=== PATIENT | male | born 1975 | race African-American/Black ===

== ENCOUNTER 2019-12-11 07:38 | Day surgery (SDC) | payer MEDICARE, MEDICAID, SELFPAY ==
--- NOTE | 2019-12-11 | US_ITS ---
EXAMINATION: ULTRASOUND-GUIDED PARACENTESIS CLINICAL INFORMATION: Ascites COMPARISON: Previous exams most recent November 2019 TECHNIQUE: Procedure and risks and benefits including bleeding, infection and low blood pressure were discussed with the patient and informed consent was obtained. The left lower quadrant was prepped and draped in the usual sterile fashion. The skin and soft tissues were anesthetized with 1% lidocaine plain. Using ultrasound guidance and a 5 [place] rapid centesis catheter, access to the ascitic fluid was obtained. 3.6 L of clear yellow fluid was removed. No diagnostic specimen was sent. FINDINGS: There is a moderate amount of ascites. IMPRESSION: Ultrasound-guided paracentesis.
[2019-12-11 08:01] VITALS: BP 187/116; PULSE 75; RESP 18; TEMP 36.2; O2SAT 97; BMI 21.4
[2019-12-11] MEDS: Lidocaine HCl 1 % 20 ML VIAL 5 ML SUBCUT (08:57)
[2019-12-11 10:15] VITALS: BP 189/112; PULSE 83; RESP 20; TEMP 36.4; O2SAT 94
[2019-12-11 10:45] VITALS: BP 119/119; PULSE 81; RESP 20; O2SAT 96
[2019-12-11 11:15] VITALS: BP 202/110; PULSE 84; RESP 20; O2SAT 97
[2019-12-11 11:20] VITALS: BP 187/110
== END 2019-12-11 23:59 ==
PROVIDERS: Radiology Diagnostic Radiology; PCP Internal Medicine; Visit Provider Internal Medicine
DX: R18.8 Other ascites (principal); I13.2 Hypertensive heart and chronic kidney disease with heart failure and with stage 5 chronic kidney disease, or end stage renal disease; N18.6 End stage renal disease; I50.30 Unspecified diastolic (congestive) heart failure; Z99.2 Dependence on renal dialysis; Z79.899 Other long term (current) drug therapy
CPT/HCPCS: 49083

== ENCOUNTER 2020-01-05 18:07 | Inpatient (IN) | payer MEDICARE, MEDICAID, SELFPAY ==
[2020-01-05] VITALS (11 sets, daily range): BP systolic 197–224; BP diastolic 105–144; PULSE 92–119; RESP 18–27; TEMP 36.7–36.8; O2SAT 88–100; BMI 19.0
--- NOTE | 2020-01-05 19:05 | ECG_ITS ---
Test Reason : SOB Blood Pressure : / mmHG Vent. Rate : 102 BPM Atrial Rate : 102 BPM P-R Int : 148 ms QRS Dur : 090 ms QT Int : 376 ms P-R-T Axes : 058 027 174 degrees QTc Int : 490 ms Sinus tachycardia Left ventricular hypertrophy with repolarization abnormality T-wave inversion in Lateral leads Abnormal ECG When compared with ECG of 23-NOV-2019 08:43, No significant change was found Referred By: Art Ortiz Electronically Signed By:ERIN PEREZ MD
--- NOTE | 2020-01-05 19:05 | XR_ITS ---
EXAMINATION: XR CHEST CLINICAL INFORMATION: Shortness of breath COMPARISON: 11/23/2019 TECHNIQUE: Frontal view of the chest was obtained. FINDINGS: Once again volume loss on the left with opacities which show no significant change from previous. There is also reticular change in the right lung which is comparable to previous. XR/XR chest 1V IMPRESSION: This examination is not changed from 11/23/2019. Opacities with volume loss on the left and reticular change on the right. No convincing evidence for new superimposed process.
--- NOTE | 2020-01-05 19:08 | ED_ITS ---
HPI - SOB/Dyspnea General Chief Complaint: Dyspnea Stated Complaint: diff breathing Time Seen by Provider: 01/05/20 18:56 Source: patient Mode of arrival: ambulatory Limitations: no limitations History of Present Illness HPI Narrative: patient's history of uncontrolled hypertension on multiple medications, end-stage renal disease on dialysis been having shortness of breath episode for last 2 weeks which usually gets better during dialysis but after that gets more short of breath patient had dialysis in the morning was doing fine in the afternoon just prior to arrival started having shortness of breath again was saturating 88% at room air blood pressure was 221/ 107 patient denies any cough no fever patient comes from [facility] where had a few patient with COVID positive Onset (ago): week(s) (2) Related Data Home Medications Medication Instructions Recorded Confirmed amlodipine PO 12/11/19 carvedilol PO 12/11/19 clonidine HCl PO 12/11/19 clonidine HCl PO 12/11/19 doxazosin mg PO 12/11/19 ferric citrate [Auryxia] PO 12/11/19 isosorbide mononitrate mg PO 12/11/19 lisinopril PO 12/11/19 lisinopril PO 12/11/19 lorazepam PO 12/11/19 12/11/19 Allergies Allergy/AdvReac Type Severity Reaction Status Date / Time No Known Allergies Allergy Verified 01/05/20 21:48 Review of Systems Review of Systems: REVIEW OF SYSTEMS: Pertinent positives and negatives are stated above in the history. GEN: no fevers, chills, fatigue HEENT: no nasal congestion, sore throat, ear pain NEURO: no headache, dizziness, focal weakness PULM: no cough CV: no chest pain, palpitations, LE edema ABD: no abdominal pain, nausea, vomiting, diarrhea : no dysuria, urgency, frequency SKIN: no rash ROS otherwise negative x 10 Neurologic: Reports Abnormal speech present [facility] Past Medical History Medical History CHF (congestive heart failure) Fistula Hypertension Kidney disease Social History Social History Smoking Status: Never smoker Use of substances other than those prescribed or required for medical reasons: No Advance Directives: No Advance Directives Information Provided: No Physical Exam Vital Signs: Vital Signs: Vital Signs Temp Pulse Resp BP Pulse Ox 01/05/20 23:32 98.3 F 94 18 202/108 H 99 01/05/20 22:50 92 20 205/136 H 98 01/05/20 22:30 95 216/133 H 01/05/20 21:36 98 27 H 224/142 H 99 01/05/20 20:46 101 H 224/144 H 01/05/20 20:19 103 H 18 224/139 H 96 01/05/20 19:20 97 20 197/122 H 99 01/05/20 19:17 116 H 217/134 H 01/05/20 18:21 100 01/05/20 18:17 98.0 F 119 H 20 210/105 H 88 L Body Mass Index 19.0 VITAL SIGNS: Reviewed. GENERAL: Well developed, well nourished, in no acute distress. HEAD: Normocephalic/atraumatic, EYES: PERRLA No icterus noted, pallor ++ EARS: Ext canals without abnormality NOSE: Nares patent bilateral OROPHARYNX: Oral mucosa moist no oral lesions NECK: Supple, no adenopathy LUNGS: Normal breath sounds. No adventitious sounds or accessory muscle use CARDIOVASCULAR: Regular rate and rhythm without noted murmurs, no JVD or lower extremity edema. ABDOMEN: Soft, non-tender, non-distended with bowel sounds. No rigidity. No guarding. No palpable masses or hernias noted MUSCULOSKELETAL: No tenderness, deformities, AV fistula with bruit left forearm EXTREMITIES: No cyanosis or edema. SKIN: no rashes, ulcerations, jaundice, pallor, or petechiae NEUROLOGIC: Alert and oriented x 3. Strength and sensation to light touch were grossly intact Const: General: cooperative Nutritional Appearance: average body habitus Orientation/consciousness: oriented to person, oriented to place and oriented to time Limitations: no limitations HENMT: Head: Yes normal to inspection Mouth: Normal oral and palatal mucosa present Eyes: General: appearance normal, both eyes and all related structures Pupils: Equal, round and reactive pupils present EOM: EOMs intact bilaterally Neck: Neck: Yes normal visual inspection and Yes full ROM Thyroid: Thyroid normal Lymphatic: no lymphadenopathy noted Resp: Effort & Inspection: normal respiratory effort and able to speak in complete sentences Auscultation: clear to auscultation bilaterally Cardio: Palpation: normal PMI Rate: regular rate Rhythm: regular rhythm and abnormal rhythm Heart sounds: S1 normal heart sound present and S2 normal heart sound present GI: Inspection: Yes normal to inspection Palpation (GI): Soft to palpation and nontender : General: Yes no CVA tenderness Back/Spine/Pelvis: Back: no CVA tenderness Neuro: General: oriented to person, oriented to place and oriented to time Cranial nerves: Yes CN's II-XII intact bilaterally and Yes Equal, round and reactive pupils present Cognition (Neuro): normal cognition Speech: Abnormal speech present Gait exam (Neuro): Normal gait present Motor exam (neuro): 5/5 motor strength present throughout Sensory Exam: Normal double simultaneous stimulation for sensation Extrem: General: Yes normal to inspection, Yes full ROM and Yes no pedal edema Psych: Mental Status: mental status grossly normal Course Course Course Narrative: patient with hypertensive urgency requiring multiple doses of IV antihypertensive initially he received 2 doses of labetalol 20 mg p.o. cl onidine 0.2 mg without much response patient responded to hydralazine 2 doses 20 mg each and nitropaste is still blood pressure elevated patient denies any headache no focal neurological deficit will admit patient for hypertensive urgency MDM - SOB/Dyspnea Lab Data Result diagrams: 01/05/20 19:13 01/05/20 19:13 Labs: Lab Results 01/05/20 01/05/20 01/05/20 Range/Units 19:13 19:13 19:13 WBC 13.0 H (4.8-10.8) X10*3/uL RBC 3.13 L (4.60-5.80) X10*6/uL Hgb 9.6 L (14.0-18.0) g/dl Hct 29.2 L (42-52) % MCV 93.3 (80-98) fL MCH 30.7 (27.0-33.0) pg MCHC 32.9 (31.0-36.0) g/dl RDW 18.1 H (11.0-16.0) % Plt Count 228 (160-400) X10*3/uL MPV 9.5 (9.4-12.4) fL Immature Gran % (Auto) 0.4 (0.0-0.4) % Neut % (Auto) 87.0 H (45-73) % Lymph % (Auto) 6.0 L (20-40) % [place] % (Auto) 5.3 (2-11) % Eos % (Auto) 0.8 (0-4) % Baso % (Auto) 0.5 (0-2) % Lymph # (Auto) 0.8 L (1.2-4.9) X10*3/uL [place] # (Auto) 0.7 (0.1-1.2) X10*3/uL Eos # (Auto) 0.1 (0.0-0.4) X10*3/uL Baso # (Auto) 0.1 (0.0-0.2) X10*3/uL Abs Immat Gran (auto) 0.05 H (0.00-0.03) X10*3/uL Absolute Neuts (auto) 11.3 H (2.0-8.3) X10*3/uL Absolute Nucleated RBC 0.000 (0.0-0.012) X10*3/uL Nucleated RBC % (auto) 0.0 (0.0-0.2) /100WBC Hold Blue Top SEE NOTE Sodium 136 (135-145) mmol/L Potassium 4.7 (3.3-5.1) mmol/l Chloride 93 L (96-108) mmol/L Carbon Dioxide 28 (22-29) mmol/L Anion Gap 20 (12-20) BUN 44 H (9-16) mg/dL Creatinine 7.98 H* (0.5-1.4) mg/dL Estim Creat Clear Calc 8.9 Estimated GFR 7 Random Glucose 170 H (60-115) mg/dL Calcium 8.2 L (8.4-10.2) mg/dL Troponin I High Sens (<3.5-35.0) ng/L B-Natriuretic Peptide (<100) pg/mL Coronavirus (PCR) 01/05/20 01/05/20 01/05/20 Range/Units 19:13 19:25 19:54 WBC (4.8-10.8) X10*3/uL RBC (4.60-5.80) X10*6/uL Hgb (14.0-18.0) g/dl Hct (42-52) % MCV (80-98) fL MCH (27.0-33.0) pg MCHC (31.0-36.0) g/dl RDW (11.0-16.0) % Plt Count (160-400) X10*3/uL MPV (9.4-12.4) fL Immature Gran % (Auto) (0.0-0.4) % Neut % (Auto) (45-73) % Lymph % (Auto) (20-40) % [place] % (Auto) (2-11) % Eos % (Auto) (0-4) % Baso % (Auto) (0-2) % Lymph # (Auto) (1.2-4.9) X10*3/uL [place] # (Auto) (0.1-1.2) X10*3/uL Eos # (Auto) (0.0-0.4) X10*3/uL Baso # (Auto) (0.0-0.2) X10*3/uL Abs Immat Gran (auto) (0.00-0.03) X10*3/uL Absolute Neuts (auto) (2.0-8.3) X10*3/uL Absolute Nucleated RBC (0.0-0.012) X10*3/uL Nucleated RBC % (auto) (0.0-0.2) /100WBC Hold Blue Top Sodium (135-145) mmol/L Potassium (3.3-5.1) mmol/l Chloride (96-108) mmol/L Carbon Dioxide (22-29) mmol/L Anion Gap (12-20) BUN (9-16) mg/dL Creatinine (0.5-1.4) mg/dL Estim Creat Clear Calc Estimated GFR Random Glucose (60-115) mg/dL Calcium (8.4-10.2) mg/dL Troponin I High Sens 200.2 H (<3.5-35.0) ng/L B-Natriuretic Peptide 6584 H (<100) pg/mL Coronavirus (PCR) Cancelled NEGATIVE ECG Data Attestation: I personally reviewed and interpreted this ECG as follows: Prior ECG tracings: available for review Interpretation: heart rate 102 sinus tachycardia LVH no acute STT wave changes normal intervals Critical Care Time Critical Care Time Critical Care Time: Yes Total Critical Care Time: 45 Attestation: critical time 45 minutes Discharge Plan Discharge Clinical Impression: Accelerated essential hypertension, ESRD (end stage renal disease) on dialysis Patient Disposition: Admitted As Inpatient
[2020-01-05] MEDS: Labetalol HCL 100 MG/20 ML VIAL 20 MG IVPUSH ×2 (19:17→20:46)
--- NOTE | 2020-01-05 19:19 | PC.NURSE ---
pt currently denies any sob, pain, nausea, dizziness. 18G in L forearm. BP remains eleated, medicated as per emr. Remains on 2.5L O2 via NC.
[2020-01-05 19:20] LABS: Basophils Absolute Auto 0.1 X10*3/uL (0.0-0.2); Basophils Percent Auto 0.5 % (0-2); Eosinophils Absolute Auto 0.1 X10*3/uL (0.0-0.4); Eosinophils Percent Auto 0.8 % (0-4); Hematocrit 29.2 % (42-52); Hemoglobin 9.6 g/dl (14.0-18.0); Imm Gran Abs Auto 0.05 X10*3/uL (0.00-0.03); Imm Gran Pct Auto 0.4 % (0.0-0.4); Lymphocytes Absolute Auto 0.8 X10*3/uL (1.2-4.9); MANUAL DIFF FLAG NO; Mean Corpuscular HGB Conc 32.9 g/dl (31.0-36.0); Mean Corpuscular Hemoglobin 30.7 pg (27.0-33.0); Mean Corpuscular Volume 93.3 fL (80-98); Mean Platelet Volume 9.5 fL (9.4-12.4); Monocytes Absolute Auto 0.7 X10*3/uL (0.1-1.2); Monocytes Percent Auto 5.3 % (2-11); Neutrophils Absolute Auto 11.3 X10*3/uL (2.0-8.3); Platelet Count 228 X10*3/uL (160-400); Red Blood Count 3.13 X10*6/uL (4.60-5.80); Red Cell Distribution Width 18.1 % (11.0-16.0)
--- NOTE | 2020-01-05 19:53 | PC.NURSE ---
LAB ORDERED RE-DO OF COV TEST.
[2020-01-05 20:12] LABS: Anion Gap 20 (12-20); Blood Urea Nitrogen 44 mg/dL (9-16); Calcium 8.2 mg/dL (8.4-10.2); Carbon Dioxide 28 mmol/L (22-29); Chloride 93 mmol/L (96-108); Creatinine Clr Calc Pharmacy 8.9; Estimated Glomerular Filt Rate 7; Glucose Random 170 mg/dL (60-115); Potassium 4.7 mmol/l (3.3-5.1); Sodium 136 mmol/L (135-145); Troponin-I High Sensitivity 200.2 ng/L (<3.5-35.0)
[2020-01-05 20:35] LABS: B Type Natriuretic Peptide 6584 pg/mL (<100)
--- NOTE | 2020-01-05 20:44 | PC.NURSE ---
BP remains elevated. medicated as per emr. [facility] pt currently denying sob, chest pain.
[2020-01-05] MEDS: cloNIDine HCL 0.2 MG TABLET PO (20:46)
[2020-01-05 21:07] LABS: SARS COV2 PCR INHOUSE NEGATIVE (Negative)
[2020-01-05] MEDS: hydrALAZINE HCl 20 MG/ML VIAL IVPUSH ×2 (22:30→23:43)
[2020-01-05] MEDS: Nitroglycerin 2 % Oint 1 GM Packet 1 INCH TRANSDERMA (23:43)
[2020-01-06] VITALS (34 sets, daily range): BP systolic 109–218; BP diastolic 81–123; PULSE 85–124; RESP 15–34; TEMP 36.6–37.4; O2SAT 91–100; BMI 20.7
--- NOTE | 2020-01-06 00:47 | ED.SOB ---
HPI - SOB/Dyspnea General Chief Complaint: Dyspnea Stated Complaint: diff breathing Time Seen by Provider: 01/05/20 18:56 Source: patient Mode of arrival: ambulatory Limitations: no limitations History of Present Illness HPI Narrative: patient with history of end-stage renal disease severe hypertension on multiple medications been feeling short of breath for last 2 weeks which gets better after dialysis today she patient had dialysis and was feeling better went home and within few hours of that started feeling shortness of breath was saturating 88% at room air on arrival patient's blood pressure was 220/120 patient denies any headache no loss of consciousness no chest pain feel short of breath. Dry cough MD elicited complaint: shortness of breath Related Data Home Medications Medication Instructions Recorded Confirmed amlodipine 10 mg PO 12/11/19 carvedilol 25 mg PO 12/11/19 clonidine HCl 0.2 mg PO 12/11/19 clonidine HCl 0.3 mg PO 12/11/19 doxazosin 1 mg PO 12/11/19 ferric citrate [Auryxia] 210 mg PO 12/11/19 isosorbide mononitrate 60 mg PO 12/11/19 lisinopril 2.5 mg PO 12/11/19 lisinopril 20 mg PO 12/11/19 lorazepam 0.5 mg PO 12/11/19 12/11/19 Allergies Allergy/AdvReac Type Severity Reaction Status Date / Time No Known Allergies Allergy Verified 01/05/20 21:48 Review of Systems Review of Systems: REVIEW OF SYSTEMS: Pertinent positives and negatives are stated above in the history. GEN: no fevers, chills, fatigue HEENT: no nasal congestion, sore throat, ear pain NEURO: no headache, dizziness, focal weakness PULM: dry cough+ CV: no chest pain, palpitations, LE edema ABD: no abdominal pain, nausea, vomiting, diarrhea : no dysuria, urgency, frequency SKIN: no rash ROS otherwise negative x 10 PMFSH Past Medical History Medical History CHF (congestive heart failure) Fistula Hypertension Kidney disease Social History Social History Smoking Status: Never smoker Use of substances other than those prescribed or required for medical reasons: No Advance Directives: No Advance Directives Information Provided: No Physical Exam Vital Signs: Vital Signs: Vital Signs Temp Pulse Resp BP Pulse Ox 01/06/20 00:10 96 195/114 H 100 01/05/20 23:43 94 209/119 H 01/05/20 23:32 98.3 F 94 18 202/108 H 99 01/05/20 22:50 92 20 205/136 H 98 01/05/20 22:30 95 216/133 H 01/05/20 21:36 98 27 H 224/142 H 99 01/05/20 20:46 101 H 224/144 H 01/05/20 20:19 103 H 18 224/139 H 96 01/05/20 19:20 97 20 197/122 H 99 01/05/20 19:17 116 H 217/134 H 01/05/20 18:21 100 01/05/20 18:17 98.0 F 119 H 20 210/105 H 88 L Body Mass Index 19.0 VITAL SIGNS: Reviewed. GENERAL: Well developed, well nourished, in no acute distress. HEAD: Normocephalic/atraumatic, EYES: PERRLA No pallor/icterus noted EARS: Ext canals without abnormality NOSE: Nares patent bilateral OROPHARYNX: Oral mucosa moist no oral lesions NECK: Supple, no adenopathy LUNGS: decreased air entry bilateral. No adventitious sounds or accessory muscle use CARDIOVASCULAR: Regular rate and rhythm without noted murmurs, no JVD or lower extremity edema. ABDOMEN: Soft, non-tender, non-distended with bowel sounds. No rigidity. No guarding. No palpable masses or hernias noted MUSCULOSKELETAL: No tenderness, deformities, EXTREMITIES: No cyanosis or edema. AV fistula with bruit on left arm SKIN: no rashes, ulcerations, jaundice, pallor, or petechiae NEUROLOGIC: Alert and oriented x 3. Strength and sensation to light touch were grossly intact Course Course Course Narrative: patient with hypertensive urgency requiring multiple doses of IV antihypertensive medication initially received 2 doses of labetalol 20 mg IV and p.o. clonidine 0.2 mg without much response then patient was given hydralazine 20 mg IV 2 doses and nitropaste last blood pressure was 195/114 patient feeling better now will admit patient for hypertensive urgency. Patient has no headache or any focal neurological deficit MDM - SOB/Dyspnea Differential Diagnosis Differential diagnosis: Likely congestive heart failure Lab Data Result diagrams: 01/05/20 19:13 01/05/20 19:13 Labs: Lab Results 01/05/20 01/05/20 01/05/20 Range/Units 19:13 19:13 19:13 WBC 13.0 H (4.8-10.8) X10*3/uL RBC 3.13 L (4.60-5.80) X10*6/uL Hgb 9.6 L (14.0-18.0) g/dl Hct 29.2 L (42-52) % MCV 93.3 (80-98) fL MCH 30.7 (27.0-33.0) pg MCHC 32.9 (31.0-36.0) g/dl RDW 18.1 H (11.0-16.0) % Plt Count 228 (160-400) X10*3/uL MPV 9.5 (9.4-12.4) fL Immature Gran % (Auto) 0.4 (0.0-0.4) % Neut % (Auto) 87.0 H (45-73) % Lymph % (Auto) 6.0 L (20-40) % [place] % (Auto) 5.3 (2-11) % Eos % (Auto) 0.8 (0-4) % Baso % (Auto) 0.5 (0-2) % Lymph # (Auto) 0.8 L (1.2-4.9) X10*3/uL [place] # (Auto) 0.7 (0.1-1.2) X10*3/uL Eos # (Auto) 0.1 (0.0-0.4) X10*3/uL Baso # (Auto) 0.1 (0.0-0.2) X10*3/uL Abs Immat Gran (auto) 0.05 H (0.00-0.03) X10*3/uL Absolute Neuts (auto) 11.3 H (2.0-8.3) X10*3/uL Absolute Nucleated RBC 0.000 (0.0-0.012) X10*3/uL Nucleated RBC % (auto) 0.0 (0.0-0.2) /100WBC Hold Blue Top SEE NOTE Sodium 136 (135-145) mmol/L Potassium 4.7 (3.3-5.1) mmol/l Chloride 93 L (96-108) mmol/L Carbon Dioxide 28 (22-29) mmol/L Anion Gap 20 (12-20) BUN 44 H (9-16) mg/dL Creatinine 7.98 H* (0.5-1.4) mg/dL Estim Creat Clear Calc 8.9 Estimated GFR 7 Random Glucose 170 H (60-115) mg/dL Calcium 8.2 L (8.4-10.2) mg/dL Troponin I High Sens (<3.5-35.0) ng/L B-Natriuretic Peptide (<100) pg/mL Coronavirus (PCR) 01/05/20 01/05/20 01/05/20 Range/Units 19:13 19:25 19:54 WBC (4.8-10.8) X10*3/uL RBC (4.60-5.80) X10*6/uL Hgb (14.0-18.0) g/dl Hct (42-52) % MCV (80-98) fL MCH (27.0-33.0) pg MCHC (31.0-36.0) g/dl RDW (11.0-16.0) % Plt Count (160-400) X10*3/uL MPV (9.4-12.4) fL Immature Gran % (Auto) (0.0-0.4) % Neut % (Auto) (45-73) % Lymph % (Auto) (20-40) % [place] % (Auto) (2-11) % Eos % (Auto) (0-4) % Baso % (Auto) (0-2) % Lymph # (Auto) (1.2-4.9) X10*3/uL [place] # (Auto) (0.1-1.2) X10*3/uL Eos # (Auto) (0.0-0.4) X10*3/uL Baso # (Auto) (0.0-0.2) X10*3/uL Abs Immat Gran (auto) (0.00-0.03) X10*3/uL Absolute Neuts (auto) (2.0-8.3) X10*3/uL Absolute Nucleated RBC (0.0-0.012) X10*3/uL Nucleated RBC % (auto) (0.0-0.2) /100WBC Hold Blue Top Sodium (135-145) mmol/L Potassium (3.3-5.1) mmol/l Chloride (96-108) mmol/L Carbon Dioxide (22-29) mmol/L Anion Gap (12-20) BUN (9-16) mg/dL Creatinine (0.5-1.4) mg/dL Estim Creat Clear Calc Estimated GFR Random Glucose (60-115) mg/dL Calcium (8.4-10.2) mg/dL Troponin I High Sens 200.2 H (<3.5-35.0) ng/L B-Natriuretic Peptide 6584 H (<100) pg/mL Coronavirus (PCR) Cancelled NEGATIVE ECG Data Attestation: I personally reviewed and interpreted this ECG as follows: Prior ECG tracings: available for review Interpretation: sinus tachycardia with heart rate 102 LVH with repolarization abnormalities no acute ST wave changes normal axis Critical Care Time Critical Care Time Critical Care Time: Yes Total Critical Care Time: 40 Attestation: critical care time involved in patient care only Discharge Plan Discharge Clinical Impression: Accelerated essential hypertension, ESRD (end stage renal disease) on dialysis Patient Disposition: Admitted As Inpatient
[2020-01-06] MEDS: hydrALAZINE HCl 20 MG/ML VIAL 10 MG IVPUSH (02:36)
[2020-01-06] MEDS: niCARdipine HCL 25 MG in 0.9 % Sodium Chloride 250 ML 52 MG IVCONT (03:28)
--- NOTE | 2020-01-06 04:04 | P.HPCC_ITS ---
History of Present Illness Date of Service: 01/06/20 Chief Complaint: shortness of breath Mr. Chávez is a 44-year-old male with past medical history of hypertension and end-stage renal failure on dialysis (MWF), diastolic congestive heart failure, ascites, and anxiety. He presented to the emergency room with worsening shortness of breath. Patient reported having dialysis yesterday, and shortness of breath persisted despite dialysis. On arrival to the ED his blood pressure was noted to be 220/120. In the ED he received labetalol 40, hydralazine 40, clonidine 0.2, nitro patch but no improvement in his blood pressure. Laboratory data in the ED significant for WBC 13, chloride 93, BUN 44, c reatinine 7.98, troponin sensitivity 200.2, BNP 6584 Chest x-ray with no acute findings from previous He will be admitted to the ICU for management of hypertensive crisis with Cardene drip Review of Systems Constitutional: Constitutional: Denies headache(s) Eyes: Eyes: Denies diplopia ENT: Denies dizziness and Denies headache(s) Cardiovascular: Cardiovascular: Denies chest pain and Reports dyspnea Respiratory: Respiratory: Reports dyspnea Neurologic: Denies dizziness and Denies headache(s) [facility] Past Medical History Medical History CHF (congestive heart failure) Fistula Hypertension Kidney disease Social History Social History (Updated 01/06/20 @ 04:07 by Chance Adkins) Household Members Other:: lives with girlfriend Smoking Status: Never smoker Use of substances other than those prescribed or required for medical reasons: No Advance Directives: No Advance Directives Information Provided: No Meds Allergies Allergy/AdvReac Type Severity Reaction Status Date / Time No Known Allergies Allergy Verified 01/05/20 21:48 Home Medications Medication Instructions Recorded Confirmed Type amlodipine 10 mg PO 12/11/19 History carvedilol 25 mg PO 12/11/19 History clonidine HCl 0.2 mg PO 12/11/19 History clonidine HCl 0.3 mg PO 12/11/19 History doxazosin 1 mg PO 12/11/19 History ferric citrate [Auryxia] 210 mg PO 12/11/19 History isosorbide mononitrate 60 mg PO 12/11/19 History lisinopril 2.5 mg PO 12/11/19 History lisinopril 20 mg PO 12/11/19 History lorazepam 0.5 mg PO 12/11/19 12/11/19 History Physical Exam Vital Signs: Vital Signs: Vital Signs Temp Pulse Resp BP Pulse Ox 01/06/20 03:49 199/102 H 01/06/20 02:36 100 215/123 H 01/06/20 02:24 102 H 16 218/121 H 100 01/06/20 01:19 93 22 H 189/111 H 99 01/06/20 00:10 96 195/114 H 100 01/05/20 23:43 94 209/119 H 01/05/20 23:32 98.3 F 94 18 202/108 H 99 01/05/20 22:50 92 20 205/136 H 98 01/05/20 22:30 95 216/133 H 01/05/20 21:36 98 27 H 224/142 H 99 01/05/20 20:46 101 H 224/144 H 01/05/20 20:19 103 H 18 224/139 H 96 01/05/20 19:20 97 20 197/122 H 99 01/05/20 19:17 116 H 217/134 H 01/05/20 18:21 100 01/05/20 18:17 98.0 F 119 H 20 210/105 H 88 L Body Mass Index 19.0 Const: General: comfortable and no acute distress Eyes: Pupils: Equal, round and reactive pupils present Neck: Neck: Yes supple Resp: Effort & Inspection: normal respiratory effort Auscultation: clear to auscultation bilaterally Cardio: Jugular venous distension: no JVD Rate: regular rate Rhythm: regular rhythm Heart sounds: S1 normal heart sound present and S2 normal heart sound present Peripheral pulses: Peripheral pulses 2+ throughout GI: Inspection: Yes normal to inspection Palpation (GI): Soft to palpation Neuro: Cranial nerves: Yes Equal, round and reactive pupils present Extrem: General: Yes AV fistula (Left forearm ) Results Labs Labs: Laboratory Tests 01/05/20 01/05/20 01/05/20 19:13 19:13 19:13 WBC 13.0 H RBC 3.13 L Hgb 9.6 L Hct 29.2 L MCV 93.3 MCH 30.7 MCHC 32.9 RDW 18.1 H Plt Count 228 MPV 9.5 Immature Gran % (Auto) 0.4 Neut % (Auto) 87.0 H Lymph % (Auto) 6.0 L [place] % (Auto) 5.3 Eos % (Auto) 0.8 Baso % (Auto) 0.5 Lymph # (Auto) 0.8 L [place] # (Auto) 0.7 Eos # (Auto) 0.1 Baso # (Auto) 0.1 Abs Immat Gran (auto) 0.05 H Absolute Neuts (auto) 11.3 H Absolute Nucleated RBC 0.000 Nucleated RBC % (auto) 0.0 Hold Blue Top SEE NOTE Sodium 136 Potassium 4.7 Chloride 93 L Carbon Dioxide 28 Anion Gap 20 BUN 44 H Creatinine 7.98 H* Estim Creat Clear Calc 8.9 Estimated GFR 7 Random Glucose 170 H Calcium 8.2 L Troponin I High Sens B-Natriuretic Peptide Coronavirus (PCR) 01/05/20 01/05/20 01/05/20 19:13 19:25 19:54 WBC RBC Hgb Hct MCV MCH MCHC RDW Plt Count MPV Immature Gran % (Auto) Neut % (Auto) Lymph % (Auto) [place] % (Auto) Eos % (Auto) Baso % (Auto) Lymph # (Auto) [place] # (Auto) Eos # (Auto) Baso # (Auto) Abs Immat Gran (auto) Absolute Neuts (auto) Absolute Nucleated RBC Nucleated RBC % (auto) Hold Blue Top Sodium Potassium Chloride Carbon Dioxide Anion Gap BUN Creatinine Estim Creat Clear Calc Estimated GFR Random Glucose Calcium Troponin I High Sens 200.2 H B-Natriuretic Peptide 6584 H Coronavirus (PCR) Cancelled NEGATIVE Imaging Chest x-ray: Attestation: I personally reviewed and interpreted this imaging study as follows: My impression: no acute changes from previous one Assessment and Plan (1) Accelerated essential hypertension: Status: Acute (2) ESRD (end stage renal disease) on dialysis: Status: Acute (3) Heart failure: Qualifiers: Heart failure chronicity: acute Heart failure type: unspecified Qualified Code(s): I50.9 - Heart failure, unspecified Status: Acute 44-year-old male with a past medical history of end-stage renal disease and uncontrolled hypertension presented today in hypertensive crisis requiring Cardene drip Neuro: no acute issues Cardiac: Hypertensive crisis- according to patient his blood pressures range from 180 to 200s usually. He does admit to noncompliance with medications at times and he does report a noncompliance with dialysis. He did go to dialysis yesterday, and states he did completed treatment. On home carvedilol 25 mg BID and an clonidine 0.2 mg TID. he states that amlodipine was discontinued last week. He denies headache, dizziness, but he did report orthopnea. His last echo is from 2011. Chest x-ray does not show any changes from previous x-ray in November of this year. Will continue Cardene drip, will add vasotec, and Catapres patch Will not lower blood pressure aggressively due to patient has a history of noncompliance to medications and high systolic blood pressures ECHO in the AM Pulmonary: Shortness of breath- despite the patient complaining of orthopnea, the patient was on room air breathing comfortably when I assessed him. Will continue to monitor for worsening shortness of breath. Renal: ESRD- BUN 44, creatinine 7.98. Creatinine in nov was 5.73. Will repeat labs when admitted to the ICU and will intellectual property counsel nephrology services Endo: No acute issues. ID: leukocytosis- white count elevated to 13, no evidence of acute infection. Will continue to trend WBC pending. GI: No acute issues. Heme/Onc: No acute issues. Psych: No acute issues. Miscellaneous: No acute issues. Prophylaxis: Heparin, does not require GI prophylaxis Diet: NPO Critical care time: case discussed with attending Dr Sexton who agrees with plan
[2020-01-06] MEDS: Heparin Sodium,Porcine 5,000 UNIT/ML VIAL 5000 UNIT SUBCUT ×3 (04:47→21:09)
[2020-01-06] MEDS: Enalaprilat Dihydrate 1.25 MG/ML VIAL 0.625 MG IVPUSH ×4 (04:49→20:17)
[2020-01-06] MEDS: cloNIDine 0.2 MG PATCH.TDWK TRANSDERMA (05:36)
[2020-01-06 05:39] LABS: MANUAL DIFF FLAG NO
[2020-01-06 05:43] LABS: Basophils Percent Auto 0.3 % (0-2); Eosinophils Absolute Auto 0.1 X10*3/uL (0.0-0.4); Eosinophils Percent Auto 0.7 % (0-4); Hematocrit 27.3 % (42-52); Hemoglobin 8.9 g/dl (14.0-18.0); Imm Gran Abs Auto 0.05 X10*3/uL (0.00-0.03); Imm Gran Pct Auto 0.4 % (0.0-0.4); Lymphocytes Absolute Auto 0.9 X10*3/uL (1.2-4.9); Lymphocytes Percent Auto 7.3 % (20-40); Mean Corpuscular HGB Conc 32.6 g/dl (31.0-36.0); Mean Corpuscular Hemoglobin 30.5 pg (27.0-33.0); Mean Corpuscular Volume 93.5 fL (80-98); Mean Platelet Volume 10.3 fL (9.4-12.4); Monocytes Absolute Auto 0.7 X10*3/uL (0.1-1.2); Neutrophils Percent Auto 85.3 % (45-73); Platelet Count 213 X10*3/uL (160-400); Red Blood Count 2.92 X10*6/uL (4.60-5.80); Red Cell Distribution Width 18.4 % (11.0-16.0); White Blood Count 11.7 X10*3/uL (4.8-10.8)
[2020-01-06 06:11] LABS: Alanine Aminotransferase 7 U/L (0-40); Albumin Level 3.7 g/dL (3.5-5.0); Alkaline Phosphatase 55 U/L (39-117); Aspartate Amino Transferase 16 U/L (5-37); Bilirubin Direct 0.4 mg/dL (0.0-0.5); Bilirubin Total 1.3 mg/dL (0.0-1.0); Total Protein 6.3 g/dL (6.5-8.0)
[2020-01-06 06:12] LABS: B Type Natriuretic Peptide 4991 pg/mL (<100); Troponin-I High Sensitivity 180.5 ng/L (<3.5-35.0)
[2020-01-06 06:13] LABS: Albumin Level 3.7 g/dL (3.5-5.0); Anion Gap 22 (12-20); Blood Urea Nitrogen 50 mg/dL (9-16); Calcium 8.2 mg/dL (8.4-10.2); Carbon Dioxide 25 mmol/L (22-29); Chloride 93 mmol/L (96-108); Creatinine Clr Calc Pharmacy 8.8; Estimated Glomerular Filt Rate 7; Glucose Random 126 mg/dL (60-115); Magnesium 2.7 mg/dL (1.6-2.6); Phosphorus 5.3 mg/dL (2.7-4.5); Potassium 4.5 mmol/l (3.3-5.1); Sodium 135 mmol/L (135-145)
[2020-01-06] MEDS: niCARdipine HCL 25 MG in 0.9 % Sodium Chloride 250 ML 78 MG IVCONT (07:25)
--- NOTE | 2020-01-06 10:05 | PC.NURSE ---
WEIGHT 59.7 KG
--- NOTE | 2020-01-06 12:09 | PC.NURSE ---
pt c/o anxiety md aware given 0.5mg po ativan
[2020-01-06] MEDS: LORazepam 0.5 MG TABLET PO ×2 (12:12→20:18)
--- NOTE | 2020-01-06 13:22 | ECG_ITS ---
Test Reason : change in QRS Blood Pressure : / mmHG Vent. Rate : 095 BPM Atrial Rate : 095 BPM P-R Int : 146 ms QRS Dur : 086 ms QT Int : 390 ms P-R-T Axes : 044 033 178 degrees QTc Int : 490 ms Normal sinus rhythm Possible Left atrial enlargement Left ventricular hypertrophy with repolarization abnormality T-wave inversion in Lateral leads Abnormal ECG When compared with ECG of 05-JAN-2020 20:36, No significant change was found Referred By: Isiah Sexton Electronically Signed By:ERIN PEREZ MD
--- NOTE | 2020-01-06 13:28 | P.CONCA_ITS ---
History of Present Illness History of Present Illness Date of Consult: January 06, 2020 Requesting physician: Diana Rachel Consult reason: congestive heart failure Chief complaint: Hypertensive crisis Narrative: dyspnea and orthopnea Review of Systems Constitutional: Constitutional: Denies headache(s) ENT: Denies dizziness and Denies headache(s) Neurologic: Denies dizziness and Denies headache(s) [facility] Past Medical History Medical History CHF (congestive heart failure) Fistula Hypertension Kidney disease Social History Social History (Updated 01/06/20 @ 04:07 by Chance Adkins) Household Members Other:: lives with girlfriend Smoking Status: Never smoker Use of substances other than those prescribed or required for medical reasons: No Currently Displaying Signs/Symptoms of Drug Intoxication Withdrawal: No Advance Directives: No Advance Directives Information Provided: No Do you have thoughts of harming others: None Do you have a plan to hurt others: No Plan Meds Allergies Allergy/AdvReac Type Severity Reaction Status Date / Time No Known Allergies Allergy Verified 01/05/20 21:48 Home Medications Medication Instructions Recorded Confirmed Type amlodipine 10 mg PO 12/11/19 History carvedilol 25 mg PO 12/11/19 History clonidine HCl 0.2 mg PO 12/11/19 History clonidine HCl 0.3 mg PO 12/11/19 History doxazosin 1 mg PO 12/11/19 History ferric citrate [Auryxia] 210 mg PO 12/11/19 History isosorbide mononitrate 60 mg PO 12/11/19 History lisinopril 2.5 mg PO 12/11/19 History lisinopril 20 mg PO 12/11/19 History lorazepam 0.5 mg PO 12/11/19 12/11/19 History Physical Exam Vital Signs: Vital Signs: Vital Signs Temp Pulse Resp BP Pulse Ox 01/06/20 13:00 110 H 25 H 178/96 H 95 01/06/20 12:00 98.7 F 111 H 27 H 190/96 H 01/06/20 11:00 104 H 26 H 204/107 H 01/06/20 10:00 118 H 20 109/103 H 01/06/20 09:00 115 H 30 H 187/96 H 97 01/06/20 08:00 98.6 F 111 H 17 186/93 H 98 01/06/20 06:56 112 H 32 H 184/98 H 96 01/06/20 05:36 108 H 186/95 H 01/06/20 04:49 105 H 193/98 H 01/06/20 04:41 108 H 18 193/98 H 99 01/06/20 04:33 104 H 22 H 185/94 H 99 01/06/20 04:00 99.4 F 108 H 20 190/101 H 99 01/06/20 03:49 199/102 H 01/06/20 03:36 96 01/06/20 02:36 100 215/123 H 01/06/20 02:24 102 H 16 218/121 H 100 01/06/20 01:19 93 22 H 189/111 H 99 01/06/20 00:10 96 195/114 H 100 01/05/20 23:43 94 209/119 H 01/05/20 23:32 98.3 F 94 18 202/108 H 99 01/05/20 22:50 92 20 205/136 H 98 01/05/20 22:30 95 216/133 H 01/05/20 21:36 98 27 H 224/142 H 99 01/05/20 20:46 101 H 224/144 H 01/05/20 20:19 103 H 18 224/139 H 96 01/05/20 19:20 97 20 197/122 H 99 01/05/20 19:17 116 H 217/134 H 01/05/20 18:21 100 01/05/20 18:17 98.0 F 119 H 20 210/105 H 88 L Body Mass Index 20.7 he is awake and alert and oriented neurologically intact and nonfocal skin intact with no wounds no acrocyanosis and no livedo cardiac exam with normal S1 and normal S2 no gallops or murmurs but he has positive neck vein distension and adequate bilateral carotid upstrokes markedly hypertensive with systolic pressure greater than 220 but a normal sinus rhythm with EKG showing left ventricular hypertrophy and diffuse nonspecific ST-T changes chest just mildly tachypneic but no adventitious sounds and no accessory muscle use abdomen distended and ballotable indicating ascites Results Labs and Meds Result diagrams: 01/06/20 05:28 01/06/20 05:28 Lab results: Laboratory Results - last 24 hr 01/05/20 01/05/20 01/05/20 19:13 19:13 19:13 WBC 13.0 H RBC 3.13 L Hgb 9.6 L Hct 29.2 L MCV 93.3 MCH 30.7 MCHC 32.9 RDW 18.1 H Plt Count 228 MPV 9.5 Immature Gran % (Auto) 0.4 Neut % (Auto) 87.0 H Lymph % (Auto) 6.0 L [place] % (Auto) 5.3 Eos % (Auto) 0.8 Baso % (Auto) 0.5 Lymph # (Auto) 0.8 L [place] # (Auto) 0.7 Eos # (Auto) 0.1 Baso # (Auto) 0.1 Abs Immat Gran (auto) 0.05 H Absolute Neuts (auto) 11.3 H Absolute Nucleated RBC 0.000 Nucleated RBC % (auto) 0.0 Hold Blue Top SEE NOTE Sodium 136 Potassium 4.7 Chloride 93 L Carbon Dioxide 28 Anion Gap 20 BUN 44 H Creatinine 7.98 H* Estim Creat Clear Calc 8.9 Estimated GFR 7 Random Glucose 170 H Calcium 8.2 L Phosphorus Magnesium Total Bilirubin Direct Bilirubin AST ALT Alkaline Phosphatase Troponin I High Sens B-Natriuretic Peptide Total Protein Albumin Coronavirus (PCR) 01/05/20 01/05/20 01/05/20 19:13 19:25 19:54 WBC RBC Hgb Hct MCV MCH MCHC RDW Plt Count MPV Immature Gran % (Auto) Neut % (Auto) Lymph % (Auto) [place] % (Auto) Eos % (Auto) Baso % (Auto) Lymph # (Auto) [place] # (Auto) Eos # (Auto) Baso # (Auto) Abs Immat Gran (auto) Absolute Neuts (auto) Absolute Nucleated RBC Nucleated RBC % (auto) Hold Blue Top Sodium Potassium Chloride Carbon Dioxide Anion Gap BUN Creatinine Estim Creat Clear Calc Estimated GFR Random Glucose Calcium Phosphorus Magnesium Total Bilirubin Direct Bilirubin AST ALT Alkaline Phosphatase Troponin I High Sens 200.2 H B-Natriuretic Peptide 6584 H Total Protein Albumin Coronavirus (PCR) Cancelled NEGATIVE 01/06/20 01/06/20 01/06/20 05:28 05:28 05:28 WBC 11.7 H RBC 2.92 L Hgb 8.9 L Hct 27.3 L MCV 93.5 MCH 30.5 MCHC 32.6 RDW 18.4 H Plt Count 213 MPV 10.3 Immature Gran % (Auto) 0.4 Neut % (Auto) 85.3 H Lymph % (Auto) 7.3 L [place] % (Auto) 6.0 Eos % (Auto) 0.7 Baso % (Auto) 0.3 Lymph # (Auto) 0.9 L [place] # (Auto) 0.7 Eos # (Auto) 0.1 Baso # (Auto) 0.0 Abs Immat Gran (auto) 0.05 H Absolute Neuts (auto) 10.0 H Absolute Nucleated RBC 0.000 Nucleated RBC % (auto) 0.0 Hold Blue Top Sodium 135 Potassium 4.5 Chloride 93 L Carbon Dioxide 25 Anion Gap 22 H BUN 50 H Creatinine 8.83 H* Estim Creat Clear Calc 8.8 Estimated GFR 7 Random Glucose 126 H Calcium 8.2 L Phosphorus 5.3 H Magnesium 2.7 H Total Bilirubin Direct Bilirubin AST ALT Alkaline Phosphatase Troponin I High Sens 180.5 H B-Natriuretic Peptide 4991 H Total Protein Albumin 3.7 Coronavirus (PCR) 01/06/20 05:28 WBC RBC Hgb Hct MCV MCH MCHC RDW Plt Count MPV Immature Gran % (Auto) Neut % (Auto) Lymph % (Auto) [place] % (Auto) Eos % (Auto) Baso % (Auto) Lymph # (Auto) [place] # (Auto) Eos # (Auto) Baso # (Auto) Abs Immat Gran (auto) Absolute Neuts (auto) Absolute Nucleated RBC Nucleated RBC % (auto) Hold Blue Top Sodium Potassium Chloride Carbon Dioxide Anion Gap BUN Creatinine Estim Creat Clear Calc Estimated GFR Random Glucose Calcium Phosphorus Magnesium Total Bilirubin 1.3 H Direct Bilirubin 0.4 AST 16 ALT 7 Alkaline Phosphatase 55 Troponin I High Sens B-Natriuretic Peptide Total Protein 6.3 L Albumin 3.7 Coronavirus (PCR) Assessment and Plan (1) Accelerated essential hypertension: Status: Acute (2) ESRD (end stage renal disease) on dialysis: Status: Acute (3) Heart failure: Qualifiers: Heart failure chronicity: acute Heart failure type: unspecified Qualified Code(s): I50.9 - Heart failure, unspecified Status: Acute (4) Hypertensive cardiovascular disease: Status: Acute (5) Pulmonary hypertension associated with end stage renal disease on dialysis: Status: Acute (6) Disease of pericardium, unspecified: Status: Acute bedside echo showed marked concentric left ventricular hypertrophy but no right ventricular dilatation and just a trace rim of pericardial fluid but thickening of the both the visceral and parietal pericardium and tricuspid regurgitant velocity exceeds 4 m/sec for a pulmonary artery systolic pressure severely elevated at greater than 65 mm Hg and distended inferior vena cava with lack of inspiratory collapse indicating elevated right heart filling pressures raising the potential Specter of pericardial constriction but probably more in line with restrictive diastolic characteristics laboratory work indicates significant and residual azotemia and he indeed had an incomplete treatment by dialysis yesterday and that includes insufficient ultrafiltration and will try to get at least a 2 hour dialysis today which will further help in reducing nitrous preload but after load through blood pressure reduction and will continue to treat with the IV nicardipine endpoint blood pressure about 175-180 and no lower
--- NOTE | 2020-01-06 16:00 | MHC.CM.PN ---
IMM 01/06/20 Male 44 Mongolian speaking. DX HTN EMERGENCY. He lives with . She assists prn with adls. No formal assistance. He does not use an AD. DP home no services family transport.
[2020-01-06] MEDS: carvediloL 25 MG TABLET PO (18:04)
--- NOTE | 2020-01-06 18:39 | CONS_ITS ---
DATE OF SERVICE: REASON FOR CONSULTATION: I was called to see this patient to assist in the management of patient dialysis requirements. HISTORY OF PRESENT ILLNESS: To summarize, Sterling is well known to us. He is a 44-year-old man with a history of end-stage renal disease, on maintenance hemodialysis. He undergoes dialysis 3 times a week on Wednesday, Wednesday, and Wednesday at [facility]. He had his dialysis session yesterday at the outpatient center, but he was unable to complete the full session and it was terminated midway at about 2 hours. He came to the hospital because of shortness of breath. Currently, he is in the critical care unit because of uncontrolled hypertension and systolic blood pressure has been staying around 210 mmHg. He is currently on nicardipine drip. This consultation had been requested for management of his dialysis requirements. PAST MEDICAL HISTORY: Ongoing medical problems include history of longstanding resistant hypertension, history of diastolic heart failure, recurrent ascites requiring paracentesis, ESRD, on maintenance hemodialysis 3 times a week. MEDICATIONS: At home included calcitriol, carvedilol, clonidine, amlodipine, he is intolerant to nifedipine. REVIEW OF SYSTEMS: Positive for shortness of breath. No chest pain, nausea, or vomiting. No abdominal pain, diarrhea, or constipation. No urinary symptoms. No fever. No rash. All other systems reviewed and negative. PHYSICAL EXAMINATION: GENERAL: Sterling appears ill, not in any distress. NECK: Supple. No JVD. LUNGS: Air entry equal with few basal crackles. HEART: S1, S2 heard without gallop. ABDOMEN: Obese, soft, nontender, and he has ascites. NEUROLOGIC: Alert, awake, oriented. No asterixis. EXTREMITIES: No rash. He does have some dependent edema. VITAL SIGNS: Blood pressure today was 180/100, pulse 120 with a respiratory rate of 30 per minute. LABORATORY DATA: Hemoglobin 8.9, WBC 11.7, platelets 213. Sodium 135, potassium 4.5, BUN 50, creatinine 8.33, calcium 8.2, phosphorus 5.3, magnesium 2.7. Troponin 180. BNP 4991. Chest x-ray showed volume loss on the left lung field. IMPRESSION: 44-year-old man with end-stage renal disease, on maintenance hemodialysis, comes in with shortness of breath and mild fluid overload along with pulmonary hypertension. Sterling has resistant hypertension. Blood pressure is suboptimal and he continues to have evidence of fluid overload. Since he did not complete his dialysis treatment yesterday, we will resume dialysis today and try to remove fluid as tolerated. In the meantime, he needs a cardiac workup and I agree with obtaining echocardiogram and a cardiology consultation. If needed, we will arrange for abdominal paracentesis as well. As for the resistant hypertension, I agree with nicardipine drip. We can slowly titrate this to maintain the systolic blood pressure around 160 mmHg. We will follow him along with the team. Case Mccarty MD BPA/MODL / [id number]
[2020-01-06] MEDS: Calcium Carbonate 750 MG TAB.CHEW PO (21:10)
[2020-01-06 23:17] LABS: Anion Gap 15 (12-20); Blood Urea Nitrogen 29 mg/dL (9-16); Calcium 8.2 mg/dL (8.4-10.2); Carbon Dioxide 29 mmol/L (22-29); Chloride 94 mmol/L (96-108); Glucose Random 111 mg/dL (60-115); Potassium 4.4 mmol/l (3.3-5.1); Sodium 134 mmol/L (135-145)
[2020-01-06 23:19] LABS: Creatinine Clr Calc Pharmacy 13.5; Estimated Glomerular Filt Rate 11
[2020-01-07] VITALS (35 sets, daily range): BP systolic 148–232; BP diastolic 84–150; PULSE 87–114; RESP 12–95; TEMP 36.5–36.9; O2SAT 90–100; BMI 19.5
[2020-01-07] MEDS: Enalaprilat Dihydrate 1.25 MG/ML VIAL IVPUSH ×2 (01:45→17:01)
--- NOTE | 2020-01-07 02:23 | MHC.PIE ---
Addendum entered by Tyron Hernandez, RN 01/07/20 06:08: BP down to 170/107, Dr Sexton came to bedside - ordered to D/C cardene - cardene stopped as ordered at this time. Original Note: P: BP elevated - running 179 systolic to 200 systolic, diastolic >100. Asymptomatic, denies CP, headache. Cardene drip running at 4mg/hr - 20ml/hr, vasotec IV being given Q6H. HR low 100's, ST. Denies SOB, Lungs clear. I: Chance Adkins [employer] made aware of BP trend - order to keep cardene at same rate. E: Continue to monitor.
[2020-01-07] MEDS: Heparin Sodium,Porcine 5,000 UNIT/ML VIAL 5000 UNIT SUBCUT ×3 (05:09→19:41)
[2020-01-07] MEDS: carvediloL 25 MG TABLET PO ×2 (05:09→17:04)
[2020-01-07 05:24] LABS: MANUAL DIFF FLAG NO
[2020-01-07 05:33] LABS: Base Excess VBG 3.9 mmol/L; HCO3 VBG 27 mmol/L; PCO2 VBG 34 mmhg; PO2 VBG 44 mmhg; pH VBG 7.52 (7.32-7.43)
[2020-01-07 05:35] LABS: Basophils Percent Auto 0.4 % (0-2); Eosinophils Absolute Auto 0.2 X10*3/uL (0.0-0.4); Eosinophils Percent Auto 1.9 % (0-4); Hemoglobin 9.3 g/dl (14.0-18.0); Imm Gran Abs Auto 0.04 X10*3/uL (0.00-0.03); Imm Gran Pct Auto 0.4 % (0.0-0.4); Lymphocytes Percent Auto 10.1 % (20-40); Mean Corpuscular HGB Conc 32.1 g/dl (31.0-36.0); Mean Corpuscular Volume 93.5 fL (80-98); Mean Platelet Volume 10.2 fL (9.4-12.4); Monocytes Absolute Auto 0.7 X10*3/uL (0.1-1.2); Monocytes Percent Auto 7.7 % (2-11); Neutrophils Absolute Auto 7.5 X10*3/uL (2.0-8.3); Neutrophils Percent Auto 79.5 % (45-73); Platelet Count 236 X10*3/uL (160-400); Red Cell Distribution Width 18.1 % (11.0-16.0); White Blood Count 9.4 X10*3/uL (4.8-10.8)
[2020-01-07 05:53] LABS: Alanine Aminotransferase 7 U/L (0-40); Albumin Level 3.7 g/dL (3.5-5.0); Alkaline Phosphatase 57 U/L (39-117); Anion Gap 17 (12-20); Aspartate Amino Transferase 15 U/L (5-37); Bilirubin Direct 0.4 mg/dL (0.0-0.5); Bilirubin Total 1.1 mg/dL (0.0-1.0); Blood Urea Nitrogen 33 mg/dL (9-16); Calcium 8.4 mg/dL (8.4-10.2); Carbon Dioxide 27 mmol/L (22-29); Chloride 94 mmol/L (96-108); Glucose Random 72 mg/dL (60-115); Magnesium 2.5 mg/dL (1.6-2.6); Phosphorus 4.6 mg/dL (2.7-4.5); Potassium 4.3 mmol/l (3.3-5.1); Sodium 134 mmol/L (135-145); Total Protein 6.3 g/dL (6.5-8.0)
[2020-01-07 05:58] LABS: Creatinine Clr Calc Pharmacy 11.7; Estimated Glomerular Filt Rate 9
[2020-01-07] MEDS: amLODIPine Besylate 5 MG TABLET PO ×2 (07:42→08:51)
[2020-01-07] MEDS: lisinopriL 10 MG TABLET PO (07:42)
[2020-01-07] MEDS: 0.9 % Sodium Chloride Flush 3 ML SYRINGE IVFLUSH ×2 (07:43→15:03)
--- NOTE | 2020-01-07 09:46 | PM.PNNEP ---
Subjective Subjective Principal diagnosis: ESRD Interval history: Had HD yesterday Tolerated fluid removal BP is still accelerated Physical Exam Vital Signs: Vital Signs: Vital Signs Temp Pulse Resp BP Pulse Ox 01/07/20 09:00 99 15 228/136 H 90 L 01/07/20 08:51 105 H 216/121 H 01/07/20 07:47 97.7 F 90 22 H 204/123 H 93 01/07/20 07:42 95 204/123 H 01/07/20 07:00 93 17 204/122 H 93 01/07/20 06:00 90 24 H 170/107 H 91 L 01/07/20 05:09 106 H 204/113 H 01/07/20 05:00 114 H 25 H 216/110 H 90 L 01/07/20 03:48 108 H 24 H 177/103 H 94 01/07/20 03:00 98.1 F 107 H 31 H 189/111 H 92 01/07/20 02:00 109 H 25 H 198/114 H 93 01/07/20 01:45 ED T 105 H 179/108 H 01/07/20 00:48 103 H 12 188/109 H 94 01/06/20 23:47 98.4 F 102 H 24 H 158/105 H 93 01/06/20 23:00 104 H 24 H 176/100 H 93 01/06/20 21:50 102 H 22 H 172/110 H 94 01/06/20 21:00 92 20 167/112 H 92 01/06/20 20:17 96 167/90 H 01/06/20 20:00 97.8 F 91 28 H 168/102 H 96 01/06/20 19:00 91 28 H 168/102 H 96 01/06/20 18:35 118 H 194/100 H 01/06/20 18:04 124 H 194/100 H 01/06/20 17:58 118 H 15 194/100 H 93 01/06/20 17:00 124 H 34 H 179/103 H 92 01/06/20 15:54 98.8 F 114 H 20 178/93 H 93 01/06/20 15:00 85 20 170/101 H 92 01/06/20 14:53 184/91 H 01/06/20 14:47 176/81 H 01/06/20 13:51 110 H 25 H 176/81 H 91 L 01/06/20 13:00 110 H 25 H 178/96 H 95 01/06/20 12:00 98.7 F 111 H 27 H 190/96 H 01/06/20 11:00 104 H 26 H 204/107 H Body Mass Index 19.5 Const: General: cooperative Resp: Auscultation: clear to auscultation bilaterally Cardio: Jugular venous distension: no JVD Heart sounds: no murmurs and no rubs Skin: General skin exam: no rashes or lesions noted Neuro: Motor exam (neuro): No Asterixis during motor activity present Assessment & Plan Assessment and plan (1) ESRD (end stage renal disease) on dialysis: Problem details: Fluid overload Will ultrafilterate again tomorrow and remove fluid as tolerated Resistant HTN Meds noted Can increase Lisinopril Status: Acute Time Spent With Patient Time: Total time spent is greater than 50% in coordination of care (as documented) at patient's floor/unit and/or counseling patient:
[2020-01-07] MEDS: cloNIDine 0.3 MG PATCH.TDWK TRANSDERMA (09:49)
[2020-01-07] MEDS: hydrALAZINE HCl 20 MG/ML VIAL 10 MG IVPUSH (11:03)
[2020-01-07] MEDS: hydrALAZINE HCl 25 MG TABLET PO (11:16)
[2020-01-07] MEDS: hydrALAZINE HCl 20 MG/ML VIAL IVPUSH (12:09)
--- NOTE | 2020-01-07 13:10 | PC.NURSE ---
Addendum entered by Agata Santo RN 01/07/20 17:05: SBP remaining >200 despite nitro gtt - patient reports feelings of SOB has resolved. Nitro gtt discontinued and cardene gtt started per EMAR. Vasotec 1.25mg IVP Q6H ordered and administered. Patient educated on reasoning for medications changes and agreeable to current plan of care. Will continue to monitor. BP down to 192/119 - will continue to monitor. Addendum entered by Agata Santo RN 01/07/20 14:11: Patient c/o of shortness of breath - patient states it started five minutes prior, patient has no other symptoms. BP back up to 213/120, O2 sat 95% on room air, RR 22-26, HR 90's SR on monitor. Lung sounds clear throughout. Patient reports feeling minimally anxious. MD notified - Nitro gttt ordered and administering per EMAR. Patient educated on reasoning for medication and is agreeable to plan of care. Will continue to monitor. Original Note: Systolic BP ranging between 204-232 throughout AM. Patient asymptomatic throughout. MD notified and aware of trends. Medications adjusted - patient received scheduled Amlodipine 5mg and Lisinopril 10mg with no improvement. Additional dose of Amlodipine 5mg ordered and administered and scheduled dose increased to 10mg starting tomorrow. Clonidine patch dose increased from 0.2mg to 0.3mg - new patch applied and old patch removed. Patient also received one dose of Hydralazine 10mg IVP and Hydralazine 25mg PO TID ordered and administered - BP remained elevated. Additional dose of Hydralazine 20mg IVP ordered and administered and scheduled PO Hydralazine dose increased to 50mg TID starting at 1500. BP now down to 195/114 - MD aware, will continue to monitor.
--- NOTE | 2020-01-07 13:57 | PM.CCPN ---
Subjective Subjective Date of Service: 01/07/20 Interval History: 44-year-old end-stage renal disease and dialysis dependent severe hypertensive and poorly controlled with hypertensive cardiovascular disease presented with acute on chronic diastolic CHF and my bedside echo indicated marked concentric left ventricular hypertrophy with severe levels of secondary pulmonary hypertension with PA systolic at least at 65 mm mercury but no significant primary valve disease pericardium somewhat thickened with just trace of pericardial fluid and inferior vena cava was distended with lack of inspiratory collapse indicating elevated right heart filling pressures as well had only a 2 hour dialysis the day before presenting and had a 5 L under ultrafiltration yesterday and that made him asymptomatic despite his elevated blood pressure but today again he is beginning to become dyspneic and his blood pressure remains 211/122 and this is with increasing medications including the now addition of hydralazine which we have just titrated up to 50 mg on the last dose from 25 mg and will probably titrate progressively to 75 and possibly 100 mg to effectively reduce afterload in the antrum unfortunately we are going to start IV nitroglycerin because of increasing symptoms which on concerned about because of the propylene glycol toxicity potential but we will initiated with the intent of trying to keep it at low-dose and rapidly titrate off Physical Exam Vital Signs: Vital Signs: Vital Signs Temp Pulse Resp BP Pulse Ox 01/07/20 13:00 108 H 32 H 195/114 H 95 01/07/20 12:09 99 223/136 H 01/07/20 12:00 98.5 F 97 18 212/119 H 97 01/07/20 11:16 100 232/150 H 01/07/20 11:03 106 H 232/150 H 01/07/20 11:00 104 H 22 H 232/150 H 94 01/07/20 10:00 101 H 23 H 205/130 H 94 01/07/20 09:49 100 210/130 H 01/07/20 09:00 99 15 228/136 H 90 L 01/07/20 08:51 105 H 216/121 H 01/07/20 07:47 97.7 F 90 22 H 204/123 H 93 01/07/20 07:42 95 204/123 H 01/07/20 07:00 93 17 204/122 H 93 01/07/20 06:00 90 24 H 170/107 H 91 L 01/07/20 05:09 106 H 204/113 H 01/07/20 05:00 114 H 25 H 216/110 H 90 L 01/07/20 03:48 108 H 24 H 177/103 H 94 01/07/20 03:00 98.1 F 107 H 31 H 189/111 H 92 01/07/20 02:00 109 H 25 H 198/114 H 93 01/07/20 01:45 ED T 105 H 179/108 H 01/07/20 00:48 103 H 12 188/109 H 94 01/06/20 23:47 98.4 F 102 H 24 H 158/105 H 93 01/06/20 23:00 104 H 24 H 176/100 H 93 01/06/20 21:50 102 H 22 H 172/110 H 94 01/06/20 21:00 92 20 167/112 H 92 01/06/20 20:17 96 167/90 H 01/06/20 20:00 97.8 F 91 28 H 168/102 H 96 01/06/20 19:00 91 28 H 168/102 H 96 01/06/20 18:35 118 H 194/100 H 01/06/20 18:04 124 H 194/100 H 01/06/20 17:58 118 H 15 194/100 H 93 01/06/20 17:00 124 H 34 H 179/103 H 92 01/06/20 15:54 98.8 F 114 H 20 178/93 H 93 01/06/20 15:00 85 20 170/101 H 92 Body Mass Index 19.5 Const: Other: neurologically intact and good cognitive function cardiac exam with normal S1 normal S2 no gallops and murmurs still positive neck vein distension but adequate bilateral carotid upstrokes abdomen still somewhat distended related to the ascites but positive bowel sounds dullness at the left base of his chest due to left pleural effusion but no adventitious sounds Objective Data Labs CBC & Chem 7: 01/07/20 04:54 01/07/20 04:54 Labs: Laboratory Results - last 24 hr 01/06/20 01/07/20 01/07/20 22:12 04:54 04:54 WBC 9.4 RBC 3.10 L Hgb 9.3 L Hct 29.0 L MCV 93.5 MCH 30.0 MCHC 32.1 RDW 18.1 H Plt Count 236 MPV 10.2 Immature Gran % (Auto) 0.4 Neut % (Auto) 79.5 H Lymph % (Auto) 10.1 L [place] % (Auto) 7.7 Eos % (Auto) 1.9 Baso % (Auto) 0.4 Lymph # (Auto) 1.0 L [place] # (Auto) 0.7 Eos # (Auto) 0.2 Baso # (Auto) 0.0 Abs Immat Gran (auto) 0.04 H Absolute Neuts (auto) 7.5 Absolute Nucleated RBC 0.000 Nucleated RBC % (auto) 0.0 VBG pH VBG pCO2 VBG Oxygen Liters/Min VBG pO2 VBG HCO3 VBG O2 Saturation VBG Base Excess Sodium 134 L 134 L Potassium 4.4 4.3 Chloride 94 L 94 L Carbon Dioxide 29 27 Anion Gap 15 17 BUN 29 H 33 H Creatinine 5.76 H* 6.66 H* Estim Creat Clear Calc 13.5 11.7 Estimated GFR 11 9 Random Glucose 111 72 D Calcium 8.2 L 8.4 Phosphorus 4.6 H Magnesium 2.5 Total Bilirubin 1.1 H Direct Bilirubin 0.4 AST 15 ALT 7 Alkaline Phosphatase 57 Total Protein 6.3 L Albumin 3.7 01/07/20 04:54 WBC RBC Hgb Hct MCV MCH MCHC RDW Plt Count MPV Immature Gran % (Auto) Neut % (Auto) Lymph % (Auto) [place] % (Auto) Eos % (Auto) Baso % (Auto) Lymph # (Auto) [place] # (Auto) Eos # (Auto) Baso # (Auto) Abs Immat Gran (auto) Absolute Neuts (auto) Absolute Nucleated RBC Nucleated RBC % (auto) VBG pH 7.52 H VBG pCO2 34 VBG Oxygen Liters/Min Not Reportable VBG pO2 44 VBG HCO3 27 VBG O2 Saturation 82.0 VBG Base Excess 3.9 Sodium Potassium Chloride Carbon Dioxide Anion Gap BUN Creatinine Estim Creat Clear Calc Estimated GFR Random Glucose Calcium Phosphorus Magnesium Total Bilirubin Direct Bilirubin AST ALT Alkaline Phosphatase Total Protein Albumin Progress Note: A&P Assessment and plan (1) Accelerated essential hypertension: Status: Acute (2) ESRD (end stage renal disease) on dialysis: Problem details: Fluid overload Will ultrafilterate again tomorrow and remove fluid as tolerated Resistant HTN Meds noted Can increase Lisinopril Status: Acute (3) Heart failure: Status: Acute (4) Disease of pericardium, unspecified: Status: Acute (5) Pulmonary hypertension associated with end stage renal disease on dialysis: Status: Acute (6) Hypertensive cardiovascular disease: Status: Acute Assessment and Plan: so the plan to accommodate symptoms of dyspnea with persistent pressure despite adding back his oral amlodipine at 10 mg and initiating and titrating up on IV hydralazine is to add IV nitroglycerin drip short-term with the awareness of propylene glycol toxicity as we aggressively titrate up further on the IV hydralazine Time Spent With Patient Time: Total time spent is greater than 50% in coordination of care (as documented) at patient's floor/unit and/or counseling patient: Total time spent with greater than 50% in coordination of care (as documented) at patient's floor/unit and/or counseling patient:: 30
[2020-01-07] MEDS: Nitroglycerin/D5W 100 MG/250 ML INFUS..BTL IVCONT (14:02)
[2020-01-07] MEDS: hydrALAZINE HCl 25 MG TABLET 50 MG PO (15:03)
[2020-01-07] MEDS: niCARdipine HCL 25 MG in 0.9 % Sodium Chloride 250 ML 52 MG IVCONT (16:58)
[2020-01-07] MEDS: Sennosides 8.6 MG TABLET PO (19:41)
[2020-01-07] MEDS: hydrALAZINE HCl 25 MG TABLET 75 MG PO (21:26)
[2020-01-08] VITALS (22 sets, daily range): BP systolic 173–200; BP diastolic 92–117; PULSE 85–102; RESP 12–94; TEMP 36.6–37.1; O2SAT 93–100; BMI 19.5; BMI 18.3
[2020-01-08] MEDS: Enalaprilat Dihydrate 1.25 MG/ML VIAL IVPUSH ×2 (00:27→05:34)
[2020-01-08] MEDS: niCARdipine HCL 25 MG in 0.9 % Sodium Chloride 250 ML 26 MG IVCONT (00:35)
[2020-01-08] MEDS: carvediloL 25 MG TABLET PO ×2 (05:34→17:55)
[2020-01-08] MEDS: Heparin Sodium,Porcine 5,000 UNIT/ML VIAL 5000 UNIT SUBCUT ×3 (05:35→21:26)
[2020-01-08 05:51] LABS: MANUAL DIFF FLAG NO
[2020-01-08 05:53] LABS: Basophils Percent Auto 0.4 % (0-2); Eosinophils Absolute Auto 0.2 X10*3/uL (0.0-0.4); Eosinophils Percent Auto 1.7 % (0-4); Hematocrit 30.2 % (42-52); Hemoglobin 9.8 g/dl (14.0-18.0); Imm Gran Abs Auto 0.03 X10*3/uL (0.00-0.03); Imm Gran Pct Auto 0.3 % (0.0-0.4); Lymphocytes Percent Auto 10.5 % (20-40); Mean Corpuscular HGB Conc 32.5 g/dl (31.0-36.0); Mean Corpuscular Hemoglobin 30.4 pg (27.0-33.0); Mean Corpuscular Volume 93.8 fL (80-98); Mean Platelet Volume 10.6 fL (9.4-12.4); Monocytes Absolute Auto 0.7 X10*3/uL (0.1-1.2); Monocytes Percent Auto 7.4 % (2-11); Neutrophils Absolute Auto 7.8 X10*3/uL (2.0-8.3); Neutrophils Percent Auto 79.7 % (45-73); Platelet Count 231 X10*3/uL (160-400); Red Blood Count 3.22 X10*6/uL (4.60-5.80); White Blood Count 9.8 X10*3/uL (4.8-10.8)
[2020-01-08 06:18] LABS: Alanine Aminotransferase 7 U/L (0-40); Albumin Level 3.6 g/dL (3.5-5.0); Alkaline Phosphatase 54 U/L (39-117); Anion Gap 23 (12-20); Aspartate Amino Transferase 15 U/L (5-37); Bilirubin Total 0.8 mg/dL (0.0-1.0); Blood Urea Nitrogen 62 mg/dL (9-16); Calcium 8.1 mg/dL (8.4-10.2); Carbon Dioxide 21 mmol/L (22-29); Chloride 93 mmol/L (96-108); Glucose Random 85 mg/dL (60-115); Magnesium 2.6 mg/dL (1.6-2.6); Phosphorus 6.3 mg/dL (2.7-4.5); Potassium 4.8 mmol/l (3.3-5.1); Sodium 132 mmol/L (135-145); Total Protein 6.1 g/dL (6.5-8.0)
[2020-01-08 06:19] LABS: Creatinine Clr Calc Pharmacy 8.3; Estimated Glomerular Filt Rate 6
[2020-01-08] MEDS: hydrALAZINE HCl 25 MG TABLET 75 MG PO ×3 (08:59→21:25)
[2020-01-08] MEDS: 0.9 % Sodium Chloride Flush 3 ML SYRINGE IVFLUSH ×2 (09:00→21:27)
--- NOTE | 2020-01-08 09:58 | PM.PNNEP ---
Subjective Subjective Principal diagnosis: ESRD Interval history: Seen and examined. events noted Currently on HD Cont on nicardipine drip Overall feeling better. Physical Exam Vital Signs: Vital Signs: Vital Signs Temp Pulse Resp BP Pulse Ox 01/08/20 08:59 92 200/112 H 01/08/20 08:55 93 24 H 200/112 H 95 01/08/20 08:00 98.8 F 88 25 H 187/114 H 95 01/08/20 07:00 87 19 180/109 H 95 01/08/20 06:00 88 12 184/115 H 93 01/08/20 05:00 100 94 H 198/117 H 93 01/08/20 04:00 98.7 F 98 24 H 195/106 H 94 01/08/20 03:00 102 H 33 H 191/115 H 93 01/08/20 02:00 97 26 H 192/105 H 95 01/08/20 01:00 99 19 189/104 H 93 01/07/20 23:46 95 H 190/115 H 98 01/07/20 22:57 104 H 23 H 179/104 H 100 01/07/20 22:00 95 24 H 187/109 H 100 01/07/20 21:00 92 20 148/84 H 01/07/20 19:48 89 19 177/100 H 100 01/07/20 19:00 87 24 H 156/92 H 100 01/07/20 17:55 91 20 161/98 H 93 01/07/20 17:04 98 215/126 H 01/07/20 17:01 100 215/126 H 01/07/20 17:00 100 32 H 215/126 H 95 01/07/20 15:51 98.5 F 98 205/127 H 97 01/07/20 15:03 94 200/122 H 01/07/20 15:00 94 24 H 200/122 H 99 01/07/20 14:00 94 24 H 213/120 H 95 01/07/20 13:00 108 H 32 H 195/114 H 95 01/07/20 12:09 99 223/136 H 01/07/20 12:00 98.5 F 97 18 212/119 H 97 01/07/20 11:16 100 232/150 H 01/07/20 11:03 106 H 232/150 H 01/07/20 11:00 104 H 22 H 232/150 H 94 01/07/20 10:00 101 H 23 H 205/130 H 94 Body Mass Index 18.3 Const: General: cooperative Resp: Auscultation: clear to auscultation bilaterally Cardio: Jugular venous distension: no JVD Heart sounds: no murmurs and no rubs Skin: General skin exam: no rashes or lesions noted Neuro: Motor exam (neuro): No Asterixis during motor activity present Assessment & Plan Assessment and plan (1) ESRD (end stage renal disease) on dialysis: Problem details: Fluid overload Will ultrafilterate again tomorrow and remove fluid as tolerated Resistant HTN Meds noted Can increase Lisinopril Status: Acute Assessment and Plan: 1. HTN Emerency woith acute pulm edema: improved after HD/UF and BP improved on drips and PO meds note that outpt HD states he was abruptly d/c clonidine which nay have caused a rebound HTN crisi 2. JONES/CHF: d/t HTN emerg and underlyng severe HTN heart Dz and pulm HTN 3. ERSD 4. H/O resitant HTN REC: HD today and pull fluid to help lower BP; add procardia 30 bid; cont , catapress #3 patch, hydralazine, and coreg would look to add aldactone but he ahss ah/o hyper K and missed HD Tx occassional so will avoid it for now I will reveiw old rec as to stephanie garcia and ALETHEA have been r/o Time Spent With Patient Time: Total time spent is greater than 50% in coordination of care (as documented) at patient's floor/unit and/or counseling patient:
--- NOTE | 2020-01-08 10:00 | CA_ITS ---
Transthoracic Echocardiogram Patient (Last, First, Middle): Sterling Chávez L Gender: Male Date of : 1975 Age: 44 Procedure Date: 01/08/2020 Procedure Type: Transthoracic Echocardiogram Location: ICU Height: 170.18 cm Weight: 55.99 kg BSA: 1.65 m2 Heart Rate: bpm BP: 200 / 112 mmHg Automatic Silk Screen Printer: Referring MD: Isiah Sexton MD Symptoms: pericardial constriction Study Quality: Good ECG Rhythm: Sinus Conclusions: - There is severely increased left ventricular wall thickness. - The visually estimated ejection fraction is between 50-55%. - Normal right ventricular cavity size and systolic function. - The left atrium is severely dilated. The right atrium is severely dilated. - There is mild aortic valve stenosis. There is mild aortic valve regurgitation. - There is moderate to severe mitral valve regurgitation. - There is moderate to severe tricuspid valve regurgitation. - Severe pulmonary hypertension is present. - There is mild dilatation of the ascending aorta. - There is a small circumferential pericardial effusion. Findings Left Ventricle Normal left ventricular cavity size. There is severely increased left ventricular wall thickness. The left ventricular systolic function is low normal. The visually estimated ejection fraction is between 50-55%. There is no evidence of regional wall motion abnormalities. Abnormal diastolic function is noted. Spectral Doppler is indicative of a pseudonormal filling pattern. Elevated filling pressures. Right Ventricle Normal right ventricular cavity size and systolic function. Atria The left atrium is severely dilated. The right atrium is severely dilated. Aortic Valve There is a normal trileaflet aortic valve. There is mild aortic valve stenosis. There is mild aortic valve regurgitation. Mitral Valve The mitral valve appears normal. There is moderate to severe mitral valve regurgitation. There is no mitral valve stenosis. Pulmonic Valve Normal pulmonic valve structure and function. There is trace pulmonic valve regurgitation. Tricuspid Valve Normal tricuspid valve structure. There is moderate to severe tricuspid valve regurgitation. Normal right atrial pressure. Severe pulmonary hypertension is present. Great Vessels There is mild dilatation of the ascending aorta. The visualized portions of the pulmonary artery and branches are normal. Venous The inferior vena cava is normal in size and collapses greater than 50% with inspiration. Pericardium/Pleural There is a small circumferential pericardial effusion. There is a large pleural effusion. There are no definitive echocardiographic findings of tamponade physiology. Prior Study Comparison Significant changes compared to prior study dated: 02/01/2018. EF 50-55%, severe LVH, moderate to severe MR and TR, severe pulmonary hypertension present. Measurements 2D Linear Measurements IVSd: 1.78 0.6-0.9/0.6-1.0 cm LVIDd: 4.77 3.9-5.3/4.2-5.9 cm LVIDd Index: 2.89 2.4-3.2/2.2-3.1 cm/m2 LVIDs: 3.22 2.0-3.6 cm LVPWd: 1.62 0.7-1.1 cm Ao Root: 3.60 2.1-3.5 cm LA Diam: 4.90 2.7-3.8/3.0-4.0 cm LAIDs Index: 2.97 1.5-2.3 cm/m2 LV Mass: 454.28 67-162/88-224 g LV Mass Index: 275.32 43-95/49-115 g/m2 LVOT Diam: 2.00 3.0+(-)1.3 cm 2D Systolic Function EF 4C: 49.40 >55% EF 2C: 47.30 >55% Mitral Valve MV Pk E: 1.08 MV PK A: 1.11 MV Decel Time: 89.00 E/A: 1.00 E'Lateral: 5.11 E'Medial: 4.79 E/E' Med: 22.50 E/E' Lat: 21.10 PHT: 26.00 MVA PHT: 8.46 Decel Ness: 12.17 MR Vol - PW Dopp: 42.32 MR VTI: 1.84 MR ERO: 23.00 MR Alias Luis: 0.44 MR RAD: 0.70 Aortic Valve AoV Pk Luis: 2.05 AoV Mn Luis: 1.43 AoV VTI: 0.37 AoV Pk Grad: 17.00 Aov Mn Grad: 9.00 FANY Cont.VTI: 2.34 LVOT LVOT Pk Luis: 1.59 LVOT Mn Luis: 1.07 LVOT VTI: 0.28 LVOT Pk Grad: 10.00 LVOT Mn Grad: 5.00 LVOT Diam: 2.00 LVOT Area: 3.14 Diastolic Function MV Pk E: 1.08 MV Pk A: 1.11 E/A: 1.00 E'Medial: 4.79 E/E' Med: 22.50 E' Laterial: 5.11 E/E' Lat: 21.10 Tricuspid Valve TR Pk Luis: 4.16 TR Pk Grad: 69.00 RVSP: 72.00 Great Vessels Aorta Ao Root-2D: 3.60 2.0-3.7 cm Ao Asc: 3.50 2.1-3.4 cm Pulmonary Valve PV Pk Luis: 1.20 Peak PV Grad: 6.00 Updated in Other Vendor System with Status of Final Blayne Black MD electronically signed on 01/08/2020 1:46:53 PM with status of Final
[2020-01-08] MEDS: niCARdipine HCL 25 MG in 0.9 % Sodium Chloride 250 ML 52 MG IVCONT (10:07)
[2020-01-08] MEDS: LORazepam 2 MG/ML VIAL 0.5 MG IVPUSH (11:00)
[2020-01-08] MEDS: NIFEdipine ER 30 MG TAB.ER.24 PO ×2 (14:11→21:23)
[2020-01-08] MEDS: lisinopriL 20 MG TABLET PO (14:11)
--- NOTE | 2020-01-08 15:32 | MHC.CM.PN ---
Addendum entered by Cari Reinoso 01/08/20 15:37: Patient has a history of ESRD and goes to dialysis Mon, Wed and Fri. Original Note: Patient remains in ICU. Patient is from home without services. Patient has transport at d/c. Continue to monitor for d/c needs.
--- NOTE | 2020-01-08 16:04 | PM.CCPN ---
Subjective Subjective Date of Service: 01/08/20 Interval History: Mr. Chávez was admitted to ICU on Jan 05 with hypertensive crisis, and respiratory distress. The patient is a 44 yo M w ESRF on dialysis via a left arm fistula. He still makes urine and is supposed to have dialysis 3x/week, but he?s not always compliant. He gets frequent paracenteses for ascites and he?s had mult thoracenteses. His past medical history also includes hypertension and diastolic congestive heart failure. He is a frequent visitor to [facility] and has been admitted to the ICU a number of times before for exactly the same reason. His Med Rec includes: Amlodipine 10 mg daily Coreg 25 mg bid. Clonidine 0.3 mg bid. Doxazosin 1mg Imdur 60 mg Lisinopril 20 mg daily Earlier this year, he told me that his BP usually runs around 200 systolic, and he feels very bad when it drops much below that level. He insists that he?s compliant with his BP meds. The patient last had HD the day [employer]. He presented to the ED on Jan 05 with hypertensive crisis and SOB. Sat was high 80?s on room air. Chest was clear. CXR showed increased interstitial markings and a large left pleural eff. He was admitted to ICU and started on nicardipine. Subsequent echo showed and RVSP estimated > 65mm, and distended IVC. He was dialyzed later that day. Despite a 5L ultrafiltration, he became markedly hypertensive the following day (Jan 06) and dyspneic again. Hydralazine and IV NTG were added. Nicardipine was started overnite. This morning he was dialyzed with removal of 5L again. In consultation with Dr. Bell, we have him now on a BP regimen consisting of Nifedipine XL 30 mg bid, Lisinopril 20 mg daily, clonidine 0.3 TTs, hydralazine 75mg tid, and Coreg 25mg bid. Post dialysis and off the nicardipine, BP is 178/100. Vital signs below. He has no jugular venous distention. Chest is clear to auscultation, with decreased breath sounds on the left, and a normal expiratory phase. Heart rate and rhythm are regular, with normal-sounding S1 and S2, and a 1-2/6 flow murmur. Abdomen is benign. He has no peripheral edema. LABORATORY DATA: As below. ECHO done today shows severe LVH; normal EF; normal RV; severly dilated atria; mod-severe MR, mod-severe TR, normal IVC, RVSP estimate 72mm. IMPRESSION: 1. End-stage renal failure with dialysis and medication noncompliance. Plan repeat UF tomorrow. 2. Hypertensive crisis 3. Diastolic heart failure 4. Severe PHTN. 5. Large left pleural effusion. Suggest repeat CXR after UF tomorrow, then left thoracentesis if still has large pleural eff. The patient is stable for transfer to [facility]. Time: [id number]. Physical Exam Vital Signs: Vital Signs: Vital Signs Temp Pulse Resp BP Pulse Ox 01/08/20 15:00 91 13 178/100 H 100 01/08/20 14:11 176/97 H 01/08/20 14:00 96 29 H 176/97 H 94 01/08/20 13:00 91 15 174/92 H 98 01/08/20 12:00 95 24 H 184/95 H 95 01/08/20 11:00 85 17 173/101 H 96 01/08/20 10:00 92 21 H 180/92 H 96 01/08/20 08:59 92 200/112 H 01/08/20 08:55 93 24 H 200/112 H 95 01/08/20 08:00 98.8 F 88 25 H 187/114 H 95 01/08/20 07:00 87 19 180/109 H 95 01/08/20 06:00 88 12 184/115 H 93 01/08/20 05:00 100 94 H 198/117 H 93 01/08/20 04:00 98.7 F 98 24 H 195/106 H 94 01/08/20 03:00 102 H 33 H 191/115 H 93 01/08/20 02:00 97 26 H 192/105 H 95 01/08/20 01:00 99 19 189/104 H 93 01/07/20 23:46 95 H 190/115 H 98 01/07/20 22:57 104 H 23 H 179/104 H 100 01/07/20 22:00 95 24 H 187/109 H 100 01/07/20 21:00 92 20 148/84 H 01/07/20 19:48 89 19 177/100 H 100 01/07/20 19:00 87 24 H 156/92 H 100 01/07/20 17:55 91 20 161/98 H 93 01/07/20 17:04 98 215/126 H 01/07/20 17:01 100 215/126 H 01/07/20 17:00 100 32 H 215/126 H 95 Body Mass Index 18.3 Objective Data Labs CBC & Chem 7: 01/08/20 05:29 01/08/20 05:29 Labs: Laboratory Results - last 24 hr 01/08/20 01/08/20 05:29 05:29 WBC 9.8 RBC 3.22 L Hgb 9.8 L Hct 30.2 L MCV 93.8 MCH 30.4 MCHC 32.5 RDW 18.0 H Plt Count 231 MPV 10.6 Immature Gran % (Auto) 0.3 Neut % (Auto) 79.7 H Lymph % (Auto) 10.5 L [place] % (Auto) 7.4 Eos % (Auto) 1.7 Baso % (Auto) 0.4 Lymph # (Auto) 1.0 L [place] # (Auto) 0.7 Eos # (Auto) 0.2 Baso # (Auto) 0.0 Abs Immat Gran (auto) 0.03 Absolute Neuts (auto) 7.8 Absolute Nucleated RBC 0.000 Nucleated RBC % (auto) 0.0 Sodium 132 L Potassium 4.8 Chloride 93 L Carbon Dioxide 21 L Anion Gap 23 H BUN 62 H D Creatinine 8.87 H* Estim Creat Clear Calc 8.3 Estimated GFR 6 Random Glucose 85 Calcium 8.1 L Phosphorus 6.3 H Magnesium 2.6 Total Bilirubin 0.8 AST 15 ALT 7 Alkaline Phosphatase 54 Total Protein 6.1 L Albumin 3.6 Progress Note: A&P Time Spent With Patient Time: Total time spent is greater than 50% in coordination of care (as documented) at patient's floor/unit and/or counseling patient: Total time spent with greater than 50% in coordination of care (as documented) at patient's floor/unit and/or counseling patient:: 0
[2020-01-08] MEDS: Sennosides 8.6 MG TABLET PO (21:26)
[2020-01-09] VITALS (12 sets, daily range): BP systolic 162–190; BP diastolic 76–100; PULSE 68–97; RESP 18; TEMP 35.9–37; O2SAT 96–99; BMI 18.3
--- NOTE | 2020-01-09 | US_ITS ---
EXAMINATION: US KIDNEYS WITH RENAL ARTERY DOPPLER CLINICAL INFORMATION: Uncontrolled hypertension. COMPARISON: Abdominal ultrasound 05/30/2018. TECHNIQUE: Ultrasound of the kidneys was performed along with color flow Doppler imaging and velocity measurements in the proximal mid and distal renal arteries. Aortic velocities were measured and renal/aortic ratios were calculated. FINDINGS: Both kidneys are small and demonstrate increased cortical echogenicity suggesting medical renal disease. The right kidney measures 7.6 x 3.2 x 3.4 cm and the left kidney measures 8.7 x 5.3 x 4.2 cm. Multiple bilateral renal cysts are present, the largest on the right measuring 1.2 x 1.2 x 1.1 cm and, on the left, at the lower pole, measuring 2.7 x 3.5 x 2.8 cm. No solid renal masses, renal stones or hydronephrosis is seen. Similar findings have been seen in the past. Again noted is ascites. Velocity measurements in the proximal mid and distal renal arteries are normal. Velocity in the aorta is normal and, therefore, the renal aortic ratios are normal. The highest velocity on the right was approximately at 106 cm/s and on the left in the mid renal artery at 97 cm/s. Resistive indices were measured and were all within normal limits. Both renal veins are patent. US/US renal doppler IMPRESSION: 1. Small unchanged echogenic kidneys with cysts consistent with medical renal disease. 2. No evidence to suggest renal artery stenosis. 3. Ascites is present which is a known problem.
[2020-01-09] MEDS: Heparin Sodium,Porcine 5,000 UNIT/ML VIAL 5000 UNIT SUBCUT ×2 (05:38→12:16)
[2020-01-09] MEDS: carvediloL 25 MG TABLET PO ×2 (05:38→17:00)
[2020-01-09] MEDS: 0.9 % Sodium Chloride Flush 3 ML SYRINGE IVFLUSH ×3 (08:04→20:22)
[2020-01-09] MEDS: hydrALAZINE HCl 25 MG TABLET 75 MG PO ×3 (08:04→20:21)
[2020-01-09] MEDS: lisinopriL 20 MG TABLET PO (08:05)
[2020-01-09] MEDS: NIFEdipine ER 60 MG TAB.ER.24 PO ×2 (08:05→20:20)
--- NOTE | 2020-01-09 09:57 | PM.PNNEP ---
Subjective Subjective Principal diagnosis: ESRD Interval history: Overall feeling much better..No CP/SOB..wants to go home Physical Exam Vital Signs: Vital Signs: Vital Signs Temp Pulse Resp BP Pulse Ox 01/09/20 08:05 84 180/82 H 01/09/20 08:04 84 180/82 H 01/09/20 07:31 96.7 F L 84 18 180/82 H 98 01/09/20 05:38 93 180/80 H 01/09/20 03:05 98.4 F 93 18 180/80 H 96 01/08/20 23:53 98.2 F 101 H 18 200/110 H 94 01/08/20 21:25 88 196/107 H 01/08/20 21:23 88 196/107 H 01/08/20 19:19 97.8 F 88 20 196/107 H 98 01/08/20 17:55 101 H 177/117 H 01/08/20 15:00 91 13 178/100 H 100 01/08/20 14:11 176/97 H 01/08/20 14:00 96 29 H 176/97 H 94 01/08/20 13:00 91 15 174/92 H 98 01/08/20 12:00 95 24 H 184/95 H 95 01/08/20 11:00 85 17 173/101 H 96 01/08/20 10:00 92 21 H 180/92 H 96 Body Mass Index 18.3 Const: General: cooperative Resp: Auscultation: clear to auscultation bilaterally Cardio: Jugular venous distension: no JVD Heart sounds: no murmurs and no rubs Skin: General skin exam: no rashes or lesions noted Neuro: Motor exam (neuro): No Asterixis during motor activity present Assessment & Plan Assessment and plan (1) ESRD (end stage renal disease) on dialysis: Status: Acute Assessment and Plan: 1. HTN Emerency woith acute pulm edema: improved after HD/UF and BP improved on drips and PO meds note that outpt HD states he was abruptly d/c clonidine which nay have caused a rebound HTN crisi 2. JONES/CHF: d/t HTN emerg and underlyng severe HTN heart Dz and pulm HTN 3. ERSD 4. H/O resitant HTN REC: incr clonidine patch two #3 patches along with the other PO meds as outlined; w/u to eval for ALETHEA and pheo ( both can be done as an outpt) Time Spent With Patient Time: Total time spent is greater than 50% in coordination of care (as documented) at patient's floor/unit and/or counseling patient:
--- NOTE | 2020-01-09 16:46 | HO.PM.IMPN ---
Subjective Subjective Date of Service: 01/09/20 Interval History: uncontrolled htn , esrd Review of Systems Patient denies any chest pain or shortness of breath or abdominal pain or fever or chills or any urinary complaints. Physical Exam Vital Signs: Vital Signs: Vital Signs Temp Pulse Resp BP Pulse Ox 01/09/20 15:28 98.6 F 89 18 190/100 H 98 01/09/20 14:37 97 180/76 H 01/09/20 11:21 97.8 F 93 18 178/88 H 98 01/09/20 08:05 84 180/82 H 01/09/20 08:04 84 180/82 H 01/09/20 07:31 96.7 F L 84 18 180/82 H 98 01/09/20 05:38 93 180/80 H 01/09/20 03:05 98.4 F 93 18 180/80 H 96 01/08/20 23:53 98.2 F 101 H 18 200/110 H 94 01/08/20 21:25 88 196/107 H 01/08/20 21:23 88 196/107 H 01/08/20 19:19 97.8 F 88 20 196/107 H 98 01/08/20 17:55 101 H 177/117 H Body Mass Index 18.3 Physical exam: Cvs: rrr, [id number] , no murmur res: clear to auscultation ,no rhonchii or wheezing abd: no rebound or guarding ,nt, bs present. ext pulses present , no cyanosis neuro: axo3 , nonfocal. Objective Data Current Medications Generic Name Dose Route Start Last Admin Trade Name Lamar PRN Reason Stop Dose Admin Carvedilol 25 mg 01/07/20 06:00 01/09/20 05:38 Carvedilol 25 Mg Tablet PO 25 mg Q12H LAYLA Administration Protocol Clonidine 0.6 mg 01/14/20 09:00 Clonidine 0.3 Mg Patch.Tdwk TRANSDERMA Kim@0900 [facility] Protocol Heparin Sodium (Porcine) 5,000 unit 01/06/20 05:00 01/09/20 12:16 Heparin Sodium,Porcine 5,000 Unit/Ml Vial SUBCUT 5,000 unit Q8H LAYLA Administration Hydralazine HCl 75 mg 01/07/20 21:00 01/09/20 14:37 Hydralazine Hcl 25 Mg Tablet PO 75 mg TID LAYLA Administration Protocol Lisinopril 20 mg 01/08/20 10:10 01/09/20 08:05 Lisinopril 20 Mg Tablet PO 20 mg DAILY LAYLA Administration Protocol Nifedipine 60 mg 01/09/20 09:00 01/09/20 08:05 Nifedipine Er 60 Mg Tab.Er.24 PO 60 mg BID LAYLA Administration Protocol Senna 8.6 mg 01/07/20 21:00 01/08/20 21:26 Sennosides 8.6 Mg Tablet PO 8.6 mg BEDTIME LAYLA Administration Sodium Chloride 3 ml 01/06/20 08:00 01/09/20 14:38 0.9 % Sodium Chloride Flush 3 Ml Syringe IVFLUSH 3 ml QSHIFT [facility] Administration Labs CBC & Chem 7: 01/08/20 05:29 01/08/20 05:29 Assessment and Plan (1) Accelerated essential hypertension: Status: Acute (2) ESRD (end stage renal disease) on dialysis: Status: Acute Assessment and Plan: Htn crisis: Seems noncompliant, Patient was in ICU was on Cardene drip: Subsequently blood pressure meds were adjusted to floor with lisinopril 20 mg daily, hydralazine 75 mg p.o. t.i.d., clonidine 0.3 mg patch, carvedilol 25 mg q.12, nifedipine. Patient blood pressure still in 180s range, discussed with Nephrology and patient's clonidine adjusted to 0.6 mg patch as well as stay nifedipine adjusted to 60 mg b.i.d. ESRD: has left ext av fitula: Patient receives dialysis on Wednesday as per patient Continue to monitor Nephrology following also patient has hx of chf diastolic from previous chart review: seems stable.
[2020-01-10 00:23] VITALS: BP 178/90; PULSE 87; RESP 18; TEMP 36.6; O2SAT 95
[2020-01-10 04:23] VITALS: BP 190/98; PULSE 84; RESP 18; TEMP 36.6; O2SAT 98
[2020-01-10 05:23] VITALS: BP 188/98; PULSE 88
[2020-01-10] MEDS: carvediloL 25 MG TABLET PO (05:23)
[2020-01-10 07:00] LABS: Hemoglobin 9.7 g/dl (14.0-18.0); Mean Corpuscular HGB Conc 33.4 g/dl (31.0-36.0); Mean Corpuscular Hemoglobin 30.9 pg (27.0-33.0); Mean Corpuscular Volume 92.4 fL (80-98); Mean Platelet Volume 10.6 fL (9.4-12.4); Platelet Count 214 X10*3/uL (160-400); Red Blood Count 3.14 X10*6/uL (4.60-5.80); Red Cell Distribution Width 16.9 % (11.0-16.0); White Blood Count 7.1 X10*3/uL (4.8-10.8)
[2020-01-10 07:16] LABS: Anion Gap 21 (12-20); Blood Urea Nitrogen 66 mg/dL (9-16); Calcium 7.7 mg/dL (8.4-10.2); Carbon Dioxide 20 mmol/L (22-29); Chloride 96 mmol/L (96-108); Creatinine Clr Calc Pharmacy 8.3; Estimated Glomerular Filt Rate 7; Glucose Random 82 mg/dL (60-115); Potassium 5.1 mmol/l (3.3-5.1); Sodium 132 mmol/L (135-145)
[2020-01-10] MEDS: lisinopriL 20 MG TABLET PO (08:05)
[2020-01-10] MEDS: hydrALAZINE HCl 25 MG TABLET 75 MG PO ×2 (08:05→15:47)
[2020-01-10] MEDS: 0.9 % Sodium Chloride Flush 3 ML SYRINGE IVFLUSH (08:06)
[2020-01-10] MEDS: NIFEdipine ER 60 MG TAB.ER.24 PO (08:06)
--- NOTE | 2020-01-10 11:33 | PM.PNNEP ---
Subjective Subjective Principal diagnosis: ESRD Interval history: uncontrolled htn , esrd currently on HD Physical Exam Vital Signs: Vital Signs: Vital Signs Temp Pulse Resp BP Pulse Ox 01/10/20 05:23 88 188/98 H 01/10/20 04:23 97.8 F 84 18 190/98 H 98 01/10/20 00:23 97.8 F 87 18 178/90 H 95 01/09/20 20:21 68 162/90 H 01/09/20 20:20 68 162/90 H 01/09/20 18:53 97.6 F 82 18 180/98 H 99 01/09/20 17:00 92 178/78 H 01/09/20 15:28 98.6 F 89 18 190/100 H 98 01/09/20 14:37 97 180/76 H Body Mass Index 18.3 Const: General: cooperative Resp: Auscultation: clear to auscultation bilaterally Cardio: Jugular venous distension: no JVD Heart sounds: no murmurs and no rubs Skin: General skin exam: no rashes or lesions noted Neuro: Motor exam (neuro): No Asterixis during motor activity present Assessment & Plan Assessment and plan (1) ESRD (end stage renal disease) on dialysis: Status: Acute Assessment and Plan: 1. HTN Emerency with acute pulm edema: improved after HD/UF and BP improved on drips and PO meds note that outpt HD states he was abruptly d/c clonidine which nay have caused a rebound HTN crisi 2. JONES/CHF: d/t HTN emerg and underlyng severe HTN heart Dz and pulm HTN 3. ERSD 4. H/O resitant HTN REC: switch hydralazine to 100 bid ( 3x/day is likley to miss 3rd dose) o/w cont same BP meds; w/u to eval for ALETHEA was neg babsed on doppler; pheo w/u ordered; will eval for MOBIUS device based on compassionate use for resitant HTN; will consider addindg aldactone as outpt if BP remains uncontrolled ok to d/c ho,e with folllow up at outpt unit Time Spent With Patient Time: Total time spent is greater than 50% in coordination of care (as documented) at patient's floor/unit and/or counseling patient:
--- NOTE | 2020-01-10 12:48 | MHC.CM.PN ---
imm updated possible dc today plan remanins home no servceis
[2020-01-10 14:18] VITALS: BP 160/92; PULSE 84; RESP 18; O2SAT 97
--- NOTE | 2020-01-10 15:13 | PM.DS ---
DS: Providers Provider Date of admission: 01/06/20 03:36 Primary care physician: Syeda Pierce MD DS: Diagnosis Discharge Diagnosis (1) ESRD (end stage renal disease) on dialysis: Status: Acute (2) Hypertensive crisis: Status: Acute (3) Accelerated essential hypertension: Status: Acute DS: Summary Hospital Course Hospital Course: From the admission H&P: Mr. Chávez is a 44-year-old male with past medical history of hypertension and end-stage renal failure on dialysis (MWF), diastolic congestive heart failure, ascites, and anxiety. He presented to the emergency room with worsening shortness of breath. Patient reported having dialysis yesterday, and shortness of breath persisted despite dialysis. On arrival to the ED his blood pressure was noted to be 220/120. In the ED he received labetalol 40, hydralazine 40, clonidine 0.2, nitro patch but no improvement in his blood pressure. Laboratory data in the ED significant for WBC 13, chloride 93, BUN 44, creatinine 7.98, troponin sensitivity 200.2, BNP 6584 Chest x-ray with no acute findings from previous He will be admitted to the ICU for management of hypertensive crisis with Cardene drip Hospital Course: Patient was initially admitted to the intensive care unit and was on a nicardipine drip initially. He was able to be seen initiated on oral antihypertensives and subsequently was able to be weaned from the nicardipine drip. He underwent scheduled dialysis per Nephrology recommendations. Over the course of 4 days in the hospital multiple meds were titrated and ultimately he will be discharged home on the following regimen: Coreg 25 mg twice a day Hydralazine 100 mg twice a day lisinopril 40 mg daily Clonidine 0.6 patch Q weekly Nicardipine XL 120 mg daily with these measures, he had significant improvement in his blood pressure which remains is not ideal control. He will be follow-up by the Nephrology Clinic for further titration of his meds. patient underwent a Doppler ultrasound in the hospital which was negative for any renal artery stenosis. Workup has been initiated for pheochromocytoma and will be followed up in the Nephrology Clinic. Time Spent with Patient Time attestation: Total time spent providing and/or coordinating discharge services: Physical Exam Vital Signs: Vital Signs: Vital Signs Temp Pulse Resp BP Pulse Ox 01/10/20 14:18 84 18 160/92 H 97 01/10/20 05:23 88 188/98 H 01/10/20 04:23 97.8 F 84 18 190/98 H 98 01/10/20 00:23 97.8 F 87 18 178/90 H 95 01/09/20 20:21 68 162/90 H 01/09/20 20:20 68 162/90 H 01/09/20 18:53 97.6 F 82 18 180/98 H 99 01/09/20 17:00 92 178/78 H 01/09/20 15:28 98.6 F 89 18 190/100 H 98 Body Mass Index 18.3 General - no acute distress, appears comfortable Cardiovascular - regular rate and rhythm, S1-S2 Lungs - normal respiratory effort, clear to auscultation bilaterally, no wheezing Abdomen - soft, nontender, no rebound regarding Extremities - no edema bilaterally Neuro - awake and alert, no focal deficits DS: Data Data Completed and Pending Labs on day of discharge: Labs from last 24 hours 01/10/20 01/10/20 05:23 05:23 WBC 7.1 RBC 3.14 L Hgb 9.7 L Hct 29.0 L MCV 92.4 MCH 30.9 MCHC 33.4 RDW 16.9 H Plt Count 214 MPV 10.6 Absolute Nucleated RBC 0.000 Nucleated RBC % (auto) 0.0 Sodium 132 L Potassium 5.1 Chloride 96 Carbon Dioxide 20 L Anion Gap 21 H BUN 66 H Creatinine 8.29 H* Estim Creat Clear Calc 8.3 Estimated GFR 7 Random Glucose 82 Calcium 7.7 L Discharge Plan Discharge Patient Disposition: Home, Self-Care Referrals: Syeda Pierce MD [Primary Care Provider] - Discharge Medications: New clonidine [[id number]] 0.3 mg/24 hr Patch Weekly 0.6 mg transdermal Kim@0900 Qty: 4 RF: 0 hydralazine 100 mg tablet 100 mg PO BID Qty: 60 RF: 0 lisinopril 40 mg tablet 40 mg PO DAILY Qty: 30 RF: 0 nifedipine 60 mg tablet extended release 120 mg PO DAILY Qty: 60 RF: 0 Continued carvedilol 25 mg tablet 25 mg PO RF: 0 lorazepam 0.5 mg tablet 0.5 mg PO RF: 0 Auryxia 210 mg iron tablet 210 mg PO RF: 0 Discontinued doxazosin 1 mg tablet 1 mg PO RF: 0 lisinopril 20 mg tablet 20 mg PO RF: 0 clonidine HCl 0.3 mg tablet 0.3 mg PO RF: 0 isosorbide mononitrate 60 mg tablet extended release 24 hr 60 mg PO RF: 0 clonidine HCl 0.2 mg tablet 0.2 mg PO RF: 0 amlodipine 10 mg tablet 10 mg PO RF: 0 lisinopril 2.5 mg tablet 2.5 mg PO RF: 0 Discharge Orders: Discharge Order (Routine); Ordered 01/10/20 Ordered By: Berny Ojeda Diet: advance to your usual diet Activity on Discharge: As tolerated Visit Report Forms: Patient Portal Discharge page Care Plan Goals: To have blood pressure improve Health Concerns: Uncontrolled hypertension Plan of Treatment: Take blood pressure medications, follow up with kidney doctors and complete dialysis 3 times every week
[2020-01-10 15:43] VITALS: BP 150/80
[2020-01-10 15:47] VITALS: BP 150/80; PULSE 84
[2020-01-22 19:13] LABS: Catecholamine Frac, Total 2863 pg/mL
== END 2020-01-10 15:55 | disposition home or self-care (01) | DRG 291 ==
LOC: HO.ED 01-06 03:18 → HO.ICU 01-06 04:02 → HO.IMC 01-08 16:37
PROVIDERS: Internal Medicine; Internal Medicine Nephrology; Registered Nurse Community Health; Admitting Provider Internal Medicine Cardiovascular Disease; Emergency Provider Internal Medicine; PCP Internal Medicine; Visit Provider Family Medicine
DX: I13.0 Hypertensive heart and chronic kidney disease with heart failure and stage 1 through stage 4 chronic kidney disease, or unspecified chronic kidney disease (principal); I50.33 Acute on chronic diastolic (congestive) heart failure; I16.9 Hypertensive crisis, unspecified; N18.9 Chronic kidney disease, unspecified; Z20.828 Contact with and (suspected) exposure to other viral communicable diseases; Z99.2 Dependence on renal dialysis; I27.20 Pulmonary hypertension, unspecified; Z79.899 Other long term (current) drug therapy
CPT/HCPCS: 36415; 71045; 76775; 80048; 80053; 80076; 82040; 82384; 82803; 83735; 83880; 84100; 84484; 85025; 85027; 90999; 93005; 93306; 93975; 96374; 96375; 96376; 99225; 99285; 99291; J2060; U0003

== ENCOUNTER 2020-01-16 07:20 | Day surgery (SDC) | payer MEDICARE, MEDICAID, SELFPAY ==
--- NOTE | 2020-01-16 | US_ITS ---
EXAMINATION: ULTRASOUND-GUIDED PARACENTESIS CLINICAL INFORMATION: Ascites COMPARISON: Previous exams most recent 12/11/2019 TECHNIQUE: Procedure and risks and benefits including bleeding, infection and low blood pressure were discussed with the patient and informed consent was obtained. The right lower quadrant was prepped and draped in the usual sterile fashion. The skin and soft tissues were anesthetized with 1% lidocaine plain. Using ultrasound guidance and a 5 Romanian rapid centesis catheter, access to the ascitic fluid was obtained. 2.5 L of dark serosanguineous slightly bloody fluid was removed. Diagnostic specimen was sent. FINDINGS: There is a moderate amount of ascites. US/US paracentesis abd w/image IMPRESSION: Ultrasound-guided paracentesis.
[2020-01-16 07:47] VITALS: BMI 18.6
[2020-01-16 07:53] VITALS: BP 156/89; PULSE 77; RESP 16; TEMP 37.3; O2SAT 99
[2020-01-16 08:01] LABS: Prothrombin Time 11.9 SEC (10.8-13.0)
--- NOTE | 2020-01-16 09:19 | HO.RADPN ---
RADIOLOGY Narrative Narrative: Right lower quadrant paracentesis performed using 5 Fr catheter. 3 L dark serosanguinous slightly bloody fluid removed. Diagnostic specimen sent.
[2020-01-16 10:00] VITALS: BP 139/82; PULSE 80; RESP 18; O2SAT 98
[2020-01-16] MEDS: Lidocaine HCl 1 % 20 ML VIAL 5 ML SUBCUT (10:12)
[2020-01-16 10:15] VITALS: BP 135/77; PULSE 82; RESP 18; TEMP 37.1; O2SAT 98
[2020-01-16 10:19] LABS: MN% 78.7 %; PMN% 21.3 %; RBC Peritoneal Fluid 0.068 X10*6/uL; WBC Peritoneal Fluid 0.429 X10*3/uL
[2020-01-16 10:24] VITALS: BP 148/82; PULSE 83; RESP 18; TEMP 36.1; O2SAT 98
[2020-01-16 10:59] LABS: Eosinophils Peritoneal Fl 1 %; Lymphocyte Peritoneal Fl 7 %; Monocytes Peritoneal Fl 89 %; Neutrophils Peritoneal Fluid 3 %
== END 2020-01-16 10:30 | disposition home or self-care (01) ==
PROVIDERS: Radiology Diagnostic Radiology; PCP Internal Medicine; Visit Provider Internal Medicine
DX: R18.8 Other ascites (principal); I13.2 Hypertensive heart and chronic kidney disease with heart failure and with stage 5 chronic kidney disease, or end stage renal disease; N18.6 End stage renal disease; I50.30 Unspecified diastolic (congestive) heart failure; Z99.2 Dependence on renal dialysis; Z87.891 Personal history of nicotine dependence; Z79.899 Other long term (current) drug therapy; Z88.8 Allergy status to other drugs, medicaments and biological substances
CPT/HCPCS: 36415; 49083; 85610; 85730; 87071; 87205; 89051; 90999

== ENCOUNTER 2020-02-20 07:25 | Outpatient (REF) | payer MEDICARE, MEDICAID, SELFPAY ==
--- NOTE | 2020-02-20 | US_ITS ---
EXAMINATION: ULTRASOUND GUIDED PARACENTESIS CLINICAL INFORMATION: Diffuse ascites with abdominal pain. COMPARISON: None TECHNIQUE: Following explanation of the ultrasound-guided paracentesis procedure, benefits and risk, a written consent was obtained. The patient was placed supine on ultrasound stretcher and preliminary ultrasound imaging was obtained through the abdomen. An optimal site was selected along the left lower lateral abdomen and marked. The marked site was cleaned and draped in usual sterile manner. 1% lidocaine was injected at the puncture site. Through a small skin incision a 5 Yi CBA PHARMAeh catheter was advanced into the peritoneal space. After observing fluid return, the stylet was withdrawn and the catheter connected to the vacuum bottle via connecting cannula. After obtaining all fluid and observing no more fluid remaining, the catheter was withdrawn and complete hemostasis achieved at the puncture site. Sterile band-aid dressing was applied postprocedure. Patient tolerated the procedure extremely well. FINDINGS: On preliminary ultrasound imaging there is moderate free fluid seen in the abdomen. Successful ultrasound-guided paracentesis performed. US/US paracentesis abd w/image IMPRESSION: Successful ultrasound-guided diagnostic and therapeutic paracentesis performed. Fluid collected was sent for cell count, Gram stain and culture.
[2020-02-20 07:45] VITALS: BMI 20.3
[2020-02-20 07:54] VITALS: BP 166/95; PULSE 81; RESP 18; TEMP 36.1; O2SAT 97
[2020-02-20 08:16] LABS: MANUAL DIFF FLAG NO
[2020-02-20 08:18] LABS: Basophils Percent Auto 0.5 % (0-2); Eosinophils Absolute Auto 0.2 X10*3/uL (0.0-0.4); Eosinophils Percent Auto 3.3 % (0-4); Hematocrit 35.1 % (42-52); Hemoglobin 11.2 g/dl (14.0-18.0); Imm Gran Abs Auto 0.03 X10*3/uL (0.00-0.03); Imm Gran Pct Auto 0.5 % (0.0-0.4); Lymphocytes Absolute Auto 0.8 X10*3/uL (1.2-4.9); Mean Corpuscular HGB Conc 31.9 g/dl (31.0-36.0); Mean Corpuscular Hemoglobin 29.3 pg (27.0-33.0); Mean Corpuscular Volume 91.9 fL (80-98); Mean Platelet Volume 9.8 fL (9.4-12.4); Monocytes Absolute Auto 0.7 X10*3/uL (0.1-1.2); Monocytes Percent Auto 10.5 % (2-11); Neutrophils Absolute Auto 4.6 X10*3/uL (2.0-8.3); Neutrophils Percent Auto 72.2 % (45-73); Platelet Count 195 X10*3/uL (160-400); Red Blood Count 3.82 X10*6/uL (4.60-5.80); White Blood Count 6.4 X10*3/uL (4.8-10.8)
[2020-02-20 08:26] LABS: INTERNATIONAL NORM RATIO 1.1 (0.9-1.1); Prothrombin Time 12.5 SEC (10.8-13.0)
[2020-02-20 08:29] LABS: Partial Thromboplastin Time 38.7 SEC (24.1-38.0)
[2020-02-20] MEDS: Lidocaine HCl 1 % MPF 5 ML VIAL SUBCUT (08:51)
[2020-02-20 09:55] VITALS: BP 155/90; PULSE 76; RESP 18; TEMP 37.1; O2SAT 97
[2020-02-20 10:25] VITALS: BP 139/77; PULSE 73; O2SAT 97
[2020-02-20 10:55] VITALS: BP 178/99; PULSE 87; RESP 13; O2SAT 94
[2020-02-20 11:26] VITALS: BP 169/95; PULSE 79; RESP 16; TEMP 37.2; O2SAT 96
[2020-02-20 11:32] LABS: MN% 94.1 %; PMN% 5.9 %; WBC Pleural Fluid 0.223 X10*3/uL
[2020-02-20 11:33] LABS: RBC Pleural Fluid < 0.002 X10*3/uL
[2020-02-20 13:21] LABS: BF Shift QC OK YES; Lymphocytes Pleural Fluid 14 %; Monocytes Pleural Fluid 6 %; Neutrophils Pleural Fluid 1 %; Other Cells Plerual Fl 79 %
== END 2020-02-20 11:56 | disposition home or self-care (01) ==
LOC: HO.SSS 07:25
PROVIDERS: Radiology Diagnostic Radiology; PCP Internal Medicine; Visit Provider Internal Medicine
DX: R18.8 Other ascites (principal)
CPT/HCPCS: 36415; 49083; 85025; 85610; 85730; 87071; 87205; 89051

== ENCOUNTER 2020-03-02 09:05 | Inpatient (IN) | payer MEDICARE, MEDICAID, SELFPAY ==
[2020-03-02] VITALS (16 sets, daily range): BP systolic 180–254; BP diastolic 90–134; PULSE 88–109; RESP 16–27; TEMP 36.6–36.9; O2SAT 93–99; BMI 20.2
--- NOTE | 2020-03-02 | ECG_ITS ---
Test Reason : SHORTNESS OF BREATH Blood Pressure : / mmHG Vent. Rate : 103 BPM Atrial Rate : 103 BPM P-R Int : 164 ms QRS Dur : 088 ms QT Int : 342 ms P-R-T Axes : 041 020 127 degrees QTc Int : 448 ms Sinus tachycardia Possible Left atrial enlargement Left ventricular hypertrophy with repolarization abnormality Abnormal ECG When compared with ECG of 07-JAN-2020 13:33, T wave inversion no longer evident in Inferior leads Referred By: Generic ED Physician Electronically Signed By:BRIANA HERRMANN MD
--- NOTE | 2020-03-02 10:06 | XR_ITS ---
EXAMINATION: XR CHEST CLINICAL INFORMATION: Short of breath. COMPARISON: Chest 01/05/2020 TECHNIQUE: Frontal view of the chest was obtained. FINDINGS: Lungs are somewhat expanded with patchy hypodensity in the left lung base and left upper lobe. Haziness is seen in the right lower lobe. Heart size and vascularity is normal. No gross bony abnormality seen. XR/XR chest 1V IMPRESSION: Patchy opacities in the left upper lobe, left lower lobe and haziness in right lower lobe likely atelectasis. Infiltrate is not excluded. Similar findings were seen on previous study 01/05/2020
--- NOTE | 2020-03-02 10:15 | ED_ITS ---
HPI - SOB/Dyspnea General Chief Complaint: Dyspnea Stated Complaint: DIFF BREATHING,COVID+ Time Seen by Provider: 03/02/20 09:36 Source: patient Mode of arrival: EMS Limitations: no limitations History of Present Illness HPI Narrative: 44-year-old male who was brought to the emergency department by ambulance for evaluation of shortness of breath. The patient has end-stage renal disease and is dialyzed on Wednesday, Wednesday and Wednesday. He states that he was tested for COVID-19 2 days prior and got the result today that he was positive. He states that he has not been able to go to dialysis and missed his Wednesday and Wednesday dialysis this week. He states he has been feeling short of breath for 2 days. He states this morning the shortness of breath got worse so he called an ambulance. His O2 saturation on room air was 90% on 2 L he went up to 94%. He states that he has been having diarrhea for 2 days, approximately 7 episodes per day. He has had an occasional cough which is nonproductive. He has had increased dyspnea on exertion. He complains of myalgias and arthralgias. He also states he is feeling weak and fatigued. He denied chest pain, fever or chills. Related Data Home Medications Medication Instructions Recorded Confirmed Auryxia 210 mg PO 12/11/19 carvedilol 25 mg PO 12/11/19 lorazepam 0.5 mg PO 12/11/19 12/11/19 Previous Rx's Medication Instructions Recorded clonidine [[id number]] 0.6 mg TRANSDERMAL Kim@0900 #4 ea 01/10/20 hydralazine 100 mg PO BID #60 tab 01/10/20 lisinopril 40 mg PO DAILY #30 tab 01/10/20 nifedipine 120 mg PO DAILY #60 tab 01/10/20 Allergies Allergy/AdvReac Type Severity Reaction Status Date / Time No Known Allergies Allergy Verified 01/05/20 21:48 Review of Systems Review of Systems: Yes all other systems are reviewed and are negative Constitutional: Constitutional: Reports as per HPI Eyes: Eyes: Reports as per HPI ENT: Reports as per HPI Cardiovascular: Cardiovascular: Reports as per HPI Respiratory: Respiratory: Reports as per HPI Gastrointestinal: Gastrointestinal: Reports as per HPI Genitourinary: Genitourinary: Reports as per HPI Musculoskeletal: Musculoskeletal: Reports as per HPI Integumentary/Breasts: Skin/Breast: Reports as per HPI Neurologic: Reports as per HPI and Reports Abnormal speech present Psychiatric: Psychiatric: Reports as per HPI Allergic/Immunologic: Allergic/Immunologic: Reports as per HPI [facility] Past Medical History Attestation statement: The following information was validated with the patient. [facility] Narrative: Patient has history of hypertension, coronary disease, end- stage renal disease, dialyzed Wednesday, denies tobacco, alcohol or drug use. Medical History (Updated 03/02/20 @ 11:22 by Elian Ordonez MD) CHF (congestive heart failure) Dialysis patient Disease of pericardium, unspecified Fistula Hypertension Hypertensive cardiovascular disease Kidney disease Pulmonary hypertension associated with end stage renal disease on dialysis Social History Social History Smoking Status: Former smoker Smoked in Last 30 Days: No Second Hand Smoke Exposure: No Use of substances other than those prescribed or required for medical reasons: No Advance Directives: No Advance Directives Information Provided: No service: No Current occupational status: disabled Physical Exam Vital Signs: Vital Signs: Last Vital Signs Temp 98.4 F 03/02/20 09:19 Pulse 103 H 03/02/20 10:44 Resp 25 H 03/02/20 10:44 BP 184/99 H 03/02/20 10:44 Pulse Ox 97 03/02/20 10:44 Body Mass Index 20.0 Const: General: cooperative and healthy appearing Nutritional Appearance: average body habitus Orientation/consciousness: oriented to person and oriented to place Limitations: no limitations HENMT: Head: Yes normal to inspection, Yes normocephalic and Yes atraumatic Ears: external ears normal General nose exam: Normal external nose present Face and sinus: Yes normal facial exam Mouth: Normal oral and palatal mucosa present Throat: Yes posterior oropharynx normal Eyes: General: appearance normal, both eyes and all related structures Alignment and Position: alignment normal Periorbital: periorbital findings normal Eyelids: Yes eyelids normal Conjunctivae: conjunctivae normal Sclerae: sclerae normal Pupils: Equal, round and reactive pupils present Direct Ophthalmoscopy: normal light reflex Neck: Neck: Yes normal visual inspection and Yes supple Thyroid: Thyroid normal Chest: Chest palpation & inspection: normal inspection of the chest and normal palpation of entire chest wall Resp: Effort & Inspection: normal respiratory effort and able to speak in complete sentences Auscultation: clear to auscultation bilaterally, no crackles, no rales and no rhonchi Cardio: Rate: tachycardic Rhythm: regular rhythm Heart sounds: S1 normal heart sound present, S2 normal heart sound present and no murmurs GI: Inspection: Yes normal to inspection Palpation (GI): Soft to palpation, nontender and no guarding Auscultation: normal bowel sounds : General: Yes no CVA tenderness Back/Spine/Pelvis: Back: no CVA tenderness Cervical Spine: normal cervical lordosis Thoracic/Lumbar Spine: thoracic and lumbar spine normal to inspection Skin: General skin exam: no rashes or lesions noted Lesions: no lesions Rashes: no rashes Trauma: no lacerations or abrasions Neuro: General: oriented to person and oriented to place Cranial nerves: Yes CN's II-XII intact bilaterally and Yes Equal, round and reactive pupils present Cognition (Neuro): normal cognition Speech: Abnormal speech present Motor exam (neuro): 5/5 motor strength present throughout Extrem: General: Yes normal to inspection and Yes other (1+ pitting edema, symmetric) Psych: Appearance: grossly normal and well kempt Mental Status: mental status grossly normal Speech and movement: Normal speech and movement present Affect: normal affect Attitude: cooperative Thought process: Normal thought process present Thought content: Normal thought content present Insight: Good insight present (Psych) Judgement: Good judgement present (Psych) Course Course Course Narrative: 44-year-old male end-stage renal disease dialyzed Wednesday, Wednesday, missed 2 dialysis appointments, who was tested for COVID 2 days prior and is positive today who presents to the emergency department for shortness of breath, dyspnea on exertion, cough, increased fatigue and myalgias. Patient's physical examination revealed that was afebrile, he is hypertensive with a blood pressure of 254/134 with an elevated pulse of 109. O2 saturation on 4 L was 95%. The patient does meet SIRS criteria and a septic workup was ordered. The patient has COVID-19 and also has missed 2 dialysis appointments therefore he will not get a sepsis fluid bolus at this time since he is probably fluid overloaded and a fluid bolus may cause SARS. 1120: The patient's chest x-ray is concerning for possible COVID pneumonia. The patient's laboratory evaluation is pending but his EKG does reveal peaked T- waves. 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 Bell who came to the emergency department evaluated the patient. Dr. Bell is requesting the patient be admitted for dialysis and further management of his COVID pneumonia. I did discuss the patient's presentation with the covering hospitalist physician transport assistant, Annabel Sharma in the patient will be admitted for further treatment. The patient was ordered to get Zithromax 500 mg IV and dexamethasone 9 mg IV. 1137: The patient's potassium came back at 6.5. The patient was ordered Kayexalate 45 mL orally, and D50 1 amp IV and regular insulin 10 units IV. The patient's lactic acid was normal. MDM - SOB/Dyspnea Lab Data Result diagrams: 03/02/20 10:41 03/02/20 10:41 Labs: Lab Results 03/02/20 03/02/20 03/02/20 Range/Units 10:41 10:41 10:41 WBC 8.9 (4.8-10.8) X10*3/uL RBC 3.85 L (4.60-5.80) X10*6/uL Hgb 11.0 L (14.0-18.0) g/dl Hct 34.3 L (42-52) % MCV 89.1 (80-98) fL MCH 28.6 (27.0-33.0) pg MCHC 32.1 (31.0-36.0) g/dl RDW 16.1 H (11.0-16.0) % Plt Count 158 L (160-400) X10*3/uL MPV 10.4 (9.4-12.4) fL Immature Gran % (Auto) 0.3 (0.0-0.4) % Neut % (Auto) 87.8 H (45-73) % Lymph % (Auto) 6.5 L (20-40) % [place] % (Auto) 3.9 (2-11) % Eos % (Auto) 1.3 (0-4) % Baso % (Auto) 0.2 (0-2) % Lymph # (Auto) 0.6 L (1.2-4.9) X10*3/uL [place] # (Auto) 0.4 (0.1-1.2) X10*3/uL Eos # (Auto) 0.1 (0.0-0.4) X10*3/uL Baso # (Auto) 0.0 (0.0-0.2) X10*3/uL Abs Immat Gran (auto) 0.03 (0.00-0.03) X10*3/uL Absolute Neuts (auto) 7.8 (2.0-8.3) X10*3/uL Absolute Nucleated RBC 0.000 (0.0-0.012) X10*3/uL Nucleated RBC % (auto) 0.0 (0.0-0.2) /100WBC Smear Tech's Comments VERIFIED PT 12.2 (10.8-13.0) SEC INR 1.0 (0.9-1.1) APTT 39.7 H (24.1-38.0) SEC Sodium 138 (135-145) mmol/L Potassium 6.5 H* D (3.3-5.1) mmol/l Chloride 100 (96-108) mmol/L Carbon Dioxide 17 L (22-29) mmol/L Anion Gap 28 H (12-20) BUN 117 H* D (9-16) mg/dL Creatinine 16.73 H* (0.5-1.4) mg/dL Estim Creat Clear Calc 4.5 Estimated GFR 3 Random Glucose 109 (60-115) mg/dL Lactic Acid (0.5-2.0) mmol/L Calcium 7.9 L (8.4-10.2) mg/dL Total Bilirubin 0.9 (0.0-1.0) mg/dL Direct Bilirubin 0.3 (0.0-0.5) mg/dL AST 15 (5-37) U/L ALT 13 (0-40) U/L Alkaline Phosphatase 77 D (39-117) U/L Total Protein 7.4 D (6.5-8.0) g/dL Albumin 4.2 (3.5-5.0) g/dL 03/02/20 Range/Units 10:41 WBC (4.8-10.8) X10*3/uL RBC (4.60-5.80) X10*6/uL Hgb (14.0-18.0) g/dl Hct (42-52) % MCV (80-98) fL MCH (27.0-33.0) pg MCHC (31.0-36.0) g/dl RDW (11.0-16.0) % Plt Count (160-400) X10*3/uL MPV (9.4-12.4) fL Immature Gran % (Auto) (0.0-0.4) % Neut % (Auto) (45-73) % Lymph % (Auto) (20-40) % [place] % (Auto) (2-11) % Eos % (Auto) (0-4) % Baso % (Auto) (0-2) % Lymph # (Auto) (1.2-4.9) X10*3/uL [place] # (Auto) (0.1-1.2) X10*3/uL Eos # (Auto) (0.0-0.4) X10*3/uL Baso # (Auto) (0.0-0.2) X10*3/uL Abs Immat Gran (auto) (0.00-0.03) X10*3/uL Absolute Neuts (auto) (2.0-8.3) X10*3/uL Absolute Nucleated RBC (0.0-0.012) X10*3/uL Nucleated RBC % (auto) (0.0-0.2) /100WBC Smear Tech's Comments PT (10.8-13.0) SEC INR (0.9-1.1) APTT (24.1-38.0) SEC Sodium (135-145) mmol/L Potassium (3.3-5.1) mmol/l Chloride (96-108) mmol/L Carbon Dioxide (22-29) mmol/L Anion Gap (12-20) BUN (9-16) mg/dL Creatinine (0.5-1.4) mg/dL Estim Creat Clear Calc Estimated GFR Random Glucose (60-115) mg/dL Lactic Acid 0.5 (0.5-2.0) mmol/L Calcium (8.4-10.2) mg/dL Total Bilirubin (0.0-1.0) mg/dL Direct Bilirubin (0.0-0.5) mg/dL AST (5-37) U/L ALT (0-40) U/L Alkaline Phosphatase (39-117) U/L Total Protein (6.5-8.0) g/dL Albumin (3.5-5.0) g/dL ECG Data Attestation: I personally reviewed and interpreted this ECG as follows: ECG interpretation date: 03/02/20 ECG interpretation time: 09:47 Interpretation: Sinus tachycardia with a rate of 103, normal [place], QRS and QTC intervals, peaked T-waves in V1 through the 5 with an inverted T-wave in V6, no ST segment elevation or depression, no old EKG for comparison Discharge Plan Discharge Clinical Impression: 2019 novel coronavirus–infected pneumonia (NCIP)#8211;infected pneumonia (NCIP), End stage chronic kidney disease, Hypoxia Patient Disposition: Admitted As Inpatient
[2020-03-02 10:48] LABS: Basophils Percent Auto 0.2 % (0-2); Eosinophils Absolute Auto 0.1 X10*3/uL (0.0-0.4); Eosinophils Percent Auto 1.3 % (0-4); Hematocrit 34.3 % (42-52); Imm Gran Abs Auto 0.03 X10*3/uL (0.00-0.03); Imm Gran Pct Auto 0.3 % (0.0-0.4); Lymphocytes Absolute Auto 0.6 X10*3/uL (1.2-4.9); Lymphocytes Percent Auto 6.5 % (20-40); MANUAL DIFF FLAG SCAN; Mean Corpuscular HGB Conc 32.1 g/dl (31.0-36.0); Mean Corpuscular Hemoglobin 28.6 pg (27.0-33.0); Mean Corpuscular Volume 89.1 fL (80-98); Mean Platelet Volume 10.4 fL (9.4-12.4); Monocytes Absolute Auto 0.4 X10*3/uL (0.1-1.2); Monocytes Percent Auto 3.9 % (2-11); Neutrophils Absolute Auto 7.8 X10*3/uL (2.0-8.3); Neutrophils Percent Auto 87.8 % (45-73); Platelet Count 158 X10*3/uL (160-400); Red Blood Count 3.85 X10*6/uL (4.60-5.80); Red Cell Distribution Width 16.1 % (11.0-16.0); SCAN SMEAR FLAG 1; White Blood Count 8.9 X10*3/uL (4.8-10.8)
[2020-03-02 10:58] LABS: Prothrombin Time 12.2 SEC (10.8-13.0)
[2020-03-02 11:00] LABS: Partial Thromboplastin Time 39.7 SEC (24.1-38.0)
[2020-03-02 11:06] LABS: Lactic Acid 0.5 mmol/L (0.5-2.0)
[2020-03-02 11:07] LABS: SLIDE REVIEW VERIFIED
[2020-03-02 11:15] LABS: Alanine Aminotransferase 13 U/L (0-40); Albumin Level 4.2 g/dL (3.5-5.0); Alkaline Phosphatase 77 U/L (39-117); Aspartate Amino Transferase 15 U/L (5-37); Bilirubin Direct 0.3 mg/dL (0.0-0.5); Bilirubin Total 0.9 mg/dL (0.0-1.0); Calcium 7.9 mg/dL (8.4-10.2); Glucose Random 109 mg/dL (60-115); Total Protein 7.4 g/dL (6.5-8.0)
[2020-03-02 11:28] LABS: Anion Gap 28 (12-20); Blood Urea Nitrogen 117 mg/dL (9-16); Carbon Dioxide 17 mmol/L (22-29); Chloride 100 mmol/L (96-108); Creatinine Clr Calc Pharmacy 4.5; Estimated Glomerular Filt Rate 3; Potassium 6.5 mmol/l (3.3-5.1); Sodium 138 mmol/L (135-145)
[2020-03-02] MEDS: Sodium Polystyrene Sulfon/Sorb 15 GM/60 ML ORAL.SUSP 45 GM PO (11:59)
[2020-03-02] MEDS: Dextrose 50 % 25 GM/50 ML SYRINGE IVPUSH (12:00)
[2020-03-02] MEDS: Insulin Regular, Human 100 UNIT/ML 3 ML VIAL 10 UNIT IVPUSH (12:00)
[2020-03-02] MEDS: Azithromycin 500 MG in 0.9 % Sodium Chloride 250 ML 125 MG IV (12:01)
--- NOTE | 2020-03-02 12:18 | PC.NURSE ---
pt to dialysis at this time.
--- NOTE | 2020-03-02 12:45 | P.HPHOSP_ITS ---
History of Present Illness Date of Service: 03/02/20 <CLEM Le - Last Filed: 03/02/20 13:03> Chief Complaint: Shortness of breath <CLEM Le - Last Filed: 03/02/20 13:03> With is a 44-year-old male with end-stage renal disease on hemodialysis who presents to the emergency department with shortness of breath. Patient reports having increase in shortness of breath beginning yesterday. He denies any associated cough. His girlfriend tested positive for COVID-19 at the beginning of the week so he did not attend dialysis on Wednesday or Wednesday. He was tested and received a call today saying that he was also positive. Since yesterday he has had shortness of breath, muscle aches, chills. His lab work was significant for BUN 117, creatinine 16.73 and potassium of 6.5. He was treated for hyperkalemia in the ED. He was evaluated by the physicist light and optics in the emergency room who recommended admission for urgent dialysis. <CLEM Le - Last Filed: 03/02/20 13:03> Review of Systems Review of Systems: Yes all other systems are reviewed and are negative <CLEM Le - Last Filed: 03/02/20 13:03> Constitutional: Constitutional: Denies chills and Denies fever(s) <CLEM Le - Last Filed: 03/02/20 13:03> Cardiovascular: Cardiovascular: Denies chest pain and Reports dyspnea <CLEM Le - Last Filed: 03/02/20 13:03> Respiratory: Respiratory: Denies cough and Reports dyspnea <CLEM Meng - Last Filed: 03/02/20 13:03> Gastrointestinal: Gastrointestinal: Denies abdominal pain <CLEM Le - Last Filed: 03/02/20 13:03> Neurologic: Reports as per HPI and Reports Abnormal speech present <CLEM Le Last Filed: 03/02/20 13:03> [facility] Medical History: Medical History (Updated 03/02/20 @ 11:22 by Elian Ordonez MD) CHF (congestive heart failure) Dialysis patient Disease of pericardium, unspecified Fistula Hypertension Hypertensive cardiovascular disease Kidney disease Pulmonary hypertension associated with end stage renal disease on dialysis <CLEM Le - Last Filed: 03/02/20 13:03> Functional capacity: independent ambulation <CLEM Le - Last Filed: 03/02/20 13:03> Family History: Family History (Updated 03/02/20 @ 12:54 by CLEM Le) Other HTN (hypertension) <CLEM Le - Last Filed: 03/02/20 13:03> Social History: Social History Smoking Status: Former smoker Smoked in Last 30 Days: No Second Hand Smoke Exposure: No Use of substances other than those prescribed or required for medical reasons: No Advance Directives: No Advance Directives Information Provided: No service: No Current occupational status: disabled <CLEM Le - Last Filed: 03/02/20 13:03> Meds Allergies/Adverse reactions: Allergies Allergy/AdvReac Type Severity Reaction Status Date / Time No Known Allergies Allergy Verified 01/05/20 21:48 <CLEM Le - Last Filed: 03/02/20 13:03> Home medications: Home Medications Medication Instructions Recorded Confirmed Type Auryxia 210 mg PO 12/11/19 History carvedilol 25 mg PO 12/11/19 History lorazepam 0.5 mg PO 12/11/19 12/11/19 History <CLEM Le - Last Filed: 03/02/20 13:03> Physical Exam Vital Signs and Narrative: Vital Signs: Last Vital Signs Temp 98.4 F 03/02/20 09:19 Pulse 98 03/02/20 12:02 Resp 27 H 03/02/20 12:02 BP 189/97 H 03/02/20 12:02 Pulse Ox 97 03/02/20 12:02 Body Mass Index 20.0 <CLEM Le - Last Filed: 03/02/20 13:03> Const: General: alert and awake <CLEM Le - Last Filed: 03/02/20 13:03> Nutritional Appearance: well nourished <CLEM Le - Last Filed: 03/02/20 13:03> Orientation/consciousness: patient oriented x3 <CLEM Le - Last Filed: 03/02/20 13:03> HENMT: Head: Yes normocephalic and Yes atraumatic <CLEM Le - Last Filed: 03/02/20 13:03> Eyes: Sclerae: sclerae normal <CLEM Le - Last Filed: 03/02/20 13:03> Chest: Chest palpation & inspection: normal inspection of the chest <CLEM Le - Last Filed: 03/02/20 13:03> Resp: Effort & Inspection: able to speak in complete sentences and tachypneic <CLEM Le - Last Filed: 03/02/20 13:03> Cardio: Rate: regular rate <CLEM Le - Last Filed: 03/02/20 13:03> Rhythm: regular rhythm <CLEM Le - Last Filed: 03/02/20 13:03> GI: Palpation (GI): Soft to palpation and nontender <CLEM Le - Last Filed: 03/02/20 13:03> Skin: General skin exam: no rashes or lesions noted <CLEM Le - Last Filed: 03/02/20 13:03> Neuro: General: patient oriented x3 <CLEM Le - Last Filed: 03/02/20 13:03> Cranial nerves: Yes CN's II-XII intact bilaterally and Yes Bilaterally intact EOM present <CLEM Le - Last Filed: 03/02/20 13:03> Speech: Abnormal speech present <CLEM Le - Last Filed: 03/02/20 13:03> Extrem: General: Yes normal to inspection <CLEM Le - Last Filed: 03/02/20 13:03> Results Labs CBC and Chem 7: : 03/02/20 10:41 03/02/20 10:41 <CLEM Le - Last Filed: 03/02/20 13:03> Labs: Laboratory Results - last 24 hr 03/02/20 03/02/20 03/02/20 10:41 10:41 10:41 MCV 89.1 MCH 28.6 MCHC 32.1 RDW 16.1 H Plt Count 158 L MPV 10.4 Immature Gran % (Auto) 0.3 Neut % (Auto) 87.8 H Lymph % (Auto) 6.5 L [place] % (Auto) 3.9 Eos % (Auto) 1.3 Baso % (Auto) 0.2 Lymph # (Auto) 0.6 L [place] # (Auto) 0.4 Eos # (Auto) 0.1 Baso # (Auto) 0.0 Abs Immat Gran (auto) 0.03 Absolute Neuts (auto) 7.8 Absolute Nucleated RBC 0.000 Nucleated RBC % (auto) 0.0 Smear Tech's Comments VERIFIED PT 12.2 INR 1.0 APTT 39.7 H Anion Gap 28 H Estim Creat Clear Calc 4.5 Estimated GFR 3 Random Glucose 109 Lactic Acid Calcium 7.9 L Total Bilirubin 0.9 Direct Bilirubin 0.3 AST 15 ALT 13 Alkaline Phosphatase 77 D Total Protein 7.4 D Albumin 4.2 03/02/20 10:41 MCV MCH MCHC RDW Plt Count MPV Immature Gran % (Auto) Neut % (Auto) Lymph % (Auto) [place] % (Auto) Eos % (Auto) Baso % (Auto) Lymph # (Auto) [place] # (Auto) Eos # (Auto) Baso # (Auto) Abs Immat Gran (auto) Absolute Neuts (auto) Absolute Nucleated RBC Nucleated RBC % (auto) Smear Tech's Comments PT INR APTT Anion Gap Estim Creat Clear Calc Estimated GFR Random Glucose Lactic Acid 0.5 Calcium Total Bilirubin Direct Bilirubin AST ALT Alkaline Phosphatase Total Protein Albumin <CLEM Le - Last Filed: 03/02/20 13:03> Imaging Radiologist's Impressions: Impressions Chest X-Ray 03/02/20 10:06 IMPRESSION: Patchy opacities in the left upper lobe, left lower lobe and haziness in right lower lobe likely atelectasis. Infiltrate is not excluded. Similar findings were seen on previous study 01/05/2020 <CLEM Le - Last Filed: 03/02/20 13:03> Assessment and Plan (1) 2019 novel coronavirus–infected pneumonia (NCIP)#8211;infected pneumonia (NCIP): Status: Acute <CLEM Le - Last Filed: 03/02/20 13:03> (2) End stage chronic kidney disease: Status: Acute <CLEM Le - Last Filed: 03/02/20 13:03> This is a 44-year-old male with a history of end-stage renal disease on hemodialysis who presents with shortness of breath found to have COVID-19 pneumonia Acute respiratory failure with hypoxia r/t fluid overload from missing hemodialysis and COVID-19 pneumonia -urgent dialysis per Nephrology -supplemental oxygen as needed ESRD on HD [facility] Missed W and F HD this week -urgent HD now -nephrology following Hyperkalemia r/t above -urgent dialysis -nephrology consult COVID-19 pneumonia -IV dexamethasone -continue supportive care/supplemental oxygen HTN Uncontrolled r/t missed dialysis Continue home medication when med reconciliation has been completed DVT prophylaxis-heparin Code status-full code Med rec pending at this time This case was discussed with Dr. Ron <CLEM Le - Last Filed: 03/02/20 13:03>
--- NOTE | 2020-03-02 16:08 | PC.NURSE ---
report given to millicent benavides
[2020-03-02] MEDS: Heparin Sodium,Porcine 5,000 UNIT/ML VIAL 5000 UNIT SUBCUT (16:52)
[2020-03-02] MEDS: hydrALAZINE HCl 20 MG/ML VIAL 10 MG IVPUSH ×2 (16:52→18:34)
[2020-03-02] MEDS: 0.9 % Sodium Chloride Flush 3 ML SYRINGE IVFLUSH ×2 (16:53→23:45)
[2020-03-02] MEDS: NIFEdipine ER 60 MG TAB.ER.24 PO (18:30)
--- NOTE | 2020-03-02 19:35 | P.CONNP_ITS ---
History of Present Illness Reason for Consult Consult date: 03/02/20 Reason for consult: ESRD Chief Complaint Chief complaint: hypoxia, esrd, hyperkalemia,COVID+ History of Present Illness Narrative: 44-year-old ESRD patient normally Wednesday hd Presents to the emergency room with increased sorhtness of breath and recently diagnosed as being COVID positive. HE HAS A NONPRODUCTIVE COUGH.He denies chest pain.He has diffuse muscle aches and a headache.He has a history of difficult to control high blood pressure. CHF (congestive heart failure) Dialysis patient Disease of pericardium, unspecified Fistula Hypertension Hypertensive cardiovascular disease Kidney disease Pulmonary hypertension associated with end stage renal disease on dialysis Review of Systems Reports as per HPI and Reports Abnormal speech present [facility] [place] Past Medical History Medical History (Updated 03/02/20 @ 11:22 by Elian Ordonez MD) CHF (congestive heart failure) Dialysis patient Disease of pericardium, unspecified Fistula Hypertension Hypertensive cardiovascular disease Kidney disease Pulmonary hypertension associated with end stage renal disease on dialysis Functional capacity: independent ambulation Family History Family History (Updated 03/02/20 @ 12:54 by CLEM Le) Other HTN (hypertension) Social History Social History Household Members: Significant Other Housing: House Do you presently have visiting nurse or other home services: No Smoking Status: Former smoker Smoked in Last 30 Days: No Second Hand Smoke Exposure: No Use of substances other than those prescribed or required for medical reasons: No Have you been hit, kicked, punched, or otherwise hurt by someone within the past year? If so, by whom?: No Do you feel safe in your current relationship?: Yes Is there a partner from a previous relationship who is making you feel unsafe now?: No Are you made to feel afraid or neglected: No Spiritual Healthcare Practices: no Latter-Day Healthcare Practices: no Cultural Healthcare Practices: no Advance Directives: No Advance Directives Information Provided: No Do you have thoughts of harming others: None Do you have a plan to hurt others: No Plan Recently lost weight without trying: No service: No Current occupational status: disabled Meds Allergies Allergy/AdvReac Type Severity Reaction Status Date / Time No Known Allergies Allergy Verified 01/05/20 21:48 Home Medications Medication Instructions Recorded Confirmed Type Auryxia 210 mg PO DAILY 12/11/19 03/02/20 History carvedilol 25 mg PO BID 12/11/19 03/02/20 History lorazepam 0.5 mg PO DAILY PRN 12/11/19 03/02/20 History Physical Exam Vital Signs: Last Vital Signs Temp 97.9 F 03/02/20 19:07 Pulse 105 H 03/02/20 19:07 Resp 18 03/02/20 19:07 BP 232/102 H 03/02/20 19:07 Pulse Ox 93 03/02/20 19:07 Body Mass Index 20.2 Const General: cooperative, healthy appearing, alert and awake Nutritional Appearance: average body habitus and well nourished Orientation/consciousness: oriented to person, oriented to place and patient oriented x3 Limitations: no limitations HENMT Ears: external ears normal Face and sinus: Yes normal facial exam Mouth: Normal oral and palatal mucosa present Throat: Yes posterior oropharynx normal Eyes General: appearance normal, both eyes and all related structures Alignment and Position: alignment normal Periorbital: periorbital findings normal Eyelids: Yes eyelids normal Conjunctivae: conjunctivae normal Sclerae: sclerae normal Pupils: Equal, round and reactive pupils present Direct Ophthalmoscopy: normal light reflex Neck Neck: Yes normal visual inspection and Yes supple Thyroid: Thyroid normal Chest Chest palpation & inspection: normal inspection of the chest and normal palpation of entire chest wall Resp Effort & Inspection: normal respiratory effort, able to speak in complete sentences and tachypneic Auscultation: clear to auscultation bilaterally, no crackles, no rales and no rhonchi Cardio Rate: regular rate and tachycardic Rhythm: regular rhythm Heart sounds: S1 normal heart sound present, S2 normal heart sound present and no murmurs GI Inspection: Yes normal to inspection Palpation (GI): Soft to palpation, nontender and no guarding Auscultation: normal bowel sounds General: Yes no CVA tenderness Back/Spine/Pelvis Back: no CVA tenderness Cervical Spine: normal cervical lordosis Thoracic/Lumbar Spine: thoracic and lumbar spine normal to inspection Skin General skin exam: no rashes or lesions noted Lesions: no lesions Rashes: no rashes Trauma: no lacerations or abrasions Neuro General: oriented to person, oriented to place and patient oriented x3 Cranial nerves: Yes CN's II-XII intact bilaterally, Yes Equal, round and reactive pupils present and Yes Bilaterally intact EOM present Cognition (Neuro): normal cognition Speech: Abnormal speech present Motor exam (neuro): 5/5 motor strength present throughout Extrem General: Yes normal to inspection and Yes other (1+ pitting edema, symmetric) Psych Appearance: grossly normal and well kempt Mental Status: mental status grossly normal Speech and movement: Normal speech and movement present Affect: normal affect Attitude: cooperative Thought process: Normal thought process present Thought content: Normal thought content present Insight: Good insight present (Psych) Judgement: Good judgement present (Psych) Results Lab Results Result Diagrams: 03/02/20 10:41 03/02/20 10:41 Lab results: Chemistry 03/02/20 10:41 Sodium 138 Potassium 6.5 H* D Carbon Dioxide 17 L BUN 117 H* D Creatinine 16.73 H* Calcium 7.9 L Hematology 03/02/20 10:41 WBC 8.9 Hgb 11.0 L Plt Count 158 L Assessment and Plan (1) 2019 novel coronavirus–infected pneumonia (NCIP)#8211;infected pneumonia (NCIP): Status: Acute (2) End stage chronic kidney disease: Status: Acute 1. ESRD; ni mwf..missed last 2 HD treatments 2. Hypoxia; mutifact inckuding CHD and ques covid lung 3. HyperK 4. HTN REC: urgent HD today; r/s BP meds; covid assessment and treatment accordingly
[2020-03-02] MEDS: Labetalol HCL 100 MG/20 ML VIAL 20 MG IVPUSH (19:46)
--- NOTE | 2020-03-02 19:51 | MHC.PIE ---
admitted patient @ 1645 from dialysis - patient elevated BP >200 systolic, 220-[address] Sanchez made aware - ordered hydralazine 10mg x2 - given @ 1652 & 183. also gave home med nifedipine po 60mg [address] order[address] valadez and Dr castro updated about BP not improved and new orders put in at shift change, Evelyn RN's updated about plan of care. New IV put in 20 right lower arm.
[2020-03-02 20:24] LABS: Potassium 3.5 mmol/l (3.3-5.1)
[2020-03-02] MEDS: lisinopriL 20 MG TABLET PO (20:33)
[2020-03-02] MEDS: Acetaminophen 325 MG TABLET 650 MG PO (21:22)
[2020-03-03] VITALS (24 sets, daily range): BP systolic 163–226; BP diastolic 90–120; PULSE 66–97; RESP 18; TEMP 36.2–36.9; O2SAT 92–97
[2020-03-03] MEDS: Nitroglycerin 2 % Oint 1 GM Packet 1 INCH TRANSDERMA (04:33)
[2020-03-03] MEDS: Heparin Sodium,Porcine 5,000 UNIT/ML VIAL 5000 UNIT SUBCUT ×2 (04:39→15:04)
[2020-03-03] MEDS: Labetalol HCL 100 MG/20 ML VIAL 20 MG IVPUSH ×2 (06:08→15:30)
[2020-03-03 07:01] LABS: Basophils Percent Auto 0.2 % (0-2); Eosinophils Absolute Auto 0.1 X10*3/uL (0.0-0.4); Eosinophils Percent Auto 1.2 % (0-4); Hematocrit 29.6 % (42-52); Hemoglobin 9.6 g/dl (14.0-18.0); Imm Gran Abs Auto 0.01 X10*3/uL (0.00-0.03); Imm Gran Pct Auto 0.2 % (0.0-0.4); Lymphocytes Absolute Auto 0.7 X10*3/uL (1.2-4.9); Lymphocytes Percent Auto 16.4 % (20-40); MANUAL DIFF FLAG SCAN; Mean Corpuscular HGB Conc 32.4 g/dl (31.0-36.0); Mean Corpuscular Hemoglobin 28.4 pg (27.0-33.0); Mean Corpuscular Volume 87.6 fL (80-98); Mean Platelet Volume 11.5 fL (9.4-12.4); Monocytes Absolute Auto 0.4 X10*3/uL (0.1-1.2); Monocytes Percent Auto 9.1 % (2-11); Neutrophils Percent Auto 72.9 % (45-73); Platelet Count 147 X10*3/uL (160-400); Red Blood Count 3.38 X10*6/uL (4.60-5.80); Red Cell Distribution Width 15.7 % (11.0-16.0); SCAN SMEAR FLAG 1; White Blood Count 4.1 X10*3/uL (4.8-10.8)
[2020-03-03 07:49] LABS: SLIDE REVIEW VERIFIED
[2020-03-03 07:56] LABS: Anion Gap 18 (12-20); Blood Urea Nitrogen 52 mg/dL (9-16); Calcium 7.6 mg/dL (8.4-10.2); Carbon Dioxide 28 mmol/L (22-29); Chloride 98 mmol/L (96-108); Creatinine Clr Calc Pharmacy 7.6; Estimated Glomerular Filt Rate 6; Glucose Random 87 mg/dL (60-115); Potassium 3.8 mmol/l (3.3-5.1); Sodium 140 mmol/L (135-145)
[2020-03-03] MEDS: hydrALAZINE HCl 50 MG TABLET 100 MG PO (09:20)
[2020-03-03] MEDS: carvediloL 25 MG TABLET PO ×2 (09:20→20:08)
[2020-03-03] MEDS: 0.9 % Sodium Chloride Flush 3 ML SYRINGE IVFLUSH ×3 (09:20→20:10)
[2020-03-03] MEDS: NIFEdipine ER 60 MG TAB.ER.24 120 MG PO (09:20)
[2020-03-03] MEDS: lisinopriL 40 MG TABLET PO (09:21)
[2020-03-03] MEDS: dexAMETHasone sod phosphate 4 MG/ML VIAL 6 MG IVPUSH (09:21)
--- NOTE | 2020-03-03 11:01 | P.PNNP_ITS ---
Subjective Subjective Date of Service: 03/03/20 Principal diagnosis: esrd Interval history: Events noted HD yestreday BP remains very elevated depsite multi-drug regiment Physical Exam Vital Signs: Vital Signs: Last Vital Signs Temp 98.3 F 03/03/20 07:44 Pulse 78 03/03/20 09:21 Resp 18 03/03/20 07:44 BP 210/118 H 03/03/20 09:21 Pulse Ox 96 03/03/20 07:44 Body Mass Index 20.2 Const: General: cooperative, healthy appearing, alert and awake Nutritional Appearance: average body habitus and well nourished Or ientation/consciousness: oriented to person, oriented to place and patient oriented x3 Limitations: no limitations HENMT: Ears: external ears normal Face and sinus: Yes normal facial exam Mouth: Normal oral and palatal mucosa present Throat: Yes posterior oropharynx normal Eyes: General: appearance normal, both eyes and all related structures Alignment and Position: alignment normal Periorbital: periorbital findings normal Eyelids: Yes eyelids normal Conjunctivae: conjunctivae normal Sclerae: sclerae normal Pupils: Equal, round and reactive pupils present Direct Ophthalmoscopy: normal light reflex Neck: Neck: Yes normal visual inspection and Yes supple Thyroid: Thyroid normal Chest: Chest palpation & inspection: normal inspection of the chest and normal palpation of entire chest wall Resp: Effort & Inspection: normal respiratory effort, able to speak in complete sentences and tachypneic Auscultation: clear to auscultation bilaterally, no crackles, no rales and no rhonchi Cardio: Rate: regular rate and tachycardic Rhythm: regular rhythm Heart sounds: S1 normal heart sound present, S2 normal heart sound present and no murmurs GI: Inspection: Yes normal to inspection Palpation (GI): Soft to palpation, nontender and no guarding Auscultation: normal bowel sounds : General: Yes no CVA tenderness Back/Spine/Pelvis: Back: no CVA tenderness Cervical Spine: normal cervical lordosis Thoracic/Lumbar Spine: thoracic and lumbar spine normal to inspection Skin: General skin exam: no rashes or lesions noted Lesions: no lesions Rashes: no rashes Trauma: no lacerations or abrasions Neuro: General: oriented to person, oriented to place and patient oriented x3 Cranial nerves: Yes CN's II-XII intact bilaterally, Yes Equal, round and reactive pupils present and Yes Bilaterally intact EOM present Cognition ( Neuro): normal cognition Speech: Abnormal speech present Motor exam (neuro): 5/5 motor strength present throughout Extrem: General: Yes normal to inspection and Yes other (1+ pitting edema, symmetric) Psych: Appearance: grossly normal and well kempt Mental Status: mental status grossly normal Speech and movement: Normal speech and movement present Affect: normal affect Attitude: cooperative Thought process: Normal thought process present Thought content: Normal thought content present Insight: Good insight present (Psych) Judgement: Good judgement present (Psych) Objective Data Labs CBC & Chem 7: 03/03/20 05:48 03/03/20 05:48 Labs: Laboratory Results - last 24 hr 03/02/20 03/02/20 03/02/20 10:41 10:41 10:41 WBC RBC Hgb Hct MCV MCH MCHC RDW Plt Count MPV Immature Gran % (Auto) Neut % (Auto) Lymph % (Auto) Gladwin % (Auto) Eos % (Auto) Baso % (Auto) Lymph # (Auto) Gladwin # (Auto) Eos # (Auto) Baso # (Auto) Abs Immat Gran (auto) Absolute Neuts (auto) Absolute Nucleated RBC Nucleated RBC % (auto) Smear Tech's Comments VERIFIED PT 12.2 INR 1.0 APTT 39.7 H Sodium 138 Potassium 6.5 H* D Chloride 100 Carbon Dioxide 17 L Anion Gap 28 H BUN 117 H* D Creatinine 16.73 H* Estim Creat Clear Calc 4.5 Estimated GFR 3 Random Glucose 109 Lactic Acid Calcium 7.9 L Total Bilirubin 0.9 Direct Bilirubin 0.3 AST 15 ALT 13 Alkaline Phosphatase 77 D Total Protein 7.4 D Albumin 4.2 03/02/20 03/02/20 03/03/20 10:41 19:35 05:48 WBC 4.1 L RBC 3.38 L Hgb 9.6 L Hct 29.6 L MCV 87.6 MCH 28.4 MCHC 32.4 RDW 15.7 Plt Count 147 L MPV 11.5 Immature Gran % (Auto) 0.2 Neut % (Auto) 72.9 Lymph % (Auto) 16.4 L Gladwin % (Auto) 9.1 Eos % (Auto) 1.2 Baso % (Auto) 0.2 Lymph # (Auto) 0.7 L Gladwin # (Auto) 0.4 Eos # (Auto) 0.1 Baso # (Auto) 0.0 Abs Immat Gran (auto) 0.01 Absolute Neuts (auto) 3.0 Absolute Nucleated RBC 0.000 Nucleated RBC % (auto) 0.0 Smear Tech's Comments VERIFIED PT INR APTT Sodium Potassium 3.5 D Chloride Carbon Dioxide Anion Gap BUN Creatinine Estim Creat Clear Calc Estimated GFR Random Glucose Lactic Acid 0.5 Calcium Total Bilirubin Direct Bilirubin AST ALT Alkaline Phosphatase Total Protein Albumin 03/03/20 05:48 WBC RBC Hgb Hct MCV MCH MCHC RDW Plt Count MPV Immature Gran % (Auto) Neut % (Auto) Lymph % (Auto) Gladwin % (Auto) Eos % (Auto) Baso % (Auto) Lymph # (Auto) Gladwin # (Auto) Eos # (Auto) Baso # (Auto) Abs Immat Gran (auto) Absolute Neuts (auto) Absolute Nucleated RBC Nucleated RBC % (auto) Smear Tech's Comments PT INR APTT Sodium 140 Potassium 3.8 Chloride 98 Carbon Dioxide 28 Anion Gap 18 BUN 52 H D Creatinine 9.97 H* Estim Creat Clear Calc 7.6 Estimated GFR 6 Random Glucose 87 Lactic Acid Calcium 7.6 L Total Bilirubin Direct Bilirubin AST ALT Alkaline Phosphatase Total Protein Albumin Assessment & Plan Assessment and plan (1) 2019 novel coronavirus–infected pneumonia (NCIP)#8211;infected pneumonia (NCIP): Status: Acute (2) End stage chronic kidney disease: Status: Acute Assessment and Plan: 1. ESRD; ni mwf..missed last 2 HD treatments 2. Hypoxia; mutifact inckuding CHD and ques covid lung 3. HyperK 4. Resistant Severe HTN: depsite coreg/lisinopril/procardia/hydralazine remains markedly evelvated...typically these resistant HTN ESRD patients respond to aggressive fludi removal to get BP controlled but that has not been historically his case REC: cont HD 3x/w ( mwf); add clonidine .2 bid as needed and incr hydralazine 100 tid...try to hold off on using mnoxidill given risk for pericardial effussion; will investifgate as outpt as to whether he is candidate for MOBIC device on a comapassionte use for resist sever HTN.... Time Spent With Patient Time: Total time spent is greater than 50% in coordination of care (as documented) at patient's floor/unit and/or counseling patient:
--- NOTE | 2020-03-03 13:00 | P.PNIM_ITS ---
Subjective Subjective Date of Service: 03/03/20 Interval History: Seen in f/u for covid, hypoxia and resistant severe HTN. No sob, BP remains very high and not unsual for him. No chest pain Gen: no fever Resp: no sob, no cough CV: no chest, no JONES, no leg edema GI: No n/v, no abd pain Neuro: No confusion Physical Exam Vital Signs: Vital Signs: Last Vital Signs Temp 97.2 F 03/03/20 11:40 Pulse 89 03/03/20 11:40 Resp 18 03/03/20 11:40 BP 186/104 H 03/03/20 11:40 Pulse Ox 95 03/03/20 11:40 Body Mass Index 20.2 General: AO X 3, no acute distress Resp: CTA bilateral CVS: S1,S2,RRR GI: +BS, NT, no distention Skin: No rash Neuro: motor grossly intact Psych: appropriate affect Objective Data Current Medications Generic Name Dose Route Start Last Admin Trade Name Freq PRN Reason Stop Dose Admin Acetaminophen 650 mg 03/02/20 11:59 03/02/20 21:22 Acetaminophen 325 Mg Tablet PO 650 mg Q6H PRN Administration Pain, Mild (Pain Scale 1-3) Carvedilol 25 mg 03/03/20 09:00 03/03/20 09:20 Carvedilol 25 Mg Tablet PO 25 mg BID LAYLA Administration Protocol Clonidine HCl 0.1 mg 03/03/20 15:00 Clonidine Hcl 0.1 Mg Tablet PO TID LAYLA Protocol Dexamethasone Sodium Phosphate 6 mg 03/03/20 09:00 03/03/20 09:21 Dexamethasone Sod Phosphate 4 Mg/Ml Vial IVPUSH 6 mg DAILY LAYLA Administration Docusate Sodium 100 mg 03/02/20 11:59 Docusate Sodium 100 Mg Capsule PO DAILY PRN Constipation Heparin Sodium (Porcine) 5,000 unit 03/02/20 16:15 03/03/20 04:39 Heparin Sodium,Porcine 5,000 Unit/Ml Vial SUBCUT 5,000 unit Q12H LAYLA Administration Hydralazine HCl 100 mg 03/03/20 15:00 Hydralazine Hcl 25 Mg Tablet PO TID LAYLA Labetalol HCl 20 mg 03/03/20 07:04 Labetalol Hcl 100 Mg/20 Ml Vial IVPUSH Q20M PRN SBP > 160 Lisinopril 40 mg 03/03/20 09:00 03/03/20 09:21 Lisinopril 40 Mg Tablet PO 40 mg DAILY LAYLA Administration Protocol Lorazepam 0.5 mg 03/03/20 08:25 Lorazepam 0.5 Mg Tablet PO DAILY PRN Anxiety Nifedipine 120 mg 03/03/20 09:00 03/03/20 09:20 Nifedipine Er 60 Mg Tab.Er.24 PO 120 mg DAILY LAYLA Administration Nitroglycerin 1 inch 03/02/20 19:09 03/03/20 04:33 Nitroglycerin 2 % Oint 1 Gm Packet TRANSDERMA 1 inch RQ6H WHILE AWAKE PRN Administration elevated Non-Formulary Medication 210 mg 03/03/20 09:00 Ferric Citrate [Auryxia] PO DAILY [facility] Pharmacy Consult 1 each 03/02/20 11:23 Consult Rx Perform Med Rec MISCELLANE ONCE PRN Consult order Sodium Chloride 3 ml 03/02/20 16:15 03/03/20 09:20 0.9 % Sodium Chloride Flush 3 Ml Syringe IVFLUSH 3 ml QSHIFT LAYLA Administration Labs CBC & Chem 7: 03/03/20 05:48 03/03/20 05:48 Microbiology Microbiology Results: Microbiology 03/02/20 10:41 Blood - Subclavian Blood Culture - Preliminary No growth after 24 hours. Assessment and Plan (1) 2019 novel coronavirus–infected pneumonia (NCIP)#8211;infected pneumo ingrid (NCIP): Status: Acute (2) End stage chronic kidney disease: Status: Acute Assessment and Plan: This is a 44-year-old male with a history of end-stage renal disease on hemodialysis who presents with shortness of breath found to have COVID-19 pneumonia Acute respiratory failure with hypoxia r/t fluid overload from missing hemodialysis and COVID-19 pneumonia -urgent dialysis on 03/02, next dialysis 03/04 -He no longer needs oxygen begging the question weather covid was causing sob or fluid overloady -Finish course of Dexamethasone in the event steroid made him better from covid. ESRD on HD MWF Missed [facility] HD this week -urgent HD now -nephrology following Hyperkalemia--resolved after HD COVID-19 pneumonia - dexamethasone for 10 days, D2 -no longer needs oxygen HTN--He has resistant HTN that is very difficulty to control. BP has modestly come down after IV meds and home meds which he says he is compliant with -Incrasing Hydralazine to 100 tid per Nephrology consult and hold of Minoxidil DVT prophylaxis-heparin Home tomorrow if BP is better and no covid concerns
[2020-03-03] MEDS: hydrALAZINE HCl 25 MG TABLET 100 MG PO ×2 (14:30→20:08)
[2020-03-03] MEDS: cloNIDine HCL 0.1 MG TABLET PO ×2 (15:03→20:07)
--- NOTE | 2020-03-03 15:41 | PC.NURSE ---
Pt BP 200/110, this RN gave PRN 20mg Labetolol IV push. Will continue to monitor BP. Pt asymptomatic.
--- NOTE | 2020-03-03 15:48 | MHC.CM.PN ---
CM SPOKE TO PTS HCP/SIGNIFICANT OTHER, AG ([phone]) WHO REPORTED THE FOLLOWING: PT LIVES AT HOME WITH HIS S/O AND IS INDEPENDENT AT BASELINE. PT HAS NO IN HOME SERVICES AND NO DME. PT DOES GO TO HD IN [place] . PTS PCP IS BRIAN FARIA. IMM REVIEWED AND A COPY WILL BE MAILED TO PTS HOME CURRENT DC PLAN IS HOME WITH RESUMPTION OF HD PT HAS A RIDE HOME
[2020-03-04] VITALS (9 sets, daily range): BP systolic 172–180; BP diastolic 90–100; PULSE 74–79; RESP 18–20; TEMP 36.4–36.6; O2SAT 95–97
[2020-03-04] MEDS: Heparin Sodium,Porcine 5,000 UNIT/ML VIAL 5000 UNIT SUBCUT ×2 (03:41→14:20)
[2020-03-04] MEDS: dexAMETHasone sod phosphate 4 MG/ML VIAL 6 MG IVPUSH (08:35)
[2020-03-04] MEDS: NIFEdipine ER 60 MG TAB.ER.24 120 MG PO (08:36)
[2020-03-04] MEDS: cloNIDine HCL 0.1 MG TABLET PO ×2 (08:36→14:21)
[2020-03-04] MEDS: lisinopriL 40 MG TABLET PO (08:36)
[2020-03-04] MEDS: carvediloL 25 MG TABLET PO (08:37)
[2020-03-04] MEDS: hydrALAZINE HCl 25 MG TABLET 100 MG PO ×2 (08:37→14:20)
[2020-03-04] MEDS: 0.9 % Sodium Chloride Flush 3 ML SYRINGE IVFLUSH ×2 (08:38→15:12)
--- NOTE | 2020-03-04 09:47 | P.PNIM_ITS ---
Subjective Subjective Date of Service: 03/04/20 Interval History: Seen in f/u for covid, hypoxia and resistant severe HTN. No sob, BP remains very high but bettter. Gen: no fever Resp: no sob, no cough CV: no chest, no JONES, no leg edema GI: No n/v, no abd pain Neuro: No confusion Physical Exam Vital Signs: Vital Signs: Last Vital Signs Temp 97.8 F 03/04/20 08:00 Pulse 76 03/04/20 08:37 Resp 20 03/04/20 08:00 BP 180/100 H 03/04/20 08:37 Pulse Ox 97 03/04/20 08:00 Body Mass Index 20.2 General: AO X 3, no acute distress Resp: CTA bilateral CVS: S1,S2,RRR GI: +BS, NT, no distention Skin: No rash Neuro: motor grossly intact Psych: appropriate affect Objective Data Current Medications Generic Name Dose Route Start Last Admin Trade Name Freq PRN Reason Stop Dose Admin Acetaminophen 650 mg 03/02/20 11:59 03/02/20 21:22 Acetaminophen 325 Mg Tablet PO 650 mg Q6H PRN Administration Pain, Mild (Pain Scale 1-3) Carvedilol 25 mg 03/03/20 09:00 03/04/20 08:37 Carvedilol 25 Mg Tablet PO 25 mg BID LAYLA Administration Protocol Clonidine HCl 0.1 mg 03/03/20 15:00 03/04/20 08:36 Clonidine Hcl 0.1 Mg Tablet PO 0.1 mg TID LAYLA Administration Protocol Dexamethasone Sodium Phosphate 6 mg 03/03/20 09:00 03/04/20 08:35 Dexamethasone Sod Phosphate 4 Mg/Ml Vial IVPUSH 6 mg DAILY LAYLA Administration Docusate Sodium 100 mg 03/02/20 11:59 Docusate Sodium 100 Mg Capsule PO DAILY PRN Constipation Heparin Sodium (Porcine) 5,000 unit 03/02/20 16:15 03/04/20 03:41 Heparin Sodium,Porcine 5,000 Unit/Ml Vial SUBCUT 5,000 unit Q12H LAYLA Administration Hydralazine HCl 100 mg 03/03/20 15:00 03/04/20 08:37 Hydralazine Hcl 25 Mg Tablet PO 100 mg TID LAYLA Administration Labetalol HCl 20 mg 03/03/20 07:04 03/03/20 15:30 Labetalol Hcl 100 Mg/20 Ml Vial IVPUSH 20 mg Q20M PRN Administration SBP > 160 Lisinopril 40 mg 03/03/20 09:00 03/04/20 08:36 Lisinopril 40 Mg Tablet PO 40 mg DAILY LAYLA Administration Protocol Lorazepam 0.5 mg 03/03/20 08:25 Lorazepam 0.5 Mg Tablet PO DAILY PRN Anxiety Nifedipine 120 mg 03/03/20 09:00 03/04/20 08:36 Nifedipine Er 60 Mg Tab.Er.24 PO 120 mg DAILY LAYLA Administration Nitroglycerin 1 inch 03/02/20 19:09 03/03/20 04:33 Nitroglycerin 2 % Oint 1 Gm Packet TRANSDERMA 1 inch RQ6H WHILE AWAKE PRN Administration elevated Non-Formulary Medication 210 mg 03/03/20 09:00 Ferric Citrate [Auryxia] PO DAILY [facility] Pharmacy Consult 1 each 03/02/20 11:23 Consult Rx Perform Med Rec MISCELLANE ONCE PRN Consult order Sodium Chloride 3 ml 03/02/20 16:15 03/04/20 08:38 0.9 % Sodium Chloride Flush 3 Ml Syringe IVFLUSH 3 ml QSHIFT [facility] Administration Labs CBC & Chem 7: 03/03/20 05:48 03/03/20 05:48 Microbiology Microbiology Results: Microbiology 03/02/20 12:01 Blood - Subclavian Blood Culture - Preliminary No growth after 24 hours. 03/02/20 10:41 Blood - Subclavian Blood Culture - Preliminary No growth after 24 hours. Assessment and Plan (1) 2019 novel coronavirus–infected pneumonia (NCIP)#8211;infected pneumonia (NCIP): Status: Acute (2) End stage chronic kidney disease: Status: Acute Assessment and Plan: 44-year-old male with a history of end-stage renal disease on hemodialysis who presents with shortness of breath found to have COVID-19 pneumonia Acute respiratory failure with hypoxia r/t fluid overload from missing hemodialysis and COVID-19 pneumonia -urgent dialysis on 03/02, next dialysis today 03/04 -He no longer needs oxygen begging the question weather covid was causing sob or fluid overloady--likely the latter -Finish course of Dexamethasone in the event steroid made him better from covid. ESRD on HD MWF Hyperkalemia--resolved after HD COVID-19 pneumonia - dexamethasone for 10 days, D2 -no longer needs oxygen HTN--He has resistant HTN that is very difficulty to control. BP has modestly come down after IV meds and home meds which he says he is compliant with -Incrasing Hydralazine to 100 tid per Nephrology consult and hold of Minoxidil DVT prophylaxis-heparin Home today if BP is better
--- NOTE | 2020-03-04 12:25 | P.PNNP_ITS ---
Subjective Subjective Date of Service: 03/04/20 Principal diagnosis: esrd Interval history: seen and examined on dialysis no complaints Physical Exam Vital Signs: Vital Signs: Last Vital Signs Temp 97.8 F 03/04/20 08:00 Pulse 76 03/04/20 08:37 Resp 20 03/04/20 08:00 BP 180/100 H 03/04/20 08:37 Pulse Ox 97 03/04/20 08:00 Body Mass Index 20.2 Const: General: no acute distress HENMT: Head: Yes normocephalic and Yes atraumatic Neck: Neck: Yes supple Resp: Auscultation: diminished lung sounds Cardio: Heart sounds: S1 normal heart sound present and S2 normal heart sound present GI: Palpation (GI): Soft to palpation and nontender Extrem: General: No edema Objective Data Labs CBC & Chem 7: 03/03/20 05:48 03/03/20 05:48 Microbiology Microbiology Results: Microbiology 03/02/20 12:01 Blood - Subclavian Blood Culture - Preliminary No growth after 24 hours. 03/02/20 10:41 Blood - Subclavian Blood Culture - Preliminary No growth after 24 hours. Assessment & Plan Assessment and plan (1) ESRD (end stage renal disease): Status: Acute (2) COVID-19: Status: Acute (3) Anemia: Status: Acute Assessment and Plan: HD today optimize volume status renal diet phosphate binders epogen per protocol patient can be discharged to [facility] shift at [facility] ([id number]) on [facility] when ready Time Spent With Patient Time: Total time spent is greater than 50% in coordination of care (as documented) at patient's floor/unit and/or counseling patient:
--- NOTE | 2020-03-04 14:21 | MHC.CLN ---
CHANGED DIET TO 2GM NA LOW PHOS LOW K+ PER RENAL PT WITH ESRD ON HD
--- NOTE | 2020-03-04 17:35 | P.DS_ITS ---
DS: Providers Provider Date of admission: 03/02/20 11:59 Primary care physician: Unknown Physician Consults: 03/02/20 11:59 Consult to Nephrology Routine Consulting Provider: Rivas Bell Reason for consultation: esrd on hd, missed HD; hyperkalemia Has provider been notified: Yes DS: Diagnosis Discharge Diagnosis (1) ESRD (end stage renal disease): Status: Acute (2) COVID-19: Status: Acute (3) Anemia: Status: Acute DS: Medications Discharge Medications Home Medications: Home Medications Medication Instructions Recorded Confirmed Auryxia 210 mg PO DAILY 12/11/19 03/02/20 carvedilol 25 mg PO BID 12/11/19 03/02/20 lorazepam 0.5 mg PO DAILY PRN 12/11/19 03/02/20 Previous Rx's Medication Instructions Recorded clonidine [[id number]-EZJ-3] 0.6 mg TRANSDERMAL Kim@0900 #4 ea 01/10/20 lisinopril 40 mg PO DAILY #30 tab 01/10/20 nifedipine 120 mg PO DAILY #60 tab 01/10/20 dexamethasone 6 mg PO DAILY #7 tab 03/04/20 hydralazine 100 mg PO TID #60 tab 03/04/20 DS: Summary Hospital Course Hospital Course: 44-year-old male with a history of end-stage renal disease on hemodialysis who presents with shortness of breath found to have COVID-19 pneumonia and had misse d dialysis x 2. He was hypoxic and was admitted for acute respirator failure due to covid and fluid overload Acute respiratory failure with hypoxia r/t fluid overload from missing hemodialysis and COVID-19 pneumonia -urgent dialysis was done on 03/02, and dialysis again today 03/04 before discharge -He no longer needs oxygen begging the question weather covid was causing sob or fluid overload--likely the latter - to Finish course of Dexamethasone in the event steroid made him better from covid. ESRD on HD MWF, dialyzed today, [facility] [place] going [place] [facility] Hyperkalemia--resolved after HD COVID-19 pneumoni - dexamethasone for 10 days, D3 -no longer needs oxygen HTN--He has resistant HTN that is very difficulty to control. He was seen by Nephrology team and Hydralazine has been increased to 100 tid from bid. His blood pressure remains high but relative to his baseline blood pressure this is significant improvement and may need further med adjustment on outpatient basis Home today if BP is better Time Spent with Patient Time attestation: Total time spent providing and/or coordinating discharge serv ices: Physical Exam Vital Signs: Vital Signs: Last Vital Signs Temp 97.5 F 03/04/20 15:35 Pulse 79 03/04/20 15:35 Resp 18 03/04/20 15:35 BP 172/99 H 03/04/20 16:00 Pulse Ox 95 03/04/20 15:35 Body Mass Index 20.2 General: AO X 3, no acute distress Resp: CTA bilateral CVS: S1,S2,RRR GI: +BS, NT, no distention Skin: No rash Neuro: motor grossly intact Psych: appropriate affect DS: Data Data Completed and Pending Completed studies during hospitalization [Text1]: Procedures Introduction of Vasopressor into Peripheral Vein, Percutaneous Approach (01/06/20) Performance of Urinary Filtration, Intermittent, Less than 6 Hours Per Day (01/06/20) Labs on day of discharge: 03/02/20 ECG 12 lead EKG Stat 03/02/20 09:24 EKG Documentation DIRECTED 03/02/20 10:06 Vital Signs Q30M XR chest 1V Stat 03/02/20 10:41 Basic Metabolic Panel Stat Complete Blood Count Auto Diff Stat Lactic Acid Stat Liver Panel Stat Partial Thromboplastin Time Stat Prothrombin Time INR Stat SLIDE REVIEW Stat 03/02/20 11:18 Azithromycin [Zithromax] 500 mg 0.9 % Sodium Chloride [Ns] 250 ml IV ONCE 03/02/20 11:19 dexAMETHasone Sod Phosphate/PF [Decadron] 6 mg IVPUSH ONCE ONE 03/02/20 11:30 Azithromycin [Zithromax] 500 mg IV .STK-MED ONE 03/02/20 11:33 Sodium Polystyrene Sulfon/Sorb [Kayexalate] 45 gm PO ONCE ONE 03/02/20 11:34 Dextrose 50 % [D50] 25 gm IVPUSH STAT STA Insulin Regular, Human [Humulin R] 10 unit IVPUSH ONCE ONE 03/02/20 11:44 Dextrose 50 % [D50] 25 gm .ROUTE .STK-MED ONE 03/02/20 11:56 Transfer Order Routine 03/02/20 Lunch Cardiac Diet 03/02/20 16:00 hydrALAZINE HCl [Apresoline] 10 mg IVPUSH ONCE ONE 03/02/20 17:53 NIFEdipine ER [Procardia XL] 60 mg PO ONCE ONE lisinopriL [Zestril] 20 mg PO ONCE ONE 03/02/20 18:25 hydrALAZINE HCl [Apresoline] 10 mg IVPUSH ONCE ONE 03/02/20 18:26 hydrALAZINE HCl [Apresoline] 20 mg .ROUTE .STK-MED ONE 03/02/20 19:10 Labetalol HCL [Normodyne] 20 mg IVPUSH ONCE ONE 03/02/20 19:35 Potassium Stat 03/03/20 05:46 Labetalol HCL [Normodyne] 20 mg IVPUSH ONCE ONE 03/03/20 05:48 Basic Metabolic Panel DAILY@0600 Complete Blood Count Auto Diff DAILY@0600 SLIDE REVIEW Routine 03/03/20 09:00 hydrALAZINE HCl [Apresoline] 100 mg PO BID Laboratory Last Values WBC 4.1 X10*3/uL (4.8-10.8) L 03/03/20 05:48 RBC 3.38 X10*6/uL (4.60-5.80) L 03/03/20 05:48 Hgb 9.6 g/dl (14.0-18.0) L 03/03/20 05:48 Hct 29.6 % (42-52) L 03/03/20 05:48 MCV 87.6 fL (80-98) 03/03/20 05:48 MCH 28.4 pg (27.0-33.0) 03/03/20 05:48 MCHC 32.4 g/dl (31.0-36.0) 03/03/20 05:48 RDW 15.7 % (11.0-16.0) 03/03/20 05:48 Plt Count 147 X10*3/uL (160-400) L 03/03/20 05:48 MPV 11.5 fL (9.4-12.4) 03/03/20 05:48 Immature Gran % (Auto) 0.2 % (0.0-0.4) 03/03/20 05:48 Neut % (Auto) 72.9 % (45-73) 03/03/20 05:48 Lymph % (Auto) 16.4 % (20-40) L 03/03/20 05:48 [place] % (Auto) 9.1 % (2-11) 03/03/20 05:48 Eos % (Auto) 1.2 % (0-4) 03/03/20 05:48 Baso % (Auto) 0.2 % (0-2) 03/03/20 05:48 Lymph # (Auto) 0.7 X10*3/uL (1.2-4.9) L 03/03/20 05:48 [place] # (Auto) 0.4 X10*3/uL (0.1-1.2) 03/03/20 05:48 Eos # (Auto) 0.1 X10*3/uL (0.0-0.4) 03/03/20 05:48 Baso # (Auto) 0.0 X10*3/uL (0.0-0.2) 03/03/20 05:48 Abs Immat Gran (auto) 0.01 X10*3/uL (0.00-0.03) 03/03/20 05:48 Absolute Neuts (auto) 3.0 X10*3/uL (2.0-8.3) 03/03/20 05:48 Absolute Nucleated RBC 0.000 X10*3/uL (0.0-0.012) 03/03/20 05:48 Nucleated RBC % (auto) 0.0 /100WBC (0.0-0.2) 03/03/20 05:48 Smear Tech's Comments VERIFIED 03/03/20 05:48 PT 12.2 SEC (10.8-13.0) 03/02/20 10:41 INR 1.0 (0.9-1.1) 03/02/20 10:41 APTT 39.7 SEC (24.1-38.0) H 03/02/20 10:41 Sodium 140 mmol/L (135-145) 03/03/20 05:48 Potassium 3.8 mmol/l (3.3-5.1) 03/03/20 05:48 Chloride 98 mmol/L (96-108) 03/03/20 05:48 Carbon Dioxide 28 mmol/L (22-29) 03/03/20 05:48 Anion Gap 18 (12-20) 03/03/20 05:48 BUN 52 mg/dL (9-16) H D 03/03/20 05:48 Creatinine 9.97 mg/dL (0.5-1.4) H* 03/03/20 05:48 Estim Creat Clear Calc 7.6 03/03/20 05:48 Estimated GFR 6 03/03/20 05:48 Random Glucose 87 mg/dL (60-115) 03/03/20 05:48 Lactic Acid 0.5 mmol/L (0.5-2.0) 03/02/20 10:41 Calcium 7.6 mg/dL (8.4-10.2) L 03/03/20 05:48 Total Bilirubin 0.9 mg/dL (0.0-1.0) 03/02/20 10:41 Direct Bilirubin 0.3 mg/dL (0.0-0.5) 03/02/20 10:41 AST 15 U/L (5-37) 03/02/20 10:41 ALT 13 U/L (0-40) 03/02/20 10:41 Alkaline Phosphatase 77 U/L (39-117) D 03/02/20 10:41 Total Protein 7.4 g/dL (6.5-8.0) D 03/02/20 10:41 Albumin 4.2 g/dL (3.5-5.0) 03/02/20 10:41 Preliminary micro results at discharge 03/02/20 12:01 Blood Culture - Preliminary Blood - Subclavian No growth after 48 hours. 03/02/20 10:41 Blood Culture - Preliminary Blood - Subclavian No growth after 48 hours. Discharge Plan Discharge Anticipated Discharge Date/Time: 03/04/20 17:27 Patient Disposition: Home, Self-Care Referrals: Physician,Unknown [Primary Care Provider] - Discharge Medications: New dexamethasone 6 mg tablet 6 mg PO DAILY Qty: 7 RF: 0 Continued carvedilol 25 mg tablet 25 mg PO BID RF: 0 lorazepam 0.5 mg tablet 0.5 mg PO DAILY PRN (Reason: Anxiety) RF: 0 Auryxia 210 mg iron tablet 210 mg PO DAILY RF: 0 clonidine [[id number]] 0.3 mg/24 hr Patch Weekly 0.6 mg transdermal Kim@0900 Qty: 4 RF: 0 lisinopril 40 mg tablet 40 mg PO DAILY Qty: 30 RF: 0 nifedipine 60 mg tablet extended release 120 mg PO DAILY Qty: 60 RF: 0 Changed hydralazine 100 mg tablet 100 mg PO TID Qty: 60 RF: 0 Discharge Orders: Discharge Order (Routine); Ordered 03/04/20 Ordered By: Alexy Ron Activity on Discharge: As tolerated Discharge Date/Time: 03/04/20 17:53 Visit Report Forms: Patient Portal Discharge page Care Plan Goals: Full recovery from covid and control of blood pressure Health Concerns: covid 19 and elevated blood pressure Plan of Treatment: Take medication as directed: Hydralazine has been increased to 100 3 times a day You need to follow self isolation protocol for total 14 days from when you were first tested Take Dexamethasone as directed and follow up with your Doctor in 1 weeek Follow up with Dialysis on Wednesday Take Dexamethasone as directed
== END 2020-03-04 17:53 | disposition home or self-care (01) | DRG 177 ==
LOC: HO.ED 11:22 → HO.IMC 14:06
PROVIDERS: Physician Assistant Medical; Admitting Provider Internal Medicine; Emergency Provider Emergency Medicine Emergency Medical Services; Visit Provider Internal Medicine
DX: U07.1 COVID-19 (principal); N18.6 End stage renal disease; J96.01 Acute respiratory failure with hypoxia; J12.89 Other viral pneumonia; I13.2 Hypertensive heart and chronic kidney disease with heart failure and with stage 5 chronic kidney disease, or end stage renal disease; I50.9 Heart failure, unspecified; D63.1 Anemia in chronic kidney disease; E87.5 Hyperkalemia; Z99.2 Dependence on renal dialysis; Z91.15 Patient's noncompliance with renal dialysis; Z87.891 Personal history of nicotine dependence; Z79.899 Other long term (current) drug therapy
CPT/HCPCS: 36415; 71045; 80048; 80076; 83605; 84132; 85025; 85610; 85730; 87040; 90999; 93005; 96365; 96366; 96375; 99225; 99284; 99285; J0456; J1100

== ENCOUNTER 2020-03-10 13:50 | Emergency (ER) | payer MEDICARE, MEDICAID, SELFPAY ==
[2020-03-10] VITALS (8 sets, daily range): BP systolic 177–211; BP diastolic 98–114; PULSE 82–92; RESP 18–20; TEMP 36.2–37.1; O2SAT 95–96; BMI 19.8
--- NOTE | 2020-03-10 15:18 | ED.GENADULT ---
HPI - General Adult General Chief complaint: General Medical Stated complaint: HBP, Covid + Time Seen by Provider: 03/10/20 15:18 Source: patient Mode of arrival: ambulatory Limitations: no limitations History of Present Illness HPI narrative: 44-year-old male with history of end-stage renal disease, hypertension, congestive heart failure, pulmonary hypertension who presents today with complaint of states he was prescribed transdermal clonidine patch for hypertension which she applied this morning shortly after developed site irritation and redness he removed this as this very itchy and uncomfortable. States he after removing it felt better had a rash all over and noted that his blood pressure was elevated at prompting him to come to emergency room. States his rash has resolved does feel like he is itchy but no rash. It is noted that he was due for his dialysis today but came to the emergency room instead. He offers no other complaints. Onset (ago): hour(s) Radiation: non-radiation Severity: mild Relieving factors: none Treatments prior to arrival: none Related Data Home Medications Medication Instructions Recorded Confirmed Auryxia 210 mg PO DAILY 12/11/19 03/02/20 carvedilol 25 mg PO BID 12/11/19 03/02/20 lorazepam 0.5 mg PO DAILY PRN 12/11/19 03/02/20 Previous Rx's Medication Instructions Recorded clonidine [Dvhcymkc-LVQ-0] 0.6 mg TRANSDERMAL Kim@0900 #4 ea 01/10/20 lisinopril 40 mg PO DAILY #30 tab 01/10/20 nifedipine 120 mg PO DAILY #60 tab 01/10/20 dexamethasone 6 mg PO DAILY #7 tab 03/04/20 hydralazine 100 mg PO TID #60 tab 03/04/20 Allergies Allergy/AdvReac Type Severity Reaction Status Date / Time No Known Allergies Allergy Verified 01/05/20 21:48 Review of Systems Review of Systems: Constitutional: No Weight loss, No Fever, No Chills, No Night Sweats, No Fatigue, No Malaise ENT/Mouth: No Hearing loss, No Ear Pain, No Nasal Congestion, No Sinus Pain, No Hoarseness, No sore throat, No Rhinorrhea, No Swallowing Difficulty Eyes: No Eye Pain, No Swelling, No Redness, No Foreign Body, No Discharge, No Vision Changes Cardiovascular: No Chest Pain, No SOB, No Dyspnea on Exertion, No Orthopnea, No Edema, No Palpitations Respiratory: No Cough, No Sputum, No Wheezing, No Dyspnea Gastrointestinal: No Nausea, No Vomiting, No Diarrhea, No Constipation, No abdominal Pain, No Hematochezia, No Melena Genitourinary: no irregular bleeding, No Dysuria, No Urinary Frequency, No Hematuria, No Urinary Incontinence, No Urgency, No Flank Pain, No Urinary Flow Changes, No Hesitancy Musculoskeletal: No joint pain, No Myalgias, No Joint Swelling Skin: No Skin Lesions, has known HPI Neuro: No Weakness, No Numbness, No Paresthesias, No Loss of Consciousness, No Dizziness, No Headache Psych: No Social Issues Heme/Lymph: No Bruising, No Bleeding,No Lymphadenopathy Endocrine: No Polyuria, No Polydipsia, No Temperature Intolerance Yes all other systems are reviewed and are negative [facility] Past Medical History Medical History (Updated 03/10/20 @ 19:46 by Jesus Dominguez NP) CHF (congestive heart failure) Dialysis patient Disease of pericardium, unspecified Fistula Hypertension Hypertensive cardiovascular disease Kidney disease Pulmonary hypertension associated with end stage renal disease on dialysis Family History Family History (Updated 03/02/20 @ 12:54 by CLEM Le) Other HTN (hypertension) Social History Social History Household Members: Significant Other Housing: House Smoking Status: Former smoker Smoked in Last 30 Days: No Second Hand Smoke Exposure: No Use of substances other than those prescribed or required for medical reasons: No Advance Directives: No Advance Directives Information Provided: No service: No Current occupational status: unemployed Physical Exam Vital Signs: Vital Signs: Last Vital Signs Temp 97.8 F 03/10/20 19:19 Pulse 92 03/10/20 18:36 Resp 20 03/10/20 16:00 BP 210/100 H 03/10/20 18:36 Pulse Ox 95 03/10/20 19:19 Body Mass Index 19.8 Reviewed Const: General: cooperative and healthy appearing; No acute distress or intoxicated appearing Nutritional Appearance: average body habitus Orientation/consciousness: patient oriented x3 HENMT: Head: Yes normal to inspection Ears: hearing grossly normal bilaterally Eyes: General: appearance normal, both eyes and all related structures Visual Campos: normal visual campos by confrontation Neck: Neck: Yes normal visual inspection, No positive Brudzinski's sign, No positive Kernig's sign and No tender Thyroid: Thyroid normal Chest: Chest palpation & inspection: normal inspection of the chest Resp: Effort & Inspection: normal respiratory effort Auscultation: clear to auscultation bilaterally Cardio: Jugular venous distension: no JVD Rhythm: regular rhythm Heart sounds: S1 normal heart sound present and S2 normal heart sound present GI: Inspection: Yes normal to inspection Percussion: Yes normal to percussion Auscultation: normal bowel sounds : General: Yes no CVA tenderness Back/Spine/Pelvis: Back: no CVA tenderness Skin: General skin exam: no rashes or lesions noted Neuro: General: patient oriented x3 Extrem: Other: Dialysis fistula present with positive thrill and bruit General: Yes normal to inspection Course Course Course Narrative: Baseline hypertensive on multiple agents. Rash has resolved from the transdermal patch of clonidine use for 1st time today. States this is causing him irritation. Given 12.5 of Benadryl IV felt much better. Blood pressure elevated given dose of labetalol. Case discussed with Nephrology recommendation for Kayexalate p.o. for the elevated K and given the stable EKG can dialyze tomorrow morning. Safe for discharge. Patient asymptomatic offers no other complaints. Has been observed in the ED for several hours has been stable. Advised to not use any new medications. Medical Decision Making Lab Data Result diagrams: 03/10/20 15:51 03/10/20 15:51 Labs: Lab Results 03/10/20 03/10/20 Range/Units 15:51 15:51 WBC 9.3 (4.8-10.8) X10*3/uL RBC 3.84 L (4.60-5.80) X10*6/uL Hgb 11.0 L (14.0-18.0) g/dl Hct 34.0 L (42-52) % MCV 88.5 (80-98) fL MCH 28.6 (27.0-33.0) pg MCHC 32.4 (31.0-36.0) g/dl RDW 16.0 (11.0-16.0) % Plt Count 217 D (160-400) X10*3/uL MPV 9.8 (9.4-12.4) fL Immature Gran % (Auto) 0.4 (0.0-0.4) % Neut % (Auto) 91.8 H (45-73) % Lymph % (Auto) 4.8 L (20-40) % Nicholas % (Auto) 1.6 L (2-11) % Eos % (Auto) 1.1 (0-4) % Baso % (Auto) 0.3 (0-2) % Lymph # (Auto) 0.5 L (1.2-4.9) X10*3/uL Nicholas # (Auto) 0.2 (0.1-1.2) X10*3/uL Eos # (Auto) 0.1 (0.0-0.4) X10*3/uL Baso # (Auto) 0.0 (0.0-0.2) X10*3/uL Abs Immat Gran (auto) 0.04 H (0.00-0.03) X10*3/uL Absolute Neuts (auto) 8.5 H (2.0-8.3) X10*3/uL Absolute Nucleated RBC 0.000 (0.0-0.012) X10*3/uL Nucleated RBC % (auto) 0.0 (0.0-0.2) /100WBC Smear Tech's Comments VERIFIED Sodium 140 (135-145) mmol/L Potassium 6.3 H* D (3.3-5.1) mmol/l Chloride 100 (96-108) mmol/L Carbon Dioxide 23 (22-29) mmol/L Anion Gap 23 H (12-20) BUN 108 H* D (9-16) mg/dL Creatinine 13.36 H* (0.5-1.4) mg/dL Estim Creat Clear Calc 5.6 Estimated GFR 4 Random Glucose 122 H D (60-115) mg/dL Calcium 8.0 L (8.4-10.2) mg/dL Total Bilirubin 0.6 (0.0-1.0) mg/dL AST 16 (5-37) U/L ALT 13 (0-40) U/L Alkaline Phosphatase 67 (39-117) U/L Total Protein 7.4 (6.5-8.0) g/dL Albumin 4.3 (3.5-5.0) g/dL ECG Data Interpretation: Normal sinus rhythm MS interval within normal limits LVH Prolonged QT at baseline No significant change from 03/02/2020. Discharge Plan Discharge Clinical Impression: ESRD (end stage renal disease) on dialysis, Medication reaction Patient Disposition: Home, Self-Care Instructions: Hypertension (ED), End Stage Kidney Disease (ED) Additional Instructions: Stop using clonidine patch Follow-up with dialysis tomorrow call the Center for scheduled dialysis tomorrow Return if any concerns or worsening symptoms Thank you Prescriptions: No Action hydralazine 100 mg tablet 100 mg PO TID Qty: 60 RF: 0 dexamethasone 6 mg tablet 6 mg PO DAILY Qty: 7 RF: 0 carvedilol 25 mg tablet 25 mg PO BID RF: 0 lorazepam 0.5 mg tablet 0.5 mg PO DAILY PRN (Reason: Anxiety) RF: 0 Auryxia 210 mg iron tablet 210 mg PO DAILY RF: 0 clonidine [Qvyadpgu-QQE-1] 0.3 mg/24 hr Patch Weekly 0.6 mg transdermal Kim@0900 Qty: 4 RF: 0 lisinopril 40 mg tablet 40 mg PO DAILY Qty: 30 RF: 0 nifedipine 60 mg tablet extended release 120 mg PO DAILY Qty: 60 RF: 0 Referrals: Physician,Unknown [Primary Care Provider] - 1 day ([place] dialysis tomorrow) Discharge Date/Time: 03/10/20 19:52
--- NOTE | 2020-03-10 15:19 | ECG_ITS ---
Test Reason : GENERAL MEDICAL Blood Pressure : / mmHG Vent. Rate : 083 BPM Atrial Rate : 083 BPM P-R Int : 156 ms QRS Dur : 088 ms QT Int : 420 ms P-R-T Axes : 061 036 134 degrees QTc Int : 493 ms Normal sinus rhythm Possible Left atrial enlargement Left ventricular hypertrophy with repolarization abnormality Prolonged QT Abnormal ECG When compared with ECG of 02-MAR-2020 09:47, No significant change was found Referred By: Jesus Dominguez Electronically Signed By:Blayne Black
[2020-03-10] MEDS: diphenhydrAMINE HCL 50 MG/ML VIAL 12.5 MG IVPUSH (15:54)
[2020-03-10 15:56] LABS: Basophils Percent Auto 0.3 % (0-2); Eosinophils Absolute Auto 0.1 X10*3/uL (0.0-0.4); Eosinophils Percent Auto 1.1 % (0-4); Imm Gran Abs Auto 0.04 X10*3/uL (0.00-0.03); Imm Gran Pct Auto 0.4 % (0.0-0.4); Lymphocytes Absolute Auto 0.5 X10*3/uL (1.2-4.9); Lymphocytes Percent Auto 4.8 % (20-40); MANUAL DIFF FLAG SCAN; Mean Corpuscular HGB Conc 32.4 g/dl (31.0-36.0); Mean Corpuscular Hemoglobin 28.6 pg (27.0-33.0); Mean Corpuscular Volume 88.5 fL (80-98); Mean Platelet Volume 9.8 fL (9.4-12.4); Monocytes Absolute Auto 0.2 X10*3/uL (0.1-1.2); Monocytes Percent Auto 1.6 % (2-11); Neutrophils Absolute Auto 8.5 X10*3/uL (2.0-8.3); Neutrophils Percent Auto 91.8 % (45-73); Platelet Count 217 X10*3/uL (160-400); Red Blood Count 3.84 X10*6/uL (4.60-5.80); SCAN SMEAR FLAG 1; White Blood Count 9.3 X10*3/uL (4.8-10.8)
[2020-03-10] MEDS: Labetalol HCL 100 MG/20 ML VIAL 10 MG IVPUSH ×2 (15:58→17:18)
[2020-03-10 16:13] LABS: SLIDE REVIEW VERIFIED
[2020-03-10 16:34] LABS: Alanine Aminotransferase 13 U/L (0-40); Albumin Level 4.3 g/dL (3.5-5.0); Alkaline Phosphatase 67 U/L (39-117); Anion Gap 23 (12-20); Aspartate Amino Transferase 16 U/L (5-37); Bilirubin Total 0.6 mg/dL (0.0-1.0); Blood Urea Nitrogen 108 mg/dL (9-16); Carbon Dioxide 23 mmol/L (22-29); Chloride 100 mmol/L (96-108); Creatinine Clr Calc Pharmacy 5.6; Estimated Glomerular Filt Rate 4; Glucose Random 122 mg/dL (60-115); Sodium 140 mmol/L (135-145); Total Protein 7.4 g/dL (6.5-8.0)
[2020-03-10 16:51] LABS: Potassium 6.3 mmol/l (3.3-5.1)
--- NOTE | 2020-03-10 17:06 | ECG_ITS ---
Test Reason : REPEAT Blood Pressure : / mmHG Vent. Rate : 083 BPM Atrial Rate : 083 BPM P-R Int : 154 ms QRS Dur : 090 ms QT Int : 412 ms P-R-T Axes : 056 032 111 degrees QTc Int : 484 ms Normal sinus rhythm Possible Left atrial enlargement Left ventricular hypertrophy with repolarization abnormality Prolonged QT Abnormal ECG When compared with ECG of 10-MAR-2020 16:24, No significant change was found Referred By: Jesus Dominguez Electronically Signed By:Blayne Black
[2020-03-10] MEDS: Sodium Polystyrene Sulfon/Sorb 15 GM/60 ML ORAL.SUSP 60 GM PO (17:35)
[2020-03-10] MEDS: cloNIDine HCL 0.2 MG TABLET PO (18:36)
--- NOTE | 2020-03-10 18:37 | PC.NURSE ---
HOUSE CARPENTER aware of recent BP elevation. plan to give PO clonidine and recheck BP in 1/2 hour. will report to oncoming rn. pt remains asymptomatic.
== END 2020-03-10 19:52 | disposition home or self-care (01) ==
PROVIDERS: Nurse Practitioner Primary Care; Emergency Provider Emergency Medicine
DX: I12.0 Hypertensive chronic kidney disease with stage 5 chronic kidney disease or end stage renal disease (principal); Z79.899 Other long term (current) drug therapy; Z87.891 Personal history of nicotine dependence
CPT/HCPCS: 36415; 80053; 85025; 93005; 96374; 96375; 96376; 99284; J1200

== ENCOUNTER 2020-05-21 07:05 | Day surgery (SDC) | payer MEDICARE, MEDICAID, SELFPAY ==
--- NOTE | ~2020-05-21 | US_ITS ---
EXAMINATION: US-GUIDED PARACENTESIS CLINICAL INFORMATION: Ascites. COMPARISON: Ultrasound paracentesis 02/20/2020. TECHNIQUE: After explaining ultrasound-guided thoracentesis procedure, benefits and risk, a written consent was obtained. Patient was placed supine on the ultrasound stretcher and preliminary ultrasound imaging was obtained. An optimal site was selected and marked along the right upper abdomen. The marked site was cleaned and draped in usual sterile manner with 2% chlorhexidine solution. 1% lidocaine was injected at the puncture site. Through a small skin incision, a 5 [employer] catheter was advanced into the peritoneal space. After observing fluid return, stylet was withdrawn and catheter connected to vacuum bottle via connecting cannula. After obtaining all fluid and observing no more fluid return, the catheter was withdrawn and complete hemostasis was achieved at the puncture site. Patient tolerated procedure extremely well. Simple band-aid dressing was applied at the puncture site. FINDINGS: There is minimal free fluid seen, most localized on the right side in the upper quadrant. Approximately 1.1 L of clear yellow fluid was collected. Part of this fluid was sent for diagnostic testing as requested. Previously 3.8 L of fluid was removed. US/US paracentesis abd w/image IMPRESSION: Successful ultrasound-guided paracentesis with 1.1 L of clear yellowish fluid taken.
[2020-05-21 07:36] VITALS: BMI 19.8
[2020-05-21 07:53] LABS: Basophils Absolute Auto 0.1 X10*3/uL (0.0-0.2); Basophils Percent Auto 0.7 % (0-2); Eosinophils Absolute Auto 0.2 X10*3/uL (0.0-0.4); Eosinophils Percent Auto 2.3 % (0-4); Hematocrit 33.8 % (42-52); Hemoglobin 10.6 g/dl (14.0-18.0); Imm Gran Abs Auto 0.03 X10*3/uL (0.00-0.03); Imm Gran Pct Auto 0.4 % (0.0-0.4); Lymphocytes Absolute Auto 0.7 X10*3/uL (1.2-4.9); Lymphocytes Percent Auto 9.7 % (20-40); MANUAL DIFF FLAG SCAN; Mean Corpuscular HGB Conc 31.4 g/dl (31.0-36.0); Mean Corpuscular Hemoglobin 29.7 pg (27.0-33.0); Mean Corpuscular Volume 94.7 fL (80-98); Mean Platelet Volume 9.7 fL (9.4-12.4); Monocytes Absolute Auto 0.5 X10*3/uL (0.1-1.2); Monocytes Percent Auto 7.4 % (2-11); Neutrophils Absolute Auto 5.6 X10*3/uL (2.0-8.3); Neutrophils Percent Auto 79.5 % (45-73); Platelet Count 204 X10*3/uL (160-400); Red Blood Count 3.57 X10*6/uL (4.60-5.80); Red Cell Distribution Width 18.7 % (11.0-16.0); SCAN SMEAR FLAG 1
[2020-05-21 07:59] LABS: INTERNATIONAL NORM RATIO 1.1 (0.9-1.1); Prothrombin Time 13.2 SEC (10.8-13.0)
[2020-05-21 08:01] LABS: Partial Thromboplastin Time 39.4 SEC (24.1-38.0)
[2020-05-21 08:12] LABS: SLIDE REVIEW VERIFIED
[2020-05-21 09:43] VITALS: BP 172/100; PULSE 90; RESP 22; TEMP 36.9; O2SAT 95
[2020-05-21 09:58] VITALS: BP 172/95; PULSE 90; RESP 17; O2SAT 94
[2020-05-21 10:14] VITALS: BP 175/103; PULSE 93; RESP 17; O2SAT 95
[2020-05-21 10:29] VITALS: BP 179/101; PULSE 97; RESP 18; O2SAT 96
[2020-05-21 10:34] LABS: MN% 91.9 %; PMN% 8.1 %; WBC Peritoneal Fluid 0.155 X10*3/uL
[2020-05-21 10:44] LABS: RBC Peritoneal Fluid < 0.002 X10*6/uL
[2020-05-21 11:04] VITALS: BP 176/102; PULSE 90; RESP 18; O2SAT 95
[2020-05-21 11:25] VITALS: BP 174/106; PULSE 95; RESP 18; TEMP 36.8; O2SAT 96
[2020-05-21 12:51] LABS: BF Shift QC OK YES; Lymphocyte Peritoneal Fl 6 %; Man Diluent Bkgrd OK YES; Monocytes Peritoneal Fl 1 %; Other Peritioneal Fl 93 %
== END 2020-05-21 11:36 | disposition home or self-care (01) ==
PROVIDERS: Internal Medicine; Radiology Diagnostic Radiology; Visit Provider Radiology Diagnostic Radiology
DX: R19.8 Other specified symptoms and signs involving the digestive system and abdomen (principal)
CPT/HCPCS: 36415; 49083; 85025; 85610; 85730; 87070; 87073; 87205; 89051

== ENCOUNTER 2020-06-20 19:09 | Inpatient (IN) | payer MEDICARE, MEDICAID, SELFPAY ==
[2020-06-20] VITALS (10 sets, daily range): BP systolic 181–223; BP diastolic 99–144; PULSE 83–99; RESP 20–26; TEMP 36.7; O2SAT 88–100
--- NOTE | ~2020-06-20 | CT_ITS ---
EXAMINATION: CT PULMONARY EMBOLISM STUDY CLINICAL INFORMATION: Shortness of breath. COMPARISON: 06/20/2020.. TECHNIQUE: Contiguous helical images of the chest were obtained following the administration of IV contrast. Multiplanar reconstructions were performed. MIPS were obtained and reviewed. DLP: 249 mGy-cm. CONTRAST: 65 mL of Omnipaque 350 were administered without incident. FINDINGS: The heart is mildly enlarged, though unchanged from prior exams. There is no pericardial effusion. The great vessels are unremarkable. Specifically, there is no pulmonary arterial filling defect. There is no CT evidence for pulmonary embolism. There are no chest wall masses. Review of lung windows demonstrates that there are is interlobular septal thickening present throughout both lungs. There is a small left pleural effusion with a left lower lobe consolidation and patchy airspace opacification within the left lung. Limited evaluation of the upper abdomen demonstrates that the liver is of normal size and attenuation without focal lesions. Normal adrenal glands are identified. There is a moderate amount of free fluid within the upper abdomen. CT/CT angio chest PE protocol IMPRESSION: No CT evidence for pulmonary embolism. Vascular congestion. Left pleural effusion with left lower lobe consolidation. Moderate amount of upper abdominal ascites. Automated exposure control (Care Dose) Adjustment of the mA and/or kv according to patient size (this includes techniques or standardized protocols for targeted exams where dose is matched to indication / reason for exam; i.e. extremities or head).
--- NOTE | ~2020-06-20 | US_ITS ---
EXAMINATION: RENAL ULTRASOUND WITH DOPPLER CLINICAL INFORMATION: Evaluate for renal artery stenosis. COMPARISON: Ultrasound dated 05/30/2018 TECHNIQUE: Grayscale and color Doppler evaluation of the bilateral kidneys was performed with spectral analysis. FINDINGS: GRAYSCALE ASSESSMENT: Kidneys are normal in size measuring 9.1 x 4.0 x 4.4 cm on the right and 9.2 x 5.4 x 5.3 cm on the left. Numerous bilateral simple and minimally complex renal cysts are identified. For example, there is a thinly septate 1.4 cm cyst in the lower pole of the RIGHT kidney, and a 4.6 cm simple cyst within the midpole of the left kidney. No hydronephrosis or urinary calculi. DOPPLER ASSESSMENT: Peak systolic velocity within the aorta ranges from 116-136 cm/s. (Renal aortic-ratio not applicable) Right main renal artery velocity: 46.1 cm/s (proximal). Mid and distal segments of the right main renal artery were not to be assessed. Left main renal artery velocity: 127 cm/s (proximal). Mid and distal segments of the left main renal artery were not to be assessed. Resistive index within the RIGHT kidney: 0.77 (upper pole). Mid and lower pole resistive indices not obtained. Resistive index within the LEFT kidney range from 0.73-0.88. Main renal veins are patent bilaterally. US/US renal doppler IMPRESSION: * No evidence of renal artery stenosis. * Elevated resistive indices within the left kidney is nonspecific, and can be seen with a variety of medical renal diseases. * Incomplete assessment of the right intrarenal resistive indices. The single resistive index within the upper pole of the right kidney is at the upper limits of normal, however. * Bilateral benign Bosniak 1 and 2 cysts.
--- NOTE | ~2020-06-20 | XR_ITS ---
EXAMINATION: XR CHEST CLINICAL INFORMATION: Shortness of breath. Congestive heart failure. COMPARISON: Multiple prior studies. Most recent chest x-ray 03/02/2020. TECHNIQUE: Frontal view of the chest was obtained. 10:10 PM FINDINGS: There is persistent density at the left lung base with silhouetting of the diaphragm. Overall volume loss left hemithorax similar prior study. Density capping the left lung apex remains unchanged. Mild bilateral hazy airspace opacities are persistent unchanged since chest x-ray 03/02/2020.. This may be due to cardiogenic etiology. Acute airspace disease though not excluded. The heart size is enlarged. XR/XR chest 1V IMPRESSION: 1. Stable chronic findings of left hemithorax of volume loss and dense left lung base and pleural density capping the left lung apex. This is likely due to left pleural effusion 2. Hazy bilateral airspace opacities likely due to congestive heart failure no acute airspace disease not excluded. Severity is similar to chest x-ray 03/02/2020.
--- NOTE | 2020-06-20 20:13 | ECG_ITS ---
Test Reason : SOB Blood Pressure : / mmHG Vent. Rate : 096 BPM Atrial Rate : 096 BPM P-R Int : 158 ms QRS Dur : 090 ms QT Int : 388 ms P-R-T Axes : 042 027 151 degrees QTc Int : 490 ms Normal sinus rhythm Left ventricular hypertrophy with repolarization abnormality Prolonged QT Abnormal ECG When compared with ECG of 10-MAR-2020 16:58, No significant change was found Referred By: Generic ED Physician Electronically Signed By:Blayne Black
--- NOTE | 2020-06-20 20:23 | PC.NURSE ---
Delay for EKG at this time, machine unavailable.
--- NOTE | 2020-06-20 20:47 | PC.NURSE ---
IV established, labs and EKG obtained. Awaiting primary MD nguyen.
[2020-06-20 20:57] LABS: MANUAL DIFF FLAG NO
[2020-06-20 21:00] LABS: Basophils Absolute Auto 0.1 X10*3/uL (0.0-0.2); Basophils Percent Auto 0.6 % (0-2); Eosinophils Absolute Auto 0.1 X10*3/uL (0.0-0.4); Eosinophils Percent Auto 1.7 % (0-4); Hematocrit 31.2 % (42-52); Hemoglobin 9.8 g/dl (14.0-18.0); Imm Gran Abs Auto 0.02 X10*3/uL (0.00-0.03); Imm Gran Pct Auto 0.2 % (0.0-0.4); Lymphocytes Absolute Auto 0.7 X10*3/uL (1.2-4.9); Lymphocytes Percent Auto 8.7 % (20-40); Mean Corpuscular HGB Conc 31.4 g/dl (31.0-36.0); Mean Corpuscular Hemoglobin 27.8 pg (27.0-33.0); Mean Corpuscular Volume 88.4 fL (80-98); Mean Platelet Volume 10.3 fL (9.4-12.4); Monocytes Absolute Auto 0.6 X10*3/uL (0.1-1.2); Neutrophils Absolute Auto 6.6 X10*3/uL (2.0-8.3); Neutrophils Percent Auto 81.8 % (45-73); Platelet Count 185 X10*3/uL (160-400); Red Blood Count 3.53 X10*6/uL (4.60-5.80); Red Cell Distribution Width 17.1 % (11.0-16.0)
[2020-06-20 21:29] LABS: B Type Natriuretic Peptide 2468 pg/mL (<100)
[2020-06-20 21:34] LABS: Troponin-I High Sensitivity 52.5 ng/L (<3.5-35.0)
[2020-06-20 21:50] LABS: Alanine Aminotransferase 10 U/L (0-40); Albumin Level 3.8 g/dL (3.5-5.0); Alkaline Phosphatase 65 U/L (39-117); Anion Gap 18 (12-20); Aspartate Amino Transferase 14 U/L (5-37); Bilirubin Total 1.1 mg/dL (0.0-1.0); Blood Urea Nitrogen 23 mg/dL (9-16); Calcium 8.4 mg/dL (8.4-10.2); Carbon Dioxide 34 mmol/L (22-29); Chloride 96 mmol/L (96-108); Creatinine Clr Calc Pharmacy 12.4; Estimated Glomerular Filt Rate 10; Glucose Random 126 mg/dL (60-115); Potassium 3.8 mmol/L (3.3-5.1); Sodium 144 mmol/L (135-145); Total Protein 6.4 g/dL (6.5-8.0)
--- NOTE | 2020-06-20 22:01 | ED_ITS ---
HPI - SOB/Dyspnea General Chief Complaint: Dyspnea Stated Complaint: resp issues Time Seen by Provider: 06/20/20 22:00 Source: patient Mode of arrival: ambulatory Limitations: no limitations History of Present Illness HPI Narrative: Patient with hypertension and stage renal disease had dialysis today and 2 L were removed patient dry weight is 57 kg and today was 58kg after dialysis patient been feeling short of breath for last few weeks getting worse last 2 days when he ambulated to the ER patient was saturating 72% at room air improved to 99% on 2 L of oxygen on arrival patient's blood pressure was 223/120 with pulse rate of 96 respiratory 22 saturating 99% on 2 L of oxygen drops to 86% at room air at rest. Patient denies any chest pain no increased leg swelling no abdominal distension patient with ascites in February and fluid was removed MD elicited complaint: shortness of breath Related Data Home Medications Medication Instructions Recorded Confirmed Auryxia 210 mg PO DAILY 12/11/19 06/21/20 carvedilol 25 mg PO BID 12/11/19 06/21/20 lorazepam 0.5 mg PO DAILY PRN 12/11/19 06/21/20 B complex-vitamin C-folic acid 1 tab PO DAILY 06/20/20 06/21/20 [Nephro-Vivi] clonidine HCl 0.2 mg PO BID 06/20/20 06/21/20 hydralazine 100 mg PO BID 06/20/20 06/21/20 nifedipine 120 mg PO QAM 06/20/20 06/21/20 Previous Rx's Medication Instructions Recorded lisinopril 40 mg PO DAILY #30 tab 01/10/20 Allergies Allergy/AdvReac Type Severity Reaction Status Date / Time No Known Allergies Allergy Verified 05/21/20 07:36 Review of Systems Review of Systems: Constitutional : No Weight loss, No Fever, No Chills ENT/Mouth : No sore throat, No Rhinorrhea Eyes: No Eye Pain, No Swelling Cardiovascular : No Chest Pain, no palpitations Respiratory : No Cough, No Sputum, ++ shortness of breath Gastrointestinal : no Nausea, No Vomiting, No Diarrhea, No abdominal Pain, no black stools Genitourinary : No Dysuria, No Urinary Frequency Musculoskeletal : No joint pain, No Myalgias, No Joint Swelling Skin : No Skin Lesions, No rash Neuro : No Weakness, No Numbness, No Dizziness, No Headache Psych : No Anxiety/Panic, No Depression Heme/Lymph: No Bruising, No Lymphadenopathy Endocrine : No Polyuria, No Polydipsia All other systems reviewed and are negative FOR[facility]LY [facility] Past Medical History Medical History Anemia CHF (congestive heart failure) Dialysis patient Disease of pericardium, unspecified End stage chronic kidney disease ESRD (end stage renal disease) Fistula Hypertension Hypertensive cardiovascular disease Kidney disease Pulmonary hypertension associated with end stage renal disease on dialysis Family History Family History Other HTN (hypertension) Social History Social History Household Members: Significant Other Housing: House Smoking Status: Former smoker Second Hand Smoke Exposure: No Advance Directives: No Advance Directives Information Provided: No service: No Current occupational status: unemployed Physical Exam Vital Signs: Vital Signs: Last Vital Signs Temp 98.0 F 06/20/20 19:50 Pulse 82 06/21/20 02:02 Resp 16 06/21/20 02:02 BP 174/105 H 06/21/20 02:02 Pulse Ox 100 06/21/20 02:02 Body Mass Index 20.0 Appearance: Alert. Oriented X3. Mild respiratory distress. Eyes: Pupils equal, round and reactive to light. ENT: Pharynx normal. Neck: Normal inspection. Neck supple. CVS: Normal heart rate and rhythm. Pulses normal. Respiratory: Moderate respiratory distress, bilateral basal crackles good air entry bilateral Abdomen: Soft and nontender. Bowel sounds are present, no mass palpable, no CVA tenderness Skin: Skin warm and dry. Normal skin color. Normal skin turgor. Extremities: No lower extremity edema. No calf tenderness Neuro: Oriented X 3. No motor deficit. No sensory deficit. MDM - SOB/Dyspnea MDM Narrative Medical decision making narrative: Patient with end-stage renal disease with increased shortness of breath already had dialysis today workup showed pulmonary vascular congestion in the lungs and high blood pressure. Blood pressure improved after IV labetalol and Catapres p.o. and IV Lasix. And IV hydralazine, Will do CTA chest to rule out PE at this time patient is saturating 100% on 2 L Differential Diagnosis Differential diagnosis: Likely congestive heart failure Medical Records Attestation: I reviewed the patient's medical records. Lab Data Attestation: I reviewed the patient's lab results. Result diagrams: 06/20/20 20:45 06/20/20 20:45 Labs: Lab Results 06/20/20 06/20/20 06/20/20 Range/Units 20:05 20:45 20:45 WBC 8.0 (4.8-10.8) X10*3/uL RBC 3.53 L (4.60-5.80) X10*6/uL Hgb 9.8 L (14.0-18.0) g/dl Hct 31.2 L (42-52) % MCV 88.4 (80-98) fL MCH 27.8 (27.0-33.0) pg MCHC 31.4 (31.0-36.0) g/dl RDW 17.1 H (11.0-16.0) % Plt Count 185 (160-400) X10*3/uL MPV 10.3 (9.4-12.4) fL Immature Gran % (Auto) 0.2 (0.0-0.4) % Neut % (Auto) 81.8 H (45-73) % Lymph % (Auto) 8.7 L (20-40) % [place] % (Auto) 7.0 (2-11) % Eos % (Auto) 1.7 (0-4) % Baso % (Auto) 0.6 (0-2) % Lymph # (Auto) 0.7 L (1.2-4.9) X10*3/uL [place] # (Auto) 0.6 (0.1-1.2) X10*3/uL Eos # (Auto) 0.1 (0.0-0.4) X10*3/uL Baso # (Auto) 0.1 (0.0-0.2) X10*3/uL Abs Immat Gran (auto) 0.02 (0.00-0.03) X10*3/uL Absolute Neuts (auto) 6.6 (2.0-8.3) X10*3/uL Absolute Nucleated RBC 0.000 (0.0-0.012) X10*3/uL Nucleated RBC % (auto) 0.0 (0.0-0.2) /100WBC Hold Blue Top Sodium 144 (135-145) mmol/L Potassium 3.8 (3.3-5.1) mmol/L Chloride 96 (96-108) mmol/L Carbon Dioxide 34 H (22-29) mmol/L Anion Gap 18 (12-20) BUN 23 H D (9-16) mg/dL Creatinine 6.05 H* (0.5-1.4) mg/dL Estim Creat Clear Calc 12.4 Estimated GFR 10 Random Glucose 126 H (60-115) mg/dL Calcium 8.4 (8.4-10.2) mg/dL Total Bilirubin 1.1 H (0.0-1.0) mg/dL AST 14 (5-37) U/L ALT 10 (0-40) U/L Alkaline Phosphatase 65 (39-117) U/L Troponin I High Sens (<3.5-35.0) ng/L B-Natriuretic Peptide (<100) pg/mL Total Protein 6.4 L (6.5-8.0) g/dL Albumin 3.8 (3.5-5.0) g/dL Urine Color Urine Appearance Urine pH (5.0-8.0) Ur Specific [place] (1.005-1.025) Urine Protein (NEG-TRACE) MG/DL Urine Glucose (UA) (NEG) MG/DL Urine Ketones (NEG) MG/DL Urine Blood (NEG) Urine Nitrite (NEG) Ur Leukocyte Esterase (NEG) Urine RBC (0) /HPF Urine WBC (0-4) /HPF Ur Squamous Epith Cells /LPF Urine Bacteria /LPF COVID-19 ([facility]) Negative (Negative) COVID-19 Clin Com See Note 06/20/20 06/20/20 06/20/20 Range/Units 20:45 20:45 20:45 WBC (4.8-10.8) X10*3/uL RBC (4.60-5.80) X10*6/uL Hgb (14.0-18.0) g/dl Hct (42-52) % MCV (80-98) fL MCH (27.0-33.0) pg MCHC (31.0-36.0) g/dl RDW (11.0-16.0) % Plt Count (160-400) X10*3/uL MPV (9.4-12.4) fL Immature Gran % (Auto) (0.0-0.4) % Neut % (Auto) (45-73) % Lymph % (Auto) (20-40) % [place] % (Auto) (2-11) % Eos % (Auto) (0-4) % Baso % (Auto) (0-2) % Lymph # (Auto) (1.2-4.9) X10*3/uL [place] # (Auto) (0.1-1.2) X10*3/uL Eos # (Auto) (0.0-0.4) X10*3/uL Baso # (Auto) (0.0-0.2) X10*3/uL Abs Immat Gran (auto) (0.00-0.03) X10*3/uL Absolute Neuts (auto) (2.0-8.3) X10*3/uL Absolute Nucleated RBC (0.0-0.012) X10*3/uL Nucleated RBC % (auto) (0.0-0.2) /100WBC Hold Blue Top SEE NOTE Sodium (135-145) mmol/L Potassium (3.3-5.1) mmol/L Chloride (96-108) mmol/L Carbon Dioxide (22-29) mmol/L Anion Gap (12-20) BUN (9-16) mg/dL Creatinine (0.5-1.4) mg/dL Estim Creat Clear Calc Estimated GFR Random Glucose (60-115) mg/dL Calcium (8.4-10.2) mg/dL Total Bilirubin (0.0-1.0) mg/dL AST (5-37) U/L ALT (0-40) U/L Alkaline Phosphatase (39-117) U/L Troponin I High Sens 52.5 H D (<3.5-35.0) ng/L B-Natriuretic Peptide 2468 H (<100) pg/mL Total Protein (6.5-8.0) g/dL Albumin (3.5-5.0) g/dL Urine Color Urine Appearance Urine pH (5.0-8.0) Ur Specific [place] (1.005-1.025) Urine Protein (NEG-TRACE) MG/DL Urine Glucose (UA) (NEG) MG/DL Urine Ketones (NEG) MG/DL Urine Blood (NEG) Urine Nitrite (NEG) Ur Leukocyte Esterase (NEG) Urine RBC (0) /HPF Urine WBC (0-4) /HPF Ur Squamous Epith Cells /LPF Urine Bacteria /LPF COVID-19 ([facility]) (Negative) COVID-19 Clin Com 06/20/20 06/20/20 Range/Units 23:08 23:59 WBC (4.8-10.8) X10*3/uL RBC (4.60-5.80) X10*6/uL Hgb (14.0-18.0) g/dl Hct (42-52) % MCV (80-98) fL MCH (27.0-33.0) pg MCHC (31.0-36.0) g/dl RDW (11.0-16.0) % Plt Count (160-400) X10*3/uL MPV (9.4-12.4) fL Immature Gran % (Auto) (0.0-0.4) % Neut % (Auto) (45-73) % Lymph % (Auto) (20-40) % [place] % (Auto) (2-11) % Eos % (Auto) (0-4) % Baso % (Auto) (0-2) % Lymph # (Auto) (1.2-4.9) X10*3/uL [place] # (Auto) (0.1-1.2) X10*3/uL Eos # (Auto) (0.0-0.4) X10*3/uL Baso # (Auto) (0.0-0.2) X10*3/uL Abs Immat Gran (auto) (0.00-0.03) X10*3/uL Absolute Neuts (auto) (2.0-8.3) X10*3/uL Absolute Nucleated RBC (0.0-0.012) X10*3/uL Nucleated RBC % (auto) (0.0-0.2) /100WBC Hold Blue Top Sodium (135-145) mmol/L Potassium (3.3-5.1) mmol/L Chloride (96-108) mmol/L Carbon Dioxide (22-29) mmol/L Anion Gap (12-20) BUN (9-16) mg/dL Creatinine (0.5-1.4) mg/dL Estim Creat Clear Calc Estimated GFR Random Glucose (60-115) mg/dL Calcium (8.4-10.2) mg/dL Total Bilirubin (0.0-1.0) mg/dL AST (5-37) U/L ALT (0-40) U/L Alkaline Phosphatase (39-117) U/L Troponin I High Sens 58.2 H (<3.5-35.0) ng/L B-Natriuretic Peptide (<100) pg/mL Total Protein (6.5-8.0) g/dL Albumin (3.5-5.0) g/dL Urine Color YELLOW Urine Appearance CLEAR Urine pH >= 9.0 H (5.0-8.0) Ur Specific [place] 1.020 (1.005-1.025) Urine Protein 2+ H (NEG-TRACE) MG/DL Urine Glucose (UA) 100 H (NEG) MG/DL Urine Ketones NEG (NEG) MG/DL Urine Blood NEG (NEG) Urine Nitrite NEG (NEG) Ur Leukocyte Esterase NEG (NEG) Urine RBC 0 (0) /HPF Urine WBC 0-2 (0-4) /HPF Ur Squamous Epith Cells TRACE /LPF Urine Bacteria NONE /LPF COVID-19 ([facility]) (Negative) COVID-19 Clin Com ECG Data Attestation: I personally reviewed and interpreted this ECG as follows: Interpretation: However sinus rhythm left ventricular hypertrophy with strain pattern heart rate 96 beats per minute no acute ST T wave changes normal intervals impression no acute ischemia Critical Care Time Critical Care Time Critical Care Time: Yes Total Critical Care Time: 45 Attestation: I spent 45 minutes of critical care, with interventions, assessments, speaking to patient. Discharge Plan Discharge Clinical Impression: ESRD (end stage renal disease) on dialysis, Hypertensive crisis Congestive heart failure Qualifiers: Heart failure type: systolic Heart failure chronicity: chronic Qualified Code(s): I50.22 - Chronic systolic (congestive) heart failure Patient Disposition: Admitted As Inpatient
--- NOTE | 2020-06-20 22:02 | PC.NURSE ---
at bedside for primary eval.
--- NOTE | 2020-06-20 22:10 | PC.NURSE ---
MD at bedside requesting a room air O2 sat. Once O2 was DCed, pt quickly dropped to 88% with good pleth. Per MD, pt to remain on O2 @ at this time. Plan for IV medications for HTN. VSS.
[2020-06-20] MEDS: cloNIDine HCL 0.2 MG TABLET PO (22:18)
[2020-06-20] MEDS: hydrALAZINE HCl 20 MG/ML VIAL IVPUSH (22:20)
[2020-06-20] MEDS: Furosemide 100 MG/10 ML VIAL 80 MG IVPUSH (22:23)
--- NOTE | 2020-06-20 22:24 | PC.NURSE ---
Pt medicated per MAY. Urinal at bedside when pt is able to provide UA.
[2020-06-20 23:04] LABS: COVID-19 Test Negative (Negative)
--- NOTE | 2020-06-20 23:08 | PC.NURSE ---
Pt voiding minimal amount in the bedside urinal, < 25 ml. UA obtained and sent. VSS.
[2020-06-20 23:17] LABS: Glucose Urine UA 100 MG/DL (NEG); Leukocyte Esterase Urine NEG (NEG); Nitrite Urine NEG (NEG); PH >= 9.0 (5.0-8.0); Urine Blood NEG (NEG); Urine Ketones NEG (NEG)
[2020-06-20 23:18] LABS: Appearance Urine CLEAR; Color Urine YELLOW; Urine Protein 2+ MG/DL (NEG-TRACE)
[2020-06-20 23:30] LABS: RBC Urine 0 /HPF (0); Squamous Epithelial Cell Urine TRACE /LPF; WBC Urine 0-2 /HPF (0-4)
[2020-06-20] MEDS: Labetalol HCL 100 MG/20 ML VIAL 20 MG IVPUSH (23:57)
[2020-06-21] VITALS (23 sets, daily range): BP systolic 168–226; BP diastolic 98–132; PULSE 78–100; RESP 16–26; TEMP 36.8–37; O2SAT 88–100
--- NOTE | 2020-06-21 00:09 | PC.NURSE ---
Med Rec completed by this RN at bedside with pt.
[2020-06-21 01:01] LABS: Troponin-I High Sensitivity 58.2 ng/L (<3.5-35.0)
--- NOTE | 2020-06-21 02:36 | PC.NURSE ---
Second IV line established, pt off to CT. Plan to medicate upon return.
[2020-06-21] MEDS: iohexoL 350 MG/ML 100 ML INFUS..BTL 65 ML IV (02:54)
[2020-06-21] MEDS: Labetalol HCL 100 MG/20 ML VIAL 20 MG IVPUSH (03:07)
[2020-06-21] MEDS: Nitroglycerin 2 % Oint 1 GM Packet 1 INCH TRANSDERMA (03:07)
--- NOTE | 2020-06-21 03:14 | PC.NURSE ---
Pt returns from CT, remains hypertensive, medicated per MAR with Labetolol and Nitro paste (right chest).
--- NOTE | 2020-06-21 04:04 | PC.NURSE ---
Hospitalist notified of persistent HTN despite medication administration. Pt remains asymptomatic at this time, resting easily in NAD. Continue to monitor.
--- NOTE | 2020-06-21 04:35 | PM.IMHP ---
History of Present Illness Date of Service: 06/21/20 Chief Complaint: SOB 45-year-old male with past medical history of hypertension, hyperlipidemia,, CHF, ESRD on hemodialysis, pulmonary hypertension, anemia presented to the hospital with a chief complaint shortness of breath. Patient mentioned over the past few days shortness of breath. Mentioned that her dialysis today. Any chest pain lightheadedness or dizziness. Denies any headaches or blurry visions. Mentioned that the blood pressure is always on the higher side. He take his blood pressure medications and has been complaint. Denies any fever chills cough. Review of all other systems is negative except mentioned above ER course: Per ER team patient noted to be hypoxic placed on supplemental oxygen at 2 L saturating 100%. Exam was essentially benign. Patient's blood pressure on presentation noted to be 230/144-patient was given hydralazine, labetalol, clonidine, Nitropatch. Blood pressure improved to 190/100. Patient was asymptomatic. Otherwise CT angio of the chest showed no evidence of pulmonary embolism. Admitted to the hospital for further management. [facility] Medical History Anemia CHF (congestive heart failure) Dialysis patient Disease of pericardium, unspecified End stage chronic kidney disease ESRD (end stage renal disease) Fistula Hypertension Hypertensive cardiovascular disease Kidney disease Pulmonary hypertension associated with end stage renal disease on dialysis Family History Other HTN (hypertension) Social History Household Members: None Housing: House Alcohol intake: unknown Smoking Status: Never smoker Second Hand Smoke Exposure: No service: No Current occupational status: unemployed Meds Allergies Allergy/AdvReac Type Severity Reaction Status Date / Time No Known Allergies Allergy Verified 05/21/20 07:36 Active Medications: Current Medications Generic Name Dose Route Start Last Admin Trade Name Freq PRN Reason Stop Dose Admin Acetaminophen 650 mg 06/21/20 04:33 Acetaminophen 325 Mg Tablet PO Q6H PRN Pain, Mild (Pain Scale 1-3) Carvedilol 25 mg 06/21/20 09:00 Carvedilol 25 Mg Tablet PO BID [facility] Protocol Clonidine HCl 0.2 mg 06/21/20 09:00 Clonidine Hcl 0.2 Mg Tablet PO BID [facility] Protocol Heparin Sodium (Porcine) 5,000 unit 06/21/20 04:45 Heparin Sodium,Porcine 5,000 Unit/Ml Vial SUBCUT Q8H [facility] Hydralazine HCl 100 mg 06/21/20 09:00 Hydralazine Hcl 50 Mg Tablet PO BID [facility] Protocol Lisinopril 40 mg 06/21/20 09:00 Lisinopril 40 Mg Tablet PO DAILY [facility] Protocol Lorazepam 0.5 mg 06/21/20 04:31 Lorazepam 0.5 Mg Tablet PO DAILY PRN Anxiety Non-Formulary Medication 1 tab 06/21/20 09:00 B Complex-Vitamin C-Folic Acid [Nephro-Vivi] PO DAILY [facility] Non-Formulary Medication 210 mg 06/21/20 09:00 Ferric Citrate [Auryxia] PO DAILY [facility] Non-Formulary Medication 120 mg 06/21/20 04:45 Nifedipine PO QAM [facility] Senna 17.2 mg 06/21/20 04:33 Sennosides 8.6 Mg Tablet PO BEDTIME PRN Constipation Sodium Chloride 3 ml 06/21/20 08:00 0.9 % Sodium Chloride Flush 3 Ml Syringe IVFLUSH QSHIFT [facility] Home Medications Medication Instructions Recorded Confirmed Last Taken Type Auryxia 210 mg PO DAILY 12/11/19 06/21/20 06/14/20 History carvedilol 25 mg PO BID 12/11/19 06/21/20 06/20/20 15:00 History lorazepam 0.5 mg PO DAILY PRN 12/11/19 06/21/20 06/19/20 21:00 History Nephro-Vivi 1 tab PO DAILY 06/20/20 06/21/20 06/20/20 08:00 History clonidine HCl 0.2 mg PO BID 06/20/20 06/21/20 06/20/20 08:00 History nifedipine 120 mg PO QAM 06/20/20 06/21/20 06/19/20 08:00 History Physical Exam Vital Signs and Narrative: Vital Signs: Last Vital Signs Temp 98.0 F 06/20/20 19:50 Pulse 80 06/21/20 03:35 Resp 16 06/21/20 03:35 BP 198/100 H 06/21/20 04:04 Pulse Ox 97 06/21/20 03:06 Body Mass Index 20.0 Gen: Appears be in no acute distress HEENT: NCAT, Moist mucosa. Pulmonary: Vesicular breath sounds, fair air entry CVS: Normal S1-S2 Abdomen: BS+, Soft, Nontender Extremities: Warm well perfused; fistula has good thrill Neuro: Alert and awake. Results Labs CBC and Chem 7: 06/24/20 04:25 06/24/20 04:25 Labs: Laboratory Results - last 24 hr 06/20/20 06/20/20 06/20/20 20:05 20:45 20:45 MCV 88.4 MCH 27.8 MCHC 31.4 RDW 17.1 H Plt Count 185 MPV 10.3 Immature Gran % (Auto) 0.2 Neut % (Auto) 81.8 H Lymph % (Auto) 8.7 L [place] % (Auto) 7.0 Eos % (Auto) 1.7 Baso % (Auto) 0.6 Lymph # (Auto) 0.7 L [place] # (Auto) 0.6 Eos # (Auto) 0.1 Baso # (Auto) 0.1 Abs Immat Gran (auto) 0.02 Absolute Neuts (auto) 6.6 Absolute Nucleated RBC 0.000 Nucleated RBC % (auto) 0.0 Hold Blue Top Anion Gap 18 Estim Creat Clear Calc 12.4 Estimated GFR 10 Random Glucose 126 H Calcium 8.4 Total Bilirubin 1.1 H AST 14 ALT 10 Alkaline Phosphatase 65 Troponin I High Sens B-Natriuretic Peptide Total Protein 6.4 L Albumin 3.8 Urine Color Urine Appearance Urine pH Ur Specific [place] Urine Protein Urine Glucose (UA) Urine Ketones Urine Blood Urine Nitrite Ur Leukocyte Esterase Urine RBC Urine WBC Ur Squamous Epith Cells Urine Bacteria COVID-19 ([facility]) Negative COVID-19 Clin Com See Note 06/20/20 06/20/20 06/20/20 20:45 20:45 20:45 MCV MCH MCHC RDW Plt Count MPV Immature Gran % (Auto) Neut % (Auto) Lymph % (Auto) [place] % (Auto) Eos % (Auto) Baso % (Auto) Lymph # (Auto) [place] # (Auto) Eos # (Auto) Baso # (Auto) Abs Immat Gran (auto) Absolute Neuts (auto) Absolute Nucleated RBC Nucleated RBC % (auto) Hold Blue Top SEE NOTE Anion Gap Estim Creat Clear Calc Estimated GFR Random Glucose Calcium Total Bilirubin AST ALT Alkaline Phosphatase Troponin I High Sens 52.5 H D B-Natriuretic Peptide 2468 H Total Protein Albumin Urine Color Urine Appearance Urine pH Ur Specific [place] Urine Protein Urine Glucose (UA) Urine Ketones Urine Blood Urine Nitrite Ur Leukocyte Esterase Urine RBC Urine WBC Ur Squamous Epith Cells Urine Bacteria COVID-19 ([facility]) COVID-19 Clin Com 06/20/20 06/20/20 23:08 23:59 MCV MCH MCHC RDW Plt Count MPV Immature Gran % (Auto) Neut % (Auto) Lymph % (Auto) [place] % (Auto) Eos % (Auto) Baso % (Auto) Lymph # (Auto) [place] # (Auto) Eos # (Auto) Baso # (Auto) Abs Immat Gran (auto) Absolute Neuts (auto) Absolute Nucleated RBC Nucleated RBC % (auto) Hold Blue Top Anion Gap Estim Creat Clear Calc Estimated GFR Random Glucose Calcium Total Bilirubin AST ALT Alkaline Phosphatase Troponin I High Sens 58.2 H B-Natriuretic Peptide Total Protein Albumin Urine Color YELLOW Urine Appearance CLEAR Urine pH >= 9.0 H Ur Specific [place] 1.020 Urine Protein 2+ H Urine Glucose (UA) 100 H Urine Ketones NEG Urine Blood NEG Urine Nitrite NEG Ur Leukocyte Esterase NEG Urine RBC 0 Urine WBC 0-2 Ur Squamous Epith Cells TRACE Urine Bacteria NONE COVID-19 ([facility]) COVID-19 Clin Com Imaging Radiologist's Impressions: Impressions Chest X-Ray 06/20/20 22:02 IMPRESSION: 1. Stable chronic findings of left hemithorax of volume loss and dense left lung base and pleural density capping the left lung apex. This is likely due to left pleural effusion 2. Hazy bilateral airspace opacities likely due to congestive heart failure no acute airspace disease not excluded. Severity is similar to chest x-ray 03/02/2020. Chest CTA 06/21/20 02:18 IMPRESSION: No CT evidence for pulmonary embolism. Vascular congestion. Left pleural effusion with left lower lobe consolidation. Moderate amount of upper abdominal ascites. Automated exposure control (Care Dose) Adjustment of the mA and/or kv according to patient size (this includes techniques or standardized protocols for targeted exams where dose is matched to indication / reason for exam; i.e. extremities or head). Assessment and Plan (1) Congestive heart failure: Qualifiers: Heart failure chronicity: chronic Heart failure type: systolic Qualified Code(s): I50.22 - Chronic systolic (congestive) heart failure Status: Acute 45-year-old male with a past medical history of hypertension, hyperlipidemia, ESRD, anemia, pulmonary hypertension presented to the hospital with a chief complaint of worsening shortness of breath. Shortness of breath: CT angio showed no evidence of PE. EKG nonischemic. Troponins indeterminate. Patient denies any chest pain. Cardiology consult. Hypoxia: Patient placed on supplemental oxygen. ESRD: Nephrology consult for hemodialysis. Patient received contrast in the ER. Hypertensive urgency: Patient asymptomatic. Will continue home medications carvedilol, clonidine, hydralazine, lisinopril, nifedipine. Labetalol p.r.n.. Patient has nitro past. DVT prophylaxis: Subcu heparin Code status: Full code
--- NOTE | 2020-06-21 04:43 | PC.NURSE ---
per hospitalist (Kian) pt to be given daytime Nifedipine early for persistent hypertension. current blood pressure before administering Nifedipine is 223/123.
[2020-06-21] MEDS: hydrALAZINE HCl 20 MG/ML VIAL IVPUSH (05:10)
[2020-06-21] MEDS: Heparin Sodium,Porcine 5,000 UNIT/ML VIAL 5000 UNIT SUBCUT ×3 (05:11→20:17)
--- NOTE | 2020-06-21 05:15 | PC.NURSE ---
Pt medicated per MAR with PRN Hydralazine per hospitalist request due to persistent HTN. Plan for BP reassessment. Pt remains asleep in bed at this time, asymptomatic.
--- NOTE | 2020-06-21 05:55 | PC.NURSE ---
pt current blood pressure is 181/101 about 50min after hydralazine was given. hospitalist aware and says to monitor for now. no new orders at this time
[2020-06-21] MEDS: cloNIDine HCL 0.2 MG TABLET PO ×2 (08:12→20:15)
[2020-06-21] MEDS: NIFEdipine ER 60 MG TAB.ER.24 120 MG PO (08:13)
[2020-06-21] MEDS: carvediloL 25 MG TABLET PO ×2 (08:13→20:16)
[2020-06-21] MEDS: hydrALAZINE HCl 50 MG TABLET 100 MG PO ×2 (08:13→20:16)
[2020-06-21] MEDS: lisinopriL 40 MG TABLET PO (08:13)
[2020-06-21 08:17] LABS: MANUAL DIFF FLAG NO
[2020-06-21] MEDS: 0.9 % Sodium Chloride Flush 3 ML SYRINGE IVFLUSH ×2 (08:23→15:30)
--- NOTE | 2020-06-21 08:27 | PC.NURSE ---
Pt sitting up on stretcher noted to be mildy SOB, states no change in breathing since arrival to ED. On 3lpm via nc sat 95%. LS clear throughout. NSR on tele. BP remains elevated as charted, pt denies blurred vision, headache or pain. Dr Allison aware of last BP and will contact nephro, last dialysis yesterday. LAVF +bruit/thrill.
[2020-06-21 08:42] LABS: Basophils Percent Auto 0.6 % (0-2); Eosinophils Absolute Auto 0.1 X10*3/uL (0.0-0.4); Eosinophils Percent Auto 1.7 % (0-4); Hematocrit 28.1 % (42-52); Hemoglobin 8.9 g/dl (14.0-18.0); Imm Gran Abs Auto 0.03 X10*3/uL (0.00-0.03); Imm Gran Pct Auto 0.4 % (0.0-0.4); Lymphocytes Absolute Auto 0.7 X10*3/uL (1.2-4.9); Mean Corpuscular HGB Conc 31.7 g/dl (31.0-36.0); Mean Corpuscular Hemoglobin 28.5 pg (27.0-33.0); Mean Corpuscular Volume 90.1 fL (80-98); Mean Platelet Volume 10.6 fL (9.4-12.4); Monocytes Absolute Auto 0.4 X10*3/uL (0.1-1.2); Monocytes Percent Auto 6.3 % (2-11); Neutrophils Absolute Auto 5.7 X10*3/uL (2.0-8.3); Platelet Count 168 X10*3/uL (160-400); Red Blood Count 3.12 X10*6/uL (4.60-5.80)
[2020-06-21 08:55] LABS: Anion Gap 15 (12-20); Blood Urea Nitrogen 27 mg/dL (9-16); Calcium 8.4 mg/dL (8.4-10.2); Carbon Dioxide 35 mmol/L (22-29); Chloride 98 mmol/L (96-108); Creatinine Clr Calc Pharmacy 10.3; Estimated Glomerular Filt Rate 8; Glucose Random 90 mg/dL (60-115); Potassium 4.3 mmol/L (3.3-5.1); Sodium 144 mmol/L (135-145)
--- NOTE | 2020-06-21 09:05 | PC.NURSE ---
Nephro at bedside at this time
--- NOTE | 2020-06-21 09:20 | PC.NURSE ---
Dr Allison and Nephro at bedside discusing plan for BP control and at this time no dialysis needed but will add new med orders.
[2020-06-21] MEDS: Doxazosin Mesylate 2 MG TABLET PO (09:35)
[2020-06-21] MEDS: Enalaprilat Dihydrate 1.25 MG/ML VIAL IVPUSH (09:35)
--- NOTE | 2020-06-21 11:44 | P.CONNP_ITS ---
History of Present Illness Reason for Consult Consult date: 06/21/20 Chief Complaint Chief complaint: SOB History of Present Illness Narrative: ESRD PT severe resistant HTN adm with SOB adnd severe HTN not responding to meds. No CP. H/O liver probs and occ paracentesis..sees Dr Mares Review of Systems Review of Systems Constitutional : No Weight loss, No Fever, No Chills ENT/Mouth : No sore throat, No Rhinorrhea Eyes: No Eye Pain, No Swelling Cardiovascular : No Chest Pain, no palpitations Respiratory : No Cough, No Sputum, ++ shortness of breath Gastrointestinal : no Nausea, No Vomiting, No Diarrhea, No abdominal Pain, no black stools Genitourinary : No Dysuria, No Urinary Frequency Musculoskeletal : No joint pain, No Myalgias, No Joint Swelling Skin : No Skin Lesions, No rash Neuro : No Weakness, No Numbness, No Dizziness, No Headache Psych : No Anxiety/Panic, No Depression Heme/Lymph: No Bruising, No Lymphadenopathy Endocrine : No Polyuria, No Polydipsia All other systems reviewed and are negative [facility] Past Medical History Medical History Anemia CHF (congestive heart failure) Dialysis patient Disease of pericardium, unspecified End stage chronic kidney disease ESRD (end stage renal disease) Fistula Hypertension Hypertensive cardiovascular disease Kidney disease Pulmonary hypertension associated with end stage renal disease on dialysis Family History Family History Other HTN (hypertension) Social History Social History Household Members: Significant Other Housing: House Alcohol intake: unknown Smoking Status: Unknown if ever smoked Second Hand Smoke Exposure: No Use of substances other than those prescribed or required for medical reasons: Unknown Advance Directives: No Advance Directives Information Provided: No service: No Current occupational status: unemployed Meds Allergies Allergy/AdvReac Type Severity Reaction Status Date / Time No Known Allergies Allergy Verified 05/21/20 07:36 Active Medications: Current Medications Generic Name Dose Route Start Last Admin Trade Name Freq PRN Reason Stop Dose Admin Acetaminophen 650 mg 06/21/20 04:33 Acetaminophen 325 Mg Tablet PO Q6H PRN Pain, Mild (Pain Scale 1-3) Carvedilol 25 mg 06/21/20 09:00 06/21/20 08:13 Carvedilol 25 Mg Tablet PO 25 mg BID [facility] Administration Protocol Clonidine HCl 0.2 mg 06/21/20 09:00 06/21/20 08:12 Clonidine Hcl 0.2 Mg Tablet PO 0.2 mg BID [facility] Administration Protocol Doxazosin Mesylate 2 mg 06/21/20 09:20 06/21/20 09:35 Doxazosin Mesylate 2 Mg Tablet PO 2 mg DAILY [facility] Administration Protocol Heparin Sodium (Porcine) 5,000 unit 06/21/20 04:45 06/21/20 05:11 Heparin Sodium,Porcine 5,000 Unit/Ml Vial SUBCUT 5,000 unit Q8H [facility] Administration Hydralazine HCl 100 mg 06/21/20 09:00 06/21/20 08:13 Hydralazine Hcl 50 Mg Tablet PO 100 mg BID [facility] Administration Protocol Hydralazine HCl 20 mg 06/21/20 05:00 06/21/20 05:10 Hydralazine Hcl 20 Mg/Ml Vial IVPUSH 20 mg Q6H PRN Administration BP>180/90 Protocol Lisinopril 40 mg 06/21/20 09:00 06/21/20 08:13 Lisinopril 40 Mg Tablet PO 40 mg DAILY [facility] Administration Protocol Lorazepam 0.5 mg 06/21/20 04:31 Lorazepam 0.5 Mg Tablet PO DAILY PRN Anxiety Multivitamins 1 tab 06/21/20 09:00 06/21/20 08:13 B-Complex With Vitamin C Tablet PO 1 tab DAILY [facility] Administration Nifedipine 120 mg 06/21/20 09:00 06/21/20 08:13 Nifedipine Er 60 Mg Tab.Er.24 PO 120 mg DAILY [facility] Administration Non-Formulary Medication 210 mg 06/21/20 09:00 Ferric Citrate [Auryxia] PO DAILY [facility] Senna 17.2 mg 06/21/20 04:33 Sennosides 8.6 Mg Tablet PO BEDTIME PRN Constipation Sodium Chloride 3 ml 06/21/20 08:00 06/21/20 08:23 0.9 % Sodium Chloride Flush 3 Ml Syringe IVFLUSH 3 ml QSHIFT [facility] Administration Home Medications Medication Instructions Recorded Confirmed Last Taken Type Auryxia 210 mg PO DAILY 12/11/19 06/21/20 06/14/20 History carvedilol 25 mg PO BID 12/11/19 06/21/20 06/20/20 15:00 History lorazepam 0.5 mg PO DAILY PRN 12/11/19 06/21/20 06/19/20 21:00 History B complex-vitamin C-folic acid 1 tab PO DAILY 06/20/20 06/21/20 06/20/20 08:00 History [Nephro-Vivi] clonidine HCl 0.2 mg PO BID 06/20/20 06/21/20 06/20/20 08:00 History hydralazine 100 mg PO BID 06/20/20 06/21/20 06/20/20 15:00 History nifedipine 120 mg PO QAM 06/20/20 06/21/20 06/19/20 08:00 History Physical Exam Vital Signs: Last Vital Signs Temp 98.0 F 06/20/20 19:50 Pulse 81 06/21/20 11:33 Resp 26 H 06/21/20 11:33 BP 168/103 H 06/21/20 11:33 Pulse Ox 94 06/21/20 11:33 Body Mass Index 20.0 Results Lab Results Result Diagrams: 06/21/20 08:00 06/21/20 08:00 Lab results: Chemistry 06/20/20 06/21/20 20:45 08:00 Sodium 144 144 Potassium 3.8 4.3 Carbon Dioxide 34 H 35 H BUN 23 H D 27 H Creatinine 6.05 H* 7.26 H* Calcium 8.4 8.4 Hematology 06/20/20 06/21/20 20:45 08:00 WBC 8.0 7.0 Hgb 9.8 L 8.9 L Plt Count 185 168 Urinalysis 06/20/20 23:08 Urine Color YELLOW Urine Appearance CLEAR Urine pH >= 9.0 H Ur Specific [place] 1.020 Urine Protein 2+ H Urine Glucose (UA) 100 H Urine Ketones NEG Urine Blood NEG Urine Nitrite NEG Ur Leukocyte Esterase NEG Urine RBC 0 Urine WBC 0-2 Ur Squamous Epith Cells TRACE Assessment and Plan (1) Congestive heart failure: Qualifiers: Heart failure chronicity: chronic Heart failure type: systolic Qualified Code(s): I50.22 - Chronic systolic (congestive) heart failure Status: Acute 45-year-old male with a past medical history of hypertension, hyperlipidemia, ESRD, anemia, pulmonary hypertension presented to the hospital with a chief complaint of worsening shortness of breath. 1. ESRD: TTS 2. SOB: CHD from sever HTN and exzcess vol 3. Severe HTN: need to r/o ALETHEA and pheo ( I willorder) REC: UF x 2 hrs; cont BP meds; pheo sero and doppler of renals
--- NOTE | 2020-06-21 12:38 | PC.NURSE ---
Pt brought to dialysis by this RN
--- NOTE | 2020-06-21 14:37 | PC.NURSE ---
report to Julisa on C
--- NOTE | 2020-06-21 14:39 | MHC.CM.PN ---
PT AT . CM TO REVISIT
--- NOTE | 2020-06-21 15:16 | PM.CNCAR ---
History of Present Illness History of Present Illness Date of Service: 06/21/20 Requesting physician: Nathan Allison Consult reason: hypertension Chief complaint: SOB Narrative: Sterling is a 45 yo male with PMH of HTN, HLD, ESRD on dialysis, pulmonary HTN, HFpEF, Hypertensive heart disease, accelerated HTN who presents with sob and found to have hypertensive crisis. BP initially 230/144. Treated with IV hydralazine, labetalol and started on his usual carvedilol, clonidine, hydralazine, lisinopril, nifeidipine. BP has improved some but remains elevated. He is followed by nephrology as outpt and has been seen by Dr Bell already today. Today he reports that he is feeling better since the time of arrival. His breathing is easy and unlabored. He experiences some chest discomfort when BP is very high. No CPs at present. No palpitation, presyncope, syncope, PND, orthopnea or edema. He tells me he walked a lot yesterday was not feeling well. He has not missed any medications or dialysis. Review of Systems Review of Systems: as above Yes all other systems are reviewed and are negative PMFSH Past Medical History Medical History Anemia CHF (congestive heart failure) Dialysis patient Disease of pericardium, unspecified End stage chronic kidney disease ESRD (end stage renal disease) Fistula Hypertension Hypertensive cardiovascular disease Kidney disease Pulmonary hypertension associated with end stage renal disease on dialysis Family History Family History Other HTN (hypertension) Social History Social History Household Members: Significant Other Housing: House Alcohol intake: unknown Smoking Status: Unknown if ever smoked Second Hand Smoke Exposure: No Use of substances other than those prescribed or required for medical reasons: Unknown Advance Directives: No Advance Directives Information Provided: No service: No Current occupational status: unemployed Meds Allergies Allergy/AdvReac Type Severity Reaction Status Date / Time No Known Allergies Allergy Verified 05/21/20 07:36 Active Medications: Current Medications Generic Name Dose Route Start Last Admin Trade Name Freq PRN Reason Stop Dose Admin Acetaminophen 650 mg 06/21/20 04:33 Acetaminophen 325 Mg Tablet PO Q6H PRN Pain, Mild (Pain Scale 1-3) Carvedilol 25 mg 06/21/20 09:00 06/21/20 08:13 Carvedilol 25 Mg Tablet PO 25 mg BID [facility] Administration Protocol Clonidine HCl 0.2 mg 06/21/20 09:00 06/21/20 08:12 Clonidine Hcl 0.2 Mg Tablet PO 0.2 mg BID [facility] Administration Protocol Doxazosin Mesylate 2 mg 06/21/20 09:20 06/21/20 09:35 Doxazosin Mesylate 2 Mg Tablet PO 2 mg DAILY [facility] Administration Protocol Heparin Sodium (Porcine) 5,000 unit 06/21/20 04:45 06/21/20 05:11 Heparin Sodium,Porcine 5,000 Unit/Ml Vial SUBCUT 5,000 unit Q8H [facility] Administration Hydralazine HCl 100 mg 06/21/20 09:00 06/21/20 08:13 Hydralazine Hcl 50 Mg Tablet PO 100 mg BID [facility] Administration Protocol Hydralazine HCl 20 mg 06/21/20 05:00 06/21/20 05:10 Hydralazine Hcl 20 Mg/Ml Vial IVPUSH 20 mg Q6H PRN Administration BP>180/90 Protocol Lisinopril 40 mg 06/21/20 09:00 06/21/20 08:13 Lisinopril 40 Mg Tablet PO 40 mg DAILY [facility] Administration Protocol Lorazepam 0.5 mg 06/21/20 04:31 Lorazepam 0.5 Mg Tablet PO DAILY PRN Anxiety Multivitamins 1 tab 06/21/20 09:00 06/21/20 08:13 B-Complex With Vitamin C Tablet PO 1 tab DAILY [facility] Administration Nifedipine 120 mg 06/21/20 09:00 06/21/20 08:13 Nifedipine Er 60 Mg Tab.Er.24 PO 120 mg DAILY [facility] Administration Non-Formulary Medication 210 mg 06/21/20 09:00 Ferric Citrate [Auryxia] PO DAILY [facility] Senna 17.2 mg 06/21/20 04:33 Sennosides 8.6 Mg Tablet PO BEDTIME PRN Constipation Sodium Chloride 3 ml 06/21/20 08:00 06/21/20 08:23 0.9 % Sodium Chloride Flush 3 Ml Syringe IVFLUSH 3 ml QSHIFT [facility] Administration Home Medications Medication Instructions Recorded Confirmed Last Taken Type Auryxia 210 mg PO DAILY 12/11/19 06/21/20 06/14/20 History carvedilol 25 mg PO BID 12/11/19 06/21/20 06/20/20 15:00 History lorazepam 0.5 mg PO DAILY PRN 12/11/19 06/21/20 06/19/20 21:00 History B complex-vitamin C-folic acid 1 tab PO DAILY 06/20/20 06/21/20 06/20/20 08:00 History [Nephro-Vivi] clonidine HCl 0.2 mg PO BID 06/20/20 06/21/20 06/20/20 08:00 History hydralazine 100 mg PO BID 06/20/20 06/21/20 06/20/20 15:00 History nifedipine 120 mg PO QAM 06/20/20 06/21/20 06/19/20 08:00 History Physical Exam Vital Signs: Vital Signs: Last Vital Signs Temp 98.0 F 06/20/20 19:50 Pulse 81 06/21/20 11:33 Resp 26 H 06/21/20 11:33 BP 168/103 H 06/21/20 11:33 Pulse Ox 94 06/21/20 11:33 Body Mass Index 20.0 Const: General: cooperative, no acute distress, alert and awake Orientation/consciousness: patient oriented x3 Neck: Neck: Yes normal visual inspection Resp: Effort & Inspection: normal respiratory effort, able to speak in complete sentences and not labored Auscultation: clear to auscultation bilaterally, no crackles, no rales, no rhonchi and no wheezes Cardio: Jugular venous distension: JVD present Palpation: normal PMI Rate: regular rate Rhythm: regular rhythm Heart sounds: S1 normal heart sound present, S2 normal heart sound present and Murmur heart sound present (systolic) Peripheral pulses: Peripheral pulses 2+ throughout GI: Inspection: Yes normal to inspection Neuro: General: patient oriented x3 Extrem: General: Yes normal to inspection and No edema Results Labs and Meds Result diagrams: 06/21/20 08:00 06/21/20 08:00 Lab results: Laboratory Results - last 24 hr 06/20/20 06/20/20 06/20/20 20:05 20:45 20:45 WBC 8.0 RBC 3.53 L Hgb 9.8 L Hct 31.2 L MCV 88.4 MCH 27.8 MCHC 31.4 RDW 17.1 H Plt Count 185 MPV 10.3 Immature Gran % (Auto) 0.2 Neut % (Auto) 81.8 H Lymph % (Auto) 8.7 L [place] % (Auto) 7.0 Eos % (Auto) 1.7 Baso % (Auto) 0.6 Lymph # (Auto) 0.7 L [place] # (Auto) 0.6 Eos # (Auto) 0.1 Baso # (Auto) 0.1 Abs Immat Gran (auto) 0.02 Absolute Neuts (auto) 6.6 Absolute Nucleated RBC 0.000 Nucleated RBC % (auto) 0.0 Hold Blue Top Sodium 144 Potassium 3.8 Chloride 96 Carbon Dioxide 34 H Anion Gap 18 BUN 23 H D Creatinine 6.05 H* Estim Creat Clear Calc 12.4 Estimated GFR 10 Random Glucose 126 H Calcium 8.4 Total Bilirubin 1.1 H AST 14 ALT 10 Alkaline Phosphatase 65 Troponin I High Sens B-Natriuretic Peptide Total Protein 6.4 L Albumin 3.8 Urine Color Urine Appearance Urine pH Ur Specific [place] Urine Protein Urine Glucose (UA) Urine Ketones Urine Blood Urine Nitrite Ur Leukocyte Esterase Urine RBC Urine WBC Ur Squamous Epith Cells Urine Bacteria COVID-19 ([facility]) Negative COVID-BUX Com See Note 06/20/20 06/20/20 06/20/20 20:45 20:45 20:45 WBC RBC Hgb Hct MCV MCH MCHC RDW Plt Count MPV Immature Gran % (Auto) Neut % (Auto) Lymph % (Auto) [place] % (Auto) Eos % (Auto) Baso % (Auto) Lymph # (Auto) [place] # (Auto) Eos # (Auto) Baso # (Auto) Abs Immat Gran (auto) Absolute Neuts (auto) Absolute Nucleated RBC Nucleated RBC % (auto) Hold Blue Top SEE NOTE Sodium Potassium Chloride Carbon Dioxide Anion Gap BUN Creatinine Estim Creat Clear Calc Estimated GFR Random Glucose Calcium Total Bilirubin AST ALT Alkaline Phosphatase Troponin I High Sens 52.5 H D B-Natriuretic Peptide 2468 H Total Protein Albumin Urine Color Urine Appearance Urine pH Ur Specific [place] Urine Protein Urine Glucose (UA) Urine Ketones Urine Blood Urine Nitrite Ur Leukocyte Esterase Urine RBC Urine WBC Ur Squamous Epith Cells Urine Bacteria COVID-19 ([facility]) COVID-19 Clin Com 04/06/20/20 06/21/20 23:08 23:59 08:00 WBC 7.0 RBC 3.12 L Hgb 8.9 L Hct 28.1 L MCV 90.1 MCH 28.5 MCHC 31.7 RDW 17.0 H Plt Count 168 MPV 10.6 Immature Gran % (Auto) 0.4 Neut % (Auto) 81.0 H Lymph % (Auto) 10.0 L [place] % (Auto) 6.3 Eos % (Auto) 1.7 Baso % (Auto) 0.6 Lymph # (Auto) 0.7 L [place] # (Auto) 0.4 Eos # (Auto) 0.1 Baso # (Auto) 0.0 Abs Immat Gran (auto) 0.03 Absolute Neuts (auto) 5.7 Absolute Nucleated RBC 0.000 Nucleated RBC % (auto) 0.0 Hold Blue Top Sodium Potassium Chloride Carbon Dioxide Anion Gap BUN Creatinine Estim Creat Clear Calc Estimated GFR Random Glucose Calcium Total Bilirubin AST ALT Alkaline Phosphatase Troponin I High Sens 58.2 H B-Natriuretic Peptide Total Protein Albumin Urine Color YELLOW Urine Appearance CLEAR Urine pH >= 9.0 H Ur Specific [place] 1.020 Urine Protein 2+ H Urine Glucose (UA) 100 H Urine Ketones NEG Urine Blood NEG Urine Nitrite NEG Ur Leukocyte Esterase NEG Urine RBC 0 Urine WBC 0-2 Ur Squamous Epith Cells TRACE Urine Bacteria NONE COVID-19 ([facility]) COVID-19 Clin Com 06/21/20 08:00 WBC RBC Hgb Hct MCV MCH MCHC RDW Plt Count MPV Immature Gran % (Auto) Neut % (Auto) Lymph % (Auto) [place] % (Auto) Eos % (Auto) Baso % (Auto) Lymph # (Auto) [place] # (Auto) Eos # (Auto) Baso # (Auto) Abs Immat Gran (auto) Absolute Neuts (auto) Absolute Nucleated RBC Nucleated RBC % (auto) Hold Blue Top Sodium 144 Potassium 4.3 Chloride 98 Carbon Dioxide 35 H Anion Gap 15 BUN 27 H Creatinine 7.26 H* Estim Creat Clear Calc 10.3 Estimated GFR 8 Random Glucose 90 Calcium 8.4 Total Bilirubin AST ALT Alkaline Phosphatase Troponin I High Sens B-Natriuretic Peptide Total Protein Albumin Urine Color Urine Appearance Urine pH Ur Specific [place] Urine Protein Urine Glucose (UA) Urine Ketones Urine Blood Urine Nitrite Ur Leukocyte Esterase Urine RBC Urine WBC Ur Squamous Epith Cells Urine Bacteria COVID-19 ([facility]) COVID-19 Clin Com Imaging Radiologist's impression: Impressions Chest X-Ray 06/20/20 22:02 IMPRESSION: 1. Stable chronic findings of left hemithorax of volume loss and dense left lung base and pleural density capping the left lung apex. This is likely due to left pleural effusion 2. Hazy bilateral airspace opacities likely due to congestive heart failure no acute airspace disease not excluded. Severity is similar to chest x-ray 03/02/2020. Chest CTA 06/21/20 02:18 IMPRESSION: No CT evidence for pulmonary embolism. Vascular congestion. Left pleural effusion with left lower lobe consolidation. Moderate amount of upper abdominal ascites. Automated exposure control (Care Dose) Adjustment of the mA and/or kv according to patient size (this includes techniques or standardized protocols for targeted exams where dose is matched to indication / reason for exam; i.e. extremities or head). Assessment and Plan (1) Hypertensive crisis: Status: Acute Presented with sob. Found to have hypertensive crisis. Managed with IV hydralazine, Labetolol and home meds as listed above. Follows with Dr Mccarty as outpt and seen by Nephology today. Enalapril IV dose was given and started on cardura. Last BP168/103. He report feeling better than admit. Wearing O2 2liters, sat 94%. Does get some chest discomfort when BP very elevated. Last echo done 01/08/20 shows EF 50-55%, marked LVH, mild , mod to severe MR, mod to severe TR, severe pulm HTN. CXR here shows hazy bilateral airspace opacities suggesting CHF. CTA of chest shows no PE, vascular congestion. He has ESRD and undergoes hemodialysis. Needs close BP monitoring and ongoing medical management for BP and hemodialysis as directed by nephrology. EKG this admit does show SR, LVH, with repolarization abnomaliites. Troponins slight elevation, flat. Once BP is controlled, cardiac stress test can be considered for eval for ischemia. We will follow. (2) Hypertensive cardiovascular disease: Status: Acute (3) ESRD (end stage renal disease) on dialysis: Status: Acute (4) Congestive heart failure: Qualifiers: Heart failure chronicity: chronic Heart failure type: systolic Qualified Code(s): I50.22 - Chronic systolic (congestive) heart failure Status: Acute Acute on chronic HFpEF, mild, recommend dialysis.
--- NOTE | 2020-06-21 20:25 | PM.CNNEP ---
History of Present Illness Reason for Consult Consult date: 06/21/20 Reason for consult: esrd,sob, htn Chief Complaint Chief complaint: SOB History of Present Illness Narrative: Asl to see for his ESRD ( TTS) , severe HTN and SOB. Complicated ESRD PT who had HD yest ( 2 L taken off...cuts his Tx short per outpt HD unit [facility]) presents with severr HTN and SOB. PT states his BP is always hgih and he had w/u in past to r/o 2ry causes if HTN but I can not find the tests: pheo w/u or w/u to r/o ALETHEA. He also has a h/o recurrent ascites with taps and GI/liver w/u per PT but I cannot fing that..I do see he has had repeat LgVP and CT from today show some ascites In ER severe HTN not repsonding to IV labetalol, hydralazine and PO BP meds...he recalls being on mioxidill in past but ? intolerance Review of Systems Review of Systems as above Yes all other systems are reviewed and are negative [facility] Past Medical History Medical History Anemia CHF (congestive heart failure) Dialysis patient Disease of pericardium, unspecified End stage chronic kidney disease ESRD (end stage renal disease) Fistula Hypertension Hypertensive cardiovascular disease Kidney disease Pulmonary hypertension associated with end stage renal disease on dialysis Family History Family History Other HTN (hypertension) Social History Social History Household Members: None Housing: House Do you presently have visiting nurse or other home services: No Alcohol intake: unknown Smoking Status: Never smoker Second Hand Smoke Exposure: No Use of substances other than those prescribed or required for medical reasons: No Currently Displaying Signs/Symptoms of Drug Intoxication Withdrawal: No Have you been hit, kicked, punched, or otherwise hurt by someone within the past year? If so, by whom?: No Do you feel safe in your current relationship?: No Is there a partner from a previous relationship who is making you feel unsafe now?: No Advance Directives: No Advance Directives Information Provided: No Advance Directives on File: No Do you have thoughts of harming others: None Do you have a plan to hurt others: No Plan service: No Current occupational status: unemployed Meds Allergies Allergy/AdvReac Type Severity Reaction Status Date / Time No Known Allergies Allergy Verified 05/21/20 07:36 Active Medications: Current Medications Generic Name Dose Route Start Last Admin Trade Name Freq PRN Reason Stop Dose Admin Acetaminophen 650 mg 06/21/20 04:33 Acetaminophen 325 Mg Tablet PO Q6H PRN Pain, Mild (Pain Scale 1-3) Carvedilol 25 mg 06/21/20 09:00 06/21/20 20:16 Carvedilol 25 Mg Tablet PO 25 mg BID [facility] Administration Protocol Clonidine HCl 0.2 mg 06/21/20 09:00 06/21/20 20:15 Clonidine Hcl 0.2 Mg Tablet PO 0.2 mg BID [facility] Administration Protocol Doxazosin Mesylate 2 mg 06/21/20 09:20 06/21/20 09:35 Doxazosin Mesylate 2 Mg Tablet PO 2 mg DAILY [facility] Administration Protocol Heparin Sodium (Porcine) 5,000 unit 06/21/20 04:45 06/21/20 20:17 Heparin Sodium,Porcine 5,000 Unit/Ml Vial SUBCUT 5,000 unit Q8H [facility] Administration Hydralazine HCl 20 mg 06/21/20 05:00 06/21/20 05:10 Hydralazine Hcl 20 Mg/Ml Vial IVPUSH 20 mg Q6H PRN Administration BP>180/90 Protocol Hydralazine HCl 100 mg 06/21/20 21:00 06/21/20 20:16 Hydralazine Hcl 50 Mg Tablet PO 100 mg TID [facility] Administration Protocol Lisinopril 40 mg 06/21/20 09:00 06/21/20 08:13 Lisinopril 40 Mg Tablet PO 40 mg DAILY [facility] Administration Protocol Lorazepam 0.5 mg 06/21/20 04:31 Lorazepam 0.5 Mg Tablet PO DAILY PRN Anxiety Multivitamins 1 tab 06/21/20 09:00 06/21/20 08:13 B-Complex With Vitamin C Tablet PO 1 tab DAILY [facility] Administration Nifedipine 120 mg 06/21/20 09:00 06/21/20 08:13 Nifedipine Er 60 Mg Tab.Er.24 PO 120 mg DAILY [facility] Administration Non-Formulary Medication 210 mg 06/21/20 09:00 Ferric Citrate [Auryxia] PO DAILY [facility] Senna 17.2 mg 06/21/20 04:33 Sennosides 8.6 Mg Tablet PO BEDTIME PRN Constipation Sodium Chloride 3 ml 06/21/20 08:00 06/21/20 15:30 0.9 % Sodium Chloride Flush 3 Ml Syringe IVFLUSH 3 ml QSHIFT [facility] Administration Home Medications Medication Instructions Recorded Confirmed Last Taken Type Auryxia 210 mg PO DAILY 12/11/19 06/21/20 06/14/20 History carvedilol 25 mg PO BID 12/11/19 06/21/20 06/20/20 15:00 History lorazepam 0.5 mg PO DAILY PRN 12/11/19 06/21/20 06/19/20 21:00 History B complex-vitamin C-folic acid 1 tab PO DAILY 06/20/20 06/21/20 06/20/20 08:00 History [Nephro-Vivi] clonidine HCl 0.2 mg PO BID 06/20/20 06/21/20 06/20/20 08:00 History hydralazine 100 mg PO BID 06/20/20 06/21/20 06/20/20 15:00 History nifedipine 120 mg PO QAM 06/20/20 06/21/20 06/19/20 08:00 History Physical Exam Vital Signs: Last Vital Signs Temp 98.3 F 06/21/20 20:00 Pulse 92 06/21/20 20:16 Resp 20 06/21/20 20:00 BP 198/100 H 06/21/20 20:16 Pulse Ox 95 06/21/20 20:00 Body Mass Index 20.0 Const General: cooperative, no acute distress, alert and awake Orientation/consciousness: patient oriented x3 Neck Neck: Yes normal visual inspection Resp Effort & Inspection: normal respiratory effort, able to speak in complete sentences and not labored Auscultation: clear to auscultation bilaterally, no crackles, no rales, no rhonchi and no wheezes Cardio Jugular venous distension: JVD present Palpation: normal PMI Rate: regular rate Rhythm: regular rhythm Heart sounds: S1 normal heart sound present, S2 normal heart sound present and Murmur heart sound present (systolic) Peripheral pulses: Peripheral pulses 2+ throughout GI Inspection: Yes normal to inspection Neuro General: patient oriented x3 Extrem General: Yes normal to inspection and No edema Results Lab Results Result Diagrams: 06/21/20 08:00 06/21/20 08:00 Lab results: Chemistry 06/20/20 06/21/20 20:45 08:00 Sodium 144 144 Potassium 3.8 4.3 Carbon Dioxide 34 H 35 H BUN 23 H D 27 H Creatinine 6.05 H* 7.26 H* Calcium 8.4 8.4 Hematology 06/20/20 06/21/20 20:45 08:00 WBC 8.0 7.0 Hgb 9.8 L 8.9 L Plt Count 185 168 Urinalysis 06/20/20 23:08 Urine Color YELLOW Urine Appearance CLEAR Urine pH >= 9.0 H Ur Specific [place] 1.020 Urine Protein 2+ H Urine Glucose (UA) 100 H Urine Ketones NEG Urine Blood NEG Urine Nitrite NEG Ur Leukocyte Esterase NEG Urine RBC 0 Urine WBC 0-2 Ur Squamous Epith Cells TRACE Assessment and Plan (1) Congestive heart failure: Qualifiers: Heart failure chronicity: chronic Heart failure type: systolic Qualified Code(s): I50.22 - Chronic systolic (congestive) heart failure Status: Acute 45-year-old male with a past medical history of hypertension, hyperlipidemia, ESRD, anemia, pulmonary hypertension presented to the hospital with a chief complaint of worsening shortness of breath. 1. ESRD: TTS 2. SOB: CHD from sever HTN and exzcess vol 3. Severe HTN: need to r/o ALETHEA and pheo ( I willorder) REC: UF x 2 hrs; cont BP meds; pheo sero and doppler of renals
[2020-06-22] VITALS (12 sets, daily range): BP systolic 170–230; BP diastolic 84–121; PULSE 74–89; RESP 18–20; TEMP 36.6–37.3; O2SAT 91–98; BMI 19.8
[2020-06-22] MEDS: 0.9 % Sodium Chloride Flush 3 ML SYRINGE IVFLUSH ×2 (02:44→17:53)
[2020-06-22] MEDS: Heparin Sodium,Porcine 5,000 UNIT/ML VIAL 5000 UNIT SUBCUT ×3 (05:07→22:03)
[2020-06-22 07:01] LABS: MANUAL DIFF FLAG NO
[2020-06-22 07:18] LABS: Basophils Percent Auto 0.6 % (0-2); Eosinophils Absolute Auto 0.2 X10*3/uL (0.0-0.4); Eosinophils Percent Auto 2.8 % (0-4); Hemoglobin 8.9 g/dl (14.0-18.0); Imm Gran Abs Auto 0.02 X10*3/uL (0.00-0.03); Imm Gran Pct Auto 0.3 % (0.0-0.4); Lymphocytes Absolute Auto 0.7 X10*3/uL (1.2-4.9); Lymphocytes Percent Auto 11.3 % (20-40); Mean Corpuscular HGB Conc 31.8 g/dl (31.0-36.0); Mean Corpuscular Hemoglobin 28.3 pg (27.0-33.0); Mean Corpuscular Volume 88.9 fL (80-98); Mean Platelet Volume 10.7 fL (9.4-12.4); Monocytes Absolute Auto 0.4 X10*3/uL (0.1-1.2); Monocytes Percent Auto 6.1 % (2-11); Neutrophils Percent Auto 78.9 % (45-73); Platelet Count 170 X10*3/uL (160-400); Red Blood Count 3.15 X10*6/uL (4.60-5.80); Red Cell Distribution Width 16.6 % (11.0-16.0); White Blood Count 6.4 X10*3/uL (4.8-10.8)
[2020-06-22 07:56] LABS: Anion Gap 21 (12-20); Blood Urea Nitrogen 49 mg/dL (9-16); Calcium 8.8 mg/dL (8.4-10.2); Carbon Dioxide 30 mmol/L (22-29); Chloride 95 mmol/L (96-108); Creatinine Clr Calc Pharmacy 7.7; Estimated Glomerular Filt Rate 6; Glucose Fasting 83 mg/dL (60-99); Potassium 4.7 mmol/L (3.3-5.1); Sodium 141 mmol/L (135-145)
--- NOTE | 2020-06-22 09:43 | PM.PNCARD ---
Subjective Subjective Date of Service: 06/22/20 Interval history: Seen on hemodialysis. He is saying his breathing is better. Blood pressure continues to be elevated. Physical Exam Vital Signs: Last Vital Signs Temp 97.8 F 06/22/20 08:00 Pulse 74 06/22/20 04:00 Resp 18 06/22/20 04:00 BP 187/98 H 06/22/20 08:00 Pulse Ox 98 06/22/20 08:00 Body Mass Index 19.8 GENERAL APPEARANCE: in no acute distress, well developed, well nourished. HEENT: unremarkable. HEAD: normocephalic, atraumatic. SKIN: no suspicious lesions, warm and dry. HEART: Apical holosystolic murmur, regular rate and rhythm, S1, S2 normal. LUNGS: clear to auscultation bilaterally. ABDOMEN: normal, bowel sounds present, soft, nontender, nondistended. EXTREMITIES: no clubbing, cyanosis, or edema. PERIPHERAL PULSES: equal. NEUROLOGIC: nonfocal, alert and oriented. PSYCH: mood/affect full range. Results Labs and Meds Result diagrams: 06/22/20 06:03 06/22/20 06:03 Lab results: Laboratory Results - last 24 hr 06/22/20 06/22/20 06:03 06:03 WBC 6.4 RBC 3.15 L Hgb 8.9 L Hct 28.0 L MCV 88.9 MCH 28.3 MCHC 31.8 RDW 16.6 H Plt Count 170 MPV 10.7 Immature Gran % (Auto) 0.3 Neut % (Auto) 78.9 H Lymph % (Auto) 11.3 L [place] % (Auto) 6.1 Eos % (Auto) 2.8 Baso % (Auto) 0.6 Lymph # (Auto) 0.7 L [place] # (Auto) 0.4 Eos # (Auto) 0.2 Baso # (Auto) 0.0 Abs Immat Gran (auto) 0.02 Absolute Neuts (auto) 5.0 Absolute Nucleated RBC 0.000 Nucleated RBC % (auto) 0.0 Sodium 141 Potassium 4.7 Chloride 95 L Carbon Dioxide 30 H Anion Gap 21 H BUN 49 H D Creatinine 9.56 H* Estim Creat Clear Calc 7.7 Estimated GFR 6 Fasting Glucose 83 Calcium 8.8 Progress Note: A&P Assessment and plan (1) Congestive heart failure: Status: Acute (2) ESRD (end stage renal disease) on dialysis: Status: Acute (3) Accelerated essential hypertension: Status: Acute (4) Hypertensive cardiovascular disease: Status: Acute Assessment and Plan: 45-year-old gentleman who is presenting with significantly elevated blood pressure and shortness of breath. His presentation is consistent with congestive heart failure secondary to significantly elevated blood pressure. He has history of noncompliance with hemodialysis. He was emergently hemodialyzed yesterday and is getting his usual hemodialysis session today. We will see how his blood pressure reacts to this. He is on multiple blood pressure medications. We increase hydralazine to t.i.d. yesterday. I think he follows closely with Nephrology and his blood pressure can be managed by Nephrology. In terms of his chest discomfort and shortness of breath. This can all be secondary to significantly elevated blood pressures. We will arrange stress test for him as outpatient provided that his blood pressure control is good enough to undergo stress testing. Thank you for allowing me to participate in the care of your patient. Please feel free to contact me if you have any questions. Fall Risk Details Current Medications: Current Medications Generic Name Dose Route Start Last Admin Trade Name Freq PRN Reason Stop Dose Admin Acetaminophen 650 mg 06/21/20 04:33 Acetaminophen 325 Mg Tablet PO Q6H PRN Pain, Mild (Pain Scale 1-3) Carvedilol 25 mg 06/21/20 09:00 06/22/20 09:19 Carvedilol 25 Mg Tablet PO Not Given BID [facility] Protocol Clonidine HCl 0.2 mg 06/21/20 09:00 06/22/20 09:20 Clonidine Hcl 0.2 Mg Tablet PO Not Given BID [facility] Protocol Doxazosin Mesylate 2 mg 06/21/20 09:20 06/22/20 09:20 Doxazosin Mesylate 2 Mg Tablet PO Not Given DAILY [facility] Protocol Heparin Sodium (Porcine) 5,000 unit 06/21/20 04:45 06/22/20 05:07 Heparin Sodium,Porcine 5,000 Unit/Ml Vial SUBCUT 5,000 unit Q8H [facility] Administration Hydralazine HCl 20 mg 06/21/20 05:00 06/21/20 05:10 Hydralazine Hcl 20 Mg/Ml Vial IVPUSH 20 mg Q6H PRN Administration BP>180/90 Protocol Hydralazine HCl 100 mg 06/21/20 21:00 06/22/20 09:20 Hydralazine Hcl 50 Mg Tablet PO Not Given TID [facility] Protocol Lisinopril 40 mg 06/21/20 09:00 06/22/20 09:21 Lisinopril 40 Mg Tablet PO Not Given DAILY [facility] Protocol Lorazepam 0.5 mg 06/21/20 04:31 Lorazepam 0.5 Mg Tablet PO DAILY PRN Anxiety Multivitamins 1 tab 06/21/20 09:00 06/22/20 09:19 B-Complex With Vitamin C Tablet PO Not Given DAILY [facility] Nifedipine 120 mg 06/21/20 09:00 06/22/20 09:21 Nifedipine Er 60 Mg Tab.Er.24 PO Not Given DAILY [facility] Non-Formulary Medication 210 mg 06/21/20 09:00 Ferric Citrate [Auryxia] PO DAILY [facility] Senna 17.2 mg 06/21/20 04:33 Sennosides 8.6 Mg Tablet PO BEDTIME PRN Constipation Sodium Chloride 3 ml 06/21/20 08:00 06/22/20 09:19 0.9 % Sodium Chloride Flush 3 Ml Syringe IVFLUSH Not Given QSHIFT [facility] Time Spent With Patient Time: Total time spent is greater than 50% in coordination of care (as documented) at patient's floor/unit and/or counseling patient: Time with patient: less than 15 minutes
[2020-06-22] MEDS: lisinopriL 40 MG TABLET PO (10:23)
[2020-06-22] MEDS: hydrALAZINE HCl 50 MG TABLET 100 MG PO ×2 (10:23→15:08)
[2020-06-22] MEDS: NIFEdipine ER 60 MG TAB.ER.24 120 MG PO (10:26)
[2020-06-22] MEDS: Doxazosin Mesylate 2 MG TABLET PO (10:27)
[2020-06-22] MEDS: carvediloL 25 MG TABLET PO ×2 (10:28→21:56)
[2020-06-22] MEDS: cloNIDine HCL 0.2 MG TABLET PO ×2 (10:28→21:55)
--- NOTE | 2020-06-22 11:42 | HO.PM.IMPN ---
Subjective Subjective Date of Service: 06/22/20 Interval History: sob improving Cardiovascular Cardiovascular: Reports no additional cardiovascular complaints Respiratory Respiratory: Reports no additional respiratory complaints Physical Exam Vital Signs: Vital Signs: Last Vital Signs Temp 98.2 F 06/22/20 11:03 Pulse 89 06/22/20 11:03 Resp 20 06/22/20 11:03 BP 178/87 H 06/22/20 11:03 Pulse Ox 98 06/22/20 11:03 Body Mass Index 19.8 General: AO X 3, no acute distress Resp: CTA bilateral CVS: S1,S2,RRR GI: soft, non tender, non distended Neuro: motor grossly intact Psych: appropriate affect Objective Data Current Medications Generic Name Dose Route Start Last Admin Trade Name Freq PRN Reason Stop Dose Admin Acetaminophen 650 mg 06/21/20 04:33 Acetaminophen 325 Mg Tablet PO Q6H PRN Pain, Mild (Pain Scale 1-3) Carvedilol 25 mg 06/21/20 09:00 06/22/20 10:28 Carvedilol 25 Mg Tablet PO 25 mg BID LAYLA Administration Protocol Clonidine HCl 0.2 mg 06/21/20 09:00 06/22/20 10:28 Clonidine Hcl 0.2 Mg Tablet PO 0.2 mg BID LAYLA Administration Protocol Doxazosin Mesylate 2 mg 06/21/20 09:20 06/22/20 10:27 Doxazosin Mesylate 2 Mg Tablet PO 2 mg DAILY LAYLA Administration Protocol Heparin Sodium (Porcine) 5,000 unit 06/21/20 04:45 06/22/20 05:07 Heparin Sodium,Porcine 5,000 Unit/Ml Vial SUBCUT 5,000 unit Q8H LAYLA Administration Hydralazine HCl 20 mg 06/21/20 05:00 06/21/20 05:10 Hydralazine Hcl 20 Mg/Ml Vial IVPUSH 20 mg Q6H PRN Administration BP>180/90 Protocol Hydralazine HCl 100 mg 06/21/20 21:00 06/22/20 10:23 Hydralazine Hcl 50 Mg Tablet PO 100 mg TID LAYLA Administration Protocol Lisinopril 40 mg 06/21/20 09:00 06/22/20 10:23 Lisinopril 40 Mg Tablet PO 40 mg DAILY LAYLA Administration Protocol Lorazepam 0.5 mg 06/21/20 04:31 Lorazepam 0.5 Mg Tablet PO DAILY PRN Anxiety Multivitamins 1 tab 06/21/20 09:00 06/22/20 10:27 B-Complex With Vitamin C Tablet PO 1 tab DAILY LAYLA Administration Nifedipine 120 mg 06/21/20 09:00 06/22/20 10:26 Nifedipine Er 60 Mg Tab.Er.24 PO 120 mg DAILY LAYLA Administration Non-Formulary Medication 210 mg 06/21/20 09:00 Ferric Citrate [Auryxia] PO DAILY LAYLA Senna 17.2 mg 06/21/20 04:33 Sennosides 8.6 Mg Tablet PO BEDTIME PRN Constipation Sodium Chloride 3 ml 06/21/20 08:00 06/22/20 09:19 0.9 % Sodium Chloride Flush 3 Ml Syringe IVFLUSH Not Given QSHIFT [facility] Labs CBC & Chem 7: 06/22/20 06:03 06/22/20 06:03 Assessment and Plan (1) Acute respiratory failure with hypoxia: Status: Acute Assessment and Plan: 45-year-old male with a past medical history of hypertension, hyperlipidemia, ESRD, anemia, pulmonary hypertension presented to the hospital with a chief complaint of worsening shortness of breath. Acute hypoxic respiratory failure secondary to hypertensive urgency and fluid overload in the setting of end-stage renal disease Now weaned off oxygen after hemodialysis Hypertensive urgency Hemodialysis Hydralazine increased to 100 mg t.i.d., continue nifedipine 120 mg daily, lisinopril 40 mg daily, clonidine 0.2 mg b.i.d., Coreg 25 mg b.i.d.. Also started on Cardura 2 mg daily Better controlled today, but still significantly elevated, continue to monitor and adjust as inpatient.
--- NOTE | 2020-06-22 15:25 | MHC.CM.PN ---
CM MET WITH PT WHO REPORTS HE LIVES ALONE AND IS INDEPENDENT WITH ALL CARE AND MOBILITY. PT REPORTS HE HAS NO DME AND NO HOME SERVICES. PT HAS A HCP ON FILE HE CONFIRMS ACCURATE AND BRIAN NDIAYE IS HIS PRIMARY CARE PROVIDER. PT REPORTS HE IS INTERESTED IN HAVING HOME CARE AND STATES HIS GF WANTS TO BE HIS TRANSIT PLANNING DIRECTOR. CM ENCOURAGED HIM TO DISCUSS THIS AT HIS NEXT PCP APPT THE REFERRAL WOULD HAVE BE SENT BY THEM TO [facility]. CURRENT DC PLAN IS HOME WITH NO SERVICES. PT NOT INTERESTED IN [facility] EVEN IF RECOMMENDED. PT WILL SELF ARRANGE TRANSPORT
--- NOTE | 2020-06-22 16:41 | PM.PNNEP ---
Subjective Subjective Date of Service: 06/22/20 Interval history: sob improving dialyzed today UFd yesterday Physical Exam Vital Signs: Vital Signs: Last Vital Signs Temp 99.2 F 06/22/20 15:35 Pulse 85 06/22/20 15:35 Resp 18 06/22/20 15:35 BP 170/90 H 06/22/20 15:35 Pulse Ox 93 06/22/20 15:35 Body Mass Index 19.8 Const: General: cooperative, no acute distress, alert and awake Orientation/consciousness: patient oriented x3 Neck: Neck: Yes normal visual inspection Resp: Effort & Inspection: normal respiratory effort, able to speak in complete sentences and not labored Auscultation: clear to auscultation bilaterally, no crackles, no rales, no rhonchi and no wheezes Cardio: Jugular venous distension: JVD present Palpation: normal PMI Rate: regular rate Rhythm: regular rhythm Heart sounds: S1 normal heart sound present, S2 normal heart sound present and Murmur heart sound present (systolic) Peripheral pulses: Peripheral pulses 2+ throughout GI: Inspection: Yes normal to inspection Neuro: General: patient oriented x3 Extrem: General: Yes normal to inspection and No edema Objective Data Labs CBC & Chem 7: 06/22/20 06:03 06/22/20 06:03 Labs: Laboratory Results - last 24 hr 06/22/20 06/22/20 06:03 06:03 WBC 6.4 RBC 3.15 L Hgb 8.9 L Hct 28.0 L MCV 88.9 MCH 28.3 MCHC 31.8 RDW 16.6 H Plt Count 170 MPV 10.7 Immature Gran % (Auto) 0.3 Neut % (Auto) 78.9 H Lymph % (Auto) 11.3 L [place] % (Auto) 6.1 Eos % (Auto) 2.8 Baso % (Auto) 0.6 Lymph # (Auto) 0.7 L [place] # (Auto) 0.4 Eos # (Auto) 0.2 Baso # (Auto) 0.0 Abs Immat Gran (auto) 0.02 Absolute Neuts (auto) 5.0 Absolute Nucleated RBC 0.000 Nucleated RBC % (auto) 0.0 Sodium 141 Potassium 4.7 Chloride 95 L Carbon Dioxide 30 H Anion Gap 21 H BUN 49 H D Creatinine 9.56 H* Estim Creat Clear Calc 7.7 Estimated GFR 6 Fasting Glucose 83 Calcium 8.8 Assessment & Plan Assessment and plan (1) Congestive heart failure: Status: Acute Assessment and Plan: 45-year-old male with a past medical history of hypertension, hyperlipidemia, ESRD, anemia, pulmonary hypertension presented to the hospital with a chief complaint of worsening shortness of breath. 1. ESRD: TTS 2. SOB: CHD from sever HTN and exzcess vol 3. Severe HTN: need to r/o ALETHEA and pheo (labs pending). Add Imdur 30mg to clonidine 0.2mg BID, Lisinopril 40, Coreg 25mg BID, Hydralazind 100mg TID. Time Spent With Patient Time: Total time spent is greater than 50% in coordination of care (as documented) at patient's floor/unit and/or counseling patient:
[2020-06-22] MEDS: Isosorbide Mononitrate 30 MG TAB.ER.24H PO (17:53)
[2020-06-22] MEDS: LORazepam 0.5 MG TABLET PO (21:59)
[2020-06-23] VITALS (14 sets, daily range): BP systolic 170–210; BP diastolic 90–98; PULSE 71–83; RESP 17–20; TEMP 36.3–36.8; O2SAT 96–98; BMI 19.1
[2020-06-23] MEDS: 0.9 % Sodium Chloride Flush 3 ML SYRINGE IVFLUSH ×4 (00:24→20:34)
[2020-06-23] MEDS: Heparin Sodium,Porcine 5,000 UNIT/ML VIAL 5000 UNIT SUBCUT ×2 (03:48→13:48)
[2020-06-23] MEDS: hydrALAZINE HCl 20 MG/ML VIAL IVPUSH (03:49)
[2020-06-23 06:37] LABS: MANUAL DIFF FLAG NO
[2020-06-23 07:04] LABS: Basophils Percent Auto 0.6 % (0-2); Eosinophils Absolute Auto 0.2 X10*3/uL (0.0-0.4); Eosinophils Percent Auto 3.5 % (0-4); Hematocrit 27.8 % (42-52); Hemoglobin 9.1 g/dl (14.0-18.0); Imm Gran Abs Auto 0.02 X10*3/uL (0.00-0.03); Imm Gran Pct Auto 0.3 % (0.0-0.4); Lymphocytes Absolute Auto 0.8 X10*3/uL (1.2-4.9); Lymphocytes Percent Auto 11.6 % (20-40); Mean Corpuscular HGB Conc 32.7 g/dl (31.0-36.0); Mean Corpuscular Hemoglobin 28.3 pg (27.0-33.0); Mean Corpuscular Volume 86.3 fL (80-98); Monocytes Absolute Auto 0.5 X10*3/uL (0.1-1.2); Monocytes Percent Auto 7.8 % (2-11); Neutrophils Percent Auto 76.2 % (45-73); Platelet Count 203 X10*3/uL (160-400); Red Blood Count 3.22 X10*6/uL (4.60-5.80); Red Cell Distribution Width 16.1 % (11.0-16.0); White Blood Count 6.5 X10*3/uL (4.8-10.8)
[2020-06-23 07:27] LABS: Anion Gap 19 (12-20); Blood Urea Nitrogen 37 mg/dL (9-16); Calcium 8.7 mg/dL (8.4-10.2); Carbon Dioxide 23 mmol/L (22-29); Chloride 97 mmol/L (96-108); Creatinine Clr Calc Pharmacy 9.2; Estimated Glomerular Filt Rate 8; Glucose Fasting 93 mg/dL (60-99); Potassium 4.4 mmol/L (3.3-5.1); Sodium 135 mmol/L (135-145)
[2020-06-23] MEDS: lisinopriL 40 MG TABLET PO (08:35)
[2020-06-23] MEDS: Doxazosin Mesylate 2 MG TABLET PO (08:35)
[2020-06-23] MEDS: carvediloL 25 MG TABLET PO ×2 (08:35→20:33)
[2020-06-23] MEDS: NIFEdipine ER 60 MG TAB.ER.24 120 MG PO (08:35)
[2020-06-23] MEDS: Isosorbide Mononitrate 30 MG TAB.ER.24H PO ×2 (08:35→13:48)
[2020-06-23] MEDS: hydrALAZINE HCl 50 MG TABLET 100 MG PO ×3 (08:36→20:33)
[2020-06-23] MEDS: cloNIDine HCL 0.2 MG TABLET PO ×2 (08:36→20:32)
--- NOTE | 2020-06-23 10:36 | HO.PM.IMPN ---
Subjective Subjective Date of Service: 06/23/20 Interval History: no chest pain, sob improved Cardiovascular Cardiovascular: Reports no additional cardiovascular complaints Respiratory Respiratory: Reports no additional respiratory complaints Physical Exam Vital Signs: Vital Signs: Last Vital Signs Temp 98.2 F 06/23/20 07:24 Pulse 83 06/23/20 08:36 Resp 20 06/23/20 07:24 BP 190/98 H 06/23/20 08:36 Pulse Ox 97 06/23/20 07:24 Body Mass Index 19.1 General: AO X 3, no acute distress Resp: CTA bilateral CVS: S1,S2,RRR GI: soft, non tender, non distended Neuro: motor grossly intact Psych: appropriate affect Objective Data Current Medications Generic Name Dose Route Start Last Admin Trade Name Freq PRN Reason Stop Dose Admin Acetaminophen 650 mg 06/21/20 04:33 Acetaminophen 325 Mg Tablet PO Q6H PRN Pain, Mild (Pain Scale 1-3) Carvedilol 25 mg 06/21/20 09:00 06/23/20 08:35 Carvedilol 25 Mg Tablet PO 25 mg BID LAYLA Administration Protocol Clonidine HCl 0.2 mg 06/21/20 09:00 06/23/20 08:36 Clonidine Hcl 0.2 Mg Tablet PO 0.2 mg BID LAYLA Administration Protocol Doxazosin Mesylate 2 mg 06/21/20 09:20 06/23/20 08:35 Doxazosin Mesylate 2 Mg Tablet PO 2 mg DAILY LAYLA Administration Protocol Heparin Sodium (Porcine) 5,000 unit 06/21/20 04:45 06/23/20 03:48 Heparin Sodium,Porcine 5,000 Unit/Ml Vial SUBCUT 5,000 unit Q8H LAYLA Administration Hydralazine HCl 20 mg 06/21/20 05:00 06/23/20 03:49 Hydralazine Hcl 20 Mg/Ml Vial IVPUSH 20 mg Q6H PRN Administration BP>180/90 Protocol Hydralazine HCl 100 mg 06/21/20 21:00 06/23/20 08:36 Hydralazine Hcl 50 Mg Tablet PO 100 mg TID LAYLA Administration Protocol Isosorbide Mononitrate 30 mg 06/22/20 16:40 06/23/20 08:35 Isosorbide Mononitrate 30 Mg Tab.Er.24h PO 30 mg DAILY LAYLA Administration Protocol Lisinopril 40 mg 06/21/20 09:00 06/23/20 08:35 Lisinopril 40 Mg Tablet PO 40 mg DAILY LAYLA Administration Protocol Lorazepam 0.5 mg 06/21/20 04:31 06/22/20 21:59 Lorazepam 0.5 Mg Tablet PO 0.5 mg DAILY PRN Administration Anxiety Multivitamins 1 tab 06/21/20 09:00 06/23/20 08:36 B-Complex With Vitamin C Tablet PO 1 tab DAILY LAYLA Administration Nifedipine 120 mg 06/21/20 09:00 06/23/20 08:35 Nifedipine Er 60 Mg Tab.Er.24 PO 120 mg DAILY LAYLA Administration Non-Formulary Medication 210 mg 06/21/20 09:00 Ferric Citrate [Auryxia] PO DAILY LAYLA Senna 17.2 mg 06/21/20 04:33 Sennosides 8.6 Mg Tablet PO BEDTIME PRN Constipation Sodium Chloride 3 ml 06/21/20 08:00 06/23/20 08:35 0.9 % Sodium Chloride Flush 3 Ml Syringe IVFLUSH 3 ml QSHIFT LAYLA Administration Labs CBC & Chem 7: 06/23/20 05:59 06/23/20 05:59 Assessment and Plan (1) Acute respiratory failure with hypoxia: Status: Acute Assessment and Plan: 45-year-old male with a past medical history of hypertension, hyperlipidemia, ESRD, anemia, pulmonary hypertension presented to the hospital with a chief complaint of worsening shortness of breath. Acute hypoxic respiratory failure secondary to hypertensive urgency and fluid overload in the setting of end-stage renal disease weaned off oxygen after hemodialysis Hypertensive urgency/resistent HTN still elevated despite Hydralazine increased to 100 mg t.i.d., continue nifedipine 120 mg daily, lisinopril 40 mg daily, clonidine 0.2 mg b.i.d., Coreg 25 mg b.i.d.. Also started on Cardura 2 mg daily and imdur 30mg daily follow up renal us
--- NOTE | 2020-06-23 12:23 | PM.PNNEP ---
Subjective Subjective Date of Service: 06/23/20 Interval history: no chest pain, sob improved Physical Exam Vital Signs: Vital Signs: Last Vital Signs Temp 97.8 F 06/23/20 11:02 Pulse 71 06/23/20 11:02 Resp 18 06/23/20 11:02 BP 170/92 H 06/23/20 11:02 Pulse Ox 98 06/23/20 11:02 Body Mass Index 19.1 Const: General: cooperative, no acute distress, alert and awake Orientation/consciousness: patient oriented x3 Neck: Neck: Yes normal visual inspection Resp: Effort & Inspection: normal respiratory effort, able to speak in complete sentences and not labored Auscultation: clear to auscultation bilaterally, no crackles, no rales, no rhonchi and no wheezes Cardio: Jugular venous distension: JVD present Palpation: normal PMI Rate: regular rate Rhythm: regular rhythm Heart sounds: S1 normal heart sound present, S2 normal heart sound present and Murmur heart sound present (systolic) Peripheral pulses: Peripheral pulses 2+ throughout GI: Inspection: Yes normal to inspection Neuro: General: patient oriented x3 Extrem: General: Yes normal to inspection and No edema Objective Data Labs CBC & Chem 7: 06/23/20 05:59 06/23/20 05:59 Labs: Laboratory Results - last 24 hr 06/23/20 06/23/20 05:59 05:59 WBC 6.5 RBC 3.22 L Hgb 9.1 L Hct 27.8 L MCV 86.3 MCH 28.3 MCHC 32.7 RDW 16.1 H Plt Count 203 MPV 11.0 Immature Gran % (Auto) 0.3 Neut % (Auto) 76.2 H Lymph % (Auto) 11.6 L [place] % (Auto) 7.8 Eos % (Auto) 3.5 Baso % (Auto) 0.6 Lymph # (Auto) 0.8 L [place] # (Auto) 0.5 Eos # (Auto) 0.2 Baso # (Auto) 0.0 Abs Immat Gran (auto) 0.02 Absolute Neuts (auto) 5.0 Absolute Nucleated RBC 0.000 Nucleated RBC % (auto) 0.0 Sodium 135 Potassium 4.4 Chloride 97 Carbon Dioxide 23 Anion Gap 19 BUN 37 H Creatinine 7.73 H* Estim Creat Clear Calc 9.2 Estimated GFR 8 Fasting Glucose 93 Calcium 8.7 Assessment & Plan Assessment and plan (1) Congestive heart failure: Status: Acute Assessment and Plan: 45-year-old male with a past medical history of hypertension, hyperlipidemia, ESRD, anemia, pulmonary hypertension presented to the hospital with a chief complaint of worsening shortness of breath. 1. ESRD: TTS. Dialyzed on Wednesday. Labs today all in great range. 2. SOB: CHF from severe HTN and excess vol, managed well on HD 3. Severe HTN: need to r/o ALETHEA and pheo (labs pending). increase Imdur to 60mg, c/w clonidine 0.2mg BID, Lisinopril 40, Coreg 25mg BID, Hydralazine 100mg TID. Time Spent With Patient Time: Total time spent is greater than 50% in coordination of care (as documented) at patient's floor/unit and/or counseling patient:
--- NOTE | 2020-06-23 15:42 | PC.NURSE ---
pt denies shortness of breath, denies pain. He states he would like to go home, states his blood pressure goes down when he is homer. aware.
[2020-06-24 03:40] VITALS: BP 170/94; PULSE 76; RESP 18; TEMP 36.7; O2SAT 99
[2020-06-24] MEDS: LORazepam 0.5 MG TABLET PO (03:54)
[2020-06-24 04:34] LABS: MANUAL DIFF FLAG NO
[2020-06-24 04:43] LABS: Basophils Percent Auto 0.7 % (0-2); Eosinophils Absolute Auto 0.2 X10*3/uL (0.0-0.4); Eosinophils Percent Auto 3.9 % (0-4); Hematocrit 27.3 % (42-52); Hemoglobin 8.9 g/dl (14.0-18.0); Imm Gran Abs Auto 0.02 X10*3/uL (0.00-0.03); Imm Gran Pct Auto 0.4 % (0.0-0.4); Lymphocytes Absolute Auto 0.8 X10*3/uL (1.2-4.9); Lymphocytes Percent Auto 14.3 % (20-40); Mean Corpuscular HGB Conc 32.6 g/dl (31.0-36.0); Mean Corpuscular Hemoglobin 27.6 pg (27.0-33.0); Mean Corpuscular Volume 84.5 fL (80-98); Mean Platelet Volume 10.1 fL (9.4-12.4); Monocytes Absolute Auto 0.4 X10*3/uL (0.1-1.2); Monocytes Percent Auto 7.5 % (2-11); Neutrophils Absolute Auto 4.1 X10*3/uL (2.0-8.3); Neutrophils Percent Auto 73.2 % (45-73); Platelet Count 200 X10*3/uL (160-400); Red Blood Count 3.23 X10*6/uL (4.60-5.80); Red Cell Distribution Width 15.9 % (11.0-16.0); White Blood Count 5.6 X10*3/uL (4.8-10.8)
[2020-06-24 05:12] LABS: Anion Gap 23 (12-20); Blood Urea Nitrogen 63 mg/dL (9-16); Calcium 8.5 mg/dL (8.4-10.2); Carbon Dioxide 19 mmol/L (22-29); Chloride 97 mmol/L (96-108); Glucose Fasting 87 mg/dL (60-99); Potassium 5.2 mmol/L (3.3-5.1); Sodium 134 mmol/L (135-145)
[2020-06-24 05:14] LABS: Creatinine Clr Calc Pharmacy 6.9; Estimated Glomerular Filt Rate 5
[2020-06-24 06:00] VITALS: BMI 19.3
[2020-06-24 07:46] VITALS: BP 180/98; PULSE 72; RESP 20; TEMP 36.8; O2SAT 98
[2020-06-24] MEDS: hydrALAZINE HCl 50 MG TABLET 100 MG PO (08:26)
[2020-06-24] MEDS: NIFEdipine ER 60 MG TAB.ER.24 120 MG PO (08:27)
[2020-06-24] MEDS: cloNIDine HCL 0.2 MG TABLET PO (08:27)
[2020-06-24] MEDS: Doxazosin Mesylate 2 MG TABLET PO (08:28)
[2020-06-24] MEDS: lisinopriL 40 MG TABLET PO (08:28)
[2020-06-24] MEDS: Isosorbide Mononitrate 60 MG TAB.ER.24H PO (08:28)
[2020-06-24] MEDS: carvediloL 25 MG TABLET PO (08:28)
[2020-06-24] MEDS: 0.9 % Sodium Chloride Flush 3 ML SYRINGE IVFLUSH (08:29)
--- NOTE | 2020-06-24 10:42 | P.DS_ITS ---
DS: Providers Provider Date of Service: 06/24/20 Date of admission: 06/21/20 04:33 Primary care physician: Unknown Physician Consults: 06/21/20 04:31 Consult to Nephrology Routine Consulting Provider: Kaylee Frey Reason for consultation: ESRD; c/ww contrast in ER for CTA; ?HD in AM 06/21/20 04:32 Consult to Cardiology Routine Consulting Provider: Sj Sun Reason for consultation: JONES DS: Diagnosis Discharge Diagnosis (1) Congestive heart failure: Status: Acute (2) Acute respiratory failure with hypoxia: Status: Acute (3) Hypertensive crisis: Status: Acute (4) ESRD (end stage renal disease) on dialysis: Status: Acute DS: Medications Discharge Medications Home Medications: Home Medications Medication Instructions Recorded Confirmed Auryxia 210 mg PO DAILY 12/11/19 06/21/20 carvedilol 25 mg PO BID 12/11/19 06/21/20 lorazepam 0.5 mg PO DAILY PRN 12/11/19 06/21/20 Nephro-Vivi 1 tab PO DAILY 06/20/20 06/21/20 clonidine HCl 0.2 mg PO BID 06/20/20 06/21/20 nifedipine 120 mg PO QAM 06/20/20 06/21/20 Previous Rx's Medication Instructions Recorded lisinopril 40 mg PO DAILY #30 tab 01/10/20 doxazosin 2 mg PO DAILY #30 tab 06/24/20 hydralazine 100 mg PO TID #90 tab 06/24/20 isosorbide mononitrate 60 mg PO DAILY #30 tab 06/24/20 DS: Summary Hospital Course Hospital Course: Patient was admitted for acute hypoxic respiratory failure secondary to acute on chronic diastolic CHF in setting of resistant hypertension and fluid overload from end-stage renal disease. Patient underwent ultrafiltration and hemodialysis and was able to be weaned off oxygen. His hydralazine was increased from 100 mg b.i.d. to t.i.d., he was started on Cardura 2 mg daily and Imdur 60 mg daily, renal artery Doppler was negative for stenosis. While still elevated, his blood pressure did significantly improve from systolics in the 230s down to 180. Patient's symptoms have resolved. He is eager to go home and continue treatment as outpatient. Patient will be discharged home with changes to his medications as above. He will continue follow with Nephrology for adjustments. Time Spent with Patient Time attestation: Total time spent providing and/or coordinating discharge services: Discharge coordination time: Greater than 30 minutes Physical Exam Vital Signs: Vital Signs: Last Vital Signs Temp 98.2 F 06/24/20 07:46 Pulse 72 06/24/20 07:46 Resp 20 06/24/20 07:46 BP 180/98 H 06/24/20 07:46 Pulse Ox 98 06/24/20 07:46 Body Mass Index 19.3 General: AO X 3, no acute distress Resp: CTA bilateral CVS: S1,S2,RRR GI: soft, non tender, non distended Neuro: motor grossly intact Psych: appropriate affect DS: Data Data Completed and Pending Completed studies during hospitalization [Text1]: Procedures Introduction of Vasopressor into Peripheral Vein, Percutaneous Approach (01/06/20) Performance of Urinary Filtration, Intermittent, Less than 6 Hours Per Day (03/02/20) Labs on day of discharge: Laboratory Results - last 24 hr 06/24/20 06/24/20 04:25 04:25 WBC 5.6 RBC 3.23 L Hgb 8.9 L Hct 27.3 L MCV 84.5 MCH 27.6 MCHC 32.6 RDW 15.9 Plt Count 200 MPV 10.1 Immature Gran % (Auto) 0.4 Neut % (Auto) 73.2 H Lymph % (Auto) 14.3 L [place] % (Auto) 7.5 Eos % (Auto) 3.9 Baso % (Auto) 0.7 Lymph # (Auto) 0.8 L [place] # (Auto) 0.4 Eos # (Auto) 0.2 Baso # (Auto) 0.0 Abs Immat Gran (auto) 0.02 Absolute Neuts (auto) 4.1 Absolute Nucleated RBC 0.000 Nucleated RBC % (auto) 0.0 Sodium 134 L Potassium 5.2 H Chloride 97 Carbon Dioxide 19 L Anion Gap 23 H BUN 63 H D Creatinine 10.25 H* Estim Creat Clear Calc 6.9 Estimated GFR 5 Fasting Glucose 87 Calcium 8.5 Discharge Plan Discharge Patient Disposition: Home, Self-Care Discharge Diagnosis: resistent htn Referrals: Physician,Unknown [Primary Care Provider] - 1 Week Discharge Medications: New isosorbide mononitrate 60 mg Tablet Extended Release 24 Hr 60 mg PO DAILY Qty: 30 RF: 0 hydralazine 50 mg Tablet 100 mg PO TID Qty: 90 RF: 0 doxazosin 2 mg Tablet 2 mg PO DAILY Qty: 30 RF: 0 Continued clonidine HCl 0.2 mg tablet 0.2 mg PO BID RF: 0 Nephro-Vivi 0.8 mg tablet 1 tab PO DAILY RF: 0 nifedipine 60 mg tablet extended release 120 mg PO QAM RF: 0 carvedilol 25 mg tablet 25 mg PO BID RF: 0 lorazepam 0.5 mg tablet 0.5 mg PO DAILY PRN (Reason: Anxiety) RF: 0 Auryxia 210 mg iron tablet 210 mg PO DAILY RF: 0 lisinopril 40 mg tablet 40 mg PO DAILY Qty: 30 RF: 0 Discontinued hydralazine 100 mg tablet 100 mg PO BID RF: 0 Discharge Orders: Discharge Order (Routine); Ordered 06/24/20 Ordered By: Nathan Allison Activity on Discharge: As tolerated Stand Alone Forms: Patient Portal Discharge page Care Plan Goals: bp control Health Concerns: htn Plan of Treatment: med changes as prescribed, follow up with kidney doctors Assessment: see above
--- NOTE | 2020-06-24 11:03 | MHC.CM.PN ---
PT CLEARED TO DC HOME TODAY WITH NO SERVICES
[2020-07-07 15:52] LABS: Catecholamine Frac, Total 1089 pg/mL
== END 2020-06-24 12:15 | disposition home or self-care (01) | DRG 291 ==
LOC: HO.ED 06-21 02:24 → HO.EDOVER 06-21 07:30 → HO.IMC 06-21 12:18
PROVIDERS: Internal Medicine Nephrology; Admitting Provider Hospitalist; Emergency Provider Internal Medicine; Visit Provider Internal Medicine
DX: I13.2 Hypertensive heart and chronic kidney disease with heart failure and with stage 5 chronic kidney disease, or end stage renal disease (principal); N18.6 End stage renal disease; J96.01 Acute respiratory failure with hypoxia; I50.22 Chronic systolic (congestive) heart failure; I16.0 Hypertensive urgency; D63.1 Anemia in chronic kidney disease; E78.5 Hyperlipidemia, unspecified; Z99.2 Dependence on renal dialysis; Z91.15 Patient's noncompliance with renal dialysis; Z20.822 Contact with and (suspected) exposure to COVID-19; Z79.899 Other long term (current) drug therapy
CPT/HCPCS: 36415; 71045; 71275; 80048; 80053; 81001; 82384; 83880; 84484; 85025; 87635; 90999; 93005; 93975; 96374; 96375; 99285; 99291; J1940; Q9967

== ENCOUNTER 2020-08-14 19:10 | Emergency (ER) | payer MEDICARE, MEDICAID, SELFPAY ==
--- NOTE | ~2020-08-14 | XR_ITS ---
EXAMINATION: XR CHEST CLINICAL INFORMATION: Low O2 saturation. COMPARISON: Multiple priors, most recent CTA chest dated 06/21/2020. TECHNIQUE: Frontal view of the chest was obtained. FINDINGS: Diffuse, patchy bilateral airspace opacities, most prominent within the right lung base and left upper lobe. [id number] left-sided pleural effusion. Stable cardiomediastinal silhouette. No pneumothorax. No acute osseous abnormality. XR/XR chest 1V IMPRESSION: 1. Diffuse patchy bilateral airspace opacities are redemonstrated, similar when compared to the chest CT dated 06/21/2020. 2. [id number] left-sided pleural effusion, slightly decreased when compared to the prior chest CT.
[2020-08-14 20:35] VITALS: BP 180/100; PULSE 88; RESP 18; TEMP 36.8; O2SAT 88; BMI 19.8
[2020-08-14 20:56] LABS: MANUAL DIFF FLAG NO
[2020-08-14 20:57] LABS: Basophils Percent Auto 0.4 % (0-2); Eosinophils Absolute Auto 0.1 X10*3/uL (0.0-0.4); Eosinophils Percent Auto 1.9 % (0-4); Hematocrit 28.6 % (42-52); Hemoglobin 8.9 g/dl (14.0-18.0); Imm Gran Abs Auto 0.03 X10*3/uL (0.00-0.03); Imm Gran Pct Auto 0.4 % (0.0-0.4); Lymphocytes Absolute Auto 0.6 X10*3/uL (1.2-4.9); Lymphocytes Percent Auto 9.2 % (20-40); Mean Corpuscular HGB Conc 31.1 g/dl (31.0-36.0); Mean Corpuscular Hemoglobin 30.1 pg (27.0-33.0); Mean Corpuscular Volume 96.6 fL (80-98); Mean Platelet Volume 10.1 fL (9.4-12.4); Monocytes Absolute Auto 0.4 X10*3/uL (0.1-1.2); Monocytes Percent Auto 5.5 % (2-11); Neutrophils Absolute Auto 5.5 X10*3/uL (2.0-8.3); Neutrophils Percent Auto 82.6 % (45-73); Platelet Count 207 X10*3/uL (160-400); Red Blood Count 2.96 X10*6/uL (4.60-5.80); Red Cell Distribution Width 20.5 % (11.0-16.0); White Blood Count 6.7 X10*3/uL (4.8-10.8)
--- NOTE | 2020-08-14 21:01 | PC.NURSE ---
PT TO ROOM WITH C/O REFLUX AND UNABLE TO LAY DOWN. PT ON MONITOR WITH HR 84. X-RAY IN ROOM FOR PORTABLE X-RAY. WILL CONTINUE TO MONITOR PT. PT AWAITING FOR 'S YARELI.
[2020-08-14 21:12] VITALS: BP 167/107; PULSE 81; RESP 21; TEMP 36.6; O2SAT 100
[2020-08-14 21:26] LABS: B Type Natriuretic Peptide 2548 pg/mL (<100)
--- NOTE | 2020-08-14 21:28 | ECG_ITS ---
Test Reason : SOB Blood Pressure : / mmHG Vent. Rate : 090 BPM Atrial Rate : 090 BPM P-R Int : 170 ms QRS Dur : 088 ms QT Int : 380 ms P-R-T Axes : 048 057 133 degrees QTc Int : 464 ms Normal sinus rhythm Left ventricular hypertrophy with repolarization abnormality Abnormal ECG When compared with ECG of 20-JUN-2020 20:41, T wave inversion less evident in Lateral leads Referred By: Antionette Laureano Electronically Signed By:BRIANA HERRMANN MD
--- NOTE | 2020-08-14 21:32 | ED_ITS ---
HPI - Abdominal Pain General Chief Complaint: Abdominal Pain Stated Complaint: acid reflux Time Seen by Provider: 08/14/20 21:25 Source: patient Mode of arrival: ambulatory Limitations: no limitations History of Present Illness HPI narrative: Patient comes emergency room complaining of epigastric burning only at night. Patient states that this time he has no symptoms. Patient states that for the last week, every time he goes to sleep, he has this burning sensation going from his esophagus up his mouth. Patient is not taking any medications. Patient denies chest pain, no shortness of breath. Patient is due for dialysis tomorrow. Related Data Home Medications Medication Instructions Recorded Confirmed Auryxia 210 mg PO DAILY 12/11/19 06/21/20 carvedilol 25 mg PO BID 12/11/19 06/21/20 lorazepam 0.5 mg PO DAILY PRN 12/11/19 06/21/20 Nephro-Vivi 1 tab PO DAILY 06/20/20 06/21/20 clonidine HCl 0.2 mg PO BID 06/20/20 06/21/20 nifedipine 120 mg PO QAM 06/20/20 06/21/20 Previous Rx's Medication Instructions Recorded lisinopril 40 mg PO DAILY #30 tab 01/10/20 doxazosin 2 mg PO DAILY #30 tab 06/24/20 hydralazine 100 mg PO TID #90 tab 06/24/20 isosorbide mononitrate 60 mg PO DAILY #30 tab 06/24/20 omeprazole 20 mg PO DAILY #14 cap 08/14/20 Allergies Allergy/AdvReac Type Severity Reaction Status Date / Time No Known Allergies Allergy Verified 05/21/20 07:36 Review of Systems Review of Systems Constitutional : No Weight loss, No Fever, No Chills, No Night Sweats, No Fatigue, No Malaise ENT/Mouth : No Hearing loss, No Ear Pain, No Nasal Congestion, No Sinus Pain, No Hoarseness, No sore throat, No Rhinorrhea, No Swallowing Difficulty Eyes: No Eye Pain, No Swelling, No Redness, No Foreign Body, No Discharge, No Vision Changes Cardiovascular : No Chest Pain, No SOB, No Dyspnea on Exertion, No Orthopnea, No Edema, No Palpitations Respiratory : No Cough, No Sputum, No Wheezing, No Smoke Exposure, No Dyspnea Gastrointestinal : No Nausea, No Vomiting, No Diarrhea, No Constipation, complaining of burning sensation at nights going from the left upper quadrant towards the mouth. No abdominal Pain, No Hematochezia, No Melena Genitourinary : no irregular bleeding, No Dysuria, No Urinary Frequency, No Hematuria, No Urinary Incontinence, No Urgency, No Flank Pain, No Urinary Flow Changes, No Hesitancy Musculoskeletal : No joint pain, No Myalgias, No Joint Swelling Skin : No Skin Lesions, No rash Neuro : No Weakness, No Numbness, No Paresthesias, No Loss of Consciousness, No Dizziness, No Headache Psych : No Anxiety/Panic, No Depression, No SI/HI/AH/VH, No Social Issues, Heme/Lymph: No Bruising, No Bleeding,No Lymphadenopathy Endocrine : No Polyuria, No Polydipsia, No Temperature Intolerance Physical Exam Vital Signs: Vital Signs: Last Vital Signs Temp 97.8 F 08/14/20 21:12 Pulse 81 08/14/20 21:12 Resp 21 H 08/14/20 21:12 BP 167/107 H 08/14/20 21:12 Pulse Ox 100 08/14/20 21:12 Body Mass Index 19.8 Appearance: Alert. Oriented X3. No acute distress. Eyes: Pupils equal, round and reactive to light. ENT: Pharynx normal. Neck: Normal inspection. Neck supple. No lymph nodes noted. No crepitus CVS: Normal heart rate and rhythm. Pulses normal. Normal S1 and S2 Respiratory: No respiratory distress. Breath sounds normal. No Wheezing. No rales Abdomen: Soft and nontender. No rigidity. No distention. good BS x4 Skin: Skin warm and dry. Left arm has working fistula for dialysis Extremities: No lower extremity edema. No lower extremity edema. No Lacerations. No Rash Neuro: Oriented X 3. No motor deficit. No sensory deficit. Moving all extermities. No slurred speech. Course Course Course Narrative: pt is ready for discharge, after the GI cocktail patient started feeling better, although he did not have any significant symptoms on arrival. Patient's labs are at baseline. Patient is due for dialysis tomorrow. Troponin is elevated, BNP is elevated, but they are at baseline. Patient's potassium is mildly elevated at 5.3, he will give 1 dose of cardiac sleep and discharged home. Patient is due for dialysis tomorrow. MDM - Abdominal Pain Lab Data Result diagrams: 08/14/20 20:50 08/14/20 20:50 Labs: Lab Results 08/14/20 08/14/20 08/14/20 Range/Units 20:50 20:50 20:50 WBC 6.7 (4.8-10.8) X10*3/uL RBC 2.96 L (4.60-5.80) X10*6/uL Hgb 8.9 L (14.0-18.0) g/dl Hct 28.6 L (42-52) % MCV 96.6 (80-98) fL MCH 30.1 (27.0-33.0) pg MCHC 31.1 (31.0-36.0) g/dl RDW 20.5 H (11.0-16.0) % Plt Count 207 (160-400) X10*3/uL MPV 10.1 (9.4-12.4) fL Immature Gran % (Auto) 0.4 (0.0-0.4) % Neut % (Auto) 82.6 H (45-73) % Lymph % (Auto) 9.2 L (20-40) % [place] % (Auto) 5.5 (2-11) % Eos % (Auto) 1.9 (0-4) % Baso % (Auto) 0.4 (0-2) % Lymph # (Auto) 0.6 L (1.2-4.9) X10*3/uL [place] # (Auto) 0.4 (0.1-1.2) X10*3/uL Eos # (Auto) 0.1 (0.0-0.4) X10*3/uL Baso # (Auto) 0.0 (0.0-0.2) X10*3/uL Abs Immat Gran (auto) 0.03 (0.00-0.03) X10*3/uL Absolute Neuts (auto) 5.5 (2.0-8.3) X10*3/uL Absolute Nucleated RBC 0.000 (0.0-0.012) X10*3/uL Nucleated RBC % (auto) 0.0 (0.0-0.2) /100WBC Sodium 140 (135-145) mmol/L Potassium 5.3 H (3.3-5.1) mmol/L Chloride 96 (96-108) mmol/L Carbon Dioxide 32 H (22-29) mmol/L Anion Gap 17 (12-20) BUN 55 H (9-16) mg/dL Creatinine 9.04 H* (0.5-1.4) mg/dL Estim Creat Clear Calc 8.2 Estimated GFR 6 Random Glucose 79 (60-115) mg/dL Calcium 8.6 (8.4-10.2) mg/dL Troponin I High Sens 57.0 H* (<3.5-35.0) ng/L B-Natriuretic Peptide 2548 H (<100) pg/mL ECG Data Attestation: I personally reviewed and interpreted this ECG as follows: (Center rhythm, heart rate 90, no ST segment depression, peak T-waves in lead V4, QTC 464) Discharge Plan Discharge Clinical Impression: GERD (gastroesophageal reflux disease) Qualifiers: Esophagitis presence: without esophagitis Qualified Code(s): K21.9 - Gastro- esophageal reflux disease without esophagitis Patient Disposition: Home, Self-Care Instructions: Gastroesophageal Reflux Disease (ED) Additional Instructions: Please follow-up with your primary care physician tomorrow. If you have any worsening or new symptoms, please return to the emergency room or call 911 Prescriptions: New omeprazole 20 mg capsule,delayed release(DR/EC) 20 mg PO DAILY Qty: 14 RF: 0 No Action clonidine HCl 0.2 mg tablet 0.2 mg PO BID RF: 0 Nephro-Vivi 0.8 mg tablet 1 tab PO DAILY RF: 0 nifedipine 60 mg tablet extended release 120 mg PO QAM RF: 0 isosorbide mononitrate 60 mg Tablet Extended Release 24 Hr 60 mg PO DAILY Qty: 30 RF: 0 hydralazine 50 mg Tablet 100 mg PO TID Qty: 90 RF: 0 doxazosin 2 mg Tablet 2 mg PO DAILY Qty: 30 RF: 0 carvedilol 25 mg tablet 25 mg PO BID RF: 0 lorazepam 0.5 mg tablet 0.5 mg PO DAILY PRN (Reason: Anxiety) RF: 0 Auryxia 210 mg iron tablet 210 mg PO DAILY RF: 0 lisinopril 40 mg tablet 40 mg PO DAILY Qty: 30 RF: 0 PMFSH Past Medical History Medical History Anemia CHF (congestive heart failure) Dialysis patient Disease of pericardium, unspecified End stage chronic kidney disease ESRD (end stage renal disease) Fistula Hypertension Hypertensive cardiovascular disease Kidney disease Pulmonary hypertension associated with end stage renal disease on dialysis Family History Family History Other HTN (hypertension) Social History Social History Household Members: None Household Members Other:: lives with girlfriend Housing: House Do you presently have visiting nurse or other home services: No Alcohol intake: unknown Second Hand Smoke Exposure: No Advance Directives: No Advance Directives Information Provided: No service: No Current occupational status: unemployed
[2020-08-14 21:35] LABS: Anion Gap 17 (12-20); Blood Urea Nitrogen 55 mg/dL (9-16); Calcium 8.6 mg/dL (8.4-10.2); Carbon Dioxide 32 mmol/L (22-29); Chloride 96 mmol/L (96-108); Creatinine Clr Calc Pharmacy 8.2; Estimated Glomerular Filt Rate 6; Glucose Random 79 mg/dL (60-115); Potassium 5.3 mmol/L (3.3-5.1); Sodium 140 mmol/L (135-145)
[2020-08-14] MEDS: Magnesium Hydrox/Alum Hydrox 30 ML ORAL.SUSP PO (22:22)
[2020-08-14] MEDS: Lidocaine HCl Viscous 2 % 15 ML SOLUTION MUCOUS MEM (22:22)
== END 2020-08-14 23:03 | disposition home or self-care (01) ==
PROVIDERS: Emergency Provider Emergency Medicine; PCP Internal Medicine
DX: K21.9 Gastro-esophageal reflux disease without esophagitis (principal); R10.13 Epigastric pain; I13.2 Hypertensive heart and chronic kidney disease with heart failure and with stage 5 chronic kidney disease, or end stage renal disease; N18.6 End stage renal disease; I50.9 Heart failure, unspecified; Z99.2 Dependence on renal dialysis; Z86.16 Personal history of COVID-19
CPT/HCPCS: 36415; 71045; 80048; 83880; 84484; 85025; 93005; 99283; 99284

== ENCOUNTER 2020-08-15 20:57 | Emergency (ER) | payer MEDICARE, MEDICAID, SELFPAY ==
--- NOTE | ~2020-08-15 | XR_ITS ---
EXAMINATION: XR CHEST CLINICAL INFORMATION: Shortness of breath COMPARISON: Yesterday, 08/14/2020 TECHNIQUE: Frontal view of the chest was obtained. FINDINGS: Again seen are diffuse patchy opacities throughout both lungs with more focal consolidation/fluid present at the left lung base with obscuration of the left hemidiaphragm. Compared to the prior study from yesterday, there is been no significant interval change. XR/XR chest 1V IMPRESSION: No interval change from yesterday. Diffuse pulmonary opacities along with left basilar consolidation/collapse/fluid.
[2020-08-15 21:07] VITALS: BP 141/91; PULSE 85; RESP 18; TEMP 36.5; O2SAT 100; BMI 21.0
--- NOTE | 2020-08-15 21:59 | ECG_ITS ---
Test Reason : DYSPNEA Blood Pressure : / mmHG Vent. Rate : 086 BPM Atrial Rate : 086 BPM P-R Int : 160 ms QRS Dur : 094 ms QT Int : 378 ms P-R-T Axes : 048 027 129 degrees QTc Int : 452 ms Normal sinus rhythm Possible Left atrial enlargement Left ventricular hypertrophy with repolarization abnormality Abnormal ECG When compared with ECG of 14-AUG-2020 21:41, No significant change was found Referred By: Bree Soria Electronically Signed By:BRIANA HERRMANN MD
--- NOTE | 2020-08-15 22:00 | ED.GENADULT ---
HPI - General Adult General Chief complaint: General Medical Stated complaint: SOB Time Seen by Provider: 08/15/20 21:18 History of Present Illness HPI narrative: Patient is a 45-year-old male history of end-stage renal disease. Normally gets dialysis on Wednesday and Saturdays. Patient was due for dialysis today. He felt too weak decided not to go. No chest pain. Patient was here yesterday for reflux. He stated that a little bit better. No coughing or congestion or upper respiratory symptoms. Patient had COVID back in February. He did not receive the vaccine. No new leg swelling. Patient has been on the same medication. No diaphoresis. This feels generalized malaise. No bloody stool. Patient is from home. No travel history. Related Data Home Medications Medication Instructions Recorded Confirmed Auryxia 210 mg PO DAILY 12/11/19 06/21/20 carvedilol 25 mg PO BID 12/11/19 06/21/20 lorazepam 0.5 mg PO DAILY PRN 12/11/19 06/21/20 Nephro-Vivi 1 tab PO DAILY 06/20/20 06/21/20 clonidine HCl 0.2 mg PO BID 06/20/20 06/21/20 nifedipine 120 mg PO QAM 06/20/20 06/21/20 Previous Rx's Medication Instructions Recorded lisinopril 40 mg PO DAILY #30 tab 01/10/20 doxazosin 2 mg PO DAILY #30 tab 06/24/20 hydralazine 100 mg PO TID #90 tab 06/24/20 isosorbide mononitrate 60 mg PO DAILY #30 tab 06/24/20 omeprazole 20 mg PO DAILY #14 cap 08/14/20 Allergies Allergy/AdvReac Type Severity Reaction Status Date / Time No Known Allergies Allergy Verified 05/21/20 07:36 Review of Systems Review of Systems: Constitutional: No Weight loss, No Fever, No Chills, No Night Sweats, No Fatigue, No Malaise ENT/Mouth: No Hearing loss, No Ear Pain, No Nasal Congestion, No Sinus Pain, No Hoarseness, No sore throat, No Rhinorrhea, No Swallowing Difficulty Eyes: No Eye Pain, No Swelling, No Redness, No Foreign Body, No Discharge, No Vision Changes Cardiovascular: No Chest Pain, No SOB, No Dyspnea on Exertion, No Orthopnea, No Edema, No Palpitations Respiratory: No Cough, No Sputum, No Wheezing, No Smoke Exposure, No Dyspnea Gastrointestinal: No Nausea, No Vomiting, No Diarrhea, No Constipation, No abdominal Pain, No Hematochezia, No Melena Genitourinary: no irregular bleeding, No Dysuria, No Urinary Frequency, No Hematuria, No Urinary Incontinence, No Urgency, No Flank Pain, No Urinary Flow Changes, No Hesitancy Musculoskeletal: No joint pain, No Myalgias, No Joint Swelling Skin: No Skin Lesions, No rash Neuro: No Weakness, No Numbness, No Paresthesias, No Loss of Consciousness, No Dizziness, No Headache Psych: No Anxiety/Panic, No Depression, No SI/HI/AH/VH, No Social Issues, Heme/Lymph: No Bruising, No Bleeding,No Lymphadenopathy Endocrine: No Polyuria, No Polydipsia, No Temperature Intolerance [facility] Past Medical History Medical History Anemia CHF (congestive heart failure) Dialysis patient Disease of pericardium, unspecified End stage chronic kidney disease ESRD (end stage renal disease) Fistula Hypertension Hypertensive cardiovascular disease Kidney disease Pulmonary hypertension associated with end stage renal disease on dialysis Family History Family History Other HTN (hypertension) Social History Social History Household Members: None Household Members Other:: lives with girlfriend Housing: House Do you presently have visiting nurse or other home services: No Alcohol intake: unknown Second Hand Smoke Exposure: No Advance Directives: No Advance Directives Information Provided: Yes service: No Current occupational status: unemployed Physical Exam Vital Signs: Vital Signs: Last Vital Signs Temp 98.0 F 08/15/20 23:43 Pulse 80 08/16/20 03:55 Resp 16 08/16/20 03:55 BP 174/109 H 08/16/20 03:55 Pulse Ox 99 08/16/20 03:55 Body Mass Index 21.0 Appearance: Alert. Oriented X3. No acute distress. Eyes: Pupils equal, round and reactive to light. ENT: Pharynx normal. Neck: Normal inspection. Neck supple. No lymph nodes noted. No crepitus CVS: Normal heart rate and rhythm. Pulses normal. Normal S1 and S2 Respiratory: No respiratory distress. Breath sounds normal. No Wheezing. No rales Abdomen: Soft and nontender. No rigidity. No distention. good BS x4 Skin: Skin warm and dry. Normal skin color. Normal skin turgor. Extremities: No lower extremity edema. Neurovascular intact to all extremities. No Lacerations. No Rash Neuro: Oriented X 3. No motor deficit. No sensory deficit. Moving all extermities. No slurred speech Medical Decision Making MDM Narrative Medical decision making narrative: Patient's pH is baseline. Patient's potassium was 5.8. Given a dose of Kayexalate here in the emergency department. Patient's case discussed with Nephrology. Agreed plan of dialysis immediately. Patient's has gotten a seat at the [place] [facility]. Will arrange for a ride for patient to get there. In no distress. Being discharged to dialysis Lab Data Result diagrams: 08/15/20 23:04 08/15/20 23:04 Labs: Lab Results 08/15/20 08/15/20 08/15/20 Range/Units 22:52 23:04 23:04 WBC 10.7 (4.8-10.8) X10*3/uL RBC 3.00 L (4.60-5.80) X10*6/uL Hgb 9.0 L (14.0-18.0) g/dl Hct 28.7 L (42-52) % MCV 95.7 (80-98) fL MCH 30.0 (27.0-33.0) pg MCHC 31.4 (31.0-36.0) g/dl RDW 20.5 H (11.0-16.0) % Plt Count 232 (160-400) X10*3/uL MPV 10.9 (9.4-12.4) fL Immature Gran % (Auto) 0.5 H (0.0-0.4) % Neut % (Auto) 85.7 H (45-73) % Lymph % (Auto) 7.5 L (20-40) % [place] % (Auto) 4.0 (2-11) % Eos % (Auto) 2.0 (0-4) % Baso % (Auto) 0.3 (0-2) % Lymph # (Auto) 0.8 L (1.2-4.9) X10*3/uL [place] # (Auto) 0.4 (0.1-1.2) X10*3/uL Eos # (Auto) 0.2 (0.0-0.4) X10*3/uL Baso # (Auto) 0.0 (0.0-0.2) X10*3/uL Abs Immat Gran (auto) 0.05 H (0.00-0.03) X10*3/uL Absolute Neuts (auto) 9.1 H (2.0-8.3) X10*3/uL Absolute Nucleated RBC 0.000 (0.0-0.012) X10*3/uL Nucleated RBC % (auto) 0.0 (0.0-0.2) /100WBC VBG pH (7.32-7.43) VBG pCO2 mmHg VBG pO2 mmHg VBG HCO3 (22-26) mmol/L VBG O2 Saturation % VBG Base Excess mmol/L Sodium 138 (135-145) mmol/L Potassium 5.8 H (3.3-5.1) mmol/L Chloride 94 L (96-108) mmol/L Carbon Dioxide 28 (22-29) mmol/L Anion Gap 22 H (12-20) BUN 77 H (9-16) mg/dL Creatinine 10.90 H* (0.5-1.4) mg/dL Estim Creat Clear Calc TNP Estimated GFR 5 Random Glucose 111 D (60-115) mg/dL Calcium 8.9 (8.4-10.2) mg/dL Phosphorus 7.6 H (2.7-4.5) mg/dL Magnesium 3.3 H (1.6-2.6) mg/dL COVID-19 ([facility]) Negative (Negative) COVID-19 Clin Com See Note 08/15/20 08/15/20 Range/Units 23:51 23:51 WBC (4.8-10.8) X10*3/uL RBC (4.60-5.80) X10*6/uL Hgb (14.0-18.0) g/dl Hct (42-52) % MCV (80-98) fL MCH (27.0-33.0) pg MCHC (31.0-36.0) g/dl RDW (11.0-16.0) % Plt Count (160-400) X10*3/uL MPV (9.4-12.4) fL Immature Gran % (Auto) (0.0-0.4) % Neut % (Auto) (45-73) % Lymph % (Auto) (20-40) % [place] % (Auto) (2-11) % Eos % (Auto) (0-4) % Baso % (Auto) (0-2) % Lymph # (Auto) (1.2-4.9) X10*3/uL [place] # (Auto) (0.1-1.2) X10*3/uL Eos # (Auto) (0.0-0.4) X10*3/uL Baso # (Auto) (0.0-0.2) X10*3/uL Abs Immat Gran (auto) (0.00-0.03) X10*3/uL Absolute Neuts (auto) (2.0-8.3) X10*3/uL Absolute Nucleated RBC (0.0-0.012) X10*3/uL Nucleated RBC % (auto) (0.0-0.2) /100WBC VBG pH 7.57 H 7.58 H (7.32-7.43) VBG pCO2 35 mmHg VBG pO2 128 mmHg VBG HCO3 33 H (22-26) mmol/L VBG O2 Saturation 99.0 % VBG Base Excess 11.0 mmol/L Sodium (135-145) mmol/L Potassium (3.3-5.1) mmol/L Chloride (96-108) mmol/L Carbon Dioxide (22-29) mmol/L Anion Gap (12-20) BUN (9-16) mg/dL Creatinine (0.5-1.4) mg/dL Estim Creat Clear Calc Estimated GFR Random Glucose (60-115) mg/dL Calcium (8.4-10.2) mg/dL Phosphorus (2.7-4.5) mg/dL Magnesium (1.6-2.6) mg/dL COVID-19 ([facility]) (Negative) COVID-19 Clin Com Discharge Plan Discharge Clinical Impression: ESRD (end stage renal disease) on dialysis, Acute hyperkalemia Patient Disposition: Home, Self-Care Instructions: End Stage Kidney Disease (ED), Dialysis Diet (DC), Hyperkalemia (ED) Prescriptions: No Action clonidine HCl 0.2 mg tablet 0.2 mg PO BID RF: 0 Nephro-Vivi 0.8 mg tablet 1 tab PO DAILY RF: 0 nifedipine 60 mg tablet extended release 120 mg PO QAM RF: 0 isosorbide mononitrate 60 mg Tablet Extended Release 24 Hr 60 mg PO DAILY Qty: 30 RF: 0 hydralazine 50 mg Tablet 100 mg PO TID Qty: 90 RF: 0 doxazosin 2 mg Tablet 2 mg PO DAILY Qty: 30 RF: 0 carvedilol 25 mg tablet 25 mg PO BID RF: 0 lorazepam 0.5 mg tablet 0.5 mg PO DAILY PRN (Reason: Anxiety) RF: 0 Auryxia 210 mg iron tablet 210 mg PO DAILY RF: 0 lisinopril 40 mg tablet 40 mg PO DAILY Qty: 30 RF: 0 omeprazole 20 mg capsule,delayed release(DR/EC) 20 mg PO DAILY Qty: 14 RF: 0 Referrals: Physician,Unknown [Primary Care Provider] - 2 days (Please go to dialysis now.)
[2020-08-15 23:08] LABS: MANUAL DIFF FLAG NO
[2020-08-15 23:09] LABS: Basophils Percent Auto 0.3 % (0-2); Eosinophils Absolute Auto 0.2 X10*3/uL (0.0-0.4); Hematocrit 28.7 % (42-52); Imm Gran Abs Auto 0.05 X10*3/uL (0.00-0.03); Imm Gran Pct Auto 0.5 % (0.0-0.4); Lymphocytes Absolute Auto 0.8 X10*3/uL (1.2-4.9); Lymphocytes Percent Auto 7.5 % (20-40); Mean Corpuscular HGB Conc 31.4 g/dl (31.0-36.0); Mean Corpuscular Volume 95.7 fL (80-98); Mean Platelet Volume 10.9 fL (9.4-12.4); Monocytes Absolute Auto 0.4 X10*3/uL (0.1-1.2); Neutrophils Absolute Auto 9.1 X10*3/uL (2.0-8.3); Neutrophils Percent Auto 85.7 % (45-73); Platelet Count 232 X10*3/uL (160-400); Red Cell Distribution Width 20.5 % (11.0-16.0); White Blood Count 10.7 X10*3/uL (4.8-10.8)
[2020-08-15 23:11] LABS: COVID-19 Test Negative (Negative); IDNOW Serial# 9DD0AD1C
[2020-08-15 23:43] VITALS: BP 158/98; PULSE 87; RESP 22; TEMP 36.7; O2SAT 95
[2020-08-16] LABS: VBG HCO3 33 mmol/L (22-26); VBG pCO2 35 mmHg; VBG pH 7.58 (7.32-7.43); VBG pO2 128 mmHg
[2020-08-16 00:03] LABS: pH VBG 7.57 (7.32-7.43)
[2020-08-16 02:00] VITALS: BP 168/104; PULSE 84; RESP 20
[2020-08-16 03:55] VITALS: BP 174/109; PULSE 80; RESP 16; O2SAT 99
[2020-08-16 04:00] VITALS: BP 158/96; PULSE 84; RESP 16; O2SAT 96
[2020-08-16 05:29] LABS: Sodium 138 mmol/L (135-145)
[2020-08-16 05:30] LABS: Potassium 5.8 mmol/L (3.3-5.1)
[2020-08-16 05:31] LABS: Chloride 94 mmol/L (96-108)
[2020-08-16 05:32] LABS: Carbon Dioxide 28 mmol/L (22-29)
[2020-08-16 05:34] LABS: Blood Urea Nitrogen 77 mg/dL (9-16)
[2020-08-16 05:38] LABS: Estimated Glomerular Filt Rate 5
[2020-08-16 05:39] LABS: Calcium 8.9 mg/dL (8.4-10.2); Glucose Random 111 mg/dL (60-115)
[2020-08-16 05:40] LABS: Phosphorus 7.6 mg/dL (2.7-4.5)
[2020-08-16 05:43] LABS: Magnesium 3.3 mg/dL (1.6-2.6)
[2020-08-16 06:00] VITALS: BP 164/94; PULSE 86; RESP 16
[2020-08-16] MEDS: Sodium Polystyrene Sulfon/Sorb 15 GM/60 ML ORAL.SUSP 60 GM PO (06:57)
--- NOTE | 2020-08-16 07:18 | PC.NURSE ---
TRANSPORT CALLED FOR RIDE TO DIALYSIS. PT MEDICATED PER EMAR FOR HIGH k+. PT DENIES ANY COMPLAINTS AND IN NAD. AWAITING FOR EMS TO DIALYSIS.
[2020-08-16 07:27] LABS: Anion Gap 16 (12-20)
== END 2020-08-16 08:00 | disposition home or self-care (01) ==
PROVIDERS: Emergency Provider Emergency Medicine Emergency Medical Services
DX: E87.5 Hyperkalemia (principal); I13.2 Hypertensive heart and chronic kidney disease with heart failure and with stage 5 chronic kidney disease, or end stage renal disease; N18.6 End stage renal disease; I50.9 Heart failure, unspecified; Z99.2 Dependence on renal dialysis; Z20.822 Contact with and (suspected) exposure to COVID-19; R53.1 Weakness
CPT/HCPCS: 36415; 71045; 80048; 82800; 83735; 84100; 85025; 87635; 93005; 99283; 99284

== ENCOUNTER 2021-01-13 17:19 | Emergency (ER) | payer MEDICARE, MEDICAID, SELFPAY | END 2021-01-13 21:31 | disposition left against medical advice (07) | PROVIDERS: Emergency Provider Emergency Medicine | DX: M79.645 Pain in left finger(s) (principal) ==

== ENCOUNTER → 2023-01-06 | Outpatient (BNV) | payer MEDICARE, MEDICAID, SELFPAY | PROVIDERS: Visit Provider Internal Medicine Hypertension Specialist | DX: N18.6 End stage renal disease (principal) | CPT/HCPCS: 90961 ==

== ENCOUNTER → 2023-02-05 | Outpatient (BNV) | payer MEDICARE, MEDICAID, SELFPAY | PROVIDERS: Visit Provider Internal Medicine Hypertension Specialist | DX: N18.6 End stage renal disease (principal) | CPT/HCPCS: 90962 ==

== ENCOUNTER → 2023-03-08 | Outpatient (BNV) | payer MEDICARE, MEDICAID, SELFPAY | PROVIDERS: Visit Provider Internal Medicine Hypertension Specialist | DX: N18.6 End stage renal disease (principal) | CPT/HCPCS: 90961 ==

== ENCOUNTER → 2023-04-08 | Outpatient (BNV) | payer MEDICARE, MEDICAID, SELFPAY | PROVIDERS: PCP Internal Medicine; Visit Provider Internal Medicine Hypertension Specialist | DX: N18.6 End stage renal disease (principal) | CPT/HCPCS: 90960 ==

== ENCOUNTER 2023-04-24 14:33 | Inpatient (IN) | payer MEDICARE, MEDICAID, SELFPAY ==
--- NOTE | 2023-04-24 | ECG_ITS ---
Test Reason : DYSPENA Blood Pressure : / mmHG Vent. Rate : 081 BPM Atrial Rate : 081 BPM P-R Int : 168 ms QRS Dur : 092 ms QT Int : 386 ms P-R-T Axes : 047 054 113 degrees QTc Int : 448 ms Normal sinus rhythm Possible Left atrial enlargement T wave abnormality, consider lateral ischemia Abnormal ECG When compared with ECG of 15-AUG-2020 22:38, T wave inversion less evident in Lateral leads Referred By: Generic ED Physician Electronically Signed By:Blayne Black
--- NOTE | ~2023-04-24 | CT_ITS ---
EXAMINATION: CT ANGIOGRAM OF THE CHEST WITH AND WITHOUT CONTRAST (CT PULMONARY ANGIOGRAM FOR PE) CLINICAL INFORMATION: Reason for Exam shortness of breath COMPARISON: 06/21/2020 TECHNIQUE: Prior to contrast administration, noncontrast localization images were obtained. Subsequently, multidetector volumetric imaging was performed from the thoracic inlet to below the diaphragms following the administration of 80 mL Omnipaque 350 intravenous contrast. No contrast reaction reported Sagittal, coronal, and MIP oblique sagittal reformatted images were obtained on the CT workstation, uploaded to PACS, and reviewed. This CT examination was performed using dose optimization techniques as appropriate, variously including the following: *Automated exposure control *Adjustment of mA and/or kV according to patient size (this includes techniques or standardized protocols for targeted exams where dose is matched to indication/reason for exam; i.e. extremities or head) *Use of iterative reconstruction technique Total exam dose-length product 220 mGy-cm FINDINGS: QUALITY OF STUDY/CONTRAST BOLUS: Satisfactory. PULMONARY ARTERIES: No pulmonary emboli. THORACIC AORTA: No aneurysm. LUNG: Basilar atelectasis more prominent on the left inseparable from pleural thickening PLEURA: There is small pleural effusion and pleural thickening seen on the right and more prominent on the left. MEDIASTINUM: Normal heart size. No pericardial effusion. No hilar or mediastinal lymphadenopathy. No evidence of septal bowing or right heart strain. CORONARY ARTERY CALCIFICATION: Mild CHEST WALL/AXILLA: No axillary or internal mammary lymphadenopathy. OSSEOUS STRUCTURES: No acute or suspicious osseous abnormality. UPPER ABDOMEN: Unremarkable. There is reflux of contrast into the hepatic veins to suggest elevated right heart pressures. Partially visualized kidneys demonstrate multiple cysts on the left and punctate calcifications. There is an exophytic cyst in the upper pole of right kidney. There is questionable complex cyst in the partially included lower pole of left kidney. There is ascites seen surrounding liver. CT/CT angio chest PE protocol IMPRESSION: 1. No evidence of pulmonary embolism. 2. Small pleural effusion on the right and pleural thickening on the left with adjacent atelectasis. 3. Ascites surrounding liver. 4. Multiple renal cysts and punctate calcifications. VTE: negative.
--- NOTE | ~2023-04-24 | XR_ITS ---
EXAMINATION: XR CHEST CLINICAL INFORMATION: Hypoxia COMPARISON: Chest 04/24/2023. TECHNIQUE: Frontal view of the chest was obtained. FINDINGS: The lungs are hypoexpanded with bilateral increased interstitial markings likely interstitial edema. There is haziness left lung base from loculated left pleural effusion and underlying atelectasis similar previous study. There is loss of left lung volume. Heart size appears normal. No gross bony or the malleus seen. XR/XR chest 1V IMPRESSION: 1. Bilateral increased interstitial markings likely interstitial edema. 2. Left lower lobe loculated pleural effusion and underlying atelectasis similar to previous study. 3. There is loss of left lung volume. .
--- NOTE | ~2023-04-24 | XR_ITS ---
EXAMINATION: XR CHEST CLINICAL INFORMATION: Shortness of breath COMPARISON: Previous chest x-ray most recent August 2020 TECHNIQUE: Frontal view of the chest was obtained. FINDINGS: The cardiac silhouette is enlarged but stable. Hilar contours are normal. There is volume loss to the left hemithorax with shift the central mediastinal structures to the left similar to exams. There is a loculated left pleural effusion and atelectasis/consolidation at the left lung base that is unchanged. There is diffuse hazy opacity of the right lung and aerated left lung questionable for mild interstitial pulmonary edema versus atypical interstitial or viral pneumonia. There may be a small right pleural effusion. There is no pneumothorax. No acute bone abnormality. XR/XR chest 1V IMPRESSION: Stable enlargement of the cardiac silhouette. Stable volume loss to the left hemithorax. Stable loculated left pleural effusion and atelectasis/consolidation at the left lung base. Diffuse hazy opacity of the right lung and aerated left lung questionable for interstitial pulmonary edema versus atypical interstitial or viral pneumonia.
--- NOTE | ~2023-04-24 | US_ITS ---
EXAMINATION: US VENOUS ULTRASOUND WITH DOPPLER LOWER EXTREMITY, BILATERAL CLINICAL INFORMATION: Pain COMPARISON: None available. TECHNIQUE: Ultrasound of the deep veins is performed from the hip to the calf with compression sonography and color and pulse Doppler assessment. Spectral analysis with color-flow imaging is performed. FINDINGS: RIGHT: There is normal venous compression and respiratory variation and augmented flow. The visualized common femoral vein, superficial femoral vein, profunda femoral vein, popliteal vein, and the trifurcation region shows no evidence of deep venous thrombosis. There is no significant popliteal fossa cyst. LEFT: There is normal venous compression and respiratory variation and augmented flow. The visualized common femoral vein, superficial femoral vein, profunda femoral vein, popliteal vein, and the trifurcation region shows no evidence of deep venous thrombosis. There is no significant popliteal fossa cyst. If the patient's symptoms persist, followup ultrasound in 5 days 7 days might be of value to exclude proximal propagation from a non-visualized calf vein. US/US venous duplex LE BI IMPRESSION: No DVT demonstrated in the bilateral lower extremity.
[2023-04-24 14:44] VITALS: BP 171/84; PULSE 97; O2SAT 67
[2023-04-24 15:08] VITALS: BP 179/87; PULSE 86; RESP 24; TEMP 36.8; O2SAT 67; BMI 17.0
[2023-04-24 15:34] LABS: IDNOW Serial# 152EDE1D; Influenza A Positive (Negative); Influenza B2 Negative (Negative)
[2023-04-24 15:34] LABS: COVID-19 Test Negative (Negative); IDNOW Serial# 08D9AD1C
[2023-04-24 15:35] VITALS: BP 158/78; PULSE 81; RESP 20; TEMP 37.5; O2SAT 100
[2023-04-24 15:42] LABS: Basophils Absolute Auto 0.1 X10*3/uL (0.0-0.2); PLT CLUMP 1; Red Blood Count 3.37 X10*6/uL (4.60-5.80); Red Cell Distribution Width 15.8 % (11.0-16.0); SCAN SMEAR FLAG 1
[2023-04-24 15:44] LABS: Eosinophils Percent Auto 0.4 % (0-4); Hematocrit 32.7 % (42.0-52.0); Hemoglobin 11.1 g/dl (14.0-18.0); Imm Gran Abs Auto 0.08 X10*3/uL (0.00-0.03); Imm Gran Pct Auto 1.6 % (0.0-0.4); Lymphocytes Absolute Auto 0.4 X10*3/uL (1.2-4.9); Lymphocytes Percent Auto 7.9 % (20-40); MANUAL DIFF FLAG SCAN; Mean Corpuscular HGB Conc 33.9 g/dl (31.0-36.0); Mean Corpuscular Hemoglobin 32.9 pg (27.0-33.0); Mean Platelet Volume 10.5 fL (9.4-12.4); Monocytes Absolute Auto 0.6 X10*3/uL (0.1-1.2); Monocytes Percent Auto 12.3 % (2-11); Neutrophils Absolute Auto 3.9 x10*3/uL (2.0-8.3); Neutrophils Percent Auto 76.8 % (45-73)
[2023-04-24 15:46] LABS: Alanine Aminotransferase 15 U/L (0-40); Albumin Level 4.2 g/dL (3.5-5.0); Alkaline Phosphatase 91 U/L (39-117); Anion Gap 22 (12-20); Aspartate Amino Transferase 20 U/L (5-37); Bilirubin Total 1.1 mg/dL (0.0-1.0); Blood Urea Nitrogen 25 mg/dL (9-16); Calcium 9.5 mg/dL (8.4-10.2); Carbon Dioxide 26 mmol/L (22-29); Chloride 95 mmol/L (96-108); Creatinine Clr Calc Pharmacy 13.2; Estimated Glomerular Filt Rate 13; Glucose Random 87 mg/dL (60-115); Lactic Acid 3.3 mmol/L (0.5-2.0); Potassium 3.9 mmol/L (3.3-5.1); Sodium 139 mmol/L (135-145); Total Protein 8.2 g/dL (6.5-8.0); White Blood Count 5.1 X10*3/uL (4.8-10.8)
[2023-04-24 15:57] LABS: Troponin-I High Sensitivity 239.8 ng/L (<3.5-35.0)
--- NOTE | 2023-04-24 15:57 | MHC.EDTECH ---
THIS PCT ASSUMED CARE OF PATIENT AT 1500 ,VITALS TAKEN ,VBG AND 2ND SETS OF BLOOD CULTURE DRAWN AND SENT TO LAB ,EKG TAKEN AND WAS READ BY PROVIDER .
[2023-04-24 16:05] LABS: Platelet Count 89 X10*3/uL (160-400)
--- OUTSIDE RECORDS SUMMARY | 2023-04-24 16:05 | XMS_ITS | Continuity of Care Document ---
Author Name Unknown Organization [facility] ter Address [address] [place] [id number]- Care Team Providers Care Chemistry Specialist Name Role Phone Kari ALFORD, Syeda Mendoza Primary Care Physician [place] [facility] [place] 04/17/19 - 04/17/[address] [address]- [facility] Attending Physician: Case Mccarty MD Allergies, Adverse Reactions, Alerts Substance Reaction Severity Status NKA Active Medications clonidine 0.1 mg oral tablet By Mouth, Every 8 hours, 0 Refills, Maintenance, 08/16/13 9:49:54, Tablet Start Date: 08/16/13 Status: Ordered clonidine 0.1 mg oral tablet 1 tablet = 0.1 mg, By Mouth, Every 8 hours, # 90 tablet, 0 Refills, Maintenance, 08/16/13 9:51:18, Tablet Start Date: 08/16/13 Stop Date: 09/15/13 Status: Ordered hydralazine 25 mg oral tablet 1 tablet = 25 mg, By Mouth, 2 times a day, # 60 tablet, 0 Refills, Maintenance, Tablet Start Date: 01/11/12 Status: Ordered lisinopril 20 mg oral tablet 1 tablet = 20 mg, By Mouth, Daily, # 30 tablet, 0 Refills, Maintenance, Tablet Start Date: 01/11/12 Status: Ordered metoprolol 25 mg oral tablet 1 tablet = 25 mg, By Mouth, 2 times a day, # 60 tablet, 0 Refills, Maintenance, 08/16/13 9:50:44, Tablet Start Date: 08/16/13 Stop Date: 09/15/13 Status: Ordered Nephrocap Capsule 1, capsule, By Mouth, Daily, Maintenance, 08/16/13 9:54:45 Start Date: 08/16/13 Status: Ordered RenVELa Tablet = 800 mg, By Mouth, 3 times a day with meals, 0 Refills, Maintenance, 08/16/13 9:54:40, Tablet Start Date: 08/16/13 Status: Ordered sevelamer 800 mg oral tablet 1 tablet = 800 mg, By Mouth, 3 times a day with meals, # 90 tablet, 0 Refills, Maintenance, 08/16/13 9:57:55, Tablet Start Date: 08/16/13 Stop Date: 09/15/13 Status: Ordered Problem List Condition Effective Dates Status Health Status Inform ant CKD (chronic kidney disease) requiring chronic dialysis(Confirmed) 1 Active History of acute congestive heart failure(Confirmed) 02/03/12 Active History of hypertensive crisis(Confirmed) 02/03/12 Active Hypertension(Confirmed) 02/03/12 Active [id number] as of 02/03/2012
--- OUTSIDE RECORDS SUMMARY | 2023-04-24 16:05 | XMS_ITS | Continuity of Care Document ---
Author Name Unknown Organization [facility] ter Address [address] [place] [id number]- Care Team Providers Care Roaster Helper Name Role Phone Kari ALFORD, Syeda Mendoza Primary Care Physician Encounter [facility] [place] Date(s): 02/20/19 - 02/20/[address] [address]- [facility] Attending Physician: Case Mccarty MD Allergies, Adverse [...] hypertensive crisis(Confirmed) 02/03/12 Active Hypertension(Confirmed) 02/03/12 Active [id number] as of 02/03/2012
--- OUTSIDE RECORDS SUMMARY | 2023-04-24 16:05 | XMS_ITS | Continuity of Care Document ---
Author Name Unknown Organization [facility] ter Address [address] [place] [id number]- Care Team Providers Care Pool Player Name Role Phone Syeda Pierce MD Primary Care Physician [phone] [place] [facility] [place](s[place] 11/22/19 - 12/25/[address] [address]- [facility] Attending Physician: Case Mccarty MD Admitting Physician: Case Mccarty MD Referring Physician: Case Mccarty MD Allergies, Adverse Reactions, Alerts Substance Reaction Severity Status hydrALAZINE lightheadedness Active metoprolol nightmares Active esmolol Active niCARdipine Active Medications amLODIPine 10 mg oral tablet 1 tablet = 10 mg, By Mouth, Daily, # 90 tablet, 0 Refills, Maintenance, 08/13/19 10:49:00 EDT, Tablet Start Date: 08/13/19 Status: Ordered cloNIDine 0.3 mg oral tablet 1 tablet = 0.3 mg, By Mouth, 2 times a day, # 60 tablet, 0 Refills, Maintenance, 08/13/19 10:48:00 EDT, Tablet Start Date: 08/13/19 Status: Ordered Coreg 25 mg oral tablet 25 mg, 1, tablet, By Mouth, 2 times a day, # 180 tablet, Refills 0, Maintenance, 08/13/19 10:48:00 EDT Start Date: 08/13/19 Status: Ordered isosorbide mononitrate 60 mg oral tablet, extended release 1 tablet = 60 mg, By Mouth, Daily in AM, # 30 tablet, 0 Refills, Maintenance, 08/13/19 10:49:00 EDT, ER Tablet Start Date: 08/13/19 Status: Ordered lisinopril 2.5 mg oral tablet 2.5 mg, 1, tablet, By Mouth, Daily, # 30 tablet, Refills 0, Maintenance, 08/13/19 10:49:00 EDT Start Date: 08/13/19 Status: Ordered Nephrocap Capsule 1, capsule, By [...] hypertensive crisis(Confirmed) 02/03/12 Active Hypertension(Confirmed) 02/03/12 Active [id number] as of 02/03/2012
[2023-04-24 16:06] LABS: SLIDE REVIEW VERIFIED
--- OUTSIDE RECORDS SUMMARY | 2023-04-24 16:06 | XMS_ITS | Continuity of Care Document ---
Author Name Unknown Organization [facility] Address [address] [facility], [address] Floor, [address] [place] [address]- Care Team Providers Care Last Sawyer Name Role Phone Syeda Pierce MD Primary Care Physician [place] [facility] [place]/19 [facility] [address], 3[address] Floor, [address] [place] [address]- [facility] Attending Physician: Taylor Ulrich Admitting Physician: Taylor Ulrich Referring Physician: AdmtrTaylor Allergies, Adverse Reactions, Alerts Substance Reaction Severity [...] hypertensive crisis(Confirmed) 02/03/12 Active Hypertension(Confirmed) 02/03/12 Active 3Wslejpr-Dcbxiuqa-Pucpfsia as of 02/03/2012
--- OUTSIDE RECORDS SUMMARY | 2023-04-24 16:06 | XMS_ITS | Patient Health Record ---
Author Name Unknown Organization [facility] Address [address] [place] [address] Care Team Providers Care Salon Sales Consultant Name Role Phone Kari Syeda Primary Care Provider Unavailab Aaron Trujillo Unavailable [phone] Case Mccarty Unavailable Unavailable ALLERGIES Allergen (clinical drug ingredient) Drug/Non Drug Allergy documented on EMR Reaction Allergy Type Onset Date Status Metoprolol Succinate Unknown Drug Allergy Active REASON FOR REFERRAL No Information MEDICATIONS Medication SIG (Take, Route, Fr equency, Duration) Notes Start Date End Date Status Auryxia 1 GM 210 MG(Fe) TAKE 2 TABLET BY MOUTH THREE TIMES A DAY WITH MEALS FOR HYPERPHOSPHATEMIA Oral for 30 Ac tive Carvedilol 25 MG TAKE 1 TABLET BY SREEKANTH TH TWICE A DAY Oral twice a day Active iron Active Doxazosin Mesylate 1 MG TAKE 1 TABLET BY MOUTH EVERY DAY Oral for 30 Active LORazepam 0.5 MG 1 tablet as needed Oral prn Active cloNIDine HCl 0.2 MG TAKE 1 TABLET BY MO UTH THREE TIMES A DAY Oral three x a day Active Vitamin B Complex Ac tive Vitamin D2 84567 1 tablet Orally ONCE A WEEK Active amLODIPine Besylate 10 MG 1 tablet Orally Once a day A ctive hydrALAZINE HCl 100 MG TAKE 1 TABLET BY MOUTH TWICE DAILY Oral for 30 Active Lisinopril 40 MG TAKE 1 TABLET BY SREEKANTH TH ONCE DAILY Oral for 30 Active Isosorbide Mononitrate ER 60 MG TAKE 1 TABLET BY MOUTH EVERY DAY FOR BLOOD PRESSURE Oral for 90 Active NIFEdipine ER 30 MG TAKE 1 TABLET BY SREEKANTH TH EVERY DAY Oral for 30 Active IMMUNIZATIONS Vaccine Route Administration Date Status Comme nts Flu vaccine no Preserv 3 and > Unknown 12/06/2017 Admin istered Influenza Unknown 11/06/2018 Administered Influenza Unknown 07/07/2019 Administered SOCIAL HISTORY Tobacco Use: Social History Observation Description Date Details (start date - stop date) Former Smoker NA - NA Sex Assigned At : Social History Observation Description Sex Assigned At Unknown Tobacco Use/Smoking Question Answer Notes Patient is a former smoker How long has it been since you last smoked? 5-10 years Alcohol Screen Question Answer Notes Did you have a drink containing alcohol in the p ast year? No Points 0 Interpretation Negative PROBLEMS Problem Type ICD Code Onset Dates Problem Status W/U Status Risk SNOMED Code Notes Problem Other ascites (R18.8) Active confirmed 332699735 Problem Hypertension, unspecified type (I10) Active confirmed 45852862 Problem Ascites (R18.8) Active confirmed Ascite s (141012880) PLAN OF TREATMENT Pending Test Test Name Order Date ECHO EXAM OF HEART 01/14/2018 CHEM 7 PROFILE 06/18/2020 CHEM 7 PROFILE 08/15/2018 CHEM 7 PROFILE 03/12/2019 CHEM 7 PROFILE 11/01/2018 CHEM 7 PROFILE 10/07/2018 CHEM 7 PROFILE 07/13/2018 CHEM 7 PROFILE 12/27/2019 CHEM 7 PROFILE 05/05/2019 CHEM 7 PROFILE 05/14/2020 CHEM 7 PROFILE 10/24/2017 CHEM 7 PROFILE 06/04/2019 CHEM 7 PROFILE 09/15/2018 CHEM 7 PROFILE 08/08/2019 CHEM 7 PROFILE 01/23/2020 CHEM 7 PROFILE 06/14/2018 ELECTROLYTES 05/17/2018 BUN 05/17/2018 CREATININE 05/17/2018 LIVER PROFILE 05/17/2018 LIVER PROFILE 01/23/2020 LIVER PROFILE 08/15/2018 LIVER PROFILE 11/01/2018 LIVER PROFILE 10/07/2018 LIVER PROFILE 07/13/2018 LIVER PROFILE 05/05/2019 LIVER PROFILE 10/24/2017 LIVER PROFILE 09/15/2018 TRIGLYCERIDE 09/14/2017 T4 (THYROXINE) 10/24/2017 TSH (THYROID STIMULATING HORMONE) 2017 CBC w DIFF 08/08/2019 CBC w DIFF 06/14/2018 CBC w DIFF 05/17/2018 CBC w DIFF 06/18/2020 CBC w DIFF 01/23/2020 CBC w DIFF 10/24/2017 CBC w DIFF 08/15/2018 CBC w DIFF 12/27/2019 CBC w DIFF 11/01/2018 CBC w DIFF 10/07/2018 CBC w DIFF 05/14/2020 CBC w DIFF 07/13/2018 CBC w DIFF 06/04/2019 CBC w DIFF 05/05/2019 CELL COUNT FLUID 06/04/2019 CELL COUNT FLUID 06/27/2019 CELL COUNT FLUID 01/14/2018 CELL COUNT FLUID 08/08/2019 CELL COUNT FLUID 06/14/2018 CELL COUNT FLUID 05/17/2018 CELL COUNT FLUID 06/18/2020 CELL COUNT FLUID 01/23/2020 CELL COUNT FLUID 10/24/2017 CELL COUNT FLUID 08/15/2018 CELL COUNT FLUID 04/26/2018 CELL COUNT FLUID 12/27/2019 CELL COUNT FLUID 11/01/2018 CELL COUNT FLUID 10/07/2018 CELL COUNT FLUID 05/14/2020 CELL COUNT FLUID 07/13/2018 PROTHROMBIN TIME (PT, INR) 11/01/2018 PROTHROMBIN TIME (PT, INR) 05/05/2019 PROTHROMBIN TIME (PT, INR) 10/07/2018 PROTHROMBIN TIME (PT, INR) 05/14/2020 PROTHROMBIN TIME (PT, INR) 07/13/2018 PROTHROMBIN TIME (PT, INR) 06/04/2019 PROTHROMBIN TIME (PT, INR) 06/14/2018 PROTHROMBIN TIME (PT, INR) 08/08/2019 PROTHROMBIN TIME (PT, INR) 05/17/2018 PROTHROMBIN TIME (PT, INR) 06/18/2020 PROTHROMBIN TIME (PT, INR) 01/23/2020 PROTHROMBIN TIME (PT, INR) 10/24/2017 PROTHROMBIN TIME (PT, INR) 08/15/2018 PROTHROMBIN TIME (PT, INR) 12/27/2019 PARTIAL THROMBOPLASTIN TIME (PTT) 2018 PARTIAL THROMBOPLASTIN TIME (PTT) 2019 PARTIAL THROMBOPLASTIN TIME (PTT) 2018 PARTIAL THROMBOPLASTIN TIME (PTT) 2019 PARTIAL THROMBOPLASTIN TIME (PTT) 2018 PARTIAL THROMBOPLASTIN TIME (PTT) 2020 PARTIAL THROMBOPLASTIN TIME (PTT) 2018 PARTIAL THROMBOPLASTIN TIME (PTT) 2019 PARTIAL THROMBOPLASTIN TIME (PTT) 2018 PARTIAL THROMBOPLASTIN TIME (PTT) 2019 PARTIAL THROMBOPLASTIN TIME (PTT) 2018 PARTIAL THROMBOPLASTIN TIME (PTT) 2019 PARTIAL THROMBOPLASTIN TIME (PTT) 2017 GRAM STAIN 01/23/2020 GRAM STAIN 10/24/2017 GRAM STAIN 08/15/2018 GRAM STAIN 06/27/2019 GRAM STAIN 12/27/2019 GRAM STAIN 11/01/2018 GRAM STAIN 01/14/2018 GRAM STAIN 10/07/2018 GRAM STAIN 05/14/2020 GRAM STAIN 07/13/2018 GRAM STAIN 06/04/2019 GRAM STAIN 06/14/2018 GRAM STAIN 06/18/2020 GRAM STAIN 08/08/2019 GRAM STAIN 04/26/2018 GRAM STAIN 05/17/2018 ROUTINE CULTURE 06/14/2018 ROUTINE CULTURE 06/18/2020 ROUTINE CULTURE 08/08/2019 ROUTINE CULTURE 04/26/2018 ROUTINE CULTURE 05/17/2018 ROUTINE CULTURE 01/23/2020 ROUTINE CULTURE 10/24/2017 ROUTINE CULTURE 08/15/2018 ROUTINE CULTURE 06/27/2019 ROUTINE CULTURE 12/27/2019 ROUTINE CULTURE 11/01/2018 ROUTINE CULTURE 01/14/2018 ROUTINE CULTURE 10/07/2018 ROUTINE CULTURE 07/13/2018 ROUTINE CULTURE 06/04/2019 CYTOLOGY (NON-COMBINE OPERATOR) 05/17/2018 CYTOLOGY (NON-COMBINE OPERATOR) 01/14/2018 US PARACENTESIS GUIDE 12/21/2017 US PARACENTESIS GUIDE 09/15/2018 US PARACENTESIS GUIDE 01/14/2018 US PARACENTESIS GUIDE 06/14/2018 US PARACENTESIS GUIDE 08/08/2019 US PARACENTESIS GUIDE 04/26/2018 US PARACENTESIS GUIDE 04/07/2019 US PARACENTESIS GUIDE 09/14/2017 US PARACENTESIS GUIDE 06/18/2020 US PARACENTESIS GUIDE 01/23/2020 US PARACENTESIS GUIDE 05/05/2019 US PARACENTESIS GUIDE 03/29/2018 US PARACENTESIS GUIDE 08/15/2018 US PARACENTESIS GUIDE 06/27/2019 US PARACENTESIS GUIDE 12/27/2019 US PARACENTESIS GUIDE 05/17/2018 US PARACENTESIS GUIDE 11/01/2018 US PARACENTESIS GUIDE 10/24/2017 US PARACENTESIS GUIDE 10/07/2018 US PARACENTESIS GUIDE 05/14/2020 US PARACENTESIS GUIDE 07/13/2018 US PARACENTESIS GUIDE 12/06/2018 US PARACENTESIS GUIDE 06/04/2019 ALBUMIN, FLUID 10/24/2017 ALBUMIN, FLUID 05/17/2018 ALBUMIN, FLUID 01/14/2018 HCV LIVER FIBROSIS, FIBRO TEST 8 Partial Thromboplastin Time 06/18/2020 Routine Culture w Gram Stain 05/14/2020 Insurance Providers Payer Name Payer Address Payer Phone Subscriber Number Group Number Insured Name Patient Relationship to Insured Coverage Start Date Coverage End Date MEDICARE OF [place] [address] [place] [address] [id number] SOFIA DURBIN Self - patient is the insured MEDICAID OF [facility] [employer] [address] [place] [address] [id number] SOFIA DURBIN Self - patient is the insured MEDICAL (GENERAL) HISTORY Medical History History ICD Code Hypertension CRF--on HD TIW on ,, --Dr. Mccarty Diastolic heart failure Denies MO,DM,CVA,Lung disease Depression Ascites--liver bx 01/2018--n o cirrhosis, some cholestasis and dilated venous sinuses; Ascites neg cytology, SAAG approx 0.8 on 2 occasions; Doppler studies were neg. for portal vein thrombosis. He undergoes a periodic large-volume paracentesis --there has been no sign of spontaneous bacterial peritonitis Surgical History Surgery Date(Month/Year) HD AV fistula in left arm
--- OUTSIDE RECORDS SUMMARY | 2023-04-24 16:06 | XMS_ITS | Continuity of Care Document ---
Author Name Unknown Organization [facility] ter Address [address] [place] [address]- Care Team Providers Care Saddle Mechanic Name Role Phone Kari ALFORD, Syeda Mendoza Primary Care Physician [phone] [id number] Date(s): 04/21/19 - 04/21/[address] [address]- [facility] Attending Physician: Case Mccarty MD Allergies, Adverse [...] hypertensive crisis(Confirmed) 02/03/12 Active Hypertension(Confirmed) 02/03/12 Active 5Iwltwro-Ddsusnbj-Cyszsxdt as of 02/03/2012
--- OUTSIDE RECORDS SUMMARY | 2023-04-24 16:06 | XMS_ITS | Continuity of Care Document ---
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 Discharge Disposition: A-D/C Home Attending Physician: Ramos Majano DO Admitting Physician: Ramos Majano DO Referring Physician: Not on Staff, Referring MD Allergies, Adverse Reactions, Alerts Substance Reaction [...] Date: 08/16/13 Stop Date: 09/15/13 Status: Ordered erythromycin 0.5% ophthalmic ointment 0.5 inches, Eye, Left, Daily at bedtime, for 10 days, # 3.5 Gm, 0 Refills, Acute 08/14/19 16:27:00 EDT, 08/04/19 16:27:00 EDT, Ophth Ointment, [facility]/pharmacy #[id number], 0.5 inches Eye, Left Daily at bedtime,x10 days Start Date: 08/04/19 Stop Date: 08/14/19 Status: Ordered hydralazine 25 mg oral tablet [...] Date: 08/16/13 Stop Date: 09/15/13 Status: Ordered Valtrex 500 mg oral tablet 500 mg, 1, tablet, By Mouth, Daily, for 10 days, take the dose AFTER dialysis on Wednesday, Wednesday,and Wednesday, # 10 tablet, Refills 0, Tot. Refills 0, Acute 08/14/19 16:26:00 EDT, 08/04/19 16:26:00 EDT, Route to Pharmacy Electronically, [facility]/pharmacy... Start Date: 08/04/19 Stop Date: 08/14/19 Status: Ordered Problem List Condition Effective Dates Status Health Status Inform ant CKD (chronic kidney disease) requiring chronic dialysis(Confirmed) 1 Active History of acute congestive heart failure(Confirmed) 02/03/12 Active History of hypertensive crisis(Confirmed) 02/03/12 Active Hypertension(Confirmed) 02/03/12 Active 7Qwjprgg-Lskpixqz-Iqjmebyq as of 02/03/2012 Vital Signs Most recent to oldest [Reference Range]: 1 2 3 Oxygen Saturation [94-100 %] 99 % (08/04/19 5:11 PM) 100 % (08/04/19 3:21 PM) 100 % (08/04/19 2:23 PM) Pulse Rate [55-90 bpm] 87 bpm (08/04/19 5:11 PM) 80 bpm (08/04/19 3:21 PM) 83 bpm (08/04/19 2:23 PM) Blood Pressure [90-138/55-84 mm Hg] 204/113mm Hg *H* (08/04/19 5:11 PM) 232/114mm Hg *H* (08/04/19 3:21 PM) 229/111mm Hg *H* (08/04/19 2:23 PM) Respiratory Rate [16-30 br/min] 16 br/min (08/04/19 5:11 PM) 14 br/min *L* (08/04/19 3:21 PM) 15 br/min *L* (08/04/19 2:23 PM) Temperature [96.8-100.4 DegF] 98.1 DegF (08/04/19 2:23 PM) Mode of Delivery (Oxygen) Room air (08/04/19 5:11 PM) Room air (08/04/19 3:21 PM) Room air (08/04/19 2:23 PM) Blood pressure sites Arm, right (08/04/19 3:21 PM) Arm, right (08/04/19 2:23 PM) Temperature Route Oral (08/04/19 2:23 PM)
--- OUTSIDE RECORDS SUMMARY | 2023-04-24 16:06 | XMS_ITS | Continuity of Care Document ---
Author Name Unknown Organization [facility] Address [address] [facility], [address] Floor, [address] [place] [address]- Care Team Providers Care Wound Care Coordinator Name Role Phone Kari ALFORD, Syeda Mendoza Primary Care Physician [place] [facility] [place] [facility] [address], [address], [address] [place] [address]- [facility] Attending Physician: Santos ALFORD, Len Allergies, Adverse Reactions, Alerts Substance Reaction Severity [...] 16:27:00 EDT, 08/04/19 16:27:00 EDT, Ophth Ointment, [facility]/pharmacy #[id number], 0.5 inches Eye, Left Daily at [...] 08/04/19 16:26:00 EDT, Route to Pharmacy Electronically, [facility]/pharmacy... Start Date: 08/04/19 Stop Date: 08/14/19 Status: Ordered Problem List Condition Effective Dates Status Health Status Inform ant CKD (chronic kidney disease) requiring chronic dialysis(Confirmed) 1 Active History of acute congestive heart failure(Confirmed) 02/03/12 Active History of hypertensive crisis(Confirmed) 02/03/12 Active Hypertension(Confirmed) 02/03/12 Active 1Lppmpie-Zhxkpebw-Iknuhgxc as of 02/03/2012
--- OUTSIDE RECORDS SUMMARY | 2023-04-24 16:06 | XMS_ITS | Continuity of Care Document ---
Author Name Unknown Organization [facility] ter Address [address] [place] [address]- Care Team Providers Care Underwriting Account Representative Name Role Phone Syeda Pierce MD Primary Care Physician [phone] En[place] [facility] [facility] Date(s): 08/12/19 - 08/15/[address] [address]- [facility] Encounter Diagnosis Pleural effusion, left(Final) - 08/13/19 Discharge Disposition: A-D/C AMA Attending Physician: Steve Soler MD Admitting Physician: Fredi Gonzales Referring Physician: Not on Staff, Referring MD [...] hypertensive crisis(Confirmed) 02/03/12 Active Hypertension(Confirmed) 02/03/12 Active 8Utelalp-Fqvtenfo-Axqhezhk as of 02/03/2012 Results Radiology Reports * Exam Date Time Procedure Performing Provider Status 08/14/19 10:36 PM Chest Portable Phuong Ferrell; Auth ( Verified) Notes: (Chest Portable) Reason For Exam: CHF RESULT: Chest Portable Chest Portable AP upright at 2150 hours Refer to EMR; Reason: CHF; Clinical Question(s): Follow-Up Abnormal Exam; Hx of Present Illness: PTreporting SOB today, dialysis pt, last dialysis yesterday, generalized weakness, denies n v d, denies fever COMPARISON: 08/12/2019 FINDINGS: LINES AND TUBES: None. LUNGS AND PLEURA: Minimal haziness in the medial right lower lung, increased since prior exam. Unchanged multifocal regions of consolidation throughout much of the left lung. No pneumothorax. HEART, MEDIASTINUM AND WYATT: Unchanged leftward mediastinal shift. Normal mediastinal and hilar contour. BONES AND SOFT TISSUES: No acute abnormality. IMPRESSION: 1. New mild haziness in the medial right lung base, which is nonspecific, but could be seen with mild pulmonary congestion. 2. No significant change in left lung aeration. WSN: [id number] Ordering Physician: Eric Dominguez Dictated By: Scott Smiley DO Dictated Date/Time: 08/14/19 11:58 p Reviewed By: Scott Smiley DO Signed By: Scott Smiley DO Signed Date/Time: 08/14/19 11:58 pm Transcribed By: ELIAN Transcribed Date/Time: 08/14/19 11:57 pm * Exam Date Time Procedure Performing Provider Status 08/12/19 10:55 PM Chest Portable Alanlha , Anna; Auth (V erified) Notes: (Chest Portable) Reason For Exam: Shortness of Breath RESULT: Chest Portable Chest Portable Reason: Shortness of Breath; Clinical Question(s): CHF; Hx of Present Illness: PT reporting SOB today, dialysis pt, last dialysis yesterday, generalized weakness, denies n v d, denies fever.; COMPARISON: 08/15/2013 FINDINGS: LINES AND TUBES: None. LUNGS AND PLEURA: Significantly decreased aeration of the left lung with near complete opacification. Suspected moderate to large left pleural effusion with dense consolidation. Right lung is grossly clear apart from prominent interstitial markings. HEART, MEDIASTINUM AND WYATT: Mediastinal shift to the left. BONES AND SOFT TISSUES: No acute abnormality. IMPRESSION: Marked hypoaeration of the left lung likely related to moderate to large pleural effusion, consolidation and likely partial collapse. A [place] message has been communicated via the [employer] system on 08/12/2019 11:03 PM, Message ID [id number]. WSN: [id number] Ordering Physician: Samy Kaur Dictated By: Andrea Preciado MD Dictated Date/Time: 08/12/19 11:03 p Reviewed By: Andrea Preciado MD Signed By: Andrea Preciado MD Signed Date/Time: 08/12/19 11:03 pm Transcribed By: ELIAN Transcribed Date/Time: 08/12/19 11:00 pm Vital Signs Most recent to oldest [Reference Range]: 1 2 3 4 Height 170.2 cm (08/14/19 10:32 AM) 170.2 cm (08/14/19 10:11 AM) 170.2 cm (08/14/19 9:52 AM) Weight 58.95 kg (08/14/19 6:09 AM) 58.8 kg (08/13/19 5:40 PM) Oxygen Saturation [94-100 %] 97 % (08/15/19 5:00 PM) 98 % (08/15/19 11:00 AM) 100 % (08/15/19 6:00 AM) Pulse Rate [55-90 bpm] 99 bpm *H* (08/15/19 5:00 PM) 98 bpm *H* (08/15/19 12:04 PM) 104 bpm *H* (08/15/19 11:00 AM) Body Mass Index [18.5-24.99] 20.3 (08/13/19 5:40 PM) Blood Pressure [90-138/55-84 mm Hg] 209/112mm Hg *H* (08/15/19 5:00 PM) 210/107mm Hg *H* (08/15/19 4:35 PM) 192/103mm Hg *H* (08/15/19 12:04 PM) 192/103mm Hg *H* (08/15/19 12:04 PM) Respiratory Rate [16-30 br/min] 21 br/min (08/15/19 5:00 PM) 24 br/min (08/15/19 11:00 AM) 20 br/min (08/15/19 6:00 AM) Temperature [96.8-100.4 DegF] 97.9 DegF (08/15/19 5:00 PM) 98.0 DegF (08/15/19 11:00 AM) 97.8 DegF (08/15/19 6:00 AM) Liters per Minute 0 L/min (08/13/19 10:15 AM) Mode of Delivery (Oxygen) Room air (08/15/19 5:00 PM) Room air (08/15/19 11:00 AM) Room air (08/15/19 6:00 AM) Blood pressure sites Arm, right (08/15/19 5:00 PM) Arm, right (08/15/19 11:00 AM) Arm, right (08/15/19 6:00 AM) Temperature Route Oral (08/15/19 5:00 PM) Oral (08/15/19 11:00 AM) Oral (08/15/19 6:00 AM) Dry Weight 58 kg (08/13/19 5:40 PM) Weight Obtained Via Standing scale (08/14/19 6:09 AM) Standing scale (08/13/19 5:40 PM)
--- OUTSIDE RECORDS SUMMARY | 2023-04-24 16:06 | XMS_ITS | Continuity of Care Document ---
Author Name Unknown Organization [facility] ter Address [address] [place] [address]- Care Team Providers Care Leather Sponger Name Role Phone Kari ALFORD, Syeda Mendoza Primary Care Physician Encounter [facility] [place] Date(s): 02/26/19 - 02/26/[address] [address]- [facility] Attending Physician: Case Mccarty MD Allergies, Adverse [...] hypertensive crisis(Confirmed) 02/03/12 Active Hypertension(Confirmed) 02/03/12 Active 4Bpswnvb-Kktnautk-Yeszaiqo as of 02/03/2012
[2023-04-24 16:11] LABS: Magnesium 2.1 mg/dL (1.6-2.6)
[2023-04-24 16:20] LABS: B Type Natriuretic Peptide 2911 pg/mL (<100)
[2023-04-24 16:46] LABS: Venous Blood Gas Refer to POC result
[2023-04-24 16:47] LABS: VBG Base Excess 10.4 mmol/L; VBG HCO3 31 mmol/L (22-26); VBG pCO2 28 mmHg; VBG pH 7.64 (7.32-7.43); VBG pO2 69 mmHg
[2023-04-24] MEDS: Oseltamivir Phosphate 75 MG CAPSULE PO (17:05)
[2023-04-24] MEDS: Acetaminophen 325 MG TABLET 650 MG PO (17:05)
[2023-04-24] MEDS: 0.9 % Sodium Chloride 500 ML IV (17:06)
[2023-04-24 17:12] LABS: Reflex Lactate? Lactic Acid Added
[2023-04-24 17:53] VITALS: BP 167/92; PULSE 84; RESP 23; TEMP 38.8; O2SAT 97
--- NOTE | 2023-04-24 17:56 | MHC.EDTECH ---
PATIENT 2ND TROP AND 2ND LACTIC ACID DRAWN AND SENT TO LAB ,PATIENT VITALS TAKEN RN ELENA AND PROVIDER GARCÍA IS AWARE OF PATIENT HIGH TEMP ,PATIENT BELONGING LIST DONE .
[2023-04-24 18:22] LABS: ~Lactic Acid-LAB USE ONLY 2.1 mmol/L (0.5-2.0)
--- NOTE | 2023-04-24 18:33 | PC.NURSE ---
coming in after completing dialysis for flu like symptoms, found to be 67% on room air, placed on 4L nasal cannula 97%. patient denied any shortness of breath was stating his primary complaint was flu like symptoms and generalized body aches. IV established, labs obtained and sent. attempted to lower patient's oxygen 2L and began to desat 90%. patient eating in room, requesting turkey sandwich.
[2023-04-24 18:39] LABS: Troponin-I High Sensitivity 401.2 ng/L (<3.5-35.0)
--- NOTE | 2023-04-24 18:43 | ECG_ITS ---
Test Reason : HIGH TROP Blood Pressure : / mmHG Vent. Rate : 080 BPM Atrial Rate : 080 BPM P-R Int : 176 ms QRS Dur : 096 ms QT Int : 394 ms P-R-T Axes : 039 055 101 degrees QTc Int : 454 ms Normal sinus rhythm Possible Left atrial enlargement Minimal voltage criteria for LVH, may be normal variant ( Freeborn product ) Nonspecific T wave abnormality Abnormal ECG When compared with ECG of 24-APR-2023 15:53, No significant change was found Referred By: Nic Linn Electronically Signed By:Blayne Black
--- NOTE | 2023-04-24 18:47 | ED.GENADULT ---
HPI - General Adult General Chief complaint: Dyspnea Stated complaint: FLU LIKE SYMPTOMS SOB Time Seen by Provider: 04/24/23 16:04 Source: patient, RN notes reviewed and old records reviewed Mode of arrival: EMS Limitations: no limitations History of Present Illness HPI narrative: 48-year-old male with past medical history significant for hypertension, end-stage renal disease on dialysis Wednesday, , Wednesday, congestive heart failure presents for evaluation of flu-like symptoms Patient reports his symptoms started yesterday. He has had increasing shortness of breath, weakness, body aches He had his full dialysis treatment today and then felt unwell prompting him to come to the hospital EMS reported the patient's oxygen saturation was 63% on room air Nursing found the patient be 67% on room air when switching him over immediately on arrival The patient has been on 4 L via nasal cannula prior to my arrival and he is 100% on 4 L. He denies any shortness of breath at this time Related Data Home Medications Medication Instructions Recorded Confirmed carvedilol 25 mg tablet 25 mg PO BID 12/11/19 06/21/20 ferric citrate 210 mg iron tablet 210 mg PO DAILY 12/11/19 06/21/20 (Auryxia) lorazepam 0.5 mg tablet 0.5 mg PO DAILY PRN Anxiety 12/11/19 06/21/20 clonidine HCl 0.2 mg tablet 0.2 mg PO BID 06/20/20 06/21/20 nifedipine 60 mg tablet,extended 120 mg PO QAM 06/20/20 06/21/20 release vitamin B complex-vitamin C-folic 1 tab PO DAILY 06/20/20 06/21/20 acid 0.8 mg tablet (Nephro-Vivi) Previous Rx's Medication Instructions Recorded lisinopril 40 mg tablet 40 mg PO DAILY #30 tabs 01/10/20 doxazosin 2 mg tablet 2 mg PO DAILY #30 tabs 06/24/20 hydralazine 50 mg tablet 100 mg PO TID #90 tabs 06/24/20 isosorbide mononitrate 60 mg 60 mg PO DAILY #30 tabs 06/24/20 tablet,extended release 24 hr omeprazole 20 mg capsule,delayed 20 mg PO DAILY #14 caps 08/14/20 release Allergies Allergy/AdvReac Type Severity Reaction Status Date / Time No Known Allergies Allergy Verified 05/21/20 07:36 Review of Systems Constitutional: Constitutional: Reports body ache(s), Reports chills, Denies fatigue, Reports fever(s), Reports malaise and Reports weakness Cardiovascular: Cardiovascular: Denies chest pain and Reports dyspnea Respiratory: Respiratory: Reports cough and Reports dyspnea Gastrointestinal: Gastrointestinal: Denies abdominal pain, Denies nausea and Denies vomiting Musculoskeletal: Musculoskeletal: Denies back pain Integumentary/Breasts: Skin/Breast: Denies rash Neurologic: Reports weakness Endocrine: Endocrine: Denies fatigue PMFSH Past Medical History Medical History Anemia ESRD (end stage renal disease) End stage chronic kidney disease Dialysis patient Disease of pericardium, unspecified Pulmonary hypertension associated with end stage renal disease on dialysis Hypertensive cardiovascular disease Fistula Hypertension CHF (congestive heart failure) Kidney disease Family History Family History Other HTN (hypertension) Social History Social History Household Members: None Household Members Other:: lives with girlfriend Housing: House Do you presently have visiting nurse or other home services: No Alcohol intake: unknown Comment: blood pressure still 220/120 Second Hand Smoke Exposure: No Advance Directives: Yes Advance Directives on File: Yes Advance Directives Date on File: 01/08/20 service: No Current occupational status: unemployed Physical Exam ED Vital Signs: Vital Signs - 24 hr 04/24/23 15:08 04/24/23 15:35 04/24/23 17:53 Temperature 98.3 F 99.5 F 101.9 F H Pulse Rate 86 81 84 Respiratory Rate 24 H 20 23 H Blood Pressure 179/87 H 158/78 H 167/92 H Pulse Oximetry 67 L 100 97 Oxygen Delivery Method Room Air Nasal Cannula Nasal Cannula Oxygen Flow Rate 4 3 04/24/23 19:36 Temperature 99.1 F Pulse Rate 89 Respiratory Rate 20 Blood Pressure 159/95 H Pulse Oximetry 97 Oxygen Delivery Method Nasal Cannula Oxygen Flow Rate 3 BMI result Body Mass Index 17.0 Const General: comfortable, no acute distress, alert and awake Nutritional Appearance: well nourished Orientation/consciousness: patient oriented x3 HENMT Head: Yes normocephalic and Yes atraumatic Eyes Eyelids: Yes eyelids normal Conjunctivae: conjunctivae normal Sclerae: sclerae normal Corneas: corneas normal Pupils: Equal, round and reactive pupils present EOM: EOMs intact bilaterally Neck Neck: Yes full ROM Resp Effort & Inspection: normal respiratory effort, able to speak in complete sentences, no audible wheezes and not labored Auscultation: clear to auscultation bilaterally GI Inspection: No distended Palpation (GI): Soft to palpation, not firm, nontender, no guarding and not rigid Skin General skin exam: no rashes or lesions noted Neuro General: patient oriented x3 Cranial nerves: Yes Equal, round and reactive pupils present and Yes Bilaterally intact EOM present Cognition (Neuro): normal cognition Extrem Other: Moving all extremities well without any obvious deformities Course Reevaluation(s) Reevaluation #1: Patient's repeat lactic acid improved to 2.1 after receiving 500 cc of IV fluids. The patient is a dialysis patient so we will start slowly with fluid and increase if necessary. Patient's repeat troponin was elevated to 401.2. The patient continues to deny chest pain, will repeat an EKG to assess for ischemia however ACS is less likely the absence of chest pain. Concern for PE, given the patient has already a dialysis patient we can proceed with CT angiography. This will get a better look at the pleural effusion, potential pneumonia and rule out PE Time: 19:28 Reevaluation #2: Patient's repeat EKG unchanged from earlier today in the patient continues have no chest pain. Time: 19:39 Reevaluation #3: Discussed with Dr. Fisher, nephrology who reports we can go ahead and inject for angiography of the chest without any issues, dialysis should remain on Wednesday Time: 20:09 Medications Administered Discontinued Medications Generic Name Dose Route Start Last Admin Trade Name Freq PRN Reason Stop Dose Admin Acetaminophen 650 mg 04/24/23 16:23 04/24/23 17:05 Acetaminophen 325 Mg Tablet PO 04/24/23 16:24 650 mg ONCE ONE Administration Sodium Chloride 500 mls @ 500 mls/hr 04/24/23 16:30 04/24/23 19:45 Ns IV 04/24/23 17:29 Infused .Q1H LAYLA Infusion Azithromycin 500 mg/ Sodium 250 mls @ 125 mls/hr 04/24/23 19:12 04/24/23 20:44 Chloride IV 04/24/23 21:11 125 mls/hr ONCE ONE Administration Ceftriaxone Sodium 1 gm/ 50 mls @ 100 mls/hr 04/24/23 19:14 04/24/23 20:16 Sodium Chloride IV 04/24/23 19:43 Infused ONCE ONE Infusion Iohexol 65 ml 04/24/23 20:16 04/24/23 20:22 Iohexol 350 Mg/Ml 100 Ml Infus..Btl IV 04/24/23 20:17 65 ml ONCE ONE Administration Oseltamivir Phosphate 75 mg 04/24/23 16:23 04/24/23 17:05 Oseltamivir Phosphate 75 Mg Capsule PO 04/24/23 16:24 75 mg ONCE ONE Administration Medical Decision Making Medical Decision Making MDM Narrative: 48-year-old male presents for evaluation of flu-like symptoms since yesterday. He did test positive for influenza A. However the patient was quite hypoxic for EMS and on arrival to the ED as 67%. He is comfortable on 3 L that a decreased into after my evaluation. His oxygen saturation maintaining between 94-98% on 3 L. when I dropped down to 2 L to see how he would do, he dropped to 90% fairly quickly. The patient's chest x-ray shows a stable loculated right-sided pleural effusion and questionable interstitial edema versus atypical or viral pneumonia. The patient has no leukocytosis, he has a chronic anemia with a hemoglobin 11.1 and 32.7 is actually a little improved compared to his baseline. This may be related to some degree of dehydration patient's electrolyte abnormalities include a chloride 95, anion gap of 22, BUN of 25, creatinine of 4.8 which is consistent with his known renal failure. His lactic acidosis to 3.3, total bilirubin of 1.1 a troponin of 239.8. Unclear etiology of the elevated troponin. The patient's BNP is elevated to 2911 which is consistent with her known renal failure and heart failure. Differential Diagnosis Differential Diagnoses: The differential diagnosis associated with the presentation includes Influenza Pneumonia Fluid overload CHF PE Admission/Observation Consideration of admission/observation: Escalation of care including admission/observation considered Consult Healthcare Provider Management of the patient was discussed with: [employer] Representative (Discussed with Cardiology, Dr. Black who feels this is not ACS and to treat the patient for the flu. No heparin at this time) Lab Data MDM Lab Attestation statement: I reviewed the patient's lab results. See above 04/24/23 15:07 04/24/23 15:07 Labs: Lab Results 04/24/23 04/24/23 04/24/23 Range/Units 15:02 15:03 15:07 WBC 5.1 (4.8-10.8) X10*3/uL RBC 3.37 L (4.60-5.80) X10*6/uL Hgb 11.1 L (14.0-18.0) g/dl Hct 32.7 L (42.0-52.0) % MCV 97.0 (80.0-98.0) fL MCH 32.9 (27.0-33.0) pg MCHC 33.9 (31.0-36.0) g/dl RDW 15.8 (11.0-16.0) % Plt Count 89 L (160-400) X10*3/uL MPV 10.5 (9.4-12.4) fL Immature Gran % (Auto) 1.6 H (0.0-0.4) % Neut % (Auto) 76.8 H (45-73) % Lymph % (Auto) 7.9 L (20-40) % [place] % (Auto) 12.3 H (2-11) % Eos % (Auto) 0.4 (0-4) % Baso % (Auto) 1.0 (0-2) % Lymph # (Auto) 0.4 L (1.2-4.9) X10*3/uL [place] # (Auto) 0.6 (0.1-1.2) X10*3/uL Eos # (Auto) 0.0 (0.0-0.4) X10*3/uL Baso # (Auto) 0.1 (0.0-0.2) X10*3/uL Abs Immat Gran (auto) 0.08 H (0.00-0.03) X10*3/uL Absolute Neuts (auto) 3.9 (2.0-8.3) x10*3/uL Absolute Nucleated RBC 0.000 (0.0-0.012) X10*3/uL Nucleated RBC % (auto) 0.0 (0.0-0.2) /100WBC Smear Tech's Comments VERIFIED PT (11.1-13.3) SEC INR (0.9-1.1) APTT (26.0-36.8) SEC VBG pH (7.32-7.43) VBG pCO2 mmHg VBG pO2 mmHg VBG HCO3 (22-26) mmol/L VBG O2 Saturation % VBG Base Excess mmol/L Sodium 139 (135-145) mmol/L Potassium 3.9 (3.3-5.1) mmol/L Chloride 95 L (96-108) mmol/L Carbon Dioxide 26 (22-29) mmol/L Anion Gap 22 H (12-20) BUN 25 H (9-16) mg/dL Creatinine 4.80 H* (0.5-1.4) mg/dL Estim Creat Clear Calc 13.2 Estimated GFR 13 Random Glucose 87 (60-115) mg/dL Lactic Acid 3.3 H* (0.5-2.0) mmol/L Lactic Acid F/U @ 2Hr (0.5-2.0) mmol/L Lactic Acid F/U @ 4Hr (0.5-2.0) mmol/L Calcium 9.5 D (8.4-10.2) mg/dL Magnesium 2.1 (1.6-2.6) mg/dL Total Bilirubin 1.1 H (0.0-1.0) mg/dL AST 20 (5-37) U/L ALT 15 (0-40) U/L Alkaline Phosphatase 91 (39-117) U/L Total Creatine Kinase (38-174) U/L Troponin I High Sens 239.8 H* (<3.5-35.0) ng/L B-Natriuretic Peptide 2911 H (<100) pg/mL Total Protein 8.2 H (6.5-8.0) g/dL Albumin 4.2 (3.5-5.0) g/dL COVID-19 ([facility]) Negative (Negative) COVID-19 Clin Com See Note Influenza Type A ([facility]OHN) Positive A (Negative) Influenza Type B (JOHN) Negative (Negative) Influenza A & B Note See Note 04/24/23 04/24/23 04/24/23 Range/Units 16:36 16:39 17:51 WBC (4.8-10.8) X10*3/uL RBC (4.60-5.80) X10*6/uL Hgb (14.0-18.0) g/dl Hct (42.0-52.0) % MCV (80.0-98.0) fL MCH (27.0-33.0) pg MCHC (31.0-36.0) g/dl RDW (11.0-16.0) % Plt Count (160-400) X10*3/uL MPV (9.4-12.4) fL Immature Gran % (Auto) (0.0-0.4) % Neut % (Auto) (45-73) % Lymph % (Auto) (20-40) % [place] % (Auto) (2-11) % Eos % (Auto) (0-4) % Baso % (Auto) (0-2) % Lymph # (Auto) (1.2-4.9) X10*3/uL [place] # (Auto) (0.1-1.2) X10*3/uL Eos # (Auto) (0.0-0.4) X10*3/uL Baso # (Auto) (0.0-0.2) X10*3/uL Abs Immat Gran (auto) (0.00-0.03) X10*3/uL Absolute Neuts (auto) (2.0-8.3) x10*3/uL Absolute Nucleated RBC (0.0-0.012) X10*3/uL Nucleated RBC % (auto) (0.0-0.2) /100WBC Smear Tech's Comments PT (11.1-13.3) SEC INR (0.9-1.1) APTT (26.0-36.8) SEC VBG pH 7.64 H* (7.32-7.43) VBG pCO2 28 mmHg VBG pO2 69 mmHg VBG HCO3 31 H (22-26) mmol/L VBG O2 Saturation 94.0 % VBG Base Excess 10.4 mmol/L Sodium (135-145) mmol/L Potassium (3.3-5.1) mmol/L Chloride (96-108) mmol/L Carbon Dioxide (22-29) mmol/L Anion Gap (12-20) BUN (9-16) mg/dL Creatinine (0.5-1.4) mg/dL Estim Creat Clear Calc Estimated GFR Random Glucose (60-115) mg/dL Lactic Acid (0.5-2.0) mmol/L Lactic Acid F/U @ 2Hr 2.1 H* (0.5-2.0) mmol/L Lactic Acid F/U @ 4Hr (0.5-2.0) mmol/L Calcium (8.4-10.2) mg/dL Magnesium (1.6-2.6) mg/dL Total Bilirubin (0.0-1.0) mg/dL AST (5-37) U/L ALT (0-40) U/L Alkaline Phosphatase (39-117) U/L Total Creatine Kinase 81 (38-174) U/L Troponin I High Sens 401.2 H* D (<3.5-35.0) ng/L B-Natriuretic Peptide (<100) pg/mL Total Protein (6.5-8.0) g/dL Albumin (3.5-5.0) g/dL COVID-19 ([facility]) (Negative) COVID-19 Clin Com Influenza Type A ([facility]OHN) (Negative) Influenza Type B (JOHN) (Negative) Influenza A & B Note 04/24/23 Range/Units 20:27 WBC (4.8-10.8) X10*3/uL RBC (4.60-5.80) X10*6/uL Hgb (14.0-18.0) g/dl Hct (42.0-52.0) % MCV (80.0-98.0) fL MCH (27.0-33.0) pg MCHC (31.0-36.0) g/dl RDW (11.0-16.0) % Plt Count (160-400) X10*3/uL MPV (9.4-12.4) fL Immature Gran % (Auto) (0.0-0.4) % Neut % (Auto) (45-73) % Lymph % (Auto) (20-40) % [place] % (Auto) (2-11) % Eos % (Auto) (0-4) % Baso % (Auto) (0-2) % Lymph # (Auto) (1.2-4.9) X10*3/uL [place] # (Auto) (0.1-1.2) X10*3/uL Eos # (Auto) (0.0-0.4) X10*3/uL Baso # (Auto) (0.0-0.2) X10*3/uL Abs Immat Gran (auto) (0.00-0.03) X10*3/uL Absolute Neuts (auto) (2.0-8.3) x10*3/uL Absolute Nucleated RBC (0.0-0.012) X10*3/uL Nucleated RBC % (auto) (0.0-0.2) /100WBC Smear Tech's Comments PT 15.3 H (11.1-13.3) SEC INR 1.3 H (0.9-1.1) APTT 35.2 (26.0-36.8) SEC VBG pH (7.32-7.43) VBG pCO2 mmHg VBG pO2 mmHg VBG HCO3 (22-26) mmol/L VBG O2 Saturation % VBG Base Excess mmol/L Sodium (135-145) mmol/L Potassium (3.3-5.1) mmol/L Chloride (96-108) mmol/L Carbon Dioxide (22-29) mmol/L Anion Gap (12-20) BUN (9-16) mg/dL Creatinine (0.5-1.4) mg/dL Estim Creat Clear Calc Estimated GFR Random Glucose (60-115) mg/dL Lactic Acid (0.5-2.0) mmol/L Lactic Acid F/U @ 2Hr (0.5-2.0) mmol/L Lactic Acid F/U @ 4Hr 1.5 (0.5-2.0) mmol/L Calcium (8.4-10.2) mg/dL Magnesium (1.6-2.6) mg/dL Total Bilirubin (0.0-1.0) mg/dL AST (5-37) U/L ALT (0-40) U/L Alkaline Phosphatase (39-117) U/L Total Creatine Kinase (38-174) U/L Troponin I High Sens (<3.5-35.0) ng/L B-Natriuretic Peptide (<100) pg/mL Total Protein (6.5-8.0) g/dL Albumin (3.5-5.0) g/dL COVID-19 ([facility]) (Negative) COVID-19 Clin Com Influenza Type A (JOHN) (Negative) Influenza Type B (JOHN) (Negative) Influenza A & B Note Independent Interpretation I performed an independent interpretation of an: EKG (Normal sinus rhythm with a rate of [address] beats minute. No significant ST segment changes when compared to previous. Repeat EKG consistent with previous earlier today) and Plain X-Ray (Enlarged cardiac silhouette, no dense consolidation) Radiology Impression Discussion of test interpretation with radiology: I have reviewed the radiologist's reading. Radiologist Impression: VTE steady negative for chest CT and duplex venous ultrasound External Record Review External record reviewed: Inpatient record, Office record, Outpatient record and Prior outpatient labs Prescription Management I considered prescription management with: Antiviral and Antibiotic Chronic Conditions Patient?s care impacted by: Hypertension and Other (End-stage renal disease on dialysis) Discharge Plan Discharge Clinical Impression: Influenza A, End stage renal disease on dialysis, Hypoxia Patient Disposition: Admitted As Inpatient
[2023-04-24 19:36] VITALS: BP 159/95; PULSE 89; RESP 20; TEMP 37.3; O2SAT 97
--- NOTE | 2023-04-24 19:38 | MHC.EDTECH ---
Patient repeated ekg taken ,and was read by Provider ,vitals done ,patient was set up with turkey dinner .
[2023-04-24] MEDS: cefTRIAXone sodium 1 GM in 0.9 % Sodium Chloride 50 ML IV (19:44)
[2023-04-24 19:54] LABS: Reflex Lactate? 2 Y
--- NOTE | 2023-04-24 19:58 | PC.NURSE ---
Repeat EKG complete. Pt ate 25% of tray given ceftriaxone and going to CT at this time.
--- NOTE | 2023-04-24 20:00 | MHC.EDTECH ---
Patient ate 100 % OF DINNER ,DRANK 360 ML FLUIDS
[2023-04-24] MEDS: iohexoL 350 MG/ML 100 ML INFUS..BTL 65 ML IV (20:22)
--- NOTE | 2023-04-24 20:28 | MHC.EDTECH ---
PATIENT PT INR /PTT AND 3RD LACTIC ACID DRAWN AND SENT TO LAB .
[2023-04-24] MEDS: Azithromycin 500 MG in 0.9 % Sodium Chloride 250 ML 125 MG IV (20:44)
[2023-04-24 20:51] LABS: ~Lactic Acid-LAB USE ONLY 1.5 mmol/L (0.5-2.0)
[2023-04-24 20:55] LABS: INTERNATIONAL NORM RATIO 1.3 (0.9-1.1); Prothrombin Time 15.3 SEC (11.1-13.3)
[2023-04-24 20:57] LABS: Partial Thromboplastin Time 35.2 SEC (26.0-36.8)
--- NOTE | 2023-04-24 21:30 | PM.IMHP ---
History of Present Illness Date of Service: 04/24/23 Chief Complaint: Chills This is a 48-year-old male with pertinent history of congestive heart failure with preserved ejection fraction, essential hypertension, ESRD on hemodialysis D/T/S, mood disorder, gastroesophageal reflux disease who presents to the emergency department for evaluation of chills. Patient states he started having chills 1 day prior to presentation. It continued during his dialysis session on the day of presentation. Patient states he was not feeling well after dialysis and told EMS to get him to the hospital for further evaluation. No sick contacts. Patient states he also has been having dyspnea. No orthopnea or PND. No leg swelling. Patient had mild nonproductive cough which has resolved. No chest discomfort, palpitations, abdominal pain, changes in urinary or bowel habits. In the emergency department, patient was found to be hypoxemic and placed on supplemental oxygen. Test positive for influenza A. Review of Systems Constitutional: Constitutional: Reports fatigue, Reports lethargy, Reports malaise, Reports poor appetite and Reports weakness Cardiovascular: Cardiovascular: Reports no additional cardiovascular complaints and Reports dyspnea Respiratory: Respiratory: Reports dyspnea Gastrointestinal: Gastrointestinal: Reports no additional gastrointestinal complaints Genitourinary: Genitourinary: Reports no additional male genitourinary complaints Neurologic: Reports weakness Endocrine: Endocrine: Reports fatigue [facility] Medical History Anemia ESRD (end stage renal disease) End stage chronic kidney disease Dialysis patient Disease of pericardium, unspecified Pulmonary hypertension associated with end stage renal disease on dialysis Hypertensive cardiovascular disease Fistula Hypertension CHF (congestive heart failure) Kidney disease Family History Other HTN (hypertension) Social History Household Members: None Household Members Other:: lives with girlfriend Housing: House Do you presently have visiting nurse or other home services: No Alcohol intake: unknown Comment: blood pressure still 220/120 Second Hand Smoke Exposure: No Advance Directives: Yes Advance Directives on File: Yes Advance Directives Date on File: 01/08/20 service: No Current occupational status: unemployed Meds Allergies Allergy/AdvReac Type Severity Reaction Status Date / Time No Known Allergies Allergy Verified 05/21/20 07:36 Active Medications: Current Medications Oseltamivir Phosphate (Oseltamivir Phosphate 30 Mg Capsule) 30 mg PO Q24H LAYLA Stop: 04/29/23 09:01 Home Medications Medication Instructions Recorded Confirmed Last Taken Type carvedilol 25 mg tablet 25 mg PO BID 12/11/19 06/21/20 06/20/20 15:00 History ferric citrate 210 mg iron tablet 210 mg PO DAILY 12/11/19 06/21/20 06/14/20 History (Auryxia) lorazepam 0.5 mg tablet 0.5 mg PO DAILY PRN Anxiety 12/11/19 06/21/20 06/19/20 21:00 History clonidine HCl 0.2 mg tablet 0.2 mg PO BID 06/20/20 06/21/20 06/20/20 08:00 History nifedipine 60 mg tablet,extended 120 mg PO QAM 06/20/20 06/21/20 06/19/20 08:00 History release vitamin B complex-vitamin C-folic 1 tab PO DAILY 06/20/20 06/21/20 06/20/20 08:00 History acid 0.8 mg tablet (Nephro-Vivi) Physical Exam Vital Signs and Narrative: Vital Signs: Last Vital Signs Temp 99.1 F 04/24/23 19:36 Pulse 89 04/24/23 19:36 Resp 20 04/24/23 19:36 BP 159/95 H 04/24/23 19:36 Pulse Ox 97 04/24/23 19:36 O2 Del Method Nasal Cannula 04/24/23 19:36 O2 Flow Rate 3 04/24/23 19:36 BMI result Body Mass Index 17.0 Middle-aged male lying in bed in mild distress on supplemental oxygen Neck supple, no JVD Regular rate and rhythm, S1-S2 heard Regular breath sounds bilaterally, no wheezing or crackles appreciated Abdomen soft nontender, no guarding, no rigidity Patient is awake, alert and oriented to self, place, time and person ; no focal motor deficit Psych: Normal mood No pedal edema Results Labs 04/24/23 15:07 04/24/23 15:07 Labs: Laboratory Results - last 24 hr 04/24/23 04/24/23 04/24/23 15:02 15:03 15:07 MCV 97.0 MCH 32.9 MCHC 33.9 RDW 15.8 Plt Count 89 L MPV 10.5 Immature Gran % (Auto) 1.6 H Neut % (Auto) 76.8 H Lymph % (Auto) 7.9 L [place] % (Auto) 12.3 H Eos % (Auto) 0.4 Baso % (Auto) 1.0 Lymph # (Auto) 0.4 L [place] # (Auto) 0.6 Eos # (Auto) 0.0 Baso # (Auto) 0.1 Abs Immat Gran (auto) 0.08 H Absolute Neuts (auto) 3.9 Absolute Nucleated RBC 0.000 Nucleated RBC % (auto) 0.0 Smear Tech's Comments VERIFIED PT INR APTT VBG pH VBG pCO2 VBG pO2 VBG HCO3 VBG O2 Saturation VBG Base Excess Anion Gap 22 H Estim Creat Clear Calc 13.2 Estimated GFR 13 Random Glucose 87 Lactic Acid 3.3 H* Lactic Acid F/U @ 2Hr Lactic Acid F/U @ 4Hr Calcium 9.5 D Magnesium 2.1 Total Bilirubin 1.1 H AST 20 ALT 15 Alkaline Phosphatase 91 Total Creatine Kinase Troponin I High Sens 239.8 H* B-Natriuretic Peptide 2911 H Total Protein 8.2 H Albumin 4.2 COVID-19 (KAILA) Negative COVID-19 Clin Com See Note Influenza Type A (JOHN) Positive A Influenza Type B (JOHN) Negative Influenza A & B Note See Note 04/24/23 04/24/23 04/24/23 16:36 16:39 17:51 MCV MCH MCHC RDW Plt Count MPV Immature Gran % (Auto) Neut % (Auto) Lymph % (Auto) [place] % (Auto) Eos % (Auto) Baso % (Auto) Lymph # (Auto) [place] # (Auto) Eos # (Auto) Baso # (Auto) Abs Immat Gran (auto) Absolute Neuts (auto) Absolute Nucleated RBC Nucleated RBC % (auto) Smear Tech's Comments PT INR APTT VBG pH 7.64 H* VBG pCO2 28 VBG pO2 69 VBG HCO3 31 H VBG O2 Saturation 94.0 VBG Base Excess 10.4 Anion Gap Estim Creat Clear Calc Estimated GFR Random Glucose Lactic Acid Lactic Acid F/U @ 2Hr 2.1 H* Lactic Acid F/U @ 4Hr Calcium Magnesium Total Bilirubin AST ALT Alkaline Phosphatase Total Creatine Kinase 81 Troponin I High Sens 401.2 H* D B-Natriuretic Peptide Total Protein Albumin COVID-19 (KAILA) COVID-19 Clin Com Influenza Type A (JOHN) Influenza Type B (JOHN) Influenza A & B Note 04/24/23 20:27 MCV MCH MCHC RDW Plt Count MPV Immature Gran % (Auto) Neut % (Auto) Lymph % (Auto) [place] % (Auto) Eos % (Auto) Baso % (Auto) Lymph # (Auto) [place] # (Auto) Eos # (Auto) Baso # (Auto) Abs Immat Gran (auto) Absolute Neuts (auto) Absolute Nucleated RBC Nucleated RBC % (auto) Smear Tech's Comments PT 15.3 H INR 1.3 H APTT 35.2 VBG pH VBG pCO2 VBG pO2 VBG HCO3 VBG O2 Saturation VBG Base Excess Anion Gap Estim Creat Clear Calc Estimated GFR Random Glucose Lactic Acid Lactic Acid F/U @ 2Hr Lactic Acid F/U @ 4Hr 1.5 Calcium Magnesium Total Bilirubin AST ALT Alkaline Phosphatase Total Creatine Kinase Troponin I High Sens B-Natriuretic Peptide Total Protein Albumin COVID-19 (KAILA) COVID-19 Clin Com Influenza Type A (JOHN) Influenza Type B (JOHN) Influenza A & B Note Imaging Radiologist's Impressions: Impressions Chest X-Ray 04/24/23 15:21 IMPRESSION: Stable enlargement of the cardiac silhouette. Stable volume loss to the left hemithorax. Stable loculated left pleural effusion and atelectasis/consolidation at the left lung base. Diffuse hazy opacity of the right lung and aerated left lung questionable for interstitial pulmonary edema versus atypical interstitial or viral pneumonia. Venous Duplex 04/24/23 19:20 IMPRESSION: No DVT demonstrated in the bilateral lower extremity. Chest CTA 04/24/23 20:39 IMPRESSION: 1. No evidence of pulmonary embolism. 2. Small pleural effusion on the right and pleural thickening on the left with adjacent atelectasis. 3. Ascites surrounding liver. 4. Multiple renal cysts and punctate calcifications. VTE: negative. Assessment and Plan (1) Acute respiratory failure with hypoxia: Status: Acute Plan This is a 48-year-old male with pertinent history of congestive heart failure with preserved ejection fraction, essential hypertension, ESRD on hemodialysis D/T/S, mood disorder, gastroesophageal reflux disease who presents to the emergency department for evaluation of chills #. Acute hypoxemic respiratory failure and viral sepsis due to influenza a: Will admit patient with isolation precautions. Continue supplemental oxygen and wean as tolerated. Initiating Tamiflu. Low concern for bacterial superinfection (patient without productive cough, leukocytosis), defer continuing antibiotics. #. Elevated troponin, likely in the setting of increased demand. No chest pain on admission. Cardiology was consulted in the ER and no need for heparin. Trend troponin #. ESRD on hemodialysis: Consulting Nephrology #. Acute lactic acidosis due to hypoxemia #. Congestive heart failure with preserved ejection fraction/essential hypertension: Continue home antihypertensives #. Mood disorder: Continue home mood stabilizers #. Gastroesophageal reflux disease: On PPI Med rec pending DVT prophylaxis: Heparin Full code Admit as inpatient and will require two night minimum hospital stay for supplemental oxygen (as above), which is not possible in a lesser acute setting. Quality Stroke Does the patient have a stroke diagnosis?: No VTE Prior VTE?: No VTE Risk Level:: Medical - moderate - high VTE Device Contraindication: Treatment Not Indicated VTE Drug Contraindication: N/A - Med Ordered
[2023-04-24] MEDS: 0.9 % Sodium Chloride Flush 3 ML SYRINGE IVFLUSH (22:55)
[2023-04-24] MEDS: Heparin Sodium,Porcine 5,000 UNIT/ML VIAL 5000 UNIT SUBCUT (22:55)
--- NOTE | 2023-04-24 23:06 | PC.NURSE ---
assumed care of pt at 2300 -report received from Katie VOGEL
[2023-04-25 01:56] VITALS: BP 143/87; PULSE 80; RESP 27; TEMP 37; O2SAT 99
[2023-04-25 05:26] LABS: MANUAL DIFF FLAG NO
[2023-04-25 05:30] LABS: Basophils Percent Auto 0.7 % (0-2); Eosinophils Percent Auto 0.4 % (0-4); Hematocrit 28.1 % (42.0-52.0); Hemoglobin 9.2 g/dl (14.0-18.0); Imm Gran Abs Auto 0.03 X10*3/uL (0.00-0.03); Imm Gran Pct Auto 0.7 % (0.0-0.4); Lymphocytes Absolute Auto 0.5 X10*3/uL (1.2-4.9); Lymphocytes Percent Auto 10.8 % (20-40); Mean Corpuscular HGB Conc 32.7 g/dl (31.0-36.0); Mean Corpuscular Hemoglobin 33.1 pg (27.0-33.0); Mean Corpuscular Volume 101.1 fL (80.0-98.0); Mean Platelet Volume 10.8 fL (9.4-12.4); Monocytes Absolute Auto 0.8 X10*3/uL (0.1-1.2); Monocytes Percent Auto 17.1 % (2-11); Neutrophils Absolute Auto 3.1 x10*3/uL (2.0-8.3); Neutrophils Percent Auto 70.3 % (45-73); Red Blood Count 2.78 X10*6/uL (4.60-5.80); Red Cell Distribution Width 15.5 % (11.0-16.0); White Blood Count 4.5 X10*3/uL (4.8-10.8)
[2023-04-25 05:31] LABS: Platelet Count 67 X10*3/uL (160-400)
[2023-04-25 05:52] LABS: Anion Gap 18 (12-20); Blood Urea Nitrogen 41 mg/dL (9-16); Calcium 7.8 mg/dL (8.4-10.2); Carbon Dioxide 28 mmol/L (22-29); Chloride 97 mmol/L (96-108); Estimated Glomerular Filt Rate 8; Glucose Random 92 mg/dL (60-115); Potassium 4.5 mmol/L (3.3-5.1); Sodium 138 mmol/L (135-145)
[2023-04-25 09:00] VITALS: BMI 17.1
[2023-04-25 09:17] VITALS: BP 151/88; PULSE 80; RESP 18; TEMP 37.2; O2SAT 95
[2023-04-25] MEDS: Oseltamivir Phosphate 30 MG CAPSULE PO (09:17)
[2023-04-25] MEDS: 0.9 % Sodium Chloride Flush 3 ML SYRINGE IVFLUSH ×3 (09:20→20:12)
[2023-04-25] MEDS: Heparin Sodium,Porcine 5,000 UNIT/ML VIAL 5000 UNIT SUBCUT ×2 (09:20→21:23)
--- NOTE | 2023-04-25 10:49 | PHA.MEDREC ---
Pharmacy Consult ? Medication Reconciliation Pharmacy has completed the medication reconciliation. spoke with patient to confirm medications. He reports taking lisinopril daily but claim history says last chart picker in July 2022. He reports that he stopped taking hydralazine about 2 months ago. Patient says that he gets an iron supplement at dialysis.
[2023-04-25 11:11] LABS: Troponin-I High Sensitivity 292.8 ng/L (<3.5-35.0)
--- NOTE | 2023-04-25 11:20 | HO.PM.IMPN ---
Subjective Subjective Date of Service: 04/25/23 Review of Systems Follow-up acute hypoxic respiratory failure, flu, end-stage renal disease Feeling better today Denies chest pain, shortness for breath, nausea, vomiting, diarrhea Physical Exam Vital Signs: Vital Signs: Last Vital Signs Temp 99.0 F 04/25/23 09:17 Pulse 80 04/25/23 09:17 Resp 18 04/25/23 09:17 BP 151/88 H 04/25/23 09:17 Pulse Ox 95 04/25/23 09:17 O2 Del Method Nasal Cannula 04/25/23 09:17 O2 Flow Rate 3 04/25/23 09:17 BMI result Body Mass Index 17.1 Appearing in no acute distress lung sounds are clear to auscultation heart regular rate rhythm, clear S1, S2 positive bowel sounds, abdomen is soft, nontender neuro patient is alert x3, no focal deficits Objective Data Active Medications Acetaminophen (Acetaminophen 325 Mg Tablet) 650 mg PO Q6H PRN PRN Reason: Pain, Mild (Pain Scale 1-3) Acetaminophen (Acetaminophen Supp 650 Mg Supp.Rect) 650 mg IN Q6H PRN PRN Reason: Pain, Mild (Pain Scale 1-3) Heparin Sodium (Porcine) (Heparin Sodium,Porcine 5,000 Unit/Ml Vial) 5,000 unit SUBCUT Q12H [facility] Last Admin: 04/25/23 09:20 Dose: 5,000 unit Documented By: SHASHANK Melatonin (Melatonin 3 Mg Tablet) 6 mg PO BEDTIME PRN PRN Reason: Insomnia Ondansetron HCl (Ondansetron Hcl 4 Mg/2 Ml Vial) 4 mg IVPUSH Q8H PRN PRN Reason: Nausea and Vomiting Oseltamivir Phosphate (Oseltamivir Phosphate 30 Mg Capsule) 30 mg PO Q24H [facility] Stop: 04/29/23 09:01 Last Admin: 04/25/23 09:17 Dose: 30 mg Documented By: SHASHANK Sodium Chloride (0.9 % Sodium Chloride Flush 3 Ml Syringe) 3 ml IVFLUSH QSHIFT [facility] Last Admin: 04/25/23 09:20 Dose: 3 ml Documented By: SHASHANK Labs 04/25/23 04:47 04/25/23 04:47 Labs: Laboratory Results - last 24 hr 02/17/24 02/17/24 02/17/24 15:02 15:03 15:07 MCV 97.0 MCH 32.9 MCHC 33.9 RDW 15.8 Plt Count 89 L MPV 10.5 Immature Gran % (Auto) 1.6 H Neut % (Auto) 76.8 H Lymph % (Auto) 7.9 L [place] % (Auto) 12.3 H Eos % (Auto) 0.4 Baso % (Auto) 1.0 Lymph # (Auto) 0.4 L [place] # (Auto) 0.6 Eos # (Auto) 0.0 Baso # (Auto) 0.1 Abs Immat Gran (auto) 0.08 H Absolute Neuts (auto) 3.9 Absolute Nucleated RBC 0.000 Nucleated RBC % (auto) 0.0 Smear Tech's Comments VERIFIED PT INR APTT VBG pH VBG pCO2 VBG pO2 VBG HCO3 VBG O2 Saturation VBG Base Excess Anion Gap 22 H Estim Creat Clear Calc 13.2 Estimated GFR 13 Random Glucose 87 Lactic Acid 3.3 H* Lactic Acid F/U @ 2Hr Lactic Acid F/U @ 4Hr Calcium 9.5 D Magnesium 2.1 Total Bilirubin 1.1 H AST 20 ALT 15 Alkaline Phosphatase 91 Total Creatine Kinase Troponin I High Sens 239.8 H* B-Natriuretic Peptide 2911 H Total Protein 8.2 H Albumin 4.2 COVID-19 ([facility]AILA) Negative COVID-19 Clin Com See Note Influenza Type A (JOHN) Positive A Influenza Type B (JOHN) Negative Influenza A & B Note See Note 04/24/23 04/24/23 04/24/23 16:36 16:39 17:51 MCV MCH MCHC RDW Plt Count MPV Immature Gran % (Auto) Neut % (Auto) Lymph % (Auto) [place] % (Auto) Eos % (Auto) Baso % (Auto) Lymph # (Auto) [place] # (Auto) Eos # (Auto) Baso # (Auto) Abs Immat Gran (auto) Absolute Neuts (auto) Absolute Nucleated RBC Nucleated RBC % (auto) Smear Tech's Comments PT INR APTT VBG pH 7.64 H* VBG pCO2 28 VBG pO2 69 VBG HCO3 31 H VBG O2 Saturation 94.0 VBG Base Excess 10.4 Anion Gap Estim Creat Clear Calc Estimated GFR Random Glucose Lactic Acid Lactic Acid F/U @ 2Hr 2.1 H* Lactic Acid F/U @ 4Hr Calcium Magnesium Total Bilirubin AST ALT Alkaline Phosphatase Total Creatine Kinase 81 Troponin I High Sens 401.2 H* D B-Natriuretic Peptide Total Protein Albumin COVID-19 (KAILA) COVID-19 Clin Com Influenza Type A (JOHN) Influenza Type B (JOHN) Influenza A & B Note 04/24/23 04/25/23 04/25/23 20:27 04:47 10:20 MCV 101.1 H MCH 33.1 H MCHC 32.7 RDW 15.5 Plt Count 67 L MPV 10.8 Immature Gran % (Auto) 0.7 H Neut % (Auto) 70.3 Lymph % (Auto) 10.8 L [place] % (Auto) 17.1 H Eos % (Auto) 0.4 Baso % (Auto) 0.7 Lymph # (Auto) 0.5 L [place] # (Auto) 0.8 Eos # (Auto) 0.0 Baso # (Auto) 0.0 Abs Immat Gran (auto) 0.03 Absolute Neuts (auto) 3.1 Absolute Nucleated RBC 0.000 Nucleated RBC % (auto) 0.0 Smear Tech's Comments PT 15.3 H INR 1.3 H APTT 35.2 VBG pH VBG pCO2 VBG pO2 VBG HCO3 VBG O2 Saturation VBG Base Excess Anion Gap 18 Estim Creat Clear Calc 9.0 Estimated GFR 8 Random Glucose 92 Lactic Acid Lactic Acid F/U @ 2Hr Lactic Acid F/U @ 4Hr 1.5 Calcium 7.8 L D Magnesium Total Bilirubin AST ALT Alkaline Phosphatase Total Creatine Kinase Troponin I High Sens 292.8 H* B-Natriuretic Peptide Total Protein Albumin COVID-19 (KAILA) COVID-19 Clin Com Influenza Type A (JOHN) Influenza Type B (JOHN) Influenza A & B Note Assessment and Plan (1) Hypoxia: Status: Acute (2) End stage renal disease on dialysis: Status: Acute Plan This is a 48-year-old male with pertinent history of congestive heart failure with preserved ejection fraction, essential hypertension, ESRD on hemodialysis D/T/S, mood disorder, gastroesophageal reflux disease who presents to the emergency department for evaluation of chills Acute hypoxemic respiratory failure and viral sepsis due to influenza a isolation precautions. Continue supplemental oxygen and wean as tolerated. Tamiflu. Low concern for bacterial superinfection (patient without productive cough, leukocytosis), defer continuing antibiotics. Elevated troponin likely in the setting of increased demand. No chest pain on admission. Cardiology was consulted in the ER and no need for heparin. Trend troponin ESRD on hemodialysis [facility] Consulting Nephrology Acute lactic acidosis due to hypoxemia Congestive heart failure with preserved ejection fraction/essential hypertension no exacerbation Continue home antihypertensives Mood disorder Continue home mood stabilizers Gastroesophageal reflux disease On PPI DVT prophylaxis: Heparin Attending Dr. Allison Full code continue hospital stay for supplemental oxygen (as above), which is not possible in a lesser acute setting. Quality Stroke Does the patient have a stroke diagnosis?: No VTE Prior VTE?: No VTE Risk Level:: Medical - moderate - high VTE Device Contraindication: Treatment Not Indicated VTE Drug Contraindication: N/A - Med Ordered
[2023-04-25] MEDS: carvediloL 25 MG TABLET PO ×2 (11:39→20:11)
[2023-04-25] MEDS: cloNIDine HCL 0.2 MG TABLET PO ×2 (11:39→20:11)
[2023-04-25 13:30] VITALS: BP 142/75
[2023-04-25 15:44] VITALS: BP 144/96; PULSE 78; RESP 18; TEMP 36.8; O2SAT 92
--- NOTE | 2023-04-25 16:24 | MHC.CM.PN ---
PT REPORTS HE LIVES ALONE AND HAS BEEN INDEPENDENT [facility], HOWEVER FEELS HE COULD USE ASSISTANCE HE IS AGREEABLE TO A REFERRAL TO [facility] HE HAS NO SERVICES AND NO DME HCP ON FILE PCP: BRIAN FARIA IMM DELIVERED DCP: HOME WITH [facility] REFERRAL PT WILL ARRANGE TRANSPORT
[2023-04-25 19:32] VITALS: BP 150/71; PULSE 76; RESP 18; TEMP 36.5; O2SAT 97
[2023-04-25] MEDS: Doxazosin Mesylate 2 MG TABLET PO (20:11)
[2023-04-25] MEDS: NIFEdipine ER 60 MG TAB.ER.24 PO (20:11)
[2023-04-25] MEDS: Docusate Sodium 100 MG CAPSULE 200 MG PO (20:15)
[2023-04-25] MEDS: Magnesium Hydrox/Alum Hydrox 30 ML ORAL.SUSP PO (21:23)
[2023-04-26 02:53] VITALS: BP 127/76; PULSE 74; RESP 18; TEMP 36.8; O2SAT 94
[2023-04-26 07:24] VITALS: BP 139/83; PULSE 69; RESP 16; TEMP 36.2; O2SAT 92
[2023-04-26] MEDS: lisinopriL 40 MG TABLET PO (07:59)
[2023-04-26] MEDS: Oseltamivir Phosphate 30 MG CAPSULE PO (07:59)
[2023-04-26] MEDS: cloNIDine HCL 0.2 MG TABLET PO ×2 (07:59→20:54)
[2023-04-26] MEDS: NIFEdipine ER 60 MG TAB.ER.24 PO (07:59)
[2023-04-26] MEDS: 0.9 % Sodium Chloride Flush 3 ML SYRINGE IVFLUSH ×3 (07:59→20:55)
[2023-04-26] MEDS: carvediloL 25 MG TABLET PO ×2 (07:59→20:54)
[2023-04-26] MEDS: Heparin Sodium,Porcine 5,000 UNIT/ML VIAL 5000 UNIT SUBCUT ×2 (09:12→20:54)
--- NOTE | 2023-04-26 09:30 | PC.NURSE ---
Pt currently on o2 2L via NC, o2 saturation 91-92%, Pt denies SOB, and chest pain, is resting in bed, respirations even and unlabored, Attempted to wean Pt off of supplemental o2 per MD order, Patient desated to 84% on room. Respiratory at bedside for a home o2 evaluation, Pt put back on oxygen 2L NC and oxygen saturation recovered to above 90%, Zo Marin NP made aware.
--- NOTE | 2023-04-26 10:36 | P.CONNP_ITS ---
History of Present Illness Reason for Consult Consult date: 04/26/23 Chief Complaint Chief complaint: Chills History of Present Illness Narrative: 48 year old patient with history of ESRD admitted with acute hypoxic respiratory falure. In summary he presented with chills and shortness of breath. he normally has dialysis at [facility]. Patient tested positive for influenza A. Review of Systems Review of Systems 10 points ROS negative except for peertinent in HPI PMFSH Past Medical History Medical History (Updated 04/26/23 @ 10:39 by Cedric Arias MD) Anemia ESRD (end stage renal disease) End stage chronic kidney disease Dialysis patient Disease of pericardium, unspecified Pulmonary hypertension associated with end stage renal disease on dialysis Hypertensive cardiovascular disease Fistula Hypertension CHF (congestive heart failure) Kidney disease Family History Family History Other HTN (hypertension) Social History Social History Household Members: Significant Other Household Members Other:: lives with girlfriend Housing: House Do you presently have visiting nurse or other home services: No Alcohol intake: unknown Comment: blood pressure still 220/120 Patient Tobacco Use Status: Never used Tobacco Second Hand Smoke Exposure: No Advance Directives Date on File: 01/08/20 service: No Current occupational status: unemployed Meds Allergies Allergy/AdvReac Type Severity Reaction Status Date / Time No Known Allergies Allergy Verified 05/21/20 07:36 Active Medications: Current Medications Acetaminophen (Acetaminophen 325 Mg Tablet) 650 mg PO Q6H PRN PRN Reason: Pain, Mild (Pain Scale 1-3) Acetaminophen (Acetaminophen Supp 650 Mg Supp.Rect) 650 mg VT Q6H PRN PRN Reason: Pain, Mild (Pain Scale 1-3) Carvedilol (Carvedilol 25 Mg Tablet) 25 mg PO BID [facility]; Protocol Last Admin: 04/26/23 07:59 Dose: 25 mg Clonidine HCl (Clonidine Hcl 0.2 Mg Tablet) 0.2 mg PO BID [facility]; Protocol Last Admin: 04/26/23 07:59 Dose: 0.2 mg Docusate Sodium (Docusate Sodium 100 Mg Capsule) 200 mg PO BEDTIME LAYLA Last Admin: 04/25/23 20:15 Dose: 100 mg Doxazosin Mesylate (Doxazosin Mesylate 2 Mg Tablet) 2 mg PO BEDTIME [facility]; Protocol Last Admin: 04/25/23 20:11 Dose: 2 mg Heparin Sodium (Porcine) (Heparin Sodium,Porcine 5,000 Unit/Ml Vial) 5,000 unit SUBCUT Q12H [facility] Last Admin: 04/26/23 09:12 Dose: 5,000 unit Lisinopril (Lisinopril 40 Mg Tablet) 40 mg PO DAILY [facility]; Protocol Last Admin: 04/26/23 07:59 Dose: 40 mg Melatonin (Melatonin 3 Mg Tablet) 6 mg PO BEDTIME PRN PRN Reason: Insomnia Nifedipine (Nifedipine Er 60 Mg Tab.Er.24) 60 mg PO BID [facility] Last Admin: 04/26/23 07:59 Dose: 60 mg Ondansetron HCl (Ondansetron Hcl 4 Mg/2 Ml Vial) 4 mg IVPUSH Q8H PRN PRN Reason: Nausea and Vomiting Oseltamivir Phosphate (Oseltamivir Phosphate 30 Mg Capsule) 30 mg PO Q24H [facility] Stop: 04/29/23 09:01 Last Admin: 04/26/23 07:59 Dose: 30 mg Sodium Chloride (0.9 % Sodium Chloride Flush 3 Ml Syringe) 3 ml IVFLUSH QSHIFT [facility] Last Admin: 04/26/23 07:59 Dose: 3 ml Home Medications Medication Instructions Recorded Confirmed Last Taken Type carvedilol 25 mg tablet 25 mg PO BID 12/11/19 04/25/23 06/20/20 15:00 History clonidine HCl 0.2 mg tablet 0.2 mg PO BID 06/20/20 04/25/23 06/20/20 08:00 History nifedipine 60 mg tablet,extended 60 mg PO BID 06/20/20 04/25/23 06/19/20 08:00 History release docusate sodium 100 mg tablet 200 mg PO QPM 04/25/23 04/25/23 Unknown History Physical Exam Vital Signs: Last Vital Signs Temp 97.1 F 04/26/23 07:24 Pulse 69 04/26/23 07:24 Resp 16 04/26/23 07:24 BP 139/83 04/26/23 07:24 Pulse Ox 92 04/26/23 07:24 O2 Del Method Nasal Cannula 04/26/23 07:24 O2 Flow Rate 2 02/19/24 07:24 BMI result Body Mass Index 17.1 Const General: alert and awake HEENT Head: Yes normocephalic and Yes atraumatic Neck Neck: Yes supple Resp Auscultation: diminished lung sounds Cardio Heart sounds: S1 normal heart sound present and S2 normal heart sound present GI Palpation (GI): Soft to palpation and nontender Extrem General: Yes normal to inspection and Yes no pedal edema Results Lab Results 04/25/23 04:47 04/25/23 04:47 Lab results: Chemistry 04/24/23 04/25/23 15:07 04:47 Sodium 139 138 Potassium 3.9 4.5 Carbon Dioxide 26 28 BUN 25 H 41 H Creatinine 4.80 H* 7.03 H* Calcium 9.5 D 7.8 L D Hematology 04/24/23 04/25/23 15:07 04:47 WBC 5.1 4.5 L Hgb 11.1 L 9.2 L Plt Count 89 L 67 L Assessment and Plan (1) ESRD (end stage renal disease): Status: Acute (2) Influenza A: Status: Acute (3) (HFpEF) heart failure with preserved ejection fraction: Status: Acute (4) Anemia: Status: Acute Plan known ESRD usually has HD at [facility] t-t-s 2 via LFA AVF followed by Dr Gonzalez admitted with HFpEF nephrogenic anemia REC HD in am renal diet JONG per protocol P binders Procedures Date of Service Date of Service: 04/26/23
--- NOTE | 2023-04-26 13:52 | P.PNIM_ITS ---
Subjective Subjective Date of Service: 04/26/23 Review of Systems Follow-up acute hypoxic respiratory failure, flu, end-stage renal disease Feeling better today Denies chest pain, shortness for breath, nausea, vomiting, diarrhea Physical Exam 2 Vital Signs: Vital Signs: Last Vital Signs Temp 97.1 F 04/26/23 07:24 Pulse 69 04/26/23 07:24 Resp 16 04/26/23 07:24 BP 139/83 04/26/23 07:24 Pulse Ox 92 04/26/23 07:24 O2 Del Method Nasal Cannula 04/26/23 07:24 O2 Flow Rate 2 04/26/23 07:24 BMI result Body Mass Index 17.1 Appearing in no acute distress lung sounds are clear to auscultation heart regular rate rhythm, clear S1, S2 positive bowel sounds, abdomen is soft, nontender neuro patient is alert x3, no focal deficits Objective Data Active Medications Acetaminophen (Acetaminophen 325 Mg Tablet) 650 mg PO Q6H PRN PRN Reason: Pain, Mild (Pain Scale 1-3) Acetaminophen (Acetaminophen Supp 650 Mg Supp.Rect) 650 mg MA Q6H PRN PRN Reason: Pain, Mild (Pain Scale 1-3) Carvedilol (Carvedilol 25 Mg Tablet) 25 mg PO BID [facility]; Protocol Last Admin: 04/26/23 07:59 Dose: 25 mg Documented By: JANIE Clonidine HCl (Clonidine Hcl 0.2 Mg Tablet) 0.2 mg PO BID [facility]; Protocol Last Admin: 04/26/23 07:59 Dose: 0.2 mg Documented By: JANIE Docusate Sodium (Docusate Sodium 100 Mg Capsule) 200 mg PO BEDTIME [facility] Last Admin: 04/25/23 20:15 Dose: 100 mg Documented By: EDIE Comments: pt only wanted 100mg Doxazosin Mesylate (Doxazosin Mesylate 2 Mg Tablet) 2 mg PO BEDTIME [facility]; Protocol Last Admin: 04/25/23 20:11 Dose: 2 mg Documented By: EDIE Heparin Sodium (Porcine) (Heparin Sodium,Porcine 5,000 Unit/Ml Vial) 5,000 unit SUBCUT Q12H [facility] Last Admin: 04/26/23 09:12 Dose: 5,000 unit Documented By: JANIE Lisinopril (Lisinopril 40 Mg Tablet) 40 mg PO DAILY [facility]; Protocol Last Admin: 04/26/23 07:59 Dose: 40 mg Documented By: JANIE Melatonin (Melatonin 3 Mg Tablet) 6 mg PO BEDTIME PRN PRN Reason: Insomnia Nifedipine (Nifedipine Er 60 Mg Tab.Er.24) 60 mg PO BID [facility] Last Admin: 04/26/23 07:59 Dose: 60 mg Documented By: JANIE Ondansetron HCl (Ondansetron Hcl 4 Mg/2 Ml Vial) 4 mg IVPUSH Q8H PRN PRN Reason: Nausea and Vomiting Oseltamivir Phosphate (Oseltamivir Phosphate 30 Mg Capsule) 30 mg PO Q24H [facility] Stop: 04/29/23 09:01 Last Admin: 04/26/23 07:59 Dose: 30 mg Documented By: JANIE Sodium Chloride (0.9 % Sodium Chloride Flush 3 Ml Syringe) 3 ml IVFLUSH QSHIFT [facility] Last Admin: 04/26/23 07:59 Dose: 3 ml Documented By: JANIE Labs 04/25/23 04:47 04/25/23 04:47 Microbiology Microbiology Results: Microbiology 04/24/23 15:45 Blood Culture - Preliminary Blood - Venous No growth after 24 hours. 04/24/23 15:08 Blood Culture - Preliminary Blood - Venous No growth after 24 hours. Assessment and Plan (1) Hypoxia: Status: Acute (2) End stage renal disease on dialysis: Status: Acute Plan 48-year-old male with pertinent history of congestive heart failure with preserved ejection fraction, essential hypertension, ESRD on hemodialysis D/T/S, mood disorder, gastroesophageal reflux disease who presents to the emergency department for evaluation of chills Acute hypoxemic respiratory failure and viral sepsis due to influenza a isolation precautions. Continue supplemental oxygen and wean as tolerated. Tamiflu. Low concern for bacterial superinfection (patient without productive cough, leukocytosis), defer continuing antibiotics. Elevated troponin likely in the setting of increased demand. No chest pain on admission. Cardiology was consulted in the ER and no need for heparin. ESRD on hemodialysis [facility] Nephrology Acute lactic acidosis due to hypoxemia Congestive heart failure with preserved ejection fraction/essential hypertension no exacerbation Continue home antihypertensives Mood disorder Continue home mood stabilizers Gastroesophageal reflux disease On PPI DVT prophylaxis: Heparin Attending Dr. Allison Full code continue hospital stay for supplemental oxygen (as above), which is not possible in a lesser acute setting. Quality Stroke Does the patient have a stroke diagnosis?: No VTE Prior VTE?: No VTE Risk Level:: Medical - moderate - high VTE Device Contraindication: Treatment Not Indicated VTE Drug Contraindication: N/A - Med Ordered
[2023-04-26 15:41] VITALS: BP 124/73; PULSE 69; RESP 18; TEMP 37; O2SAT 95
[2023-04-26 19:39] VITALS: BP 121/77; PULSE 76; RESP 17; TEMP 36.9; O2SAT 92
[2023-04-26] MEDS: Doxazosin Mesylate 2 MG TABLET PO (20:54)
[2023-04-26] MEDS: Docusate Sodium 100 MG CAPSULE 200 MG PO (20:54)
[2023-04-26] MEDS: Magnesium Hydrox/Alum Hydrox 30 ML ORAL.SUSP PO (22:43)
[2023-04-27] VITALS (8 sets, daily range): BP systolic 113–170; BP diastolic 57–89; PULSE 68–84; RESP 14–19; TEMP 36–37; O2SAT 84–96; BMI 17.1
[2023-04-27] MEDS: LORazepam 0.5 MG TABLET PO (01:27)
--- NOTE | 2023-04-27 03:26 | PC.NURSE ---
Patient found on rounds with oxygen out of nose, O2 sat 87%-88%. Nasal Cannula placed back on patient at 2L, O2 sat 88%-89%. Patient placed on 3L NC O2 sat went up to 92%. Patient had no complaints of SOB. Patient resting comfortably.
--- NOTE | 2023-04-27 07:00 | CA_ITS ---
Transthoracic Echocardiogram Patient (Last, First, Middle): Sterling Chávez L Gender: Male Date of : 1975 Age: 48 Procedure Date: 04/27/2023 Procedure Type: Transthoracic Echocardiogram Location: S3E Height: 172.72 cm Weight: 50.8 kg BSA: 1.60 m2 Heart Rate: bpm BP: 170 / 72 mmHg Director Of Education: Referring MD: Edgard Blank MD Assembling Fabricator: Young Porras MD Symptoms: hypoxia Study Quality: Good ECG Rhythm: Sinus Conclusions: - 1. Normal LV ejection fraction with severe LVH with pseudonormal filling pattern 2. Biatrial enlargement, right greater than left 3. At least moderate eccentric mitral regurgitation 4. Moderately severe tricuspid regurgitation 5. Severely elevated right ventricular systolic pressure with significantly elevated right atrial pressures 6. Small pericardial effusion more prominent near the left ventricle Findings Left Ventricle Normal left ventricular size and systolic function. There is severely increased left ventricular wall thickness. The visually estimated ejection fraction is between 60-65%. There is a flattened septum in systole consistent with right ventricular pressure overload. Spectral Doppler is indicative of a pseudonormal filling pattern. E/E prime ratio is between 8 and 15 consistent with indeterminate filling pressures. Peak GLS is -13.7%, which is moderately reduced. Right Ventricle Moderately increased right ventricular cavity size. There is normal right ventricular systolic function. Atria The left atrium is moderately dilated. There is no evidence of interatrial shunt. The right atrium is severely dilated. Aortic Valve Normal aortic valve structure and function. There is no aortic valve stenosis. There is mild aortic valve regurgitation. Mitral Valve There is mild anterior and posterior mitral leaflet thickening. There is moderate mitral valve regurgitation. There is no mitral valve stenosis. the mitral regurgitation may be underestimated given extremely eccentric nature of the mitral regurgitation by at least moderate mitral regurgitation is present Pulmonic Valve The pulmonic valve is likely normal. There is trace to mild pulmonic valve regurgitation. Tricuspid Valve Normal tricuspid valve structure. There is moderate to severe tricuspid valve regurgitation. Significantly elevated right atrial pressure. Severe pulmonary hypertension is present. Great Vessels All visible segments of the aorta are normal in size. The pulmonary artery was not well visualized. There is no dilatation of the ascending aorta measuring 3.30 cm. Venous The inferior vena cava is moderately dilated and does not collapse with inspiration. Pericardium/Pleural There is a small loculated pericardial effusion overlying the left ventricle. Measurements 2D Linear Measurements IVSd: 1.78 0.6-0.9/0.6-1.0 cm LVIDd: 4.15 3.9-5.3/4.2-5.9 cm LVIDd Index: 2.59 2.4-3.2/2.2-3.1 cm/m2 LVIDs: 2.66 2.0-3.6 cm LVPWd: 1.64 0.7-1.1 cm Ao Root: 3.30 2.1-3.5 cm LA Diam: 5.40 2.7-3.8/3.0-4.0 cm LAIDs Index: 3.38 1.5-2.3 cm/m2 LV Mass: 376.82 67-162/88-224 g LV Mass Index: 235.51 43-95/49-115 g/m2 LVOT Diam: 2.00 3.0+(-)1.3 cm 2D Systolic Function EF 4C: 63.50 >55% EF 2C: 69.10 >55% EF BiP: 65.60 >55% Mitral Valve MV Pk E: 0.97 MV PK A: 1.05 MV Decel Time: 152.00 E/A: 0.90 E'Lateral: 8.27 E'Medial: 6.09 E/E' Med: 16.00 E/E' Lat: 11.80 PHT: 44.00 MVA PHT: 5.00 Decel [place]: 6.42 MR Vol - PW Dopp: 44.50 MR VTI: 1.78 MR ERO: 25.00 MR Alias Luis: 0.36 MR RAD: 0.80 Aortic Valve AoV Pk Luis: 1.90 AoV Mn Luis: 1.29 AoV VTI: 0.37 AoV Pk Grad: 14.00 Aov Mn Grad: 8.00 FANY Cont.VTI: 2.15 LVOT LVOT Pk Luis: 1.32 LVOT Mn Luis: 0.84 LVOT VTI: 0.25 LVOT Pk Grad: 7.00 LVOT Mn Grad: 3.00 LVOT Diam: 2.00 LVOT Area: 3.14 Diastolic Function MV Pk E: 0.97 MV Pk A: 1.05 E/A: 0.90 E'Medial: 6.09 E/E' Med: 16.00 E' Laterial: 8.27 E/E' Lat: 11.80 Right Ventricle TAPSE (mm): 29.00 TVS' Luis: 10.00 Tricuspid Valve TR Pk Luis: 5.20 TR Pk Grad: 93.00 RA Press: 15.00 RVSP: 108.00 Great Vessels Aorta Ao Root-2D: 3.30 2.0-3.7 cm Ao Asc: 3.30 2.1-3.4 cm Pulmonary Valve PV Pk Luis: 1.06 Peak PV Grad: 4.00 Updated in Other Vendor System with Status of Final Young Porras MD electronically signed on 04/27/2023 4:13:54 PM with status of Final
[2023-04-27] MEDS: NIFEdipine ER 60 MG TAB.ER.24 PO ×2 (08:19→21:06)
[2023-04-27] MEDS: carvediloL 25 MG TABLET PO ×2 (08:19→21:06)
[2023-04-27] MEDS: Oseltamivir Phosphate 30 MG CAPSULE PO (08:19)
[2023-04-27] MEDS: 0.9 % Sodium Chloride Flush 3 ML SYRINGE IVFLUSH ×3 (08:19→23:04)
--- NOTE | 2023-04-27 11:10 | MHC.CLN ---
NUTRITION PATIENT WITH ESRD ON HEMODIALYSIS. DIET=2 G SODIUM-APPROPRIATE. REPORTS THAT EATS WELL AT HOME. EATING 100% MOST MEALS DURING ADMISSION. DOES NOT TAKE SUPPLEMENT AT HOME. QUALIFIES NON SEVERE MALNUTRITION IN THE CONTEXT OF CHRONIC ILLNESS. MILD DEPLETION OF BODY FAT AND MUSCLE MASS NOTED. BMI=17.1 AND IS 73% OF IBW. NO SUPPLEMENT AT THIS TIME DUE TO REPORTED GOOD/EXCELLENT INTAKE. FOLLOW FOR INTAKE AND LABS. SEE CLINICAL NUTRITION ASSESSMENT 04/27/23.
--- NOTE | 2023-04-27 11:32 | PM.DS ---
DS: Providers Provider Date of Service: 04/27/23 Date of admission: 04/24/23 21:29 Primary care physician: Syeda Pierce MD Consults: 04/24/23 21:37 Consult to Nephrology Routine Consulting Provider: [facility] Reason for consultation: esrd DS: Diagnosis Discharge Diagnosis (1) Hypoxia: Status: Acute (2) End stage renal disease on dialysis: Status: Acute DS: Summary Hospital Course Hospital Course: History and physical as per admitting provider. This is a 48-year-old male with pertinent history of congestive heart failure with preserved ejection fraction, essential hypertension, ESRD on hemodialysis D/T/S, mood disorder, gastroesophageal reflux disease who presents to the emergency department for evaluation of chills. Patient states he started having chills 1 day prior to presentation. It continued during his dialysis session on the day of presentation. Patient states he was not feeling well after dialysis and told EMS to get him to the hospital for further evaluation. No sick contacts. Patient states he also has been having dyspnea. No orthopnea or PND. No leg swelling. Patient had mild nonproductive cough which has resolved. No chest discomfort, palpitations, abdominal pain, changes in urinary or bowel habits. In the emergency department, patient was found to be hypoxemic and placed on supplemental oxygen. Test positive for influenza A. 48-year-old man treated for acute hypoxemic respiratory failure secondary to influenza A. Placed on isolation precautions. Treated with Tamiflu, supplemental oxygen. Low concern for bacterial superinfection as patient had no cough, leukocytosis or fever therefore no antibiotics were started. He did have an elevated troponin likely secondary to increased demand from flu and hypoxia. Seen evaluated by Cardiology with recommendation for IV heparin. He did not have any chest pain during admission and no acute ischemic changes noted on EKG. Does have a history of end-stage renal disease on dialysis Wednesday, and Wednesday had dialysis today 04/27/2023. Plan is for him to complete treatment with Tamiflu, 2 more doses , he is to take after dialysis. Mental. Continue home mood stabilizers GERD. Continue PPI Congestive heart failure. No exacerbation during hospitalization Acute lactic acidosis. Secondary to hypoxemia Physical Exam Vital Signs: Vital Signs: Last Vital Signs Temp 97.1 F 04/27/23 07:22 Pulse 68 04/27/23 07:22 Resp 14 04/27/23 07:22 BP 139/88 04/27/23 07:22 Pulse Ox 93 04/27/23 07:22 O2 Del Method Nasal Cannula 04/27/23 07:22 O2 Flow Rate 3 04/27/23 07:22 BMI result Body Mass Index 17.1 Appearing in no acute distress head is normocephalic atraumatic eyes pupils are PERRLA sclera is anicteric mouth throat mucous membranes are intact and moist neck is supple no lymphadenopathy, no JVD noted lung sounds are clear to auscultation heart regular rate rhythm, clear S1, S2 positive bowel sounds, abdomen is soft, nontender neuro patient is alert x3, no focal deficits DS: Data Data Completed and Pending Completed studies during hospitalization [Text1]: Procedures Introduction of Vasopressor into Peripheral Vein, Percutaneous Approach (01/06/20) Performance of Urinary Filtration, Intermittent, Less than 6 Hours Per Day (06/21/20) Labs on day of discharge: Preliminary micro results at discharge 04/24/23 15:45 Blood Culture - Preliminary Blood - Venous No growth after 48 hours. 04/24/23 15:08 Blood Culture - Preliminary Blood - Venous No growth after 48 hours. Discharge Plan Discharge Anticipated Discharge Date/Time: 04/27/23 11:24 Patient Disposition: Home, Self-Care Discharge Diagnosis: Influenza a Acute hypoxic respiratory failure End-stage renal disease on dialysis Referrals: Syeda Pierce MD [Primary Care Provider] - 1 Week Discharge Medications: New oseltamivir 30 mg Capsule 30 mg PO Q24H Qty: 2 0RF Rx Instructions: take after dialysis Continued clonidine HCl 0.2 mg tablet 0.2 mg PO BID nifedipine 60 mg tablet extended release 60 mg PO BID doxazosin 2 mg Tablet 2 mg PO DAILY Qty: 30 0RF Protocol: Hold for SBP< HOLD for SBP < : 90 carvedilol 25 mg tablet 25 mg PO BID lisinopril 40 mg tablet 40 mg PO DAILY Qty: 30 0RF docusate sodium 100 mg Tablet 200 mg PO QPM Diet: Advance to usual diet Activity on Discharge: As tolerated Stand Alone Forms: Patient Portal Discharge page Care Plan Goals: Complete course of Tamiflu for influenza A. Next dose 04/29 after dialysis then 05/01 after dialysis Health Concerns: Influenza a Acute hypoxic respiratory failure End-stage renal disease on dialysis Plan of Treatment: Follow-up with primary care provider as needed Take all medications as prescribed Assessment: See discharge summary
--- NOTE | 2023-04-27 14:32 | HO.PM.IMPN ---
Subjective Subjective Date of Service: 04/27/23 Review of Systems Follow-up acute hypoxic respiratory failure, flu, end-stage renal disease Feeling better today Denies chest pain, shortness for breath, nausea, vomiting, diarrhea Physical Exam Vital Signs: Vital Signs: Last Vital Signs Temp 97.5 F 04/27/23 12:53 Pulse 68 04/27/23 12:53 Resp 14 04/27/23 12:53 BP 170/72 H 04/27/23 12:53 Pulse Ox 96 04/27/23 12:53 O2 Del Method Nasal Cannula 04/27/23 12:53 O2 Flow Rate 3 04/27/23 12:53 BMI result Body Mass Index 17.1 Appearing in no acute distress lung sounds are clear to auscultation heart regular rate rhythm, clear S1, S2 positive bowel sounds, abdomen is soft, nontender neuro patient is alert x3, no focal deficits Objective Data Active Medications Acetaminophen (Acetaminophen 325 Mg Tablet) 650 mg PO Q6H PRN PRN Reason: Pain, Mild (Pain Scale 1-3) Acetaminophen (Acetaminophen Supp 650 Mg Supp.Rect) 650 mg [place] Q6H PRN PRN Reason: Pain, Mild (Pain Scale 1-3) Al Hydroxide/Mg Hydroxide (Magnesium Hydrox/Alum Hydrox 30 Ml Oral.Susp) 30 ml PO Q6H PRN PRN Reason: Heartburn Last Admin: 04/26/23 22:43 Dose: 30 ml Documented By: JUAN JOSE Carvedilol (Carvedilol 25 Mg Tablet) 25 mg PO BID [facility]; Protocol Last Admin: 04/27/23 08:19 Dose: 25 mg Documented By: JANIE Clonidine HCl (Clonidine Hcl 0.2 Mg Tablet) 0.2 mg PO BID [facility]; Protocol Last Admin: 04/27/23 08:30 Dose: Not Given Documented By: JANIE Non-Admin Reason: Patient Refused Docusate Sodium (Docusate Sodium 100 Mg Capsule) 200 mg PO BEDTIME [facility] Last Admin: 04/26/23 20:54 Dose: 100 mg Documented By: JUAN JOSE Comments: pt only wants to take 100mg Doxazosin Mesylate (Doxazosin Mesylate 2 Mg Tablet) 2 mg PO BEDTIME [facility]; Protocol Last Admin: 04/26/23 20:54 Dose: 2 mg Documented By: JUAN JOSE Heparin Sodium (Porcine) (Heparin Sodium,Porcine 5,000 Unit/Ml Vial) 5,000 unit SUBCUT Q12H [facility] Last Admin: 04/27/23 09:11 Dose: Not Given Documented By: JANIE Non-Admin Reason: Off unit: Dialysis Lisinopril (Lisinopril 40 Mg Tablet) 40 mg PO DAILY [facility]; Protocol Last Admin: 04/27/23 08:19 Dose: Not Given Documented By: JANIE Non-Admin Reason: Patient Refused Melatonin (Melatonin 3 Mg Tablet) 6 mg PO BEDTIME PRN PRN Reason: Insomnia Nifedipine (Nifedipine Er 60 Mg Tab.Er.24) 60 mg PO BID [facility] Last Admin: 04/27/23 08:19 Dose: 60 mg Documented By: JANIE Ondansetron HCl (Ondansetron Hcl 4 Mg/2 Ml Vial) 4 mg IVPUSH Q8H PRN PRN Reason: Nausea and Vomiting Oseltamivir Phosphate (Oseltamivir Phosphate 30 Mg Capsule) 30 mg PO Q24H [facility] Stop: 04/29/23 09:01 Last Admin: 04/27/23 08:19 Dose: 30 mg Documented By: JANIE Sodium Chloride (0.9 % Sodium Chloride Flush 3 Ml Syringe) 3 ml IVFLUSH QSHIFT [facility] Last Admin: 04/27/23 08:19 Dose: 3 ml Documented By: JANIE Labs 04/25/23 04:47 04/25/23 04:47 Microbiology Microbiology Results: Microbiology 04/24/23 15:45 Blood Culture - Preliminary Blood - Venous No growth after 48 hours. 04/24/23 15:08 Blood Culture - Preliminary Blood - Venous No growth after 48 hours. Assessment and Plan (1) Hypoxia: Status: Acute (2) End stage renal disease on dialysis: Status: Acute Plan 48-year-old male with pertinent history of congestive heart failure with preserved ejection fraction, essential hypertension, ESRD on hemodialysis D/T/S, mood disorder, gastroesophageal reflux disease who presents to the emergency department for evaluation of chills Acute hypoxemic respiratory failure and viral sepsis due to influenza a isolation precautions. Continue supplemental oxygen and wean as tolerated. Tamiflu 2 more doses dialysis days. Low concern for bacterial superinfection (patient without productive cough, leukocytosis), defer continuing antibiotics. still hypoxic at rest and with exertion discussed with pulmonary>rec echo to assess for pulm HTN vs CMP check labs Elevated troponin likely in the setting of increased demand. No chest pain on admission. Cardiology was consulted in the ER and no need for heparin. ESRD on hemodialysis [facility] Acute lactic acidosis due to hypoxemia Congestive heart failure with preserved ejection fraction/essential hypertension no exacerbation Continue home antihypertensives Mood disorder Continue home mood stabilizers Gastroesophageal reflux disease On PPI DVT prophylaxis: Heparin Attending Dr. Allison Full code continue hospital stay for supplemental oxygen (as above), which is not possible in a lesser acute setting. Quality Stroke Does the patient have a stroke diagnosis?: No VTE Prior VTE?: No VTE Risk Level:: Medical - moderate - high VTE Device Contraindication: Treatment Not Indicated VTE Drug Contraindication: N/A - Med Ordered
[2023-04-27 15:24] LABS: Hematocrit 30.4 % (42.0-52.0); Hemoglobin 10.2 g/dl (14.0-18.0); Mean Corpuscular HGB Conc 33.6 g/dl (31.0-36.0); Mean Corpuscular Hemoglobin 32.6 pg (27.0-33.0); Mean Corpuscular Volume 97.1 fL (80.0-98.0); Mean Platelet Volume 10.6 fL (9.4-12.4); Red Blood Count 3.13 X10*6/uL (4.60-5.80); Red Cell Distribution Width 14.9 % (11.0-16.0); White Blood Count 4.7 X10*3/uL (4.8-10.8)
[2023-04-27 15:25] LABS: Venous Blood Gas Refer to POC result
[2023-04-27 15:26] LABS: VBG Base Excess 3.2 mmol/L; VBG HCO3 24 mmol/L (22-26); VBG pCO2 29 mmHg; VBG pH 7.53 (7.32-7.43); VBG pO2 75 mmHg
[2023-04-27 15:44] LABS: Platelet Count 88 X10*3/uL (160-400)
[2023-04-27 15:47] LABS: B Type Natriuretic Peptide 1302 pg/mL (<100)
[2023-04-27 16:09] LABS: Anion Gap 16 (12-20); Blood Urea Nitrogen 30 mg/dL (9-16); Calcium 8.4 mg/dL (8.4-10.2); Carbon Dioxide 22 mmol/L (22-29); Chloride 98 mmol/L (96-108); Creatinine Clr Calc Pharmacy 12.5; Estimated Glomerular Filt Rate 12; Glucose Random 112 mg/dL (60-115); Potassium 3.4 mmol/L (3.3-5.1); Sodium 133 mmol/L (135-145)
[2023-04-27] MEDS: Sildenafil Citrate 20 MG TABLET PO ×2 (18:31→21:06)
[2023-04-27] MEDS: Heparin Sodium,Porcine 5,000 UNIT/ML VIAL 5000 UNIT SUBCUT (21:05)
[2023-04-27] MEDS: Doxazosin Mesylate 2 MG TABLET PO (21:06)
[2023-04-27] MEDS: Docusate Sodium 100 MG CAPSULE 200 MG PO (21:06)
[2023-04-27] MEDS: cloNIDine HCL 0.2 MG TABLET PO (21:06)
[2023-04-28 03:54] VITALS: BP 116/67; PULSE 66; RESP 16; TEMP 36.8; O2SAT 96
--- NOTE | 2023-04-28 09:38 | PM.CNPUL ---
History of Present Illness History of Present Illness Consult date: 04/28/23 Chief complaint: Chills Narrative: This is an inpatient pulmonary consultation. This is a 48-year-old male with pertinent history of congestive heart failure with preserved ejection fraction, essential hypertension, ESRD on hemodialysis D/T/S, mood disorder, gastroesophageal reflux disease who presents to the emergency department for evaluation of chills. Patient states he started having chills 1 day prior to presentation. It continued during his dialysis session on the day of presentation. Patient states he was not feeling well after dialysis and told EMS to get him to the hospital for further evaluation. No sick contacts. Patient states he also has been having dyspnea. No orthopnea or PND. No leg swelling. Patient had mild nonproductive cough which has resolved. No chest discomfort, palpitations, abdominal pain, changes in urinary or bowel habits. In the emergency department, patient was found to be hypoxemic and placed on supplemental oxygen. Test positive for influenza A. The patient has been slow to recover. Still requiring oxygen. Therefore Pulmonary was consulted. We did request an echocardiogram demonstrating severe pulmonary hypertension. He was started on sildenafil and will have additional fluid removed. I did personally review his CT scan of the chest demonstrating some chronic changes primarily affecting the left lung. Review of Systems Constitutional: Constitutional: Reports fatigue, Reports lethargy, Reports malaise, Reports poor appetite and Reports weakness Cardiovascular: Cardiovascular: Reports no additional cardiovascular complaints and Reports dyspnea Respiratory: Respiratory: Reports dyspnea Gastrointestinal: Gastrointestinal: Reports no additional gastrointestinal complaints Genitourinary: Genitourinary: Reports no additional male genitourinary complaints Neurologic: Reports weakness Endocrine: Endocrine: Reports fatigue PMFSH Past Medical History Medical History (Updated 04/28/23 @ 13:12 by Edgard Blank MD) Pulmonary hypertension associated with chronic renal failure on dialysis Anemia ESRD (end stage renal disease) End stage chronic kidney disease Dialysis patient Disease of pericardium, unspecified Pulmonary hypertension associated with end stage renal disease on dialysis Hypertensive cardiovascular disease Fistula Hypertension CHF (congestive heart failure) Kidney disease Family History Family History Other HTN (hypertension) Social History Social History Household Members: Significant Other Household Members Other:: lives with girlfriend Housing: House Do you presently have visiting nurse or other home services: No Alcohol intake: unknown Comment: blood pressure still 220/120 Patient Tobacco Use Status: Never used Tobacco Second Hand Smoke Exposure: No Advance Directives Date on File: 01/08/20 service: No Current occupational status: unemployed Meds Allergies Allergy/AdvReac Type Severity Reaction Status Date / Time No Known Allergies Allergy Verified 05/21/20 07:36 Active Medications: Current Medications Acetaminophen (Acetaminophen 325 Mg Tablet) 650 mg PO Q6H PRN PRN Reason: Pain, Mild (Pain Scale 1-3) Acetaminophen (Acetaminophen Supp 650 Mg Supp.Rect) 650 mg [place] Q6H PRN PRN Reason: Pain, Mild (Pain Scale 1-3) Al Hydroxide/Mg Hydroxide (Magnesium Hydrox/Alum Hydrox 30 Ml Oral.Susp) 30 ml PO Q6H PRN PRN Reason: Heartburn Last Admin: 04/26/23 22:43 Dose: 30 ml Carvedilol (Carvedilol 25 Mg Tablet) 25 mg PO BID [facility]; Protocol Last Admin: 04/27/23 21:06 Dose: 25 mg Clonidine HCl (Clonidine Hcl 0.2 Mg Tablet) 0.2 mg PO BID [facility]; Protocol Last Admin: 04/27/23 21:06 Dose: 0.2 mg Docusate Sodium (Docusate Sodium 100 Mg Capsule) 200 mg PO BEDTIME [facility] Last Admin: 04/27/23 21:06 Dose: 100 mg Doxazosin Mesylate (Doxazosin Mesylate 2 Mg Tablet) 2 mg PO BEDTIME [facility]; Protocol Last Admin: 04/27/23 21:06 Dose: 2 mg Heparin Sodium (Porcine) (Heparin Sodium,Porcine 5,000 Unit/Ml Vial) 5,000 unit SUBCUT Q12H [facility] Last Admin: 04/27/23 21:05 Dose: 5,000 unit Lisinopril (Lisinopril 40 Mg Tablet) 40 mg PO DAILY [facility]; Protocol Last Admin: 04/27/23 08:19 Dose: Not Given Melatonin (Melatonin 3 Mg Tablet) 6 mg PO BEDTIME PRN PRN Reason: Insomnia Nifedipine (Nifedipine Er 60 Mg Tab.Er.24) 60 mg PO BID [facility] Last Admin: 04/27/23 21:06 Dose: 60 mg Ondansetron HCl (Ondansetron Hcl 4 Mg/2 Ml Vial) 4 mg IVPUSH Q8H PRN PRN Reason: Nausea and Vomiting Oseltamivir Phosphate (Oseltamivir Phosphate 30 Mg Capsule) 30 mg PO Q24H [facility] Stop: 04/29/23 09:01 Last Admin: 04/27/23 08:19 Dose: 30 mg Sildenafil Citrate (Sildenafil Citrate 20 Mg Tablet) 20 mg PO TID [facility] Last Admin: 04/27/23 21:06 Dose: 20 mg Sodium Chloride (0.9 % Sodium Chloride Flush 3 Ml Syringe) 3 ml IVFLUSH QSHIFT [facility] Last Admin: 04/27/23 23:04 Dose: 3 ml Home Medications Medication Instructions Recorded Confirmed Last Taken Type carvedilol 25 mg tablet 25 mg PO BID 12/11/19 04/25/23 06/20/20 15:00 History clonidine HCl 0.2 mg tablet 0.2 mg PO BID 06/20/20 04/25/23 06/20/20 08:00 History nifedipine 60 mg tablet,extended 60 mg PO BID 06/20/20 04/25/23 06/19/20 08:00 History release docusate sodium 100 mg tablet 200 mg PO QPM 04/25/23 04/25/23 Unknown History Physical Exam Vital Signs: Vital Signs: Last Vital Signs Temp 98.3 F 04/28/23 03:54 Pulse 66 04/28/23 03:54 Resp 16 04/28/23 03:54 BP 116/67 04/28/23 03:54 Pulse Ox 96 04/28/23 03:54 O2 Del Method Nasal Cannula 04/28/23 03:54 O2 Flow Rate 2 04/28/23 03:54 BMI result Body Mass Index 17.1 Appearing in no acute distress lung sounds are clear to auscultation heart regular rate rhythm, clear S1, S2 positive bowel sounds, abdomen is soft, nontender neuro patient is alert x3, no focal deficits Results Laboratory Findings 04/27/23 15:06 04/27/23 15:17 ABG, PT/INR, D-dimer: PT/INR, D-dimer PT 15.3 SEC (11.1-13.3) H 04/24/23 20:27 INR 1.3 (0.9-1.1) H 04/24/23 20:27 Abnormal lab findings: Abnormal Labs 04/24/23 04/24/23 04/24/23 15:03 15:07 16:39 WBC RBC 3.37 L Hgb 11.1 L Hct 32.7 L MCV MCH Plt Count 89 L Immature Gran % (Auto) 1.6 H Neut % (Auto) 76.8 H Lymph % (Auto) 7.9 L [place] % (Auto) 12.3 H Lymph # (Auto) 0.4 L Abs Immat Gran (auto) 0.08 H PT INR VBG pH 7.64 H* VBG HCO3 31 H Sodium Chloride 95 L Anion Gap 22 H BUN 25 H Creatinine 4.80 H* Lactic Acid 3.3 H* Lactic Acid F/U @ 2Hr Calcium Total Bilirubin 1.1 H Troponin I High Sens 239.8 H* B-Natriuretic Peptide 2911 H Total Protein 8.2 H Influenza Type A (JOHN) Positive A 04/24/23 04/24/23 04/25/23 17:51 20:27 04:47 WBC 4.5 L RBC 2.78 L Hgb 9.2 L Hct 28.1 L MCV 101.1 H MCH 33.1 H Plt Count 67 L Immature Gran % (Auto) 0.7 H Neut % (Auto) Lymph % (Auto) 10.8 L [place] % (Auto) 17.1 H Lymph # (Auto) 0.5 L Abs Immat Gran (auto) PT 15.3 H INR 1.3 H VBG pH VBG HCO3 Sodium Chloride Anion Gap BUN 41 H Creatinine 7.03 H* Lactic Acid Lactic Acid F/U @ 2Hr 2.1 H* Calcium 7.8 L D Total Bilirubin Troponin I High Sens 401.2 H* D B-Natriuretic Peptide Total Protein Influenza Type A (JOHN) 04/25/23 04/27/23 04/27/23 10:20 15:06 15:17 WBC 4.7 L RBC 3.13 L Hgb 10.2 L Hct 30.4 L MCV MCH Plt Count 88 L D Immature Gran % (Auto) Neut % (Auto) Lymph % (Auto) [place] % (Auto) Lymph # (Auto) Abs Immat Gran (auto) PT INR VBG pH VBG HCO3 Sodium 133 L Chloride Anion Gap BUN 30 H Creatinine 5.07 H* Lactic Acid Lactic Acid F/U @ 2Hr Calcium Total Bilirubin Troponin I High Sens 292.8 H* B-Natriuretic Peptide 1302 H Total Protein Influenza Type A (JOHN) 04/27/23 15:20 WBC RBC Hgb Hct MCV MCH Plt Count Immature Gran % (Auto) Neut % (Auto) Lymph % (Auto) [place] % (Auto) Lymph # (Auto) Abs Immat Gran (auto) PT INR VBG pH 7.53 H VBG HCO3 Sodium Chloride Anion Gap BUN Creatinine Lactic Acid Lactic Acid F/U @ 2Hr Calcium Total Bilirubin Troponin I High Sens B-Natriuretic Peptide Total Protein Influenza Type A (JOHN) Microbiology: Microbiology 04/24/23 15:45 Blood - Venous Blood Culture - Preliminary No growth after 48 hours. 04/24/23 15:08 Blood - Venous Blood Culture - Preliminary No growth after 48 hours. Assessment and Plan (1) Influenza A: Status: Acute (2) Acute respiratory failure with hypoxia: Status: Acute (3) Pulmonary hypertension associated with chronic renal failure on dialysis: Status: Acute (4) Hypoxia: Status: Acute (5) (HFpEF) heart failure with preserved ejection fraction: Status: Acute Plan Complete Tamiflu x 5 days fluid removal as tolerated started on PD5 inhibitor continue oxygen to maintain pox>90%, may need oxygen upon discharge Procedures Date of Service Date of Service: 04/28/23
[2023-04-28 10:59] VITALS: BP 159/87; PULSE 68; RESP 16; TEMP 36.6; O2SAT 92
[2023-04-28] MEDS: lisinopriL 40 MG TABLET PO (11:37)
[2023-04-28] MEDS: cloNIDine HCL 0.2 MG TABLET PO ×2 (11:37→20:35)
[2023-04-28] MEDS: carvediloL 25 MG TABLET PO ×2 (11:38→20:35)
[2023-04-28] MEDS: Sildenafil Citrate 20 MG TABLET PO ×3 (11:38→20:35)
[2023-04-28] MEDS: Oseltamivir Phosphate 30 MG CAPSULE PO (11:38)
[2023-04-28] MEDS: NIFEdipine ER 60 MG TAB.ER.24 PO ×2 (11:38→20:38)
[2023-04-28] MEDS: Heparin Sodium,Porcine 5,000 UNIT/ML VIAL 5000 UNIT SUBCUT ×2 (11:40→20:43)
[2023-04-28] MEDS: 0.9 % Sodium Chloride Flush 3 ML SYRINGE IVFLUSH ×3 (11:41→20:44)
--- NOTE | 2023-04-28 13:40 | P.PNIM_ITS ---
Subjective Subjective Date of Service: 04/28/23 Interval History: Resting comfortably. No acute distress Review of Systems Denies chest pain Denies shortness of breath Denies nausea vomiting diarrhea Denies fever chills Physical Exam 2 Vital Signs: Vital Signs: Last Vital Signs Temp 97.8 F 04/28/23 10:59 Pulse 68 04/28/23 10:59 Resp 16 04/28/23 10:59 BP 159/87 H 04/28/23 10:59 Pulse Ox 92 04/28/23 10:59 O2 Del Method Nasal Cannula 04/28/23 10:59 O2 Flow Rate 2 04/28/23 10:59 BMI result Body Mass Index 17.1 Const: Other: Awake alert resting quietly in bed Resp: Other: Clear to auscultation bilaterally no rales rhonchi wheezes Cardio: Other: No S4; positive S1-S2; no S3 murmurs rubs or gallops GI: Other: Soft nontender nondistended normoactive bowel sounds Extrem: Other: No edema bilaterally Objective Data Active Medications Acetaminophen (Acetaminophen 325 Mg Tablet) 650 mg PO Q6H PRN PRN Reason: Pain, Mild (Pain Scale 1-3) Acetaminophen (Acetaminophen Supp 650 Mg Supp.Rect) 650 mg [place] Q6H PRN PRN Reason: Pain, Mild (Pain Scale 1-3) Al Hydroxide/Mg Hydroxide (Magnesium Hydrox/Alum Hydrox 30 Ml Oral.Susp) 30 ml PO Q6H PRN PRN Reason: Heartburn Last Admin: 04/26/23 22:43 Dose: 30 ml Documented By: JUAN JOSE Carvedilol (Carvedilol 25 Mg Tablet) 25 mg PO BID [facility]; Protocol Last Admin: 04/28/23 11:38 Dose: 25 mg Documented By: MITCH Clonidine HCl (Clonidine Hcl 0.2 Mg Tablet) 0.2 mg PO BID [facility]; Protocol Last Admin: 04/28/23 11:37 Dose: 0.2 mg Documented By: MITCH Docusate Sodium (Docusate Sodium 100 Mg Capsule) 200 mg PO BEDTIME [facility] Last Admin: 04/27/23 21:06 Dose: 100 mg Documented By: JUAN JOSE Doxazosin Mesylate (Doxazosin Mesylate 2 Mg Tablet) 2 mg PO BEDTIME [facility]; Protocol Last Admin: 04/27/23 21:06 Dose: 2 mg Documented By: JUAN JOSE Heparin Sodium (Porcine) (Heparin Sodium,Porcine 5,000 Unit/Ml Vial) 5,000 unit SUBCUT Q12H [facility] Last Admin: 04/28/23 11:40 Dose: 5,000 unit Documented By: MITCH Lisinopril (Lisinopril 40 Mg Tablet) 40 mg PO DAILY [facility]; Protocol Last Admin: 04/28/23 11:37 Dose: 40 mg Documented By: MITCH Melatonin (Melatonin 3 Mg Tablet) 6 mg PO BEDTIME PRN PRN Reason: Insomnia Nifedipine (Nifedipine Er 60 Mg Tab.Er.24) 60 mg PO BID [facility] Last Admin: 04/28/23 11:38 Dose: 60 mg Documented By: MITCH Ondansetron HCl (Ondansetron Hcl 4 Mg/2 Ml Vial) 4 mg IVPUSH Q8H PRN PRN Reason: Nausea and Vomiting Oseltamivir Phosphate (Oseltamivir Phosphate 30 Mg Capsule) 30 mg PO Q24H [facility] Stop: 04/29/23 09:01 Last Admin: 04/28/23 11:38 Dose: 30 mg Documented By: MITCH Sildenafil Citrate (Sildenafil Citrate 20 Mg Tablet) 20 mg PO TID [facility] Last Admin: 04/28/23 11:38 Dose: 20 mg Documented By: MITCH Sodium Chloride (0.9 % Sodium Chloride Flush 3 Ml Syringe) 3 ml IVFLUSH QSHIFT [facility] Last Admin: 04/28/23 11:41 Dose: 3 ml Documented By: MITCH Labs 04/27/23 15:06 04/27/23 15:17 Labs: Laboratory Results - last 24 hr 04/27/23 04/27/23 04/27/23 15:06 15:17 15:20 MCV 97.1 MCH 32.6 MCHC 33.6 RDW 14.9 Plt Count 88 L D MPV 10.6 Absolute Nucleated RBC 0.000 Nucleated RBC % (auto) 0.0 VBG pH 7.53 H VBG pCO2 29 VBG pO2 75 VBG HCO3 24 VBG O2 Saturation 94.0 VBG Base Excess 3.2 Anion Gap 16 Estim Creat Clear Calc 12.5 Estimated GFR 12 Random Glucose 112 Calcium 8.4 D B-Natriuretic Peptide 1302 H Assessment and Plan (1) Hypoxia: Status: Acute (2) ESRD (end stage renal disease): Status: Acute (3) Pulmonary hypertension associated with chronic renal failure on dialysis: Status: Acute Plan 48-year-old male with pertinent history of congestive heart failure with preserved ejection fraction, essential hypertension, ESRD on hemodialysis D/T/S, mood disorder, gastroesophageal reflux disease who presents to the emergency department for evaluation of chills; echo consistent with pulmonary hypertension 1.Acute hypoxemic respiratory failure/viral sepsis due to influenza a -Titrate oxygen to maintain sats greater than equal to 92% -Tamiflu 2 more doses dialysis days. 2. Pulmonary hypertension (severe as per pulmonology) -sildenafil 20 mg t.i.d. -follow clinical response 3.ESRD on HD.. // -as per renal -follow renals/divalents 4.Essential hypertension -acceptable control on current therapies -adjust as indicated Heparin Full code continue hospital stay for supplemental oxygen (as above), which is not possible in a lesser acute setting. Follow response to sildenafil Quality Stroke Does the patient have a stroke diagnosis?: No VTE Prior VTE?: No VTE Risk Level:: Medical - moderate - high VTE Device Contraindication: Treatment Not Indicated VTE Drug Contraindication: N/A - Med Ordered
--- NOTE | 2023-04-28 15:20 | MHC.CM.PN ---
EMR REVIEWED AND PER MD ROUNDS, PT NOT MEDICALLY CLEARED FOR DC (CONTINUED 02 NEEDS, PULMONARY HTN) CM WILL CONTINUE TO FOLLOW FOR ANY CHANGE IN DC PLAN.
[2023-04-28 16:00] VITALS: BP 133/72; PULSE 72; RESP 18; TEMP 36.9; O2SAT 92
[2023-04-28 20:00] VITALS: BP 118/71; PULSE 73; RESP 20; TEMP 37.1; O2SAT 92
[2023-04-28] MEDS: Doxazosin Mesylate 2 MG TABLET PO (20:35)
[2023-04-28] MEDS: Melatonin 3 MG TABLET 6 MG PO (20:36)
[2023-04-28] MEDS: Docusate Sodium 100 MG CAPSULE 200 MG PO (20:37)
[2023-04-29 03:51] VITALS: BP 127/74; PULSE 71; RESP 20; TEMP 36.7; O2SAT 95
[2023-04-29 05:25] LABS: MANUAL DIFF FLAG NO
[2023-04-29 05:30] LABS: Basophils Percent Auto 0.3 % (0-2); Eosinophils Absolute Auto 0.1 X10*3/uL (0.0-0.4); Eosinophils Percent Auto 2.6 % (0-4); Hematocrit 27.6 % (42.0-52.0); Hemoglobin 9.2 g/dl (14.0-18.0); Imm Gran Abs Auto 0.03 X10*3/uL (0.00-0.03); Lymphocytes Absolute Auto 0.3 X10*3/uL (1.2-4.9); Lymphocytes Percent Auto 10.3 % (20-40); Mean Corpuscular HGB Conc 33.3 g/dl (31.0-36.0); Mean Corpuscular Hemoglobin 32.4 pg (27.0-33.0); Mean Corpuscular Volume 97.2 fL (80.0-98.0); Mean Platelet Volume 10.3 fL (9.4-12.4); Monocytes Absolute Auto 0.3 X10*3/uL (0.1-1.2); Monocytes Percent Auto 8.1 % (2-11); NRBC Pct Auto 0.6 /100WBC (0.0-0.2); Neutrophils Absolute Auto 2.4 x10*3/uL (2.0-8.3); Neutrophils Percent Auto 77.7 % (45-73); Red Blood Count 2.84 X10*6/uL (4.60-5.80); Red Cell Distribution Width 14.6 % (11.0-16.0); White Blood Count 3.1 X10*3/uL (4.8-10.8)
[2023-04-29 05:31] LABS: Platelet Count 85 X10*3/uL (160-400)
[2023-04-29 05:46] LABS: Alanine Aminotransferase 12 U/L (0-40); Albumin Level 3.1 g/dL (3.5-5.0); Alkaline Phosphatase 68 U/L (39-117); Anion Gap 18 (12-20); Aspartate Amino Transferase 18 U/L (5-37); Bilirubin Total 0.7 mg/dL (0.0-1.0); Blood Urea Nitrogen 32 mg/dL (9-16); Calcium 8.1 mg/dL (8.4-10.2); Carbon Dioxide 25 mmol/L (22-29); Chloride 97 mmol/L (96-108); Creatinine Clr Calc Pharmacy 11.2; Estimated Glomerular Filt Rate 11; Glucose Fasting 94 mg/dL (60-99); Potassium 4.6 mmol/L (3.3-5.1); Sodium 135 mmol/L (135-145); Total Protein 6.1 g/dL (6.5-8.0)
[2023-04-29 07:48] VITALS: BP 106/69; PULSE 69; RESP 14; TEMP 36.4; O2SAT 92
[2023-04-29] MEDS: cloNIDine HCL 0.2 MG TABLET PO (07:50)
[2023-04-29] MEDS: Sildenafil Citrate 20 MG TABLET PO ×2 (07:50→15:10)
[2023-04-29] MEDS: carvediloL 25 MG TABLET PO (07:50)
[2023-04-29] MEDS: lisinopriL 40 MG TABLET PO (07:51)
[2023-04-29] MEDS: 0.9 % Sodium Chloride Flush 3 ML SYRINGE IVFLUSH (07:51)
[2023-04-29] MEDS: Oseltamivir Phosphate 30 MG CAPSULE PO (07:51)
[2023-04-29] MEDS: NIFEdipine ER 60 MG TAB.ER.24 PO (07:51)
--- NOTE | 2023-04-29 12:47 | MHC.CLN ---
F/U PATIENT WITH ESRD ON HEMODIALYSIS. DIET=2 G SODIUM-APPROPRIATE. INTAKE USUALLY GOOD: 1 MEAL X 25%, OTHER MEALS 75-100%. FOLLOW FOR INTAKE AND LABS.
--- NOTE | 2023-04-29 12:48 | P.CDIM_ITS ---
PROVIDER RESPONSE TEXT: To clarify, the appropriate diagnosis supported by the clinical indicators: Underweight QUERY TEXT: PHYSICIAN'S DOCUMENTATION REQUEST Date of Query: 04/29/2023 10:05 AM EST Patient Name: Sterling Chávez Admit Date: 04/25/2023 Dear Prashant Woodard, A review of the medical record indicates additional documentation may be needed. Please review below and update the documentation accordingly. Clinical Indicators: Height: ( ) 5'8 Weight: ( ) 50.9 kg BMI: ( ) 17.1 Other Clinical Notes Supporting Significance of the BMI: Per Clinical Nutrition Assessment 04/27/23: Body fat: mild depletion rib cage Muscle Mass: clavicle mild depletion Nutrition Diagnosis: non severe malnutrition related to prolong catabolic illness ESRD on HD If possible, please provide an associated diagnosis related to the abnormal BMI, such as: Underweight Weight loss Cachexia Moderate Protein Calorie Malnutrition BMI is not significant Other (explain) Clinically unable to determine (explain) Thank you, Felicita Mojica RN Use of terms such as suspected, likely, concern for, or probable (associated with a specific diagnosi s that is being evaluated, monitored, or treated as if it exists) are acceptable and can be coded in the inpatient se tting, when documented at the time of discharge. Please use your independent medical judgment in providing your response. THIS QUERY IS PART OF THE PERMANENT MEDICAL RECORD
--- NOTE | 2023-04-29 12:51 | PM.PNNEP ---
Subjective Subjective Date of Service: 04/29/23 Interval history: Resting comfortably. No acute distress; seen on hemodialysis this morning. Follows up with Dr. Mccarty. All data reviewed. Discussed with the HD RN Physical Exam Vital Signs: Vital Signs: Last Vital Signs Temp 97.5 F 04/29/23 07:48 Pulse 69 04/29/23 07:48 Resp 14 04/29/23 07:48 BP 106/69 04/29/23 07:48 Pulse Ox 92 04/29/23 07:48 O2 Del Method Nasal Cannula 04/29/23 07:48 O2 Flow Rate 2 04/29/23 07:48 BMI result Body Mass Index 17.1 Const: General: comfortable and no acute distress Orientation/consciousness: patient oriented x3 HEENT: Head: Yes normocephalic Mouth: Normal oral and palatal mucosa present Eyes: EOM: EOMs intact bilaterally Neck: Neck: Yes supple Resp: Auscultation: clear to auscultation bilaterally Cardio: Jugular venous distension: no JVD Rate: regular rate GI: Palpation (GI): Soft to palpation Auscultation: normal bowel sounds : General: Yes no CVA tenderness Back/Spine/Pelvis: Back: no CVA tenderness Skin: General skin exam: no rashes or lesions noted Neuro: General: patient oriented x3 and moves all extremities Extrem: General: Yes no pedal edema Objective Data Labs 04/29/23 05:20 04/29/23 05:20 Labs: Laboratory Results - last 24 hr 04/29/23 05:20 WBC 3.1 L RBC 2.84 L Hgb 9.2 L Hct 27.6 L MCV 97.2 MCH 32.4 MCHC 33.3 RDW 14.6 Plt Count 85 L MPV 10.3 Immature Gran % (Auto) 1.0 H Neut % (Auto) 77.7 H Lymph % (Auto) 10.[address] [facility] % (Auto) 8.1 Eos % (Auto) 2.6 Baso % (Auto) 0.3 Lymph # (Auto) 0.[address] [facility] # (Auto) 0.3 Eos # (Auto) 0.1 Baso # (Auto) 0.0 Abs Immat Gran (auto) 0.03 Absolute Neuts (auto) 2.4 Absolute Nucleated RBC 0.020 H Nucleated RBC % (auto) 0.6 H Sodium 135 Potassium 4.6 D Chloride 97 Carbon Dioxide 25 Anion Gap 18 BUN 32 H Creatinine 5.67 H* Estim Creat Clear Calc 11.2 Estimated GFR 11 Fasting Glucose 94 Calcium 8.1 L Total Bilirubin 0.7 AST 18 ALT 12 Alkaline Phosphatase 68 Total Protein 6.1 L Albumin 3.1 L Microbiology Microbiology Results: Microbiology 04/24/23 15:45 Blood - Venous Blood Culture - Preliminary No growth after 48 hours. 04/24/23 15:08 Blood - Venous Blood Culture - Preliminary No growth after 48 hours. Procedures Date of Service Date of Service: 04/29/23 Assessment & Plan Assessment and plan (1) End stage renal disease on dialysis: Status: Acute Plan Seen on hemodialysis; usually gets dialysis on Wednesday Follows up with Dr Mccarty; continued volume optimization on dialysis Renal diet; phosphorus binders with meals; Procrit to maintain hemoglobin close to 11 Continue rest of his current medications Progress Note: Quality Stroke Does the patient have a stroke diagnosis?: No
--- NOTE | 2023-04-29 15:00 | P.DS_ITS ---
DS: Providers Provider Date of Service: 04/29/23 Date of admission: 04/24/23 21:29 Date of discharge: 04/29/23 Primary care physician: Syeda Pierce MD Consults: 04/24/23 21:37 Consult to Nephrology Routine Consulting Provider: [facility] Reason for consultation: esrd 04/27/23 13:07 Consult to Pulmonology Routine Consulting Provider: [facility] Pulmonology Services Reason for consultation: hypoxia DS: Diagnosis Discharge Diagnosis (1) End stage renal disease on dialysis: Status: Acute DS: Summary Hospital Course Hospital Course: History and physical as per admitting provider. This is a 48-year-old male with pertinent history of congestive heart failure with preserved ejection fraction, essential hypertension, ESRD on hemodialysis D/T/S, mood disorder, gastroesophageal reflux disease who presents to the emergency department for evaluation of chills. Patient states he started having chills 1 day prior to presentation. It continued during his dialysis session on the day of presentation. Patient states he was not feeling well after dialysis and told EMS to get him to the hospital for further evaluation. No sick contacts. Patient states he also has been having dyspnea. No orthopnea or PND. No leg swelling. Patient had mild nonproductive cough which has resolved. No chest discomfort, palpitations, abdominal pain, changes in urinary or bowel habits. In the emergency department, patient was found to be hypoxemic and placed on supplemental oxygen. Test positive for influenza A. 48-year-old man treated for acute hypoxemic respiratory failure secondary to influenza A. Placed on isolation precautions. Treated with Tamiflu, supplemental oxygen. Low concern for bacterial superinfection as patient had no cough, leukocytosis or fever therefore no antibiotics were started. He did have an elevated troponin likely secondary to increased demand from flu and hypoxia. Seen evaluated by Cardiology with recommendation for IV heparin. He did not have any chest pain during admission and no acute ischemic changes noted on EKG. Does have a history of end-stage renal disease on dialysis Wednesday, and Wednesday had dialysis today 04/27/2023. Plan is for him to continue sildenafil and follow-up with Pulmonary Mental. Continue home mood stabilizers GERD. Continue PPI Congestive heart failure. No exacerbation during hospitalization Acute lactic acidosis. Secondary to hypoxemia Time Attestation Discharge coordination time: Greater than 30 minutes Quality: Safe Use of Opioids Does Pt have an Active Cancer Diagnosis on the Problem List?: No Quality: Stroke Does the patient have a stroke diagnosis?: No Physical Exam Vital Signs: Vital Signs: Last Vital Signs Temp 97.5 F 04/29/23 07:48 Pulse 69 04/29/23 07:48 Resp 14 04/29/23 07:48 BP 106/69 04/29/23 07:48 Pulse Ox 92 04/29/23 07:48 O2 Del Method Nasal Cannula 04/29/23 07:48 O2 Flow Rate 2 04/29/23 07:48 BMI result Body Mass Index 17.1 Const: Other: Awake alert resting quietly in bed Resp: Other: Clear to auscultation bilaterally no rales rhonchi wheezes Cardio: Other: No S4; positive S1-S2; no S3 murmurs rubs or gallops GI: Other: Soft nontender nondistended normoactive bowel sounds Extrem: Other: No edema bilaterally DS: Data Data Completed and Pending Completed studies during hospitalization [Text1]: Procedures Introduction of Vasopressor into Peripheral Vein, Percutaneous Approach (01/06/20) Performance of Urinary Filtration, Intermittent, Less than 6 Hours Per Day (06/21/20) Labs on day of discharge: Laboratory Results - last 24 hr 04/29/23 05:20 WBC 3.1 L RBC 2.84 L Hgb 9.2 L Hct 27.6 L MCV 97.2 MCH 32.4 MCHC 33.3 RDW 14.6 Plt Count 85 L MPV 10.3 Immature Gran % (Auto) 1.0 H Neut % (Auto) 77.7 H Lymph % (Auto) 10.3 L [place] % (Auto) 8.1 Eos % (Auto) 2.6 Baso % (Auto) 0.3 Lymph # (Auto) 0.3 L [place] # (Auto) 0.3 Eos # (Auto) 0.1 Baso # (Auto) 0.0 Abs Immat Gran (auto) 0.03 Absolute Neuts (auto) 2.4 Absolute Nucleated RBC 0.020 H Nucleated RBC % (auto) 0.6 H Sodium 135 Potassium 4.6 D Chloride 97 Carbon Dioxide 25 Anion Gap 18 BUN 32 H Creatinine 5.67 H* Estim Creat Clear Calc 11.2 Estimated GFR 11 Fasting Glucose 94 Calcium 8.1 L Total Bilirubin 0.7 AST 18 ALT 12 Alkaline Phosphatase 68 Total Protein 6.1 L Albumin 3.1 L Preliminary micro results at discharge 04/24/23 15:45 Blood Culture - Preliminary Blood - Venous No growth after 48 hours. 04/24/23 15:08 Blood Culture - Preliminary Blood - Venous No growth after 48 hours. Discharge Plan Discharge Anticipated Discharge Date/Time: 04/29/23 14:58 Patient Disposition: Home, Self-Care Discharge Diagnosis: Influenza a Acute hypoxic respiratory failure End-stage renal disease on dialysis Referrals: Syeda Pierce MD [Primary Care Provider] - 1 Week Discharge Medications: New sildenafil (pulm.hypertension) 20 mg Tablet 20 mg PO TID Qty: 90 0RF Continued clonidine HCl 0.2 mg tablet 0.2 mg PO BID nifedipine 60 mg tablet extended release 60 mg PO BID doxazosin 2 mg Tablet 2 mg PO DAILY Qty: 30 0RF Protocol: Hold for SBP< HOLD for SBP < : 90 carvedilol 25 mg tablet 25 mg PO BID lisinopril 40 mg tablet 40 mg PO DAILY Qty: 30 0RF docusate sodium 100 mg Tablet 200 mg PO QPM Discharge Orders: Discharge Order (Routine); Ordered 04/29/23 Ordered By: Prashant Woodard Diet: Advance to usual diet Activity on Discharge: As tolerated Stand Alone Forms: Patient Portal Discharge page Care Plan Goals: Add sildenafil to your daily regimen Health Concerns: Influenza a Acute hypoxic respiratory failure End-stage renal disease on dialysis Plan of Treatment: Follow-up with primary care provider as needed Take all medications as prescribed Assessment: See discharge summary
== END 2023-04-29 16:30 | disposition home or self-care (01) | DRG 871 ==
LOC: HO.ED 19:30 → HO.EDOVER 21:36 → HO.S3 04-25 07:32
PROVIDERS: Internal Medicine; Nurse Practitioner Acute Care; Physician Assistant; Physician Assistant Medical; Admitting Provider Student in an Organized Health Care Education/Training Program; Emergency Provider Student in an Organized Health Care Education/Training Program; PCP Internal Medicine; Visit Provider Hospitalist
DX: A41.89 Other specified sepsis (principal); J96.01 Acute respiratory failure with hypoxia; N18.6 End stage renal disease; I13.2 Hypertensive heart and chronic kidney disease with heart failure and with stage 5 chronic kidney disease, or end stage renal disease; Z68.1 Body mass index [BMI] 19.9 or less, adult; I50.32 Chronic diastolic (congestive) heart failure; E87.21 Acute metabolic acidosis; K21.9 Gastro-esophageal reflux disease without esophagitis; I27.29 Other secondary pulmonary hypertension; F39 Unspecified mood [affective] disorder; R63.6 Underweight; Z99.2 Dependence on renal dialysis; J10.1 Influenza due to other identified influenza virus with other respiratory manifestations; D63.1 Anemia in chronic kidney disease; Z20.822 Contact with and (suspected) exposure to COVID-19; Z79.899 Other long term (current) drug therapy
CPT/HCPCS: 36415; 71045; 71275; 80048; 80053; 82550; 82803; 83605; 83735; 83880; 84484; 85025; 85027; 85610; 85730; 87040; 87502; 87635; 90999; 93005; 93306; 93356; 93970; 99285; J0456; J0696; J1644; Q9957; Q9967

== ENCOUNTER → 2023-04-24 15:53 | Outpatient (BNV) | payer MEDICARE, MEDICAID, SELFPAY | PROVIDERS: Admitting Provider Student in an Organized Health Care Education/Training Program; Emergency Provider Student in an Organized Health Care Education/Training Program; PCP Internal Medicine; Visit Provider Internal Medicine Cardiovascular Disease | DX: R94.31 Abnormal electrocardiogram [ECG] [EKG] (principal) | CPT/HCPCS: 93010 ==

== ENCOUNTER 2023-04-24 21:29 | Outpatient (BNV) | payer MEDICARE, MEDICAID, SELFPAY | END 2023-04-27 07:00 | PROVIDERS: Admitting Provider Student in an Organized Health Care Education/Training Program; Emergency Provider Student in an Organized Health Care Education/Training Program; PCP Internal Medicine; Visit Provider Internal Medicine Cardiovascular Disease | DX: I34.0 Nonrheumatic mitral (valve) insufficiency (principal); I36.1 Nonrheumatic tricuspid (valve) insufficiency | CPT/HCPCS: 93306 ==

== ENCOUNTER → 2023-04-24 21:29 | Outpatient (BNV) | payer MEDICARE, MEDICAID, SELFPAY | PROVIDERS: Admitting Provider Student in an Organized Health Care Education/Training Program; Emergency Provider Student in an Organized Health Care Education/Training Program; PCP Internal Medicine; Visit Provider Hospitalist | DX: J10.1 Influenza due to other identified influenza virus with other respiratory manifestations (principal); J96.01 Acute respiratory failure with hypoxia; I27.29 Other secondary pulmonary hypertension; N18.9 Chronic kidney disease, unspecified; Z99.2 Dependence on renal dialysis; R09.02 Hypoxemia; I50.30 Unspecified diastolic (congestive) heart failure | CPT/HCPCS: 99223 ==

== ENCOUNTER → 2023-04-24 21:29 | Outpatient (BNV) | payer MEDICARE, MEDICAID, SELFPAY | PROVIDERS: Admitting Provider Student in an Organized Health Care Education/Training Program; Emergency Provider Student in an Organized Health Care Education/Training Program; PCP Internal Medicine; Visit Provider Internal Medicine Nephrology | DX: N18.6 End stage renal disease (principal); Z99.2 Dependence on renal dialysis | CPT/HCPCS: 90935 ==

== ENCOUNTER → 2023-04-24 21:29 | Outpatient (BNV) | payer MEDICARE, MEDICAID, SELFPAY | PROVIDERS: Admitting Provider Student in an Organized Health Care Education/Training Program; Emergency Provider Student in an Organized Health Care Education/Training Program; PCP Internal Medicine; Visit Provider Student in an Organized Health Care Education/Training Program | DX: J96.01 Acute respiratory failure with hypoxia (principal); N18.6 End stage renal disease; Z99.2 Dependence on renal dialysis | CPT/HCPCS: 99222; 99232; 99233; 99238 ==

== ENCOUNTER → 2023-05-07 | Outpatient (BNV) | payer MEDICARE, MEDICAID, SELFPAY | PROVIDERS: PCP Internal Medicine; Visit Provider Internal Medicine Hypertension Specialist | DX: N18.6 End stage renal disease (principal) | CPT/HCPCS: 90961 ==

== ENCOUNTER → 2023-06-07 | Outpatient (BNV) | payer MEDICARE, SELFPAY ==
--- OUTSIDE RECORDS SUMMARY | 2023-07-08 15:38 | XMS_ITS | Patient Health Record ---
Author Organization [facility] Address [address] [place] [address] Care Team Providers Care Pouch Maker Name Role Phone Syeda [place] Primary Care Provider Unavailab Aaron Trujillo Unavailable [phone] Case Mccarty Unavailable Unavailable ALLERGIES Allergen (clinical [...] Vitamin B Complex Ac tive Vitamin D2 69756 1 tablet Orally ONCE A WEEK Active [...] Notes Problem Other ascites (R18.8) Active confirmed [id number] Problem Hypertension, unspecified type (I10) Active confirmed 11945706 Problem Ascites (R18.8) Active confirmed Ascite s ([id number]) PLAN OF TREATMENT Pending Test Test Name Order Date ECHO EXAM OF HEART 01/14/2018 CHEM 7 PROFILE 08/15/2018 CHEM 7 PROFILE 01/23/2020 CHEM 7 PROFILE 08/08/2019 CHEM 7 PROFILE 10/07/2018 CHEM 7 PROFILE 07/13/2018 CHEM 7 PROFILE 06/18/2020 CHEM 7 PROFILE 03/12/2019 CHEM 7 PROFILE 11/01/2018 CHEM 7 PROFILE 10/24/2017 CHEM 7 PROFILE 12/27/2019 CHEM 7 PROFILE 09/15/2018 CHEM 7 PROFILE 05/05/2019 CHEM 7 PROFILE 05/14/2020 CHEM 7 PROFILE 06/14/2018 CHEM 7 PROFILE 06/04/2019 ELECTROLYTES 05/17/2018 BUN 05/17/2018 CREATININE 05/17/2018 LIVER PROFILE 05/05/2019 LIVER PROFILE 05/17/2018 LIVER PROFILE 08/15/2018 LIVER PROFILE 01/23/2020 LIVER PROFILE 10/07/2018 LIVER PROFILE 07/13/2018 LIVER PROFILE 11/01/2018 LIVER PROFILE 10/24/2017 LIVER PROFILE 09/15/2018 TRIGLYCERIDE 09/14/2017 T4 (THYROXINE) 10/24/2017 TSH (THYROID STIMULATING HORMONE) 2017 CBC w DIFF 05/14/2020 CBC w DIFF 06/14/2018 CBC w DIFF 06/04/2019 CBC w DIFF 05/05/2019 CBC w DIFF 05/17/2018 CBC w DIFF 10/24/2017 CBC w DIFF 08/08/2019 CBC w DIFF 08/15/2018 CBC w DIFF 01/23/2020 CBC w DIFF 06/18/2020 CBC w DIFF 10/07/2018 CBC w DIFF 07/13/2018 CBC w DIFF 12/27/2019 CBC w DIFF 11/01/2018 CELL COUNT FLUID 12/27/2019 CELL COUNT FLUID 11/01/2018 CELL COUNT FLUID 01/14/2018 CELL COUNT FLUID 05/14/2020 CELL COUNT FLUID 06/14/2018 CELL COUNT FLUID 06/04/2019 CELL COUNT FLUID 05/17/2018 CELL COUNT FLUID 06/27/2019 CELL COUNT FLUID 10/24/2017 CELL COUNT FLUID 08/08/2019 CELL COUNT FLUID 08/15/2018 CELL COUNT FLUID 04/26/2018 CELL COUNT FLUID 01/23/2020 CELL COUNT FLUID 06/18/2020 CELL COUNT FLUID 10/07/2018 CELL COUNT FLUID 07/13/2018 PROTHROMBIN TIME (PT, INR) 10/07/2018 PROTHROMBIN TIME (PT, INR) 07/13/2018 PROTHROMBIN TIME (PT, INR) 12/27/2019 PROTHROMBIN TIME (PT, INR) 11/01/2018 PROTHROMBIN TIME (PT, INR) 05/05/2019 PROTHROMBIN TIME (PT, INR) 06/14/2018 PROTHROMBIN TIME (PT, INR) 05/14/2020 PROTHROMBIN TIME (PT, INR) 06/04/2019 PROTHROMBIN TIME (PT, INR) 05/17/2018 PROTHROMBIN TIME (PT, INR) 10/24/2017 PROTHROMBIN TIME (PT, INR) 08/08/2019 PROTHROMBIN TIME (PT, INR) 08/15/2018 PROTHROMBIN TIME (PT, INR) 01/23/2020 PROTHROMBIN TIME (PT, INR) 06/18/2020 PARTIAL THROMBOPLASTIN TIME (PTT) 2018 PARTIAL THROMBOPLASTIN TIME (PTT) 2019 PARTIAL THROMBOPLASTIN TIME (PTT) 2018 PARTIAL THROMBOPLASTIN TIME (PTT) 2018 PARTIAL THROMBOPLASTIN TIME (PTT) 2019 PARTIAL THROMBOPLASTIN TIME (PTT) 2018 PARTIAL THROMBOPLASTIN TIME (PTT) 2019 PARTIAL THROMBOPLASTIN TIME (PTT) 2018 PARTIAL THROMBOPLASTIN TIME (PTT) 2020 PARTIAL THROMBOPLASTIN TIME (PTT) 2019 PARTIAL THROMBOPLASTIN TIME (PTT) 2018 PARTIAL THROMBOPLASTIN TIME (PTT) 2017 PARTIAL THROMBOPLASTIN TIME (PTT) 2019 GRAM STAIN 10/24/2017 GRAM STAIN 06/18/2020 GRAM STAIN 08/08/2019 GRAM STAIN 08/15/2018 GRAM STAIN 01/23/2020 GRAM STAIN 01/14/2018 GRAM STAIN 10/07/2018 GRAM STAIN 07/13/2018 GRAM STAIN 12/27/2019 GRAM STAIN 06/27/2019 GRAM STAIN 11/01/2018 GRAM STAIN 06/14/2018 GRAM STAIN 05/14/2020 GRAM STAIN 06/04/2019 GRAM STAIN 04/26/2018 GRAM STAIN 05/17/2018 ROUTINE CULTURE 06/14/2018 ROUTINE CULTURE 06/04/2019 ROUTINE CULTURE 04/26/2018 ROUTINE CULTURE 05/17/2018 ROUTINE CULTURE 10/24/2017 ROUTINE CULTURE 06/18/2020 ROUTINE CULTURE 08/08/2019 ROUTINE CULTURE 08/15/2018 ROUTINE CULTURE 01/23/2020 ROUTINE CULTURE 01/14/2018 ROUTINE CULTURE 10/07/2018 ROUTINE CULTURE 07/13/2018 ROUTINE CULTURE 12/27/2019 ROUTINE CULTURE 06/27/2019 ROUTINE CULTURE 11/01/2018 CYTOLOGY (NON-CONTOUR PATH TAPE MILL OPERATOR) 05/17/2018 CYTOLOGY (NON-CONTOUR PATH TAPE MILL OPERATOR) 01/14/2018 US PARACENTESIS GUIDE 12/27/2019 US PARACENTESIS GUIDE 12/21/2017 US PARACENTESIS GUIDE 06/27/2019 US PARACENTESIS GUIDE 11/01/2018 US PARACENTESIS GUIDE 09/15/2018 US PARACENTESIS GUIDE 01/14/2018 US PARACENTESIS GUIDE 06/14/2018 US PARACENTESIS GUIDE 05/14/2020 US PARACENTESIS GUIDE 12/06/2018 US PARACENTESIS GUIDE 06/04/2019 US PARACENTESIS GUIDE 04/26/2018 US PARACENTESIS GUIDE 09/14/2017 US PARACENTESIS GUIDE 03/29/2018 US PARACENTESIS GUIDE 08/08/2019 US PARACENTESIS GUIDE 08/15/2018 US PARACENTESIS GUIDE 04/07/2019 US PARACENTESIS GUIDE 01/23/2020 US PARACENTESIS GUIDE 06/18/2020 US PARACENTESIS GUIDE 05/17/2018 US PARACENTESIS GUIDE 05/05/2019 US PARACENTESIS GUIDE 10/24/2017 US PARACENTESIS GUIDE 10/07/2018 US PARACENTESIS GUIDE 07/13/2018 ALBUMIN, FLUID 10/24/2017 ALBUMIN, FLUID 05/17/2018 ALBUMIN, FLUID 01/14/2018 HCV LIVER FIBROSIS, FIBRO TEST 8 Partial Thromboplastin Time 06/18/2020 Routine Culture w Gram Stain 05/14/2020 Insurance Providers Payer Name Payer Address Payer Phone Subscriber Number Group Number Insured Name Patient Relationship to Insured Coverage Start Date Coverage End Date MEDICARE OF [place] [address] [place] [address] [phone] [id number] SOFIA DURBIN Self - patient is the insured MEDICAID OF [facility] [employer] [address] [place] [phone] [id number] SOFIA DURBIN Self - patient is the insured MEDICAL (GENERAL) HISTORY Medical History History ICD Code Hypertension CRF--on HD TIW on ,, --Dr. Mccarty Diastolic heart failure Denies GA,DM,CVA,Lung disease Depression Ascites--liver bx 01/2018--n o cirrhosis, some cholestasis and dilated venous sinuses; Ascites neg cytology, SAAG approx 0.8 on 2 occasions; Doppler studies were neg. for portal vein thrombosis. He undergoes a periodic large-volume paracentesis --there has been no sign of spontaneous bacterial peritonitis Surgical History Surgery Date(Month/Year) HD AV fistula in left arm
== END ==
PROVIDERS: PCP Internal Medicine; Visit Provider Internal Medicine Hypertension Specialist
DX: N18.6 End stage renal disease (principal)
CPT/HCPCS: 90960

== ENCOUNTER 2023-06-27 20:53 | Inpatient (IN) | payer MEDICARE, MEDICAID, SELFPAY ==
--- NOTE | ~2023-06-27 | CT_ITS ---
EXAMINATION: CT ABDOMEN AND PELVIS WITHOUT CONTRAST CLINICAL INFORMATION: Upper abdominal pain with distention COMPARISON: 06/16/2017 TECHNIQUE: Multidetector volumetric imaging was performed from the superior aspect of the liver through the pubic symphysis. Sagittal and coronal reformatted images were obtained on the technologist's workstation. This CT examination was performed using dose optimization techniques as appropriate, variously including the following: *Automated exposure control *Adjustment of mA and/or kV according to patient size (this includes techniques or standardized protocols for targeted exams where dose is matched to indication/reason for exam; i.e. extremities or head) *Use of iterative reconstruction technique DLP: 339 mGy-cm FINDINGS: LUNG BASES: There is diffuse ground glass opacification of the visualized right lung, with decreased posterior lower lobe consolidation compared to prior though the groundglass appearance is similar to. Redemonstrated dense region of opacity in the left lower lobe with adjacent small pleural effusion and surrounding pleural thickening. Visualized heart is enlarged. Trace pericardial effusion. LIVER, GALLBLADDER, AND BILIARY TREE: The liver is normal in size, shape, and attenuation. No focal hepatic lesion or biliary ductal dilatation is identified on this noncontrast exam. The gallbladder is unremarkable. PANCREAS: Unremarkable. SPLEEN: Borderline enlarged. ADRENAL GLANDS: Unremarkable. KIDNEYS AND URETERS: No hydronephrosis or obstructing calculus bilaterally. There is a region of hyperattenuation in the lower left kidney measuring approximately 4.2 x 2.6 x 2.9 cm with a couple peripheral calcifications inferiorly. This is suspected to correspond to a left renal cyst identified on prior ultrasound 06/23/2020 which measured up to 4.6 cm, with hyperdensity now suspicious for internal hemorrhage. Multiple scattered smaller low-density renal cysts are noted bilaterally; no follow-up recommended for these lesions. BLADDER: Empty and not adequately evaluated. GASTROINTESTINAL TRACT: There are multiple fluid-filled small bowel loops in the abdomen, as well as a segment of small bowel fecalization in the central to lower abdomen there also appears to be some thick-walled collapsed small bowel just inferior to the fecalized segment such as on coronal images 33-40. Appearance is a partial or developing small bowel obstruction which could be secondary to enteritis or stricturing. Small to moderate volume of free fluid in the abdomen. No free air is seen. Limited assessment for wall thickening in some segments of the colon due to luminal collapse. Appendix is suspected to be nondilated. ABDOMINAL WALL: No significant hernia is appreciated. LYMPH NODES: No lymphadenopathy is seen, though assessment is limited in the absence of intravenous contrast. VASCULAR: There is atherosclerotic calcification along the aorta. PELVIC VISCERA: Prostate gland appears mildly prominent. OSSEOUS STRUCTURES: Unremarkable. CT/CT abdomen pelvis wo IV con IMPRESSION: 1. Findings suspicious for partial or developing small bowel obstruction as described above, which may be associated with enteritis or stricturing within small bowel of the lower abdomen. 2. Small to moderate volume of free fluid in the abdomen. 3. Region of hyperattenuation in the lower left kidney measuring up to 4.2 cm. This is suspected to correspond to a left renal cyst identified on prior ultrasound, with hyperdensity now suggesting interval hemorrhage. However, evaluation with nonemergent renal ultrasound is advised to exclude solid mass. 4. Groundglass opacity throughout the visualized right lung which may be secondary to edema. Redemonstrated dense region of opacity in the left lower lobe with adjacent small pleural effusion and surrounding pleural thickening. 5. Cardiomegaly. Trace pericardial effusion.
[2023-06-27 20:57] VITALS: BP 177/104; BP 180/118; PULSE 66; PULSE 73; RESP 18; TEMP 36.7; O2SAT 96; BMI 18.4
--- NOTE | 2023-06-27 21:08 | ECG_ITS ---
Test Reason : ABD PAIN Blood Pressure : / mmHG Vent. Rate : 067 BPM Atrial Rate : 067 BPM P-R Int : 188 ms QRS Dur : 094 ms QT Int : 422 ms P-R-T Axes : 041 064 084 degrees QTc Int : 445 ms Normal sinus rhythm Possible Left atrial enlargement Left ventricular hypertrophy ( Sokolow-Clark , Romhilt-Maya ) Abnormal ECG When compared with ECG of 24-APR-2023 19:33, No significant change was found Referred By: Generic ED Physician Electronically Signed By:BRIANA HERRMANN MD
[2023-06-27 21:50] VITALS: BP 158/92; PULSE 56; RESP 16; TEMP 36.9; O2SAT 98
[2023-06-27 22:01] LABS: MANUAL DIFF FLAG NO
--- NOTE | 2023-06-27 22:03 | MHC.EDTECH ---
PATIENT WAS BIBA FROM HOME ,VITALS TAKEN ,PATIENT WAS CHANGE INTO HOSPITAL [facility] ,VITALS TAKEN ,EKG DONE AND WAS READ BY PROVIDER ,BLOOD DRAWN AND SENT TO LAB ,PATIENT RESTING QUIETLY IN BED ,CALL CHOW WITHIN PATIENT REACH .
[2023-06-27 22:06] LABS: Basophils Percent Auto 0.5 % (0-2); Eosinophils Absolute Auto 0.2 X10*3/uL (0.0-0.4); Eosinophils Percent Auto 3.5 % (0-4); Hematocrit 33.9 % (42.0-52.0); Hemoglobin 11.5 g/dl (14.0-18.0); Imm Gran Abs Auto 0.02 X10*3/uL (0.00-0.03); Imm Gran Pct Auto 0.3 % (0.0-0.4); Lymphocytes Absolute Auto 0.6 X10*3/uL (1.2-4.9); Lymphocytes Percent Auto 9.9 % (20-40); Mean Corpuscular HGB Conc 33.9 g/dl (31.0-36.0); Mean Corpuscular Hemoglobin 31.3 pg (27.0-33.0); Mean Corpuscular Volume 92.4 fL (80.0-98.0); Mean Platelet Volume 11.5 fL (9.4-12.4); Monocytes Absolute Auto 0.6 X10*3/uL (0.1-1.2); Monocytes Percent Auto 9.7 % (2-11); Neutrophils Absolute Auto 4.9 x10*3/uL (2.0-8.3); Neutrophils Percent Auto 76.1 % (45-73); Platelet Count 101 X10*3/uL (160-400); Red Blood Count 3.67 X10*6/uL (4.60-5.80); Red Cell Distribution Width 14.3 % (11.0-16.0); White Blood Count 6.4 X10*3/uL (4.8-10.8)
[2023-06-27 22:17] LABS: Lipase 97 U/L (8-78)
[2023-06-27 22:26] LABS: B Type Natriuretic Peptide 1405 pg/mL (<100)
[2023-06-27 22:29] LABS: Troponin-I High Sensitivity 28.4 ng/L (<3.5-35.0)
[2023-06-27 22:41] LABS: Alanine Aminotransferase 11 U/L (0-40); Albumin Level 3.9 g/dL (3.5-5.0); Alkaline Phosphatase 89 U/L (39-117); Anion Gap 19 (12-20); Aspartate Amino Transferase 18 U/L (5-37); Bilirubin Total 0.8 mg/dL (0.0-1.0); Blood Urea Nitrogen 62 mg/dL (9-16); Calcium 9.4 mg/dL (8.4-10.2); Carbon Dioxide 29 mmol/L (22-29); Chloride 98 mmol/L (96-108); Creatinine Clr Calc Pharmacy 8.9; Estimated Glomerular Filt Rate 8; Glucose Random 92 mg/dL (60-115); Potassium 5.1 mmol/L (3.3-5.1); Sodium 141 mmol/L (135-145); Total Protein 7.6 g/dL (6.5-8.0)
--- NOTE | 2023-06-27 23:46 | ED.ABDPAIN ---
HPI - Abdominal Pain General Chief Complaint: Abdominal Pain Stated Complaint: ABD pain, HTN, BP 180/118 Time Seen by Provider: 06/27/23 22:41 Source: patient Mode of arrival: EMS Limitations: no limitations History of Present Illness HPI narrative: 48-year-old male with pertinent history of congestive heart failure with preserved ejection fraction, essential hypertension, ESRD on hemodialysis D/T/S, mood disorder, gastroesophageal reflux disease taking baking soda for acid reflux comes here for pain in the epigastric area since earlier today with nausea no radiation of the pain no melena no vomiting patient feels abdominal also distended no chest pain no shortness of breath Related Data Home Medications ?Medication ?Instructions ?Recorded ?Confirmed carvedilol 25 mg tablet 25 mg PO BID 12/11/19 04/25/23 clonidine HCl 0.2 mg tablet 0.2 mg PO BID 06/20/20 04/25/23 nifedipine 60 mg tablet,extended 60 mg PO BID 06/20/20 04/25/23 release docusate sodium 100 mg tablet 200 mg PO QPM 04/25/23 04/25/23 Previous Rx's ?Medication ?Instructions ?Recorded lisinopril 40 mg tablet 40 mg PO DAILY #30 tabs 01/10/20 doxazosin 2 mg tablet 2 mg PO DAILY #30 tabs 06/24/20 sildenafil (pulm.hypertension) 20 20 mg PO TID #90 tabs 04/29/23 mg tablet Allergies Allergy/AdvReac Type Severity Reaction Status Date / Time No Known Allergies Allergy Verified 06/27/23 21:06 Review of Systems Review of Systems Yes all other systems are reviewed and are negative PMFSH Past Medical History Medical History (HFpEF) heart failure with preserved ejection fraction End stage renal disease on dialysis Pulmonary hypertension associated with chronic renal failure on dialysis Anemia ESRD (end stage renal disease) End stage chronic kidney disease Dialysis patient Disease of pericardium, unspecified Pulmonary hypertension associated with end stage renal disease on dialysis Hypertensive cardiovascular disease Fistula Hypertension CHF (congestive heart failure) Kidney disease Family History Family History Other HTN (hypertension) Social History Social History Household Members: Significant Other Household Members Other:: lives with girlfriend Housing: House Do you presently have visiting nurse or other home services: No Alcohol intake: unknown Comment: blood pressure still 220/120 Patient Tobacco Use Status: Never used Tobacco Second Hand Smoke Exposure: No Advance Directives: Yes Advance Directives on File: Yes Advance Directives Date on File: 01/08/20 service: No Current occupational status: unemployed Physical Exam ED Vital Signs: Vital Signs - 24 hr 06/27/23 20:57 06/27/23 21:50 06/28/23 00:03 Temperature 98.0 F 98.5 F 97 F Pulse Rate 66 56 66 Respiratory Rate 18 16 18 Blood Pressure 177/104 H 158/92 H 180/102 H Pulse Oximetry 96 98 96 Oxygen Delivery Method Nasal Cannula Nasal Cannula Nasal Cannula Oxygen Flow Rate 1 1 BMI result Body Mass Index 18.4 Appearance: Alert. Oriented X3. No acute distress. Eyes: pallor+ ENT: Pharynx normal. Oral Mucosa moist Neck: Normal inspection. Neck supple. CVS: Normal heart rate and rhythm. Pulses normal. Respiratory: No respiratory distress. Equal air entry bilateral, no wheezing/rales/rhonchi Abdomen: Softand mild tenderness in epigastric area gaseous distended Bowel sounds are present, no mass palpable, no CVA tenderness Skin: Skin warm and dry. Normal skin color. Normal skin turgor. Extremities: No lower extremity edema. No calf tenderness AV fistula left wrist Neuro: Oriented X 3. Medical Decision Making Medical Decision Making [facility] Narrative: Patient with partial bowel obstruction with upper abdominal pain on dialysis will admit patient for observation Differential Diagnosis Differential Diagnoses: The differential diagnosis associated with the presentation includes Ileus/small bowel obstruction/GERD Admission/Observation Consideration of admission/observation: Escalation of care including admission/observation considered Consult Healthcare Provider Management of the patient was discussed with: Hospitalist Lab Data [facility] Lab Attestation statement: I reviewed the patient's lab results. 06/27/23 21:58 06/27/23 21:58 Labs: Lab Results 06/27/23 Range/Units 21:58 WBC 6.4 (4.8-10.8) X10*3/uL RBC 3.67 L D (4.60-5.80) X10*6/uL Hgb 11.5 L D (14.0-18.0) g/dl Hct 33.9 L D (42.0-52.0) % MCV 92.4 (80.0-98.0) fL MCH 31.3 (27.0-33.0) pg MCHC 33.9 (31.0-36.0) g/dl RDW 14.3 (11.0-16.0) % Plt Count 101 L (160-400) X10*3/uL MPV 11.5 (9.4-12.4) fL Immature Gran % (Auto) 0.3 (0.0-0.4) % Neut % (Auto) 76.1 H (45-73) % Lymph % (Auto) 9.9 L (20-40) % [place] % (Auto) 9.7 (2-11) % Eos % (Auto) 3.5 (0-4) % Baso % (Auto) 0.5 (0-2) % Lymph # (Auto) 0.6 L (1.2-4.9) X10*3/uL [place] # (Auto) 0.6 (0.1-1.2) X10*3/uL Eos # (Auto) 0.2 (0.0-0.4) X10*3/uL Baso # (Auto) 0.0 (0.0-0.2) X10*3/uL Abs Immat Gran (auto) 0.02 (0.00-0.03) X10*3/uL Absolute Neuts (auto) 4.9 (2.0-8.3) x10*3/uL Absolute Nucleated RBC 0.000 (0.0-0.012) X10*3/uL Nucleated RBC % (auto) 0.0 (0.0-0.2) /100WBC Sodium 141 (135-145) mmol/L Potassium 5.1 (3.3-5.1) mmol/L Chloride 98 (96-108) mmol/L Carbon Dioxide 29 (22-29) mmol/L Anion Gap 19 (12-20) BUN 62 H (9-16) mg/dL Creatinine 7.68 H* (0.5-1.4) mg/dL Estim Creat Clear Calc 8.9 Estimated GFR 8 Random Glucose 92 (60-115) mg/dL Calcium 9.4 D (8.4-10.2) mg/dL Total Bilirubin 0.8 (0.0-1.0) mg/dL AST 18 (5-37) U/L ALT 11 (0-40) U/L Alkaline Phosphatase 89 (39-117) U/L Troponin I High Sens 28.4 D (<3.5-35.0) ng/L B-Natriuretic Peptide 1405 H (<100) pg/mL Total Protein 7.6 (6.5-8.0) g/dL Albumin 3.9 (3.5-5.0) g/dL Lipase 97 H (8-78) U/L Independent Interpretation I performed an independent interpretation of an: CT Scan Radiology Impression Discussion of test interpretation with radiology: I have reviewed the radiologist's reading. Radiologist Impression: CT/CT abdomen pelvis wo IV con IMPRESSION: 1. Findings suspicious for partial or developing small bowel obstruction as described above, which may be associated with enteritis or stricturing within small bowel of the lower abdomen. 2. Small to moderate volume of free fluid in the abdomen. 3. Region of hyperattenuation in the lower left kidney measuring up to 4.2 cm. This is suspected to correspond to a left renal cyst identified on prior ultrasound, with hyperdensity now suggesting interval hemorrhage. However, evaluation with nonemergent renal ultrasound is advised to exclude solid mass. 4. Groundglass opacity throughout the visualized right lung which may be secondary to edema. Redemonstrated dense region of opacity in the left lower lobe with adjacent small pleural effusion and surrounding pleural thickening. 5. Cardiomegaly. Trace pericardial effusion. Medications Administered Discontinued Medications Generic Name Dose Route Start Last Admin Trade Name Freq PRN Reason Stop Dose Admin Al Hydroxide/Mg Hydroxide 30 ml 06/27/23 23:55 06/28/23 00:02 Magnesium Hydrox/Alum Hydrox 30 Ml Oral.Susp PO 06/27/23 23:56 30 ml ONCE ONE Administration Omeprazole 40 mg 06/27/23 23:57 06/28/23 00:02 Omeprazole 40 Mg Capsule.Dr PO 06/27/23 23:58 40 mg ONCE ONE Administration Discharge Plan Discharge Clinical Impression: Partial bowel obstruction, End stage chronic kidney disease Patient Disposition: Admitted As Inpatient Print Language: Mauritian
[2023-06-28] VITALS (11 sets, daily range): BP systolic 142–195; BP diastolic 84–104; PULSE 60–72; RESP 12–18; TEMP 36.1–36.8; O2SAT 92–97; BMI 18.4
[2023-06-28] MEDS: Magnesium Hydrox/Alum Hydrox 30 ML ORAL.SUSP PO (00:02)
[2023-06-28] MEDS: Omeprazole 40 MG CAPSULE.DR PO (00:02)
--- NOTE | 2023-06-28 02:57 | MHC.EDTECH ---
patient vitals taken ,rn gabrielle is aware of patient high bp ,patient belongings list completed ,Patient niece at bedside .
[2023-06-28] MEDS: Acetaminophen 1,000 MG/100 ML PIGGYBACK 400 MG IV ×3 (03:01→20:42)
[2023-06-28] MEDS: 0.9 % Sodium Chloride 500 ML IV (03:01)
[2023-06-28] MEDS: cloNIDine HCL 0.2 MG TABLET PO ×3 (03:03→20:43)
--- NOTE | 2023-06-28 04:16 | PM.IMHP ---
History of Present Illness Date of Service: 06/28/23 Attending physician on admission: Sondra Trujillo Chief Complaint: Abdominal pain Sterling Chávez is a 48 years old man with past medical history significant for ESRD on HD (TTS), constipation and hypertension presents to the emergency department complaining of epigastric pain that started yesterday morning at 10:30 am after eating a sandwich. He described the pain as burning and radiating to the whole abdomen in occasions. He also reported 1 episode of nonbloody vomiting and nausea. He had a bowel movement this morning without difficulty. He denies headache, chest pain, shortness on breath, fever or chills. He does not makes urine. He denied tobacco smoking, alcohol abuse or illicit drug use. He denies past abdominal surgeries. Denied taking any new medication. He takes Dulcolax for constipation. In the ED, he was found to have stable vital signs, however he has significant hypertension. Last BP is 185/100. Blood workup showed no leukocytosis. Hemoglobin is 11.5 (prior 9.2). There is mild thrombocytopenia. There are no significant electrolyte imbalances. Creatinine is 3.68 and BUN 62. LFTs are normal. BNP is 1,405. Troponin is 29.4. Lipase is 97. Abdomen and pelvis CT scan without IV contrast showed suspicious for partial or developing small bowel obstruction which may be associated with enteritis or stricturing within small bowel of the lower abdomen, small to moderate volume of free fluid in the abdomen, suspected left kidney cyst, ground-glass opacity through the visualized right lung which may be secondary to edema and redemonstrated dense region of opacity in the left lower lobe with adjacent small pleural effusion and surrounding pleural thickening. There is also cardiomegaly and trace pericardial effusion. ECG showed no acute ischemic changes. ED tx: Maalox 30 mg p.o., omeprazole 40 mg. Review of Systems Review of Systems: All 12 systems were reviewed and normal except as noted in HPI. [facility] Medical History (HFpEF) heart failure with preserved ejection fraction End stage renal disease on dialysis Pulmonary hypertension associated with chronic renal failure on dialysis Anemia ESRD (end stage renal disease) End stage chronic kidney disease Dialysis patient Disease of pericardium, unspecified Pulmonary hypertension associated with end stage renal disease on dialysis Hypertensive cardiovascular disease Fistula Hypertension CHF (congestive heart failure) Kidney disease Family History Other HTN (hypertension) Social History Household Members: Significant Other Household Members Other:: lives with girlfriend Housing: House Do you presently have visiting nurse or other home services: No Alcohol intake: unknown Comment: blood pressure still 220/120 Patient Tobacco Use Status: Never used Tobacco Second Hand Smoke Exposure: No Advance Directives: Yes Advance Directives on File: Yes Advance Directives Date on File: 01/08/20 Nutrition Risks: No Nutritional Risk service: No Current occupational status: unemployed Meds Allergies Allergy/AdvReac Type Severity Reaction Status Date / Time No Known Allergies Allergy Verified 06/27/23 21:06 Active Medications: Current Medications Clonidine HCl (Clonidine Hcl 0.2 Mg Tablet) 0.2 mg PO BID [facility]; Protocol Last Admin: 06/28/23 03:03 Dose: 0.2 mg Docusate Sodium (Docusate Sodium 100 Mg Capsule) 200 mg PO QPM [facility] Doxazosin Mesylate (Doxazosin Mesylate 2 Mg Tablet) 2 mg PO DAILY [facility]; Protocol Heparin Sodium (Porcine) (Heparin Sodium,Porcine 5,000 Unit/Ml Vial) 5,000 unit SUBCUT BID [facility] Sodium Chloride (Ns) 500 mls @ 500 mls/hr IV .Q1H [facility] Stop: 06/28/23 06:44 Last Admin: 06/28/23 04:07 Dose: Not Given Acetaminophen (Ofirmev) 1,000 mg in 100 mls @ 400 mls/hr IV Q6H [facility] Lisinopril (Lisinopril 40 Mg Tablet) 40 mg PO DAILY [facility]; Protocol Non-Formulary Medication (Nifedipine) 60 mg PO BID [facility] Ondansetron HCl (Ondansetron Hcl 4 Mg/2 Ml Vial) 4 mg IVPUSH Q6H PRN PRN Reason: Nausea and Vomiting Pantoprazole Sodium (Pantoprazole Sodium 40 Mg/10 Ml Vial) 40 mg IVPUSH Q24H [facility] Sodium Chloride (0.9 % Sodium Chloride Flush 3 Ml Syringe) 3 ml IVFLUSH QSHIFT [facility] Home Medications ?Medication ?Instructions ?Recorded ?Confirmed ?Last Taken ?Type carvedilol 25 mg tablet 25 mg PO BID 12/11/19 04/25/23 06/20/20 15:00 History clonidine HCl 0.2 mg tablet 0.2 mg PO BID 06/20/20 06/28/23 06/20/20 08:00 History nifedipine 60 mg tablet,extended 60 mg PO BID 06/20/20 06/28/23 06/19/20 08:00 History release docusate sodium 100 mg tablet 200 mg PO QPM 04/25/23 06/28/23 Unknown History Physical Exam Vital Signs and Narrative: Vital Signs: Last Vital Signs Temp 98.3 F 06/28/23 02:37 Pulse 69 06/28/23 02:37 Resp 17 06/28/23 02:37 BP 195/104 H 06/28/23 02:37 Pulse Ox 97 06/28/23 02:37 O2 Del Method Nasal Cannula 06/28/23 02:37 O2 Flow Rate 1 06/28/23 02:37 Oxygen Flow Rate 1 06/27/23 20:57 BMI result Body Mass Index 18.4 Constitutional - Awake and Alert, No apparent distress. Chronically ill. Afebrile. HEENT - PERRLA, EOMI. Very dry oral mucosa. Heart - RRR. No murmur. Lungs - Normal lung expansion, Normal respiratory effort, No respiratory distress, CTA bilaterally Abdomen - Nondisteded. Increased bowel sounds. Epigastric tenderness. No rebound. No guarding. Extremities - no calf tenderness bilaterally, no swelling Musculoskeletal - Normal inspection, normal ROM Skin - Warm/Dry Neurological - Alert & oriented x3. No focal weakness. Normal speech. Psychological - Appropriate affect Results Labs 06/27/23 21:58 06/27/23 21:58 Labs: Laboratory Results - last 24 hr 06/27/23 21:58 MCV 92.4 MCH 31.3 MCHC 33.9 RDW 14.3 Plt Count 101 L MPV 11.5 Immature Gran % (Auto) 0.3 Neut % (Auto) 76.1 H Lymph % (Auto) 9.9 L [place] % (Auto) 9.7 Eos % (Auto) 3.5 Baso % (Auto) 0.5 Lymph # (Auto) 0.6 L [place] # (Auto) 0.6 Eos # (Auto) 0.2 Baso # (Auto) 0.0 Abs Immat Gran (auto) 0.02 Absolute Neuts (auto) 4.9 Absolute Nucleated RBC 0.000 Nucleated RBC % (auto) 0.0 Anion Gap 19 Estim Creat Clear Calc 8.9 Estimated GFR 8 Random Glucose 92 Calcium 9.4 D Total Bilirubin 0.8 AST 18 ALT 11 Alkaline Phosphatase 89 Troponin I High Sens 28.4 D B-Natriuretic Peptide 1405 H Total Protein 7.6 Albumin 3.9 Lipase 97 H Imaging Radiologist's Impressions: Impressions Abdomen/Pelvis CT 06/28/23 00:20 IMPRESSION: 1. Findings suspicious for partial or developing small bowel obstruction as described above, which may be associated with enteritis or stricturing within small bowel of the lower abdomen. 2. Small to moderate volume of free fluid in the abdomen. 3. Region of hyperattenuation in the lower left kidney measuring up to 4.2 cm. This is suspected to correspond to a left renal cyst identified on prior ultrasound, with hyperdensity now suggesting interval hemorrhage. However, evaluation with nonemergent renal ultrasound is advised to exclude solid mass. 4. Groundglass opacity throughout the visualized right lung which may be secondary to edema. Redemonstrated dense region of opacity in the left lower lobe with adjacent small pleural effusion and surrounding pleural thickening. 5. Cardiomegaly. Trace pericardial effusion. Assessment and Plan (1) Abdominal pain: Qualifiers: Abdominal location: epigastric Qualified Code(s): R10.13 - Epigastric pain Status: Acute (2) ESRD (end stage renal disease) on dialysis: Status: Acute (3) Accelerated essential hypertension: Status: Acute (4) End-stage renal disease on hemodialysis: Status: Acute Plan Sterling Chávez is a 48 years old man admitted with: Abdominal pain. ? Partial obstruction vs developing small bowel obstruction -associated with enteritis or stricturing. Patient abdomen is not distended and soft w/o significant tenderness + last bowel movement was yesterday w/o issues. GERD? NPO. Gentle hydration. Pain control with Tylenol IV -will avoid opiates. Antiemetic therapy. Surgical consult for further recommendations. Repeat troponin. Dehydration due to vomiting and poor p.o. intake. Gentle IV fluids. Chronic pancytopenia. Apparently improving however most likely due to hemodilution secondary to dehydration. Continue to monitor CBC. Hypertension, uncontrolled. Continue home medications: Carvedilol, clonidine, lisinopril and nifedipine. Continue to monitor blood pressure. End-stage renal disease on hemodialysis. Nephrology consult for inpatient hemodialysis. DVT prophylaxis: Heparin Code status: Full Patient will need hospitalization for at least 2 midnights for abdominal pain treatment with IV analgesia, IV anti-reflux therapy gentle hydration and evaluation by Surgical Service. Quality Stroke Does the patient have a stroke diagnosis?: No VTE Prior VTE?: No VTE Risk Level:: Medical - moderate - high VTE Device Contraindication: Treatment Not Indicated VTE Drug Contraindication: N/A - Med Ordered
--- NOTE | 2023-06-28 04:17 | PC.NURSE ---
messaged [facility] regarding BP, she is ok with him going to the floor at this time due to it being from renovascular HTN . Plan is to wait 2 hours and see if he may need his am BP meds early
[2023-06-28 06:55] LABS: MANUAL DIFF FLAG NO
[2023-06-28 07:00] LABS: Basophils Percent Auto 0.6 % (0-2); Eosinophils Absolute Auto 0.2 X10*3/uL (0.0-0.4); Eosinophils Percent Auto 2.7 % (0-4); Hematocrit 32.4 % (42.0-52.0); Imm Gran Abs Auto 0.02 X10*3/uL (0.00-0.03); Imm Gran Pct Auto 0.3 % (0.0-0.4); Lymphocytes Absolute Auto 0.6 X10*3/uL (1.2-4.9); Mean Corpuscular Hemoglobin 31.6 pg (27.0-33.0); Mean Corpuscular Volume 93.1 fL (80.0-98.0); Mean Platelet Volume 11.2 fL (9.4-12.4); Monocytes Absolute Auto 0.6 X10*3/uL (0.1-1.2); Neutrophils Absolute Auto 5.2 x10*3/uL (2.0-8.3); Neutrophils Percent Auto 78.4 % (45-73); Red Blood Count 3.48 X10*6/uL (4.60-5.80); Red Cell Distribution Width 14.4 % (11.0-16.0); White Blood Count 6.7 X10*3/uL (4.8-10.8)
[2023-06-28 07:06] LABS: Platelet Count 98 X10*3/uL (160-400)
[2023-06-28 07:17] LABS: Anion Gap 18 (12-20); Blood Urea Nitrogen 67 mg/dL (9-16); Calcium 8.9 mg/dL (8.4-10.2); Carbon Dioxide 28 mmol/L (22-29); Chloride 97 mmol/L (96-108); Creatinine Clr Calc Pharmacy 7.6; Estimated Glomerular Filt Rate 6; Glucose Random 99 mg/dL (60-115); Sodium 138 mmol/L (135-145)
[2023-06-28 07:20] LABS: Troponin-I High Sensitivity 26.3 ng/L (<3.5-35.0)
[2023-06-28] MEDS: NIFEdipine ER 60 MG TAB.ER.24 PO ×2 (08:08→20:43)
[2023-06-28] MEDS: lisinopriL 40 MG TABLET PO (08:08)
[2023-06-28] MEDS: Doxazosin Mesylate 2 MG TABLET PO (08:08)
[2023-06-28] MEDS: carvediloL 25 MG TABLET PO ×2 (08:08→20:44)
[2023-06-28] MEDS: Heparin Sodium,Porcine 5,000 UNIT/ML VIAL 5000 UNIT SUBCUT ×2 (08:09→20:43)
[2023-06-28] MEDS: 0.9 % Sodium Chloride Flush 3 ML SYRINGE IVFLUSH ×2 (08:20→22:01)
[2023-06-28] MEDS: Pantoprazole Sodium 40 MG/10 ML VIAL IVPUSH (08:20)
--- NOTE | 2023-06-28 09:51 | MHC.CM.PN ---
IMM DELIVERED PT LIVES ALONE . INDEPENDENT. PT ATTENDS HD AT [facility] AND SELF TRANSPORTS. +HCP ON FILE. PCP DR. FARIA DP: HOME, NO SERVICES ANTICIPATED. PT HAS OWN RIDE HOME. CM WILL CONTINUE TO FOLLOW FOR ANY CHANGE IN DC PLAN/NEEDS.
--- NOTE | 2023-06-28 10:16 | PHA.MEDREC ---
Pharmacy Consult ? Medication Reconciliation Pharmacy has completed the medication reconciliation, patient reported all medications.
--- NOTE | 2023-06-28 10:23 | PM.CNGS ---
History of Present Illness Consult details Consult date: 06/28/23 Requesting physician: Sondra Trujillo Narrative: 48-year-old male patient presenting to the emergency department with complaints of abdominal pain, distension, nausea and vomiting admitted to the hospitalist service for further evaluation. Upon presentation the patient reported abdominal pain 10/10 severity with waves of pain. The pain was felt diffusely across his abdomen. He reports eating a tuna fish sandwich several hours before the onset of pain. He also reports having a normal bowel movement yesterday. Workup in the emergency department revealed normal WBC however CT abdomen and pelvis revealed dilated loops of small bowel suggestive of an early obstruction or ileus. This morning he reports feeling much improved with no further abdominal pain, nausea or vomiting. He is hungry and is anxious to start eating. Review of Systems Review of Systems: Yes all other systems are reviewed and are negative Constitutional: Constitutional: Denies chills, Denies fever(s), Denies headache(s), Denies poor appetite and Denies weakness ENT: Denies headache(s) Cardiovascular: Cardiovascular: Denies chest pain, Denies irregular heart rhythm, Denies palpitations and Denies dyspnea Respiratory: Respiratory: Denies cough, Denies excessive phlegm production and Denies dyspnea Gastrointestinal: Gastrointestinal: Reports as per HPI, Reports abdominal pain, Denies bloating, Denies change in bowel habits, Denies constipation, Denies heartburn, Denies diarrhea, Reports nausea and Reports vomiting Genitourinary: Genitourinary: Denies difficulty urinating and Denies urinary frequency Musculoskeletal: Musculoskeletal: Denies back pain, Denies muscle weakness and Denies numbness Integumentary/Breasts: Skin/Breast: Denies changing lesions and Denies unusual bruising Neurologic: Denies headache(s), Denies numbness, Denies paresthesias and Denies weakness Psychiatric: Psychiatric: Denies anxiety and Denies depression Endocrine: Endocrine: Denies palpitations Hematologic/Lymphatic: Hematologic/Lymphatic: Denies lymphadenopathy PMFSH Past Medical History Medical History (HFpEF) heart failure with preserved ejection fraction End stage renal disease on dialysis Pulmonary hypertension associated with chronic renal failure on dialysis Anemia ESRD (end stage renal disease) End stage chronic kidney disease Dialysis patient Disease of pericardium, unspecified Pulmonary hypertension associated with end stage renal disease on dialysis Hypertensive cardiovascular disease Fistula Hypertension CHF (congestive heart failure) Kidney disease Family History Family History Other HTN (hypertension) Social History Social History Household Members: None Household Members Other:: lives with girlfriend Housing: Apartment Do you presently have visiting nurse or other home services: No Alcohol intake: unknown Comment: blood pressure still 220/120 Patient Tobacco Use Status: Never used Tobacco Second Hand Smoke Exposure: No Use of substances other than those prescribed or required for medical reasons: No Currently Displaying Signs/Symptoms of Drug Intoxication Withdrawal: No Have you been hit, kicked, punched, or otherwise hurt by someone within the past year? If so, by whom?: No Do you feel safe in your current relationship?: No Current Relationship Is there a partner from a previous relationship who is making you feel unsafe now?: No Are you made to feel afraid or neglected: No Advance Directives: Yes Advance Directives on File: Yes Advance Directives Date on File: 01/08/20 Do you have thoughts of harming others: None Do you have a plan to hurt others: No Plan Recently lost weight without trying: No Eating poorly because of decreased appetite: No Nutrition Risks: No Nutritional Risk Poor oral hygiene: No service: No Current occupational status: unemployed Meds Allergies Allergy/AdvReac Type Severity Reaction Status Date / Time No Known Allergies Allergy Verified 06/27/23 21:06 Active Medications: Current Medications Carvedilol (Carvedilol 25 Mg Tablet) 25 mg PO BID [facility]; Protocol Last Admin: 06/28/23 08:08 Dose: 25 mg Clonidine HCl (Clonidine Hcl 0.2 Mg Tablet) 0.2 mg PO BID [facility]; Protocol Last Admin: 06/28/23 08:08 Dose: 0.2 mg Docusate Sodium (Docusate Sodium 100 Mg Capsule) 200 mg PO QPM [facility] Doxazosin Mesylate (Doxazosin Mesylate 2 Mg Tablet) 2 mg PO BEDTIME [facility]; Protocol Heparin Sodium (Porcine) (Heparin Sodium,Porcine 5,000 Unit/Ml Vial) 5,000 unit SUBCUT BID [facility] Last Admin: 06/28/23 08:09 Dose: 5,000 unit Acetaminophen (Ofirmev) 1,000 mg in 100 mls @ 400 mls/hr IV Q6H [facility] Last Infusion: 06/28/23 08:38 Dose: Infused Lisinopril (Lisinopril 40 Mg Tablet) 40 mg PO DAILY [facility]; Protocol Last Admin: 06/28/23 08:08 Dose: 40 mg Nifedipine (Nifedipine Er 60 Mg Tab.Er.24) 60 mg PO BID [facility] Last Admin: 06/28/23 08:08 Dose: 60 mg Ondansetron HCl (Ondansetron Hcl 4 Mg/2 Ml Vial) 4 mg IVPUSH Q6H PRN PRN Reason: Nausea and Vomiting Pantoprazole Sodium (Pantoprazole Sodium 40 Mg/10 Ml Vial) 40 mg IVPUSH Q24H [facility] Last Admin: 06/28/23 08:20 Dose: 40 mg Sodium Chloride (0.9 % Sodium Chloride Flush 3 Ml Syringe) 3 ml IVFLUSH QSHIFT [facility] Last Admin: 06/28/23 08:20 Dose: 3 ml Home Medications ?Medication ?Instructions ?Recorded ?Confirmed ?Last Taken ?Type carvedilol 25 mg tablet 25 mg PO BID 12/11/19 06/28/23 06/27/23 History clonidine HCl 0.2 mg tablet 0.2 mg PO BID 06/20/20 06/28/23 06/27/23 History nifedipine 60 mg tablet,extended 60 mg PO BID 06/20/20 06/28/23 06/27/23 History release docusate sodium 100 mg tablet 200 mg PO BEDTIME 04/25/23 06/28/23 06/27/23 History Physical Exam Vital Signs: Vital Signs: Last Vital Signs Temp 98 F 06/28/23 07:30 Pulse 69 06/28/23 07:30 Resp 12 06/28/23 07:30 BP 142/84 H 06/28/23 07:30 Pulse Ox 93 06/28/23 07:30 O2 Del Method Nasal Cannula 06/28/23 07:30 O2 Flow Rate 1 06/28/23 07:30 Oxygen Flow Rate 1 06/27/23 20:57 BMI result Body Mass Index 18.4 Const: General: cooperative and no acute distress Nutritional Appearance: well nourished Orientation/consciousness: patient oriented x3 Limitations: no limitations HEENT: Head: Yes normocephalic and Yes atraumatic Ears: hearing grossly normal bilaterally Resp: Effort & Inspection: normal respiratory effort, no audible wheezes, no cough and no respiratory distress Cardio: Jugular venous distension: no JVD GI: Inspection: Yes normal to inspection Palpation (GI): Soft to palpation, nontender, no guarding and not rigid Percussion: Yes normal to percussion Auscultation: normal bowel sounds Rectal Exam - Male: Yes deferred Skin: Other: Warm, dry, no rash Neuro: General: patient oriented x3 Extrem: General: Yes no clubbing, cyanosis or edema Results Labs 06/28/23 06:51 06/28/23 06:51 Labs: Abnormal lab results 06/27/23 06/28/23 Range/Units 21:58 06:51 RBC 3.67 L D 3.48 L (4.60-5.80) X10*6/uL Hgb 11.5 L D 11.0 L (14.0-18.0) g/dl Hct 33.9 L D 32.4 L (42.0-52.0) % Plt Count 101 L 98 L (160-400) X10*3/uL Neut % (Auto) 76.1 H 78.4 H (45-73) % Lymph % (Auto) 9.9 L 9.0 L (20-40) % Lymph # (Auto) 0.6 L 0.6 L (1.2-4.9) X10*3/uL BUN 62 H 67 H (9-16) mg/dL Creatinine 7.68 H* 8.96 H* (0.5-1.4) mg/dL B-Natriuretic Peptide 1405 H (<100) pg/mL Lipase 97 H (8-78) U/L Short CBC 06/27/23 06/28/23 Range/Units 21:58 06:51 WBC 6.4 6.7 (4.8-10.8) X10*3/uL Hgb 11.5 L D 11.0 L (14.0-18.0) g/dl Hct 33.9 L D 32.4 L (42.0-52.0) % Plt Count 101 L 98 L (160-400) X10*3/uL BMP 06/27/23 06/28/23 21:58 06:51 Sodium 141 138 Potassium 5.1 5.0 Chloride 98 97 Carbon Dioxide 29 28 BUN 62 H 67 H Creatinine 7.68 H* 8.96 H* Calcium 9.4 D 8.9 Liver Function 06/27/23 Range/Units 21:58 Total Bilirubin 0.8 (0.0-1.0) mg/dL AST 18 (5-37) U/L ALT 11 (0-40) U/L Alkaline Phosphatase 89 (39-117) U/L Albumin 3.9 (3.5-5.0) g/dL All other labs normal. Assessment and Plan (1) Abdominal pain: Qualifiers: Abdominal location: epigastric Qualified Code(s): R10.13 - Epigastric pain Status: Acute Plan 48-year-old male patient admitted with complaints of abdominal pain, nausea and vomiting found to have possible small-bowel obstruction by CT. Patient has subsequently improved with no further abdominal pain, nausea or vomiting. His abdominal exam is benign this morning. I would recommend starting clear liquids and advance as tolerated. No surgical intervention is required at this time. Procedures Date of Service Date of Service: 06/28/23
--- NOTE | 2023-06-28 10:38 | P.CONNP_ITS ---
History of Present Illness Reason for Consult Consult date: 06/28/23 Chief Complaint Chief complaint: Abdominal pain, paralytic ileus History of Present Illness Narrative: 48 years old man with a history significant for ESRD on HD (TTS), constipation and hypertension presents to the emergency department complaining of epigastric pain that started yesterday morning at 10:30 am after eating a sandwich. He described the pain as burning and radiating to the whole abdomen in occasions. He also reported 1 episode of nonbloody vomiting and nausea. Review of Systems Constitutional: Denies fever(s) and Denies weight loss Cardiovascular: Denies chest pain Respiratory: Denies cough and Denies hemoptysis Gastrointestinal: Reports abdominal pain (resolved now), Denies diarrhea and Denies nausea Musculoskeletal: Denies back pain Denies focal weakness PMFSH Past Medical History Medical History (HFpEF) heart failure with preserved ejection fraction End stage renal disease on dialysis Pulmonary hypertension associated with chronic renal failure on dialysis Anemia ESRD (end stage renal disease) End stage chronic kidney disease Dialysis patient Disease of pericardium, unspecified Pulmonary hypertension associated with end stage renal disease on dialysis Hypertensive cardiovascular disease Fistula Hypertension CHF (congestive heart failure) Kidney disease Family History Family History Other HTN (hypertension) Social History Social History Household Members: None Household Members Other:: lives with girlfriend Housing: Apartment Do you presently have visiting nurse or other home services: No Alcohol intake: unknown Comment: blood pressure still 220/120 Patient Tobacco Use Status: Never used Tobacco Second Hand Smoke Exposure: No Use of substances other than those prescribed or required for medical reasons: No Currently Displaying Signs/Symptoms of Drug Intoxication Withdrawal: No Have you been hit, kicked, punched, or otherwise hurt by someone within the past year? If so, by whom?: No Do you feel safe in your current relationship?: No Current Relationship Is there a partner from a previous relationship who is making you feel unsafe now?: No Are you made to feel afraid or neglected: No Advance Directives: Yes Advance Directives on File: Yes Advance Directives Date on File: 01/08/20 Do you have thoughts of harming others: None Do you have a plan to hurt others: No Plan Recently lost weight without trying: No Eating poorly because of decreased appetite: No Nutrition Risks: No Nutritional Risk Poor oral hygiene: No service: No Current occupational status: unemployed Meds Allergies Allergy/AdvReac Type Severity Reaction Status Date / Time No Known Allergies Allergy Verified 06/27/23 21:06 Active Medications: Current Medications Carvedilol (Carvedilol 25 Mg Tablet) 25 mg PO BID [facility]; Protocol Last Admin: 06/28/23 08:08 Dose: 25 mg Clonidine HCl (Clonidine Hcl 0.2 Mg Tablet) 0.2 mg PO BID [facility]; Protocol Last Admin: 06/28/23 08:08 Dose: 0.2 mg Docusate Sodium (Docusate Sodium 100 Mg Capsule) 200 mg PO QPM [facility] Doxazosin Mesylate (Doxazosin Mesylate 2 Mg Tablet) 2 mg PO BEDTIME [facility]; Protocol Heparin Sodium (Porcine) (Heparin Sodium,Porcine 5,000 Unit/Ml Vial) 5,000 unit SUBCUT BID [facility] Last Admin: 06/28/23 08:09 Dose: 5,000 unit Acetaminophen (Ofirmev) 1,000 mg in 100 mls @ 400 mls/hr IV Q6H [facility] Last Infusion: 06/28/23 08:38 Dose: Infused Lisinopril (Lisinopril 40 Mg Tablet) 40 mg PO DAILY [facility]; Protocol Last Admin: 06/28/23 08:08 Dose: 40 mg Nifedipine (Nifedipine Er 60 Mg Tab.Er.24) 60 mg PO BID [facility] Last Admin: 06/28/23 08:08 Dose: 60 mg Ondansetron HCl (Ondansetron Hcl 4 Mg/2 Ml Vial) 4 mg IVPUSH Q6H PRN PRN Reason: Nausea and Vomiting Pantoprazole Sodium (Pantoprazole Sodium 40 Mg/10 Ml Vial) 40 mg IVPUSH Q24H [facility] Last Admin: 06/28/23 08:20 Dose: 40 mg Sodium Chloride (0.9 % Sodium Chloride Flush 3 Ml Syringe) 3 ml IVFLUSH QSHIFT [facility] Last Admin: 06/28/23 08:20 Dose: 3 ml Home Medications ?Medication ?Instructions ?Recorded ?Confirmed ?Last Taken ?Type carvedilol 25 mg tablet 25 mg PO BID 12/11/19 06/28/23 06/27/23 History clonidine HCl 0.2 mg tablet 0.2 mg PO BID 06/20/20 06/28/23 06/27/23 History nifedipine 60 mg tablet,extended 60 mg PO BID 06/20/20 06/28/23 06/27/23 History release docusate sodium 100 mg tablet 200 mg PO BEDTIME 04/25/23 06/28/23 06/27/23 History Physical Exam Vital Signs: Last Vital Signs Temp 98 F 06/28/23 07:30 Pulse 69 06/28/23 07:30 Resp 12 06/28/23 07:30 BP 142/84 H 06/28/23 07:30 Pulse Ox 93 06/28/23 07:30 O2 Del Method Nasal Cannula 06/28/23 07:30 O2 Flow Rate 1 06/28/23 07:30 Oxygen Flow Rate 1 06/27/23 20:57 BMI result Body Mass Index 18.4 Const General: comfortable Nutritional Appearance: well nourished Orientation/consciousness: patient oriented x3 HEENT Head: No normal to inspection Mouth: moist mucous membranes Neck Neck: Yes supple and Yes no JVD Resp Auscultation: clear to auscultation bilaterally, no rales and rub present Cardio Jugular venous distension: no JVD Palpation: no palpable S3 and no palpable S4 Heart sounds: no rubs GI Palpation (GI): Soft to palpation and nontender Percussion: No Fluid wave present General: Yes no CVA tenderness Back/Spine/Pelvis Back: no CVA tenderness Skin General skin exam: no rashes or lesions noted Neuro General: patient oriented x3 Extrem General: Yes no pedal edema and No clubbing Results Lab Results 06/28/23 06:51 06/28/23 06:51 Lab results: Chemistry 06/27/23 06/28/23 21:58 06:51 Sodium 141 138 Potassium 5.1 5.0 Carbon Dioxide 29 28 BUN 62 H 67 H Creatinine 7.68 H* 8.96 H* Calcium 9.4 D 8.9 Hematology 06/27/23 06/28/23 21:58 06:51 WBC 6.4 6.7 Hgb 11.5 L D 11.0 L Plt Count 101 L 98 L Assessment and Plan (1) End-stage renal disease on hemodialysis: Status: Acute Plan 48-year-old man with resistant hypertension end stage renal disease admitted with abdominal pain. From renal standpoint he is doing very well. No signs or symptoms of uremia. He is well dialyzed. Fluid status is optimal. The abdominal pain has resolved. If he is still in the hospital tomorrow I will arrange for hemodialysis as per Wednesday schedule. She will follow along with the team. Thank you Procedures Date of Service Date of Service: 06/28/23
--- NOTE | 2023-06-28 10:43 | MHC.CLN ---
NUTRITION CURRENTLY NPO. PATIENT FOLLOWS DIET WITH RENAL PARAMETERS AT HOME: 2 G SODIUM, LOW POTASSIUM, LOW PHOSPHORUS. RECOMMEND CONTINUE RENAL PARAMETERS WHEN ABLE TO RESUME DIET. QUALIFIES MODERATELY MALNOURISHED WITH MILD DEPLETION OF BODY FAT AND MUSCLE MASS. DOES NOT TAKE SUPPLEMENT AT HOME. FOLLOW FOR DIET ADVANCEMENT, INTAKE, LABS. SEE CLINICAL NUTRITION ASSESSMENT 06/28/23.
--- NOTE | 2023-06-28 12:24 | HO.PM.IMPN ---
Subjective Subjective Date of Service: 06/28/23 Review of Systems Follow up Physical Exam Vital Signs: Vital Signs: Last Vital Signs Temp 98 F 06/28/23 07:30 Pulse 69 06/28/23 07:30 Resp 12 06/28/23 07:30 BP 142/84 H 06/28/23 07:30 Pulse Ox 93 06/28/23 07:30 O2 Del Method Nasal Cannula 06/28/23 07:30 O2 Flow Rate 1 06/28/23 07:30 Oxygen Flow Rate 1 06/27/23 20:57 BMI result Body Mass Index 18.4 Objective Data Active Medications Carvedilol (Carvedilol 25 Mg Tablet) 25 mg PO BID [facility]; Protocol Last Admin: 06/28/23 08:08 Dose: 25 mg Documented By: JAMES Clonidine HCl (Clonidine Hcl 0.2 Mg Tablet) 0.2 mg PO BID [facility]; Protocol Last Admin: 06/28/23 08:08 Dose: 0.2 mg Documented By: JAMES Docusate Sodium (Docusate Sodium 100 Mg Capsule) 200 mg PO QPM [facility] Doxazosin Mesylate (Doxazosin Mesylate 2 Mg Tablet) 2 mg PO BEDTIME [facility]; Protocol Heparin Sodium (Porcine) (Heparin Sodium,Porcine 5,000 Unit/Ml Vial) 5,000 unit SUBCUT BID [facility] Last Admin: 06/28/23 08:09 Dose: 5,000 unit Documented By: JAMES Acetaminophen (Ofirmev) 1,000 mg in 100 mls @ 400 mls/hr IV Q6H [facility] Last Infusion: 06/28/23 08:38 Dose: Infused Documented By: JAMES Lisinopril (Lisinopril 40 Mg Tablet) 40 mg PO DAILY [facility]; Protocol Last Admin: 06/28/23 08:08 Dose: 40 mg Documented By: JAMES Nifedipine (Nifedipine Er 60 Mg Tab.Er.24) 60 mg PO BID [facility] Last Admin: 06/28/23 08:08 Dose: 60 mg Documented By: JAMES Ondansetron HCl (Ondansetron Hcl 4 Mg/2 Ml Vial) 4 mg IVPUSH Q6H PRN PRN Reason: Nausea and Vomiting Pantoprazole Sodium (Pantoprazole Sodium 40 Mg/10 Ml Vial) 40 mg IVPUSH Q24H [facility] Last Admin: 06/28/23 08:20 Dose: 40 mg Documented By: JAMES Sodium Chloride (0.9 % Sodium Chloride Flush 3 Ml Syringe) 3 ml IVFLUSH QSHIFT [facility] Last Admin: 06/28/23 08:20 Dose: 3 ml Documented By: JAMES Labs 06/28/23 06:51 06/28/23 06:51 Labs: Laboratory Results - last 24 hr 06/27/23 06/28/23 21:58 06:51 MCV 92.4 93.1 MCH 31.3 31.6 MCHC 33.9 34.0 RDW 14.3 14.4 Plt Count 101 L 98 L MPV 11.5 11.2 Immature Gran % (Auto) 0.3 0.3 Neut % (Auto) 76.1 H 78.4 H Lymph % (Auto) 9.9 L 9.0 L [place] % (Auto) 9.7 9.0 Eos % (Auto) 3.5 2.7 Baso % (Auto) 0.5 0.6 Lymph # (Auto) 0.6 L 0.6 L [place] # (Auto) 0.6 0.6 Eos # (Auto) 0.2 0.2 Baso # (Auto) 0.0 0.0 Abs Immat Gran (auto) 0.02 0.02 Absolute Neuts (auto) 4.9 5.2 Absolute Nucleated RBC 0.000 0.000 Nucleated RBC % (auto) 0.0 0.0 Anion Gap 19 18 Estim Creat Clear Calc 8.9 7.6 Estimated GFR 8 6 Random Glucose 92 99 Calcium 9.4 D 8.9 Total Bilirubin 0.8 AST 18 ALT 11 Alkaline Phosphatase 89 Troponin I High Sens 28.4 D 26.3 B-Natriuretic Peptide 1405 H Total Protein 7.6 Albumin 3.9 Lipase 97 H Quality Stroke Does the patient have a stroke diagnosis?: No VTE Prior VTE?: No VTE Risk Level:: Medical - moderate - high VTE Device Contraindication: Treatment Not Indicated VTE Drug Contraindication: N/A - Med Ordered
--- NOTE | 2023-06-28 12:27 | PM.EVENT ---
Event Note Date of Service: 06/28/23 Event Note: 48-year-old admitted abdominal pain Abdominal pain Questionable small-bowel obstruction, seen and examined by General surgery, no obstruction noted Continue IV hydration Pain control Antiemetics Advance diet to clears ESRD on diaylsis TTS nephrology following next schedule day tomorrow HTN Continue home medications HFpEF no exacerbation continue BB DVT prophylaxis with heparin Full code Attending Dr. Ojeda Time Spent With Patient Time: Total time managing care of this patient today ____ minutes.
[2023-06-29] MEDS: Acetaminophen 1,000 MG/100 ML PIGGYBACK 400 MG IV (03:05)
[2023-06-29 03:34] VITALS: BP 142/84; PULSE 79; RESP 18; TEMP 37.1; O2SAT 97
[2023-06-29 07:25] VITALS: BP 178/84; PULSE 68; RESP 16; TEMP 36.4; O2SAT 92
[2023-06-29 08:43] VITALS: BP 178/84; PULSE 68
[2023-06-29] MEDS: cloNIDine HCL 0.2 MG TABLET PO (08:43)
[2023-06-29] MEDS: carvediloL 25 MG TABLET PO (08:43)
[2023-06-29] MEDS: NIFEdipine ER 60 MG TAB.ER.24 PO (08:43)
[2023-06-29 08:44] VITALS: BP 178/84
[2023-06-29] MEDS: lisinopriL 40 MG TABLET PO (08:44)
[2023-06-29] MEDS: Pantoprazole Sodium 40 MG/10 ML VIAL IVPUSH (08:44)
[2023-06-29] MEDS: 0.9 % Sodium Chloride Flush 3 ML SYRINGE IVFLUSH (08:45)
--- NOTE | 2023-06-29 09:33 | P.DS_ITS ---
DS: Providers Provider Date of Service: 06/29/23 Date of admission: 06/28/23 02:37 Primary care physician: Syeda Pierce MD Consults: 06/28/23 04:33 Consult to General Surgery Routine Consulting Provider: [facility] Reason for consultation: Abdominal pain, nausea, vomiting ?partial bowel obstrction Has provider been notified: No 06/28/23 04:39 Consult to Nephrology Routine Consulting Provider: [facility] Reason for consultation: ESRD on HD, TTS Has provider been notified: No DS: Diagnosis Discharge Diagnosis (1) End-stage renal disease on hemodialysis: Status: Acute DS: Summary Hospital Course Hospital Course: History and physical as per admitting provider. Sterling Chávez is a 48 years old man with past medical history significant for ESRD on HD (TTS), constipation and hypertension presents to the emergency department complaining of epigastric pain that started yesterday morning at 10:30 am after eating a sandwich. He described the pain as burning and radiating to the whole abdomen in occasions. He also reported 1 episode of nonbloody vomiting and nausea. He had a bowel movement this morning without difficulty. He denies headache, chest pain, monica rtness on breath, fever or chills. He does not makes urine. He denied tobacco smoking, alcohol abuse or illicit drug use. He denies past abdominal surgeries. Denied taking any new medication. He takes Dulcolax for constipation. In the ED, he was found to have stable vital signs, however he has significant hypertension. Last BP is 185/100. Blood workup showed no leukocytosis. Hemoglobin is 11.5 (prior 9.2). There is mild thrombocytopenia. There are no significant electrolyte imbalances. Creatinine is 3.68 and BUN 62. LFTs are normal. BNP is 1,405. Troponin is 29.4. Lipase is 97. Abdomen and pelvis CT scan without IV contrast showed suspicious for partial or developing small bowel obstruction which may be associated with enteritis or stricturing within small bowel of the lower abdomen, small to moderate volume of free fluid in the abdomen, suspected left kidney cyst, ground-glass opacity through the visualized right lung which may be secondary to edema and redemonstrated dense region of opacity in the left lower lobe with adjacent small pleural effusion and surrounding pleural thickening. There is also cardiomegaly and trace pericardial effusion. ECG showed no acute ischemic changes. ED tx: Lukex 30 mg p.o., omeprazole 40 mg. 48-year-old man treated for abdominal pain secondary to small-bowel obstruction. Treated with IV hydration, pain control, antiemetics, NPO diet. Patient was seen by General surgery. Abdomen benign, diet advanced to regular with no further issues. No nausea, vomiting or abdominal pain. Plan is for patient to discharge home. Low-dose PPI. Can follow-up with primary care provider as needed. End-stage renal disease on dialysis. Last dialysis 06/29/2023. Continue regular dialysis schedule Hypertension. Continue home medications Heart failure with preserved ejection fraction. No exacerbation during hospitalization. Continue beta-jovon Time Attestation Discharge Coordination Time (in mins): 40 Quality: Safe Use of Opioids Does Pt have an Active Cancer Diagnosis on the Problem List?: No Quality: Stroke Does the patient have a stroke diagnosis?: No Physical Exam Vital Signs: Vital Signs: Last Vital Signs Temp 97.6 F 06/29/23 07:25 Pulse 68 06/29/23 08:43 Resp 16 06/29/23 07:25 BP 178/84 H 06/29/23 08:44 Pulse Ox 92 06/29/23 07:25 O2 Del Method Nasal Cannula 06/29/23 07:25 O2 Flow Rate 1.0 06/29/23 07:25 Oxygen Flow Rate 1 06/27/23 20:57 BMI result Body Mass Index 18.4 Appearing in no acute distress head is normocephalic atraumatic eyes pupils are PERRLA sclera is anicteric mouth throat mucous membranes are intact and moist neck is supple no lymphadenopathy, no JVD noted lung sounds are clear to auscultation heart regular rate rhythm, clear S1, S2 positive bowel sounds, abdomen is soft, nontender neuro patient is alert x3, no focal deficits DS: Data Data Completed and Pending Completed studies during hospitalization [Text1]: Procedures Introduction of Vasopressor into Peripheral Vein, Percutaneous Approach (01/06/20) Performance of Urinary Filtration, Intermittent, Less than 6 Hours Per Day (04/24/23) Discharge Plan Discharge Anticipated Discharge Date/Time: 06/29/23 09:30 Patient Disposition: Home, Self-Care Discharge Diagnosis: Abdominal [id number] obstruction End-stage renal disease on dialysis Referrals: Syeda Pierce MD [Primary Care Provider] - 1 Week Discharge Medications: New Prilosec 10 mg susp,delayed release for recon 20 mg PO DAILY Qty: 30 0RF Continued clonidine HCl 0.2 mg tablet 0.2 mg PO BID nifedipine 60 mg tablet extended release 60 mg PO BID doxazosin 2 mg Tablet 2 mg PO DAILY Qty: 30 0RF Protocol: Hold for SBP< HOLD for SBP < : 90 carvedilol 25 mg tablet 25 mg PO BID lisinopril 40 mg tablet 40 mg PO DAILY Qty: 30 0RF docusate sodium 100 mg Tablet 200 mg PO BEDTIME Discharge Orders: Discharge Order (Routine); Ordered 06/29/23 Ordered By: Zo Blank Diet: Advance to usual diet Activity on Discharge: As tolerated Stand Alone Forms: Patient Portal Discharge page Print Language: Georgian Care Plan Goals: Continue current dialysis schedule, last dialysis 06/29/2023 Health Concerns: Abdominal [id number] obstruction End-stage renal disease on dialysis Plan of Treatment: Follow-up with primary care provider as needed Take all medications as prescribed Assessment: See discharge summary
--- NOTE | 2023-06-29 10:10 | W.PM.DNNEP ---
Subjective Subjective This patient was seen during dialysis. Physical Exam Vital Signs: Vital Signs: Last Vital Signs Temp 97.6 F 06/29/23 07:25 Pulse 68 06/29/23 08:43 Resp 16 06/29/23 07:25 BP 178/84 H 06/29/23 08:44 Pulse Ox 92 06/29/23 07:25 O2 Del Method Nasal Cannula 06/29/23 07:25 O2 Flow Rate 1.0 06/29/23 07:25 Oxygen Flow Rate 1 06/27/23 20:57 BMI result Body Mass Index 18.4 Const: General: comfortable Nutritional Appearance: well nourished Orientation/consciousness: patient oriented x3 HEENT: Head: No normal to inspection Mouth: moist mucous membranes Neck: Neck: Yes supple and Yes no JVD Resp: Auscultation: clear to auscultation bilaterally, no rales and rub present Cardio: Jugular venous distension: no JVD Palpation: no palpable S3 and no palpable S4 Heart sounds: no rubs GI: Palpation (GI): Soft to palpation and nontender Percussion: No Fluid wave present : General: Yes no CVA tenderness Back/Spine/Pelvis: Back: no CVA tenderness Skin: General skin exam: no rashes or lesions noted Neuro: General: patient oriented x3 Extrem: General: Yes no pedal edema and No clubbing Assessment & Plan Assessment and plan (1) End-stage renal disease on hemodialysis: Status: Acute Plan 48-year-old man with resistant hypertension end stage renal disease admitted with abdominal pain. From renal standpoint he is doing very well. No signs or symptoms of uremia. He is well dialyzed. Fluid status is optimal. The abdominal pain has resolved. Keep on hemodialysis as per Wednesday schedule. DC planning She will follow along with the team. Time Spent With Patient Time: Total time managing care of this patient today ____ minutes. Procedures Date of Service Date of Service: 06/29/23
--- NOTE | 2023-06-29 13:43 | MHC.CM.PN ---
Per MD patient medically cleared for dc home self care. Will resume HD at [facility] - they are aware of dc. Son will transport home at 1500. RN aware. IMM delivered.
== END 2023-06-29 15:05 | disposition home or self-care (01) | DRG 388 ==
LOC: HO.ED 06-28 02:22 → HO.EDOVER 06-28 03:02 → HO.S3 06-28 03:25
PROVIDERS: Admitting Provider Internal Medicine; Emergency Provider Internal Medicine; PCP Internal Medicine; Visit Provider Nurse Practitioner Acute Care
DX: K56.600 Partial intestinal obstruction, unspecified as to cause (principal); N18.6 End stage renal disease; I13.2 Hypertensive heart and chronic kidney disease with heart failure and with stage 5 chronic kidney disease, or end stage renal disease; I50.32 Chronic diastolic (congestive) heart failure; D61.818 Other pancytopenia; I1A.0 Resistant hypertension; Z99.2 Dependence on renal dialysis; E86.0 Dehydration; K21.9 Gastro-esophageal reflux disease without esophagitis
CPT/HCPCS: 36415; 74176; 80048; 80053; 83690; 83880; 84484; 85025; 90999; 93005; 99285; C9113; J0131; J1644

== ENCOUNTER → 2023-06-27 21:08 | Outpatient (BNV) | payer MEDICARE, SELFPAY | PROVIDERS: Admitting Provider Internal Medicine; Emergency Provider Internal Medicine; PCP Internal Medicine; Visit Provider Internal Medicine Cardiovascular Disease | DX: R94.31 Abnormal electrocardiogram [ECG] [EKG] (principal) | CPT/HCPCS: 93010 ==

== ENCOUNTER → 2023-06-28 02:37 | Outpatient (BNV) | payer MEDICARE, SELFPAY | PROVIDERS: Admitting Provider Internal Medicine; Emergency Provider Internal Medicine; PCP Internal Medicine; Visit Provider Internal Medicine Hypertension Specialist | DX: N18.6 End stage renal disease (principal); Z99.2 Dependence on renal dialysis | CPT/HCPCS: 99222 ==

== ENCOUNTER → 2023-06-28 02:37 | Outpatient (BNV) | payer MEDICARE, SELFPAY | PROVIDERS: Admitting Provider Internal Medicine; Emergency Provider Internal Medicine; PCP Internal Medicine; Visit Provider Internal Medicine | DX: N18.6 End stage renal disease (principal); Z99.2 Dependence on renal dialysis | CPT/HCPCS: 99223; 99239; 99499 ==

== ENCOUNTER → 2023-06-28 02:37 | Outpatient (BNV) | payer MEDICARE, SELFPAY | PROVIDERS: Admitting Provider Internal Medicine; Emergency Provider Internal Medicine; PCP Internal Medicine; Visit Provider Surgery | DX: R10.13 Epigastric pain (principal) | CPT/HCPCS: 99222 ==

== ENCOUNTER → 2023-07-07 | Outpatient (BNV) | payer MEDICARE, MEDICAID, SELFPAY ==
--- OUTSIDE RECORDS SUMMARY | 2023-08-13 09:55 | XMS_ITS | Patient Health Record ---
Author Organization [facility] Address [address] [place] [address] Care Team Providers Care A R Collections Rep Name Role Phone Syeda [place] Primary Care Provider Unavailab Aaron Trujillo Unavailable [phone] Case Mccarty Unavailable Unavailable ALLERGIES Allergen (clinical [...] Vitamin B Complex Ac tive Vitamin D2 01635 1 tablet Orally ONCE A WEEK Active [...] Notes Problem Other ascites (R18.8) Active confirmed [id number] Problem Hypertension, unspecified type (I10) Active confirmed 14484555 Problem Ascites (R18.8) Active confirmed Ascite s ([id number]) PLAN OF TREATMENT Pending Test Test Name [...] ROUTINE CULTURE 07/13/2018 ROUTINE CULTURE 06/04/2019 CYTOLOGY (NON-CAR PARK ATTENDANT) 05/17/2018 CYTOLOGY (NON-CAR PARK ATTENDANT) 01/14/2018 US PARACENTESIS GUIDE 12/21/2017 US PARACENTESIS [...] OF [place] [address] [place] [address] [id number] SOFIA DURBIN Self - patient is the insured MEDICAID OF [facility] [employer] [address] [place] [phone] [id number] SOFIA DURBIN Self - patient is the insured MEDICAL (GENERAL) HISTORY Medical History History ICD Code Hypertension CRF--on HD TIW on ,, --Dr. Mccarty Diastolic heart failure Denies IA,DM,CVA,Lung disease Depression Ascites--liver bx 01/2018--n o cirrhosis, some cholestasis and dilated venous sinuses; Ascites neg cytology, SAAG approx 0.8 on 2 occasions; Doppler studies were neg. for portal vein thrombosis. He undergoes a periodic large-volume paracentesis --there has been no sign of spontaneous bacterial peritonitis Surgical History Surgery Date(Month/Year) HD AV fistula in left arm
== END ==
PROVIDERS: PCP Internal Medicine; Visit Provider Internal Medicine Hypertension Specialist
DX: N18.6 End stage renal disease (principal)
CPT/HCPCS: 90960

== ENCOUNTER → 2023-08-07 | Outpatient (BNV) | payer MEDICARE, SELFPAY ==
--- OUTSIDE RECORDS SUMMARY | 2023-09-07 08:16 | XMS_ITS | Patient Health Record ---
Author Organization [facility] Address [address] [place] [address] Care Team Providers Care Baking Assistant Name Role Phone Syeda [place] Primary Care Provider Unavailab Aaron Trujillo Unavailable [phone] Case Mccarty Unavailable Unavailable ALLERGIES Allergen (clinical [...] Vitamin B Complex Ac tive Vitamin D2 68500 1 tablet Orally ONCE A WEEK Active [...] Notes Problem Other ascites (R18.8) Active confirmed [id number] Problem Hypertension, unspecified type (I10) Active confirmed 83378979 Problem Ascites (R18.8) Active confirmed Ascite s ([id number]) PLAN OF TREATMENT Pending Test Test Name [...] ROUTINE CULTURE 07/13/2018 ROUTINE CULTURE 06/04/2019 CYTOLOGY (NON-HOSE SPRAYER) 05/17/2018 CYTOLOGY (NON-HOSE SPRAYER) 01/14/2018 US PARACENTESIS GUIDE 12/21/2017 US PARACENTESIS [...] OF [place] [address] [place] [address] [id number] SOFIA DURBIN Self - patient is the insured MEDICAID OF [facility] [employer] [address] [place] [phone] [id number] SOFIA DURBIN Self - patient is the insured MEDICAL (GENERAL) HISTORY Medical History History ICD Code Hypertension CRF--on HD TIW on ,, --Dr. Mccarty Diastolic heart failure Denies NH,DM,CVA,Lung disease Depression Ascites--liver bx 01/2018--n o cirrhosis, some cholestasis and dilated venous sinuses; Ascites neg cytology, SAAG approx 0.8 on 2 occasions; Doppler studies were neg. for portal vein thrombosis. He undergoes a periodic large-volume paracentesis --there has been no sign of spontaneous bacterial peritonitis Surgical History Surgery Date(Month/Year) HD AV fistula in left arm
== END ==
PROVIDERS: PCP Internal Medicine; Visit Provider Internal Medicine Hypertension Specialist
DX: N18.6 End stage renal disease (principal)
CPT/HCPCS: 90960

== ENCOUNTER → 2023-09-06 | Outpatient (BNV) | payer MEDICARE, SELFPAY | PROVIDERS: PCP Internal Medicine; Visit Provider Internal Medicine Hypertension Specialist | DX: N18.6 End stage renal disease (principal) | CPT/HCPCS: 90960 ==

== ENCOUNTER → 2023-09-15 13:43 | Outpatient (BNVA) | payer MEDICARE, MEDICAID, SELFPAY | PROVIDERS: PCP Internal Medicine; Visit Provider Internal Medicine ==

== ENCOUNTER → 2023-10-07 | Outpatient (BNV) | payer MEDICARE, MEDICAID, SELFPAY ==
--- OUTSIDE RECORDS SUMMARY | 2023-11-16 11:00 | XMS_ITS | Patient Health Record ---
Author Organization [facility] Address [address] [place] [address] Care Team Providers Care Dairy Husbandman Name Role Phone Syeda [place] Primary Care Provider Unavailab Aaron Trujillo Unavailable [phone] Case Mccarty Unavailable Unavailable ALLERGIES Allergen (clinical [...] Vitamin B Complex Ac tive Vitamin D2 01918 1 tablet Orally ONCE A WEEK Active [...] Notes Problem Other ascites (R18.8) Active confirmed [id number] Problem Hypertension, unspecified type (I10) Active confirmed 89865146 Problem Ascites (R18.8) Active confirmed Ascite s ([id number]) PLAN OF TREATMENT Pending Test Test Name Order Date ECHO EXAM OF HEART 01/14/2018 CHEM 7 PROFILE 06/18/2020 CHEM 7 PROFILE 03/12/2019 CHEM 7 PROFILE 11/01/2018 CHEM 7 PROFILE 10/07/2018 CHEM 7 PROFILE 07/13/2018 CHEM 7 PROFILE 12/27/2019 CHEM 7 PROFILE 05/05/2019 CHEM 7 PROFILE 10/24/2017 CHEM 7 PROFILE 05/14/2020 CHEM 7 PROFILE 06/04/2019 CHEM 7 PROFILE 09/15/2018 CHEM 7 PROFILE 06/14/2018 CHEM 7 PROFILE 01/23/2020 CHEM 7 PROFILE 08/08/2019 CHEM 7 PROFILE 08/15/2018 ELECTROLYTES 05/17/2018 BUN 05/17/2018 CREATININE 05/17/2018 LIVER PROFILE 01/23/2020 LIVER PROFILE 08/15/2018 LIVER PROFILE 11/01/2018 LIVER PROFILE 10/07/2018 LIVER PROFILE 07/13/2018 LIVER PROFILE 05/05/2019 LIVER PROFILE 10/24/2017 LIVER PROFILE 09/15/2018 LIVER PROFILE 05/17/2018 TRIGLYCERIDE 09/14/2017 T4 (THYROXINE) 10/24/2017 TSH (THYROID STIMULATING HORMONE) 2017 CBC w DIFF 08/08/2019 CBC w DIFF 05/17/2018 CBC w DIFF 01/23/2020 CBC w DIFF 06/18/2020 CBC w DIFF 10/24/2017 CBC w DIFF 08/15/2018 CBC w DIFF 12/27/2019 CBC w DIFF 11/01/2018 CBC w DIFF 10/07/2018 CBC w DIFF 07/13/2018 CBC w DIFF 05/14/2020 CBC w DIFF 06/04/2019 CBC w DIFF 05/05/2019 CBC w DIFF 06/14/2018 CELL COUNT FLUID 01/14/2018 CELL COUNT FLUID 06/27/2019 CELL COUNT FLUID 06/14/2018 CELL COUNT FLUID 08/08/2019 CELL COUNT FLUID 05/17/2018 CELL COUNT FLUID 01/23/2020 CELL COUNT FLUID 06/18/2020 CELL COUNT FLUID 10/24/2017 CELL COUNT FLUID 08/15/2018 CELL COUNT FLUID 04/26/2018 CELL COUNT FLUID 12/27/2019 CELL COUNT FLUID 11/01/2018 CELL COUNT FLUID 10/07/2018 CELL COUNT FLUID 07/13/2018 CELL COUNT FLUID 05/14/2020 CELL COUNT FLUID 06/04/2019 PROTHROMBIN TIME (PT, INR) 05/05/2019 PROTHROMBIN TIME (PT, INR) 07/13/2018 PROTHROMBIN TIME (PT, INR) 05/14/2020 PROTHROMBIN TIME (PT, INR) 06/04/2019 PROTHROMBIN TIME (PT, INR) 06/14/2018 PROTHROMBIN TIME (PT, INR) 08/08/2019 PROTHROMBIN TIME (PT, INR) 05/17/2018 PROTHROMBIN TIME (PT, INR) 01/23/2020 PROTHROMBIN TIME (PT, INR) 06/18/2020 PROTHROMBIN TIME (PT, INR) 10/24/2017 PROTHROMBIN TIME (PT, INR) 08/15/2018 PROTHROMBIN TIME (PT, INR) 12/27/2019 PROTHROMBIN TIME (PT, INR) 11/01/2018 PROTHROMBIN TIME (PT, INR) 10/07/2018 PARTIAL THROMBOPLASTIN TIME (PTT) 2019 PARTIAL THROMBOPLASTIN TIME (PTT) 2018 PARTIAL THROMBOPLASTIN TIME (PTT) 2018 PARTIAL THROMBOPLASTIN TIME (PTT) 2019 PARTIAL THROMBOPLASTIN TIME (PTT) 2018 PARTIAL THROMBOPLASTIN TIME (PTT) 2020 PARTIAL THROMBOPLASTIN TIME (PTT) 2019 PARTIAL THROMBOPLASTIN TIME (PTT) 2018 PARTIAL THROMBOPLASTIN TIME (PTT) 2019 PARTIAL THROMBOPLASTIN TIME (PTT) 2018 PARTIAL THROMBOPLASTIN TIME (PTT) 2019 PARTIAL THROMBOPLASTIN TIME (PTT) 2017 PARTIAL THROMBOPLASTIN TIME (PTT) 2018 GRAM STAIN 08/15/2018 GRAM STAIN 01/14/2018 GRAM STAIN 06/27/2019 GRAM STAIN 12/27/2019 GRAM STAIN 11/01/2018 GRAM STAIN 10/07/2018 GRAM STAIN 07/13/2018 GRAM STAIN 05/14/2020 GRAM STAIN 06/04/2019 GRAM STAIN 06/14/2018 GRAM STAIN 04/26/2018 GRAM STAIN 06/18/2020 GRAM STAIN 08/08/2019 GRAM STAIN 05/17/2018 GRAM STAIN 01/23/2020 GRAM STAIN 10/24/2017 ROUTINE CULTURE 05/17/2018 ROUTINE CULTURE 10/24/2017 ROUTINE CULTURE 01/23/2020 ROUTINE CULTURE 08/15/2018 ROUTINE CULTURE 01/14/2018 ROUTINE CULTURE 06/27/2019 ROUTINE CULTURE 12/27/2019 ROUTINE CULTURE 11/01/2018 ROUTINE CULTURE 10/07/2018 ROUTINE CULTURE 07/13/2018 ROUTINE CULTURE 06/04/2019 ROUTINE CULTURE 06/14/2018 ROUTINE CULTURE 04/26/2018 ROUTINE CULTURE 06/18/2020 ROUTINE CULTURE 08/08/2019 CYTOLOGY (NON-HUMAN RESOURCES CONSULTANT) 05/17/2018 CYTOLOGY (NON-HUMAN RESOURCES CONSULTANT) 01/14/2018 US PARACENTESIS GUIDE 09/15/2018 US PARACENTESIS GUIDE 01/14/2018 US PARACENTESIS GUIDE 06/14/2018 US PARACENTESIS GUIDE 04/26/2018 US PARACENTESIS GUIDE 08/08/2019 US PARACENTESIS GUIDE 04/07/2019 US PARACENTESIS GUIDE 09/14/2017 US PARACENTESIS GUIDE 01/23/2020 US PARACENTESIS GUIDE 06/18/2020 US PARACENTESIS GUIDE 03/29/2018 US PARACENTESIS GUIDE 05/05/2019 US PARACENTESIS GUIDE 08/15/2018 US PARACENTESIS GUIDE 05/17/2018 US PARACENTESIS GUIDE 06/27/2019 US PARACENTESIS GUIDE 12/27/2019 US PARACENTESIS GUIDE 10/24/2017 US PARACENTESIS GUIDE 11/01/2018 US PARACENTESIS GUIDE 10/07/2018 US PARACENTESIS GUIDE 07/13/2018 US PARACENTESIS GUIDE 05/14/2020 US PARACENTESIS GUIDE 12/21/2017 US PARACENTESIS GUIDE 12/06/2018 US PARACENTESIS GUIDE [...] OF [place] [address] [place] [address] [phone] [id number] SOFIA DURBIN Self - patient is the insured MEDICAID OF [facility] [employer] [address] [place] [phone] [id number] SOFIA DURBIN Self - patient is the insured MEDICAL (GENERAL) HISTORY Medical History History ICD Code Hypertension CRF--on HD TIW on ,, --Dr. Mccarty Diastolic heart failure Denies AR,DM,CVA,Lung disease Depression Ascites--liver bx 01/2018--n o cirrhosis, some cholestasis and dilated venous sinuses; Ascites neg cytology, SAAG approx 0.8 on 2 occasions; Doppler studies were neg. for portal vein thrombosis. He undergoes a periodic large-volume paracentesis --there has been no sign of spontaneous bacterial peritonitis Surgical History Surgery Date(Month/Year) HD AV fistula in left arm
== END ==
PROVIDERS: PCP Internal Medicine; Visit Provider Internal Medicine Hypertension Specialist
DX: N18.6 End stage renal disease (principal)
CPT/HCPCS: 90962

== ENCOUNTER → 2023-11-07 | Outpatient (BNV) | payer MEDICARE, MEDICAID, SELFPAY ==
--- OUTSIDE RECORDS SUMMARY | 2023-12-10 10:08 | XMS_ITS | Patient Health Record ---
Author Organization [facility] Address [address] [place] [address] Care Team Providers Care Regional Transportation Manager Name Role Phone Syeda [place] Primary Care Provider Unavailab Aaron Trujillo Unavailable [phone] Case Mccarty Unavailable Unavailable ALLERGIES Allergen (clinical [...] Vitamin B Complex Ac tive Vitamin D2 23479 1 tablet Orally ONCE A WEEK Active [...] Notes Problem Other ascites (R18.8) Active confirmed [id number] Problem Hypertension, unspecified type (I10) Active confirmed 14075450 Problem Ascites (R18.8) Active confirmed Ascite s ([id number]) PLAN OF TREATMENT Pending Test Test Name Order Date ECHO EXAM OF HEART 01/14/2018 CHEM 7 PROFILE 06/18/2020 CHEM 7 PROFILE 03/12/2019 CHEM 7 PROFILE 08/15/2018 CHEM 7 PROFILE 11/01/2018 CHEM 7 PROFILE 12/27/2019 CHEM 7 PROFILE 10/07/2018 CHEM 7 PROFILE 05/05/2019 CHEM 7 PROFILE 07/13/2018 CHEM 7 PROFILE 05/14/2020 CHEM 7 PROFILE 06/04/2019 CHEM 7 PROFILE 10/24/2017 CHEM 7 PROFILE 01/23/2020 CHEM 7 PROFILE 08/08/2019 CHEM 7 PROFILE 09/15/2018 CHEM 7 PROFILE 06/14/2018 ELECTROLYTES 05/17/2018 BUN 05/17/2018 CREATININE 05/17/2018 LIVER PROFILE 01/23/2020 LIVER PROFILE 09/15/2018 LIVER PROFILE 05/17/2018 LIVER PROFILE 08/15/2018 LIVER PROFILE 11/01/2018 LIVER PROFILE 10/07/2018 LIVER PROFILE 05/05/2019 LIVER PROFILE 07/13/2018 LIVER PROFILE 10/24/2017 TRIGLYCERIDE 09/14/2017 T4 (THYROXINE) 10/24/2017 TSH (THYROID STIMULATING HORMONE) 2017 CBC w DIFF 08/08/2019 CBC w DIFF 06/14/2018 CBC w DIFF 01/23/2020 CBC w DIFF 06/18/2020 CBC w DIFF 05/17/2018 CBC w DIFF 10/24/2017 CBC w DIFF 08/15/2018 CBC w DIFF 12/27/2019 CBC w DIFF 11/01/2018 CBC w DIFF 05/14/2020 CBC w DIFF 10/07/2018 CBC w DIFF 06/04/2019 CBC w DIFF 05/05/2019 CBC w DIFF 07/13/2018 CELL COUNT FLUID 07/13/2018 CELL COUNT FLUID 06/27/2019 CELL COUNT FLUID 08/08/2019 CELL COUNT FLUID 01/14/2018 CELL COUNT FLUID 06/14/2018 CELL COUNT FLUID 01/23/2020 CELL COUNT FLUID 06/18/2020 CELL COUNT FLUID 05/17/2018 CELL COUNT FLUID 10/24/2017 CELL COUNT FLUID 08/15/2018 CELL COUNT FLUID 12/27/2019 CELL COUNT FLUID 04/26/2018 CELL COUNT FLUID 11/01/2018 CELL COUNT FLUID 05/14/2020 CELL COUNT FLUID 10/07/2018 CELL COUNT FLUID 06/04/2019 PROTHROMBIN TIME (PT, INR) 05/05/2019 PROTHROMBIN TIME (PT, INR) 05/14/2020 PROTHROMBIN TIME (PT, INR) 10/07/2018 PROTHROMBIN TIME (PT, INR) 06/04/2019 PROTHROMBIN TIME (PT, INR) 07/13/2018 PROTHROMBIN TIME (PT, INR) 08/08/2019 PROTHROMBIN TIME (PT, INR) 06/14/2018 PROTHROMBIN TIME (PT, INR) 01/23/2020 PROTHROMBIN TIME (PT, INR) 06/18/2020 PROTHROMBIN TIME (PT, INR) 05/17/2018 PROTHROMBIN TIME (PT, INR) 10/24/2017 PROTHROMBIN TIME (PT, INR) 08/15/2018 PROTHROMBIN TIME (PT, INR) 12/27/2019 PROTHROMBIN TIME (PT, INR) 11/01/2018 PARTIAL THROMBOPLASTIN TIME (PTT) 2018 PARTIAL THROMBOPLASTIN TIME (PTT) 2019 PARTIAL THROMBOPLASTIN TIME (PTT) 2018 PARTIAL THROMBOPLASTIN TIME (PTT) 2019 PARTIAL THROMBOPLASTIN TIME (PTT) 2020 PARTIAL THROMBOPLASTIN TIME (PTT) 2018 PARTIAL THROMBOPLASTIN TIME (PTT) 2019 PARTIAL THROMBOPLASTIN TIME (PTT) 2018 PARTIAL THROMBOPLASTIN TIME (PTT) 2019 PARTIAL THROMBOPLASTIN TIME (PTT) 2018 PARTIAL THROMBOPLASTIN TIME (PTT) 2019 PARTIAL THROMBOPLASTIN TIME (PTT) 2018 PARTIAL THROMBOPLASTIN TIME (PTT) 2017 GRAM STAIN 05/17/2018 GRAM STAIN 10/24/2017 GRAM STAIN 06/27/2019 GRAM STAIN 08/15/2018 GRAM STAIN 12/27/2019 GRAM STAIN 11/01/2018 GRAM STAIN 05/14/2020 GRAM STAIN 01/14/2018 GRAM STAIN 10/07/2018 GRAM STAIN 06/04/2019 GRAM STAIN 07/13/2018 GRAM STAIN 06/18/2020 GRAM STAIN 08/08/2019 GRAM STAIN 06/14/2018 GRAM STAIN 04/26/2018 GRAM STAIN 01/23/2020 ROUTINE CULTURE 06/14/2018 ROUTINE CULTURE 04/26/2018 ROUTINE CULTURE 01/23/2020 ROUTINE CULTURE 05/17/2018 ROUTINE CULTURE 10/24/2017 ROUTINE CULTURE 06/27/2019 ROUTINE CULTURE 08/15/2018 ROUTINE CULTURE 12/27/2019 ROUTINE CULTURE 11/01/2018 ROUTINE CULTURE 01/14/2018 ROUTINE CULTURE 10/07/2018 ROUTINE CULTURE 06/04/2019 ROUTINE CULTURE 07/13/2018 ROUTINE CULTURE 06/18/2020 ROUTINE CULTURE 08/08/2019 CYTOLOGY (NON-SAND MIXER MACHINE) 05/17/2018 CYTOLOGY (NON-SAND MIXER MACHINE) 01/14/2018 US PARACENTESIS GUIDE 12/21/2017 US PARACENTESIS GUIDE 08/08/2019 US PARACENTESIS GUIDE 09/15/2018 US PARACENTESIS GUIDE 01/14/2018 US PARACENTESIS GUIDE 04/07/2019 US PARACENTESIS GUIDE 06/14/2018 US PARACENTESIS GUIDE 04/26/2018 US PARACENTESIS GUIDE 01/23/2020 US PARACENTESIS GUIDE 06/18/2020 US PARACENTESIS GUIDE 05/05/2019 US PARACENTESIS GUIDE 09/14/2017 US PARACENTESIS GUIDE 03/29/2018 US PARACENTESIS GUIDE 06/27/2019 US PARACENTESIS GUIDE 08/15/2018 US PARACENTESIS GUIDE 12/27/2019 US PARACENTESIS GUIDE 11/01/2018 US PARACENTESIS GUIDE 05/17/2018 US PARACENTESIS GUIDE 05/14/2020 US PARACENTESIS GUIDE 10/07/2018 US PARACENTESIS GUIDE 12/06/2018 US PARACENTESIS GUIDE 06/04/2019 US PARACENTESIS GUIDE 10/24/2017 US PARACENTESIS GUIDE 07/13/2018 ALBUMIN, FLUID 01/14/2018 ALBUMIN, FLUID 10/24/2017 ALBUMIN, FLUID 05/17/2018 HCV LIVER FIBROSIS, FIBRO TEST 8 Partial Thromboplastin Time 06/18/2020 Routine Culture w Gram Stain 05/14/2020 Insurance Providers Payer Name Payer Address Payer Phone Subscriber Number Group Number Insured Name Patient Relationship to Insured Coverage Start Date Coverage End Date MEDICARE OF [place] [address] [place] [address] [id number] SOFIA DURBIN Self - patient is the insured MEDICAID OF [facility] [employer] [address] [place] [phone] [id number] SOFIA DURBIN Self - patient is the insured MEDICAL (GENERAL) HISTORY Medical History History ICD Code Hypertension CRF--on HD TIW on ,, --Dr. Mccarty Diastolic heart failure Denies [place],DM,CVA,Lung disease Depression Ascites--liver bx 01/2018--n o cirrhosis, some cholestasis and dilated venous sinuses; Ascites neg cytology, SAAG approx 0.8 on 2 occasions; Doppler studies were neg. for portal vein thrombosis. He undergoes a periodic large-volume paracentesis --there has been no sign of spontaneous bacterial peritonitis Surgical History Surgery Date(Month/Year) HD AV fistula in left arm
== END ==
PROVIDERS: PCP Internal Medicine; Visit Provider Internal Medicine Hypertension Specialist
DX: N18.6 End stage renal disease (principal)
CPT/HCPCS: 90961

== ENCOUNTER → 2023-12-07 | Outpatient (BNV) | payer MEDICARE, MEDICAID, SELFPAY | PROVIDERS: PCP Internal Medicine; Visit Provider Internal Medicine Hypertension Specialist | DX: N18.6 End stage renal disease (principal) | CPT/HCPCS: 90961 ==

== ENCOUNTER 2023-12-15 10:04 | Outpatient (AMB) | payer MEDICARE, MEDICAID, SELFPAY ==
[2023-12-15 10:34] VITALS: BP 150/70; PULSE 72; BMI 18.8
--- NOTE | 2023-12-15 10:34 | A.OFFVIS_ITS ---
Vital Signs 12/15/23 10:34 Height 5 ft 8 in Weight 123 lb 7.342 oz BMI 18.8 BP 150/70 H Blood Pressure Location Rt brachial Position Sitting Pulse 72 Pulse Source Pulse Oximeter Intake Visit Reasons: Previous KM pt /dr ordonez/pulmonary htn Medical Officer Psychiatry Required: No Medical Officer Psychiatry Services: Medical Officer Psychiatry Offered & Declined Accompanied by: Self / Same As Patient Allergies No Known Allergies Allergy (Verified 06/27/23 21:06) Medication List - Last Reconciled 12/15/23 by Blayne Black MD carvedilol 25 mg PO BID clonidine HCl 0.2 mg PO BID docusate sodium 200 mg PO BEDTIME doxazosin 2 mg See Protocol PO DAILY nifedipine ER 60 mg PO BID HPI Comments Details: [age] year gentleman who is here for 1st office visit. He was previously seen in 2020 when he was in the hospital with hypertensive emergency and congestive heart failure. It was felt that high blood pressure was a cause for his decompensation. He was on hemodialysis and there was some concerns about compliance with hemodialysis at that time. He was complaining of some chest discomfort and our plan was to do exercise stress test but he did not follow up with us. Now he is presenting after 3 years and he had echocardiography in April 2023 which raised concern for severe pulmonary hypertension. There is also at least moderate mitral valve regurgitation, [id number] tricuspid valve regurgitation, severely elevated right ventricular systolic pressure and severely elevated right atrial pressure. Small pericardial effusion was also noted. RV systolic pressure was 108 mm Hg. Is denying any dyspnea but he is getting chest tightness with activities. No syncope episode recently. He is doing hemodialysis on Wednesday and Wednesday. Today he is 1 day before hemodialysis in his blood pressure is elevated. He is saying blood pressure has been much better over the last year or so. He is a former smoker. No history of DVT PE in the past. [facility] Medical History (HFpEF) heart failure with preserved ejection fraction End stage renal disease on dialysis Pulmonary hypertension associated with chronic renal failure on dialysis Anemia ESRD (end stage renal disease) End stage chronic kidney disease Dialysis patient Disease of pericardium, unspecified Pulmonary hypertension associated with end stage renal disease on dialysis Hypertensive cardiovascular disease Fistula Hypertension CHF (congestive heart failure) Kidney disease Family History (Updated 12/15/23 @ 10:38 by Nathaly Longoria CMA) Father HTN (hypertension) Cancer Mother HTN (hypertension) Cancer Social History Household Members: None Household Members Other:: lives with girlfriend Housing: Apartment Do you presently have visiting nurse or other home services: No Alcohol intake: unknown Comment: blood pressure still 220/120 Patient Tobacco Use Status: Never used Tobacco Second Hand Smoke Exposure: No Advance Directives Date on File: 01/08/20 service: No Current occupational status: unemployed Review of Systems Const Denies chills, Denies fatigue, Denies fever(s), Denies frequent falls, Denies weakness, Denies weight gain and Denies weight loss ENT Denies dizziness Card Denies chest pain, Denies leg edema, Denies lightheadedness, Denies palpitations, Denies dyspnea, Denies dyspnea on exertion and Denies orthopnea Resp Denies cough, Denies dyspnea and Denies dyspnea on exertion GI Denies bloating and Denies change in bowel habits Musc Denies muscle weakness, Denies numbness and Denies tingling Neuro Denies dizziness, Denies frequent falls, Denies numbness, Denies tingling and Denies weakness Endo Denies fatigue and Denies palpitations Physical Exam Vital Signs: Last Vital Signs Pulse 72 12/15/23 10:34 BP 150/70 H 12/15/23 10:34 BMI result Body Mass Index 18.8 GENERAL APPEARANCE: in no acute distress, pleasant. NECK: no carotid bruit, + jugular venous distention. Prominent V-wave. SKIN: no suspicious lesions, warm and dry. HEART: Holosystolic murmur over the left sternal border as well as apex radiating to the axilla., regular rate and rhythm. No parasternal heave. LUNGS: clear to auscultation bilaterally. ABDOMEN: soft, nontender. EXTREMITIES: no edema. Left forearm fistula with thrill and bruit. PERIPHERAL PULSES: equal. NEUROLOGIC: No gross deficits, AAO X 3 Assessment & Plan Assessment & Plan (1) Congestive heart failure: Code(s): I50.9 - Heart failure, unspecified Category: Medical Qualifiers: Heart failure chronicity: chronic Heart failure type: systolic Qualified Code(s): I50.22 - Chronic systolic (congestive) heart failure (2) Mitral regurgitation: Code(s): I34.0 - Nonrheumatic mitral (valve) insufficiency Category: Medical (3) Tricuspid regurgitation: Code(s): I07.1 - Rheumatic tricuspid insufficiency Category: Medical (4) Pulmonary hypertension: Code(s): I27.20 - Pulmonary hypertension, unspecified Category: Medical Plan [age] year gentleman with background diastolic heart failure, uncontrolled hypertension and end-stage renal disease on hemodialysis presenting for echocardiography performed in 04/27/2023 raising concern for at least moderate mitral valve regurgitation, [id number] tricuspid valve regurgitation and severe pulmonary hypertension. He is on hemodialysis and has an AV fistula. Some patients with AV fistula can develop severe pulmonary hypertension. Given severe mitral valve regurgitation obviously 1 concern is that valve disease is playing a major role in his pulmonary hypertension. Although pulmonary artery systolic pressure of 108 mm Hg is significantly elevated and I think there will be a primary pulmonary issue involved in this scenario along with heart failure. He was a former smoker. He will need lung assessment and I am going to refer him for pulmonology assessment. I have discussed with the him to do a [id number] heart catheterization to further assess coronary anatomy as well as filling pressures and to assess the pulmonary hypertension whether this is pre capillary or post capillary or combination of both. We will try to schedule him post hemodialysis so his volume status is better and filling pressures are not affected significantly by excess volume in the system. 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 Thank you for allowing me to participate in the care of your patient. Please feel free to contact me if you have any questions. Orders: Orders Cardiac Cath JOSE E Diagnostic Today I34.0 - Nonrheumatic mitral (valve) insufficiency Basic Metabolic Panel Today I34.0 - Nonrheumatic mitral (valve) insufficiency Liver Panel Today I34.0 - Nonrheumatic mitral (valve) insufficiency TSH reflex Free T4 Today I34.0 - Nonrheumatic mitral (valve) insufficiency Complete Blood Count no Diff Today I34.0 - Nonrheumatic mitral (valve) insufficiency Prothrombin Time INR Today I34.0 - Nonrheumatic mitral (valve) insufficiency Medications: Discontinued lisinopril Discontinued Reason: Patient no longer taking 40 mg PO DAILY 30 tabs 0RF omeprazole magnesium (Prilosec) Discontinued Reason: Patient no longer taking 20 mg PO DAILY 30 ea 0RF Coding Level of Care Code New Pt Level 5 (06004) Diagnoses Congestive heart failure I50.22 Heart failure chronicity: chronic Heart failure type: systolic Mitral regurgitation I34.0 Tricuspid regurgitation I07.1 Pulmonary hypertension I27.20
== END 2023-12-15 11:18 | disposition home or self-care (01) ==
PROVIDERS: PCP Internal Medicine; Visit Provider Internal Medicine Cardiovascular Disease
DX: I27.20 Pulmonary hypertension, unspecified (principal); I13.2 Hypertensive heart and chronic kidney disease with heart failure and with stage 5 chronic kidney disease, or end stage renal disease; I50.22 Chronic systolic (congestive) heart failure; N18.6 End stage renal disease; Z99.2 Dependence on renal dialysis; I08.1 Rheumatic disorders of both mitral and tricuspid valves
CPT/HCPCS: 99215

== ENCOUNTER → 2023-12-15 10:04 | Outpatient (BNVA) | payer MEDICARE, SELFPAY | PROVIDERS: PCP Internal Medicine; Visit Provider Internal Medicine Cardiovascular Disease | DX: I27.20 Pulmonary hypertension, unspecified (principal); I13.2 Hypertensive heart and chronic kidney disease with heart failure and with stage 5 chronic kidney disease, or end stage renal disease; I50.22 Chronic systolic (congestive) heart failure; I34.0 Nonrheumatic mitral (valve) insufficiency; I07.1 Rheumatic tricuspid insufficiency; N18.6 End stage renal disease; Z99.2 Dependence on renal dialysis | CPT/HCPCS: 99212 ==

== ENCOUNTER → 2023-12-24 09:36 | Outpatient (REF) | payer MEDICARE, MEDICAID, SELFPAY ==
--- NOTE | 2023-12-24 09:40 | CA_ITS ---
Transthoracic Echocardiogram Patient (Last, First, Middle): Sterling Chávez L Gender: Male Date of : 1975 Age: 48 Procedure Date: 12/24/2023 Procedure Type: Transthoracic Echocardiogram Location: OP Height: 172. cm Weight: 54. kg BSA: 1.63 m2 Heart Rate: 68 bpm BP: 158 / 90 mmHg Display Designer Outside: [facility] Referring MD: Blayne Black MD Symptoms: I34.0 - Nonrheumatic mitral (valve) insufficiency Study Quality: Adequate ECG Rhythm: Sinus Conclusions: - The left ventricular systolic function is normal. The calculated ejection fraction is 68% by biplane method. - There is severely increased left ventricular wall thickness. - The basal inferior and basal inferolateral segments are hypokinetic. - There is moderate mitral annular calcification. There is moderate mitral valve regurgitation. - There is severe tricuspid valve regurgitation. - Severe pulmonary hypertension is present. Findings Left Ventricle Normal left ventricular cavity size. There is severely increased left ventricular wall thickness. The left ventricular systolic function is normal. The calculated ejection fraction is 68% by biplane method. Evidence suggests grade I (mild) diastolic dysfunction. Wall Motion Rest Echo Findings The basal inferior and basal inferolateral segments are hypokinetic. Right Ventricle Moderately increased right ventricular cavity size. There is mildly decreased right ventricular systolic function. Atria The left atrium is moderately dilated. The right atrium is mildly dilated. Intra-atrial septum bulging towards the left; may indicate increased right atrial pressure. Aortic Valve There is a normal trileaflet aortic valve. There is mild calcification of the aortic valve. There is no aortic valve stenosis. There is trace (trivial) aortic valve regurgitation. Mitral Valve The posterior mitral leaflet has restricted mobility. There is moderate mitral annular calcification. There is moderate mitral valve regurgitation. There is no mitral valve stenosis. Pulmonic Valve There is trace pulmonic valve regurgitation. Tricuspid Valve Normal tricuspid valve structure. There is severe tricuspid valve regurgitation. The right ventricular systolic pressure is 80 mmHg. Severe pulmonary hypertension is present. Great Vessels The asc aorta is normal in size. Venous The inferior vena cava is dilated and collapses less than 50% with inspiration. Pericardium/Pleural There is a small pericardial effusion. Prior Study Comparison Changes noted compared to prior study dated: 04/27/2023. RVSP lower. Wall motion similar. Measurements 2D Linear Measurements IVSd: 1.66 0.6-0.9/0.6-1.0 cm LVIDd: 4.15 3.9-5.3/4.2-5.9 cm LVIDd Index: 2.55 2.4-3.2/2.2-3.1 cm/m2 LVIDs: 2.41 2.0-3.6 cm LVPWd: 1.62 0.7-1.1 cm LA Diam: 4.70 2.7-3.8/3.0-4.0 cm LAIDs Index: 2.88 1.5-2.3 cm/m2 LV Mass: 352.25 67-162/88-224 g LV Mass Index: 216.10 43-95/49-115 g/m2 LVOT Diam: 2.00 3.0+(-)1.3 cm 2D Systolic Function EF 4C: 77.30 >55% EF 2C: 58.00 >55% EF BiP: 68.00 >55% Mitral Valve MV Pk E: 1.09 MV PK A: 1.18 MV Decel Time: 223.00 E/A: 0.90 E'Lateral: 6.42 E'Medial: 5.11 E/E' Med: 21.30 E/E' Lat: 17.00 PHT: 65.00 MVA PHT: 3.38 Decel [place]: 4.91 Aortic Valve AoV Pk Luis: 1.52 AoV Mn Luis: 1.08 AoV VTI: 0.33 AoV Pk Grad: 9.00 Aov Mn Grad: 5.00 FANY Cont.VTI: 1.84 LVOT LVOT Pk Luis: 0.93 LVOT Mn Luis: 0.67 LVOT VTI: 0.19 LVOT Pk Grad: 3.00 LVOT Mn Grad: 2.00 LVOT Diam: 2.00 LVOT Area: 3.14 Diastolic Function MV Pk E: 1.09 MV Pk A: 1.18 E/A: 0.90 E'Medial: 5.11 E/E' Med: 21.30 E' Laterial: 6.42 E/E' Lat: 17.00 Right Ventricle TAPSE (mm): 25.20 TVS' Luis: 9.36 Tricuspid Valve TR Pk Luis: 4.03 TR Pk Grad: 65.00 RA Press: 15.00 RVSP: 80.00 Great Vessels Aorta Sinus of Valsalva: 3.40 2.0-3.5 cm Ao Asc: 3.50 2.1-3.4 cm Pulmonary Valve PV Pk Luis: 0.75 Peak PV Grad: 2.00 Updated in Other Vendor System with Status of Final Sj Sun MD electronically signed on 12/26/2023 9:47:48 AM with status of Final
== END ==
LOC: HO.CARD 09:36
PROVIDERS: PCP Internal Medicine; Visit Provider Internal Medicine Cardiovascular Disease
DX: I34.0 Nonrheumatic mitral (valve) insufficiency (principal)
CPT/HCPCS: 93306

== ENCOUNTER → 2023-12-24 09:40 | Outpatient (BNV) | payer MEDICARE, MEDICAID, SELFPAY | PROVIDERS: PCP Internal Medicine; Visit Provider Internal Medicine | DX: I36.1 Nonrheumatic tricuspid (valve) insufficiency (principal); I34.0 Nonrheumatic mitral (valve) insufficiency; I35.8 Other nonrheumatic aortic valve disorders; I27.20 Pulmonary hypertension, unspecified | CPT/HCPCS: 93306 ==

== ENCOUNTER → 2024-01-07 | Outpatient (BNV) | payer MEDICARE, MEDICAID, SELFPAY | PROVIDERS: PCP Internal Medicine; Visit Provider Internal Medicine Hypertension Specialist | DX: N18.6 End stage renal disease (principal) | CPT/HCPCS: 90961 ==

== ENCOUNTER → 2024-02-06 | Outpatient (BNV) | payer MEDICARE, MEDICAID, SELFPAY | PROVIDERS: PCP Internal Medicine; Visit Provider Internal Medicine Hypertension Specialist | DX: N18.6 End stage renal disease (principal) | CPT/HCPCS: 90961 ==

== ENCOUNTER → 2024-03-08 | Outpatient (BNV) | payer MEDICARE, MEDICAID, SELFPAY | PROVIDERS: PCP Internal Medicine; Visit Provider Internal Medicine Hypertension Specialist | DX: N18.6 End stage renal disease (principal) | CPT/HCPCS: 90961 ==

== ENCOUNTER → 2024-04-08 | Outpatient (BNV) | payer MEDICARE, MEDICAID, SELFPAY | PROVIDERS: PCP Internal Medicine; Visit Provider Internal Medicine Hypertension Specialist | DX: N18.6 End stage renal disease (principal) | CPT/HCPCS: 90962 ==

== ENCOUNTER → 2024-05-06 | Outpatient (BNV) | payer MEDICARE, MEDICAID, SELFPAY | PROVIDERS: PCP Internal Medicine; Visit Provider Internal Medicine Hypertension Specialist | DX: N18.6 End stage renal disease (principal) | CPT/HCPCS: 90961 ==

== ENCOUNTER → 2024-06-06 | Outpatient (BNV) | payer MEDICARE, MEDICAID, SELFPAY | PROVIDERS: PCP Internal Medicine; Visit Provider Internal Medicine Hypertension Specialist | DX: N18.6 End stage renal disease (principal) | CPT/HCPCS: 90961 ==

== ENCOUNTER → 2024-09-05 23:59 | Outpatient (BNV) | payer MEDICARE, MEDICAID, SELFPAY | PROVIDERS: PCP Internal Medicine; Visit Provider Internal Medicine Hypertension Specialist | DX: N18.6 End stage renal disease (principal) | CPT/HCPCS: 90960 ==

== ENCOUNTER → 2024-10-06 23:59 | Outpatient (BNV) | payer MEDICARE, MEDICAID, SELFPAY | PROVIDERS: PCP Internal Medicine; Visit Provider Internal Medicine Hypertension Specialist | DX: N18.6 End stage renal disease (principal) | CPT/HCPCS: 90961 ==

== ENCOUNTER → 2024-11-06 23:59 | Outpatient (BNV) | payer MEDICARE, MEDICAID, SELFPAY | PROVIDERS: PCP Internal Medicine; Visit Provider Internal Medicine Hypertension Specialist | DX: N18.6 End stage renal disease (principal) | CPT/HCPCS: 90961 ==

== ENCOUNTER → 2024-12-06 23:59 | Outpatient (BNV) | payer MEDICARE, MEDICAID, SELFPAY | PROVIDERS: PCP Internal Medicine; Visit Provider Internal Medicine Hypertension Specialist | DX: N18.6 End stage renal disease (principal) | CPT/HCPCS: 90961 ==

== ENCOUNTER → 2025-01-06 23:59 | Outpatient (BNV) | payer MEDICARE, MEDICAID, SELFPAY | PROVIDERS: PCP Internal Medicine; Visit Provider Internal Medicine Hypertension Specialist | DX: N18.6 End stage renal disease (principal) | CPT/HCPCS: 90962 ==

== ENCOUNTER → 2025-02-05 23:59 | Outpatient (BNV) | payer MEDICARE, MEDICAID, SELFPAY | PROVIDERS: PCP Internal Medicine; Visit Provider Internal Medicine Hypertension Specialist | DX: N18.6 End stage renal disease (principal) | CPT/HCPCS: 90961 ==